=== PATIENT | female | born 1945 | race Caucasian/White ===

== ENCOUNTER 2018-08-29 06:01 | Inpatient (IN) | payer MEDICARE, OTHER, MEDICAID ==
[~2018-08-29 06:01] MED LIST: Acetaminophen 325 MG Tab PO SCH; Lidocaine 1%/Sod Bicarbonate in NS 8.4% 1 ML Syringe IDERM PRN; Pregabalin 25 MG Cap PO SCH; Sodium Chloride 0.9% 10 ML Syringe FLUSH PRN; oxyCODONE ER 10 MG TAB.ER PO SCH
[2018-08-29] MEDS ORDERED: Iodine/Sodium Iodide 2% Tincture 30 ML Bottle ONE (06:21)
[2018-08-29] MEDS ORDERED: Vancomycin 1 GM SDV ONE (06:21)
[2018-08-29] MEDS ORDERED: Bupivacaine 0.25% 30 ML SDV ONE (06:21)
[2018-08-29] MEDS ORDERED: ceFAZolin 1 GM Vial ONE ×3 (06:21→08:06)
[2018-08-29] MEDS: Lactated Ringers 1,000 ML IV SCH ×2 (06:30→10:36)
--- NOTE | 2018-08-29 06:43 | PCM.PREANE ---
Preanesthetic Assessment - Anesthesia/Transfusion/Family Hx Anesthesia History: Prior Anesthesia Without Reaction Family History of Anesthesia Reaction: No Transfusion History: No Prior Transfusion(s) Type of Transfusion Reactions: Reports: Unknown - Review of Systems General: No Symptoms Pulmonary: No Symptoms Cardiovascular: Dyspnea on Exertion Gastrointestinal: Abdominal Pain (laying in supine position) Neurological: Seizure (6 years of age) Other: Reports: Easy Bruising, Diabetes (check at [id number]) - Physical Assessment NPO Status Date: 08/28/18 NPO Status Time: 00:00 Pulse: 57 O2 Sat by Pulse Oximetry: 96 Respiratory Rate: 16 Blood Pressure: 139/54 Temperature: 36.2 C Height: 1.73 m Weight: 119.249 kg ASA Class: 3 Mental Status: Alert & Oriented x3 Dentition: Reports: Dentures (upper) Thyro-Mental Finger Breadths: 2 Mouth Opening Finger Breadths: 2 ROM/Head Extension: Full Lungs: Clear to Auscultation, Normal Respiratory Effort Cardiovascular: Regular Rate, Regular Rhythm - Lab Values: Laboratory Last Values MRSA (PCR) Negative 08/17/18 16:23 - Imaging/EKG Impressions: on chart SB - Allergies Allergies/Adverse Reactions: Allergies Allergy/AdvReac Type Severity Reaction Status Date / Time metformin Allergy Cannot Verified 08/26/18 11:22 Remember - Anesthesia Plan Pre-Op Medication Ordered: Beta Theron Beta [place]: Labetalol Med Last Dose Date: 08/29/18 Med Last Dose Time: 05:30 - Acknowledgements Anesthesia Type Planned: Spinal, Regional Block (femoral block for post-op pain control) Pt an Appropriate Candidate for the Planned Anesthesia: Yes Alternatives and Risks of Anesthesia Discussed w Pt/Guardian: Yes Pt/Guardian Understands and Agrees with Anesthesia Plan: Yes PreAnesthesia Questionnaire HEENT History: Reports: Impaired Vision, Sinusitis, Other (See Below) Other HEENT History: wears glasses, has upper denture Cardiovascular History: Reports: Heart Murmur, High Cholesterol, Hypertension, Other (See Below) Other Cardiovascular History: SVT Respiratory History: Reports: Sleep Apnea Gastrointestinal History: Reports: Hemorrhoids Genitourinary History: Reports: Urinary Incontinence, Other (See Below) Other Genitourinary History: frequency 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: Other (See Below) Other OB/BYN History: breast lump Musculoskeletal History: Reports: Osteoarthritis Neurological History: Reports: Headaches, Chronic Psychiatric History: Reports: None Endocrine/Metabolic History: Reports: Diabetes, Type II, Hypothyroidism, Obesity /BMI 30+ Hematologic History: Reports: None Immunologic History: Reports: None Oncologic (Cancer) History: Reports: None Dermatologic History: Reports: Cellulitis, Other (See Below) Other Dermatologic History: lipoma - Infectious Disease History Infectious Disease History: Reports: Chicken Pox, Measles - Past Surgical History HEENT Surgical History: Reports: Cataract Surgery, Eye Surgery, Tonsillectomy Other HEENT Surgeries/Procedures: Cataract surg. OD Respiratory Surgical History: Reports: None GI Surgical History: Reports: Colonoscopy Female Surgical History: Reports: None Male Surgical History: Reports: None Musculoskeletal Surgical History: Reports: Knee Replacement, Other (See Below) Other Musculoskeletal Surgeries/Procedures:: bulging disc, surgery x 2 for ruptured disc Oncologic Surgical History: Reports: None Dermatological Surgical History: Reports: None - SUBSTANCE USE Smoking Status *Q: Never Smoker Tobacco Use Within Last Twelve Months: No Second Hand Smoke Exposure: No Days Per Week of Alcohol Use: 0 Number of Drinks Per Day: 0 Total Drinks Per Week: 0 Recreational Drug Use History: No - HOME MEDS Home Medications: Home Meds Acetaminophen [Tylenol Arthritis] 1,300 mg PO BID 08/26/18 [History] Ascorbate Calcium [Vitamin C] 1,000 mg PO DAILY 08/26/18 [History] Aspirin [Halfprin] 81 mg PO DAILY 08/26/18 [History] Chlorthalidone 25 mg PO DAILY 08/26/18 [History] Cyanocobalamin (Vitamin B12) [Vitamin B12] 250 mcg PO DAILY 08/26/18 [History] Docusate Sodium [Colace] 300 mg PO DAILY 08/26/18 [History] Fish Oil/DHA/EPA [Fish Oil 1,200 MG] 1,200 mg PO DAILY 08/26/18 [History] Fluticasone Propionate [Flonase] 1 dose NASBOTH DAILY PRN 08/26/18 [History] Furosemide 20 mg PO DAILY 08/26/18 [History] Furosemide 20 mg PO DAILY PRN 08/26/18 [History] Gabapentin [Neurontin] 300 mg PO DAILY 08/26/18 [History] Hydrocortisone [Hydrocortisone 1% Crm] 1 dose TOP BID PRN 08/26/18 [History] Ibuprofen [Advil] 800 mg PO Q6H PRN 08/26/18 [History] Insulin Aspart [NovoLOG] 12 units SQ TID 08/26/18 [History] Insulin Glargine,Hum.Rec.Anlog [Basaglar Kwikpen U-100] 80 units SQ BEDTIME [History] L. Acidophilus/Pectin, [place] [Acidophilus Probiotic] 1 cap PO DAILY 08/26/18 [ History] Labetalol [Normodyne] 100 mg PO BID 08/26/18 [History] Levothyroxine [Synthroid] 100 mcg PO DAILY 08/26/18 [History] Losartan [Cozaar] 50 mg PO DAILY 08/26/18 [History] Multivitamin [Children's Chewable Vitamin] 1 tab PO DAILY 08/26/18 [History] Ozempic 0.5 mg SQ TH 08/26/18 [History] Polyvinyl Alcohol/Povidone/Pf [Refresh Classic Eye Drops] 1 dose EYEBOTH DAILY PRN 08/26/18 [History] Rosuvastatin Calcium 20 mg PO DAILY 08/26/18 [History] Vitamin B Comp W-C/FA/Zinc [Anjali B Strong with C & Zinc Tb] 1 tab PO DAILY 08/26 [History] Vitamin E 400 unit PO DAILY 08/26/18 [History] amLODIPine Besylate [Norvasc] 10 mg PO DAILY 08/26/18 [History] - CURRENT (IN HOUSE) MEDS Current Meds: Current Medications Acetaminophen (Tylenol) 975 mg PO ONETIME NISA Stop: 08/29/18 18:00 Last Admin: 08/29/18 06:28 Dose: 975 mg Lactated Ringer's (Ringers, Lactated) 1,000 mls @ 125 mls/hr IV ASDIRECTED NISA Stop: 08/29/18 23:00 Lidocaine/Sodium Bicarbonate (Buffered Lidocaine 1% In Ns 8.4%) 0.25 ml IDERM ONETIME PRN PRN Reason: Prior to IV Start Stop: 08/29/18 18:00 Oxycodone HCl (Oxycontin) 10 mg PO ONETIME NISA Stop: 08/29/18 18:00 Last Admin: 08/29/18 06:27 Dose: 10 mg Pregabalin (Lyrica) 50 mg PO ONETIME NISA Stop: 08/29/18 18:00 Last Admin: 08/29/18 06:27 Dose: 50 mg Sodium Chloride (Saline Flush) 10 ml FLUSH ASDIRECTED PRN PRN Reason: Keep Vein Open Stop: 08/29/18 18:00 Discontinued Medications Bupivacaine HCl (Marcaine 0.25%) Confirm Administered Dose 30 ml .ROUTE .STK- MED ONE Stop: 08/29/18 06:22 Cefazolin Sodium (Ancef) Confirm Administered Dose 2 gm .ROUTE .STK-MED ONE Stop: 08/29/18 06:22 Iodine (Iodine 2% Mild Tincture) Confirm Administered Dose 30 ml .ROUTE .STK- MED ONE Stop: 08/29/18 06:22 Tranexamic Acid (Cyklokapron) Confirm Administered Dose 1,000 mg .ROUTE .STK- MED ONE Stop: 08/29/18 06:22 Vancomycin HCl (Vancomycin) Confirm Administered Dose 1 gm .ROUTE .STK-MED ONE Stop: 08/29/18 06:22
[2018-08-29] MEDS ORDERED: Propofol 200 MG/20 ML SDV ONE ×2 (06:54→07:40)
[2018-08-29] MEDS ORDERED: fentaNYL 100 MCG/2 ML SDV ONE ×2 (06:54→09:22)
[2018-08-29] MEDS ORDERED: Ropivacaine 0.5% 5 MG/ML 30 ML SDV ONE (07:37)
[2018-08-29] MEDS ORDERED: EPINEPHrine 1 MG/ML SDV ONE (07:37)
[2018-08-29] MEDS ORDERED: Morphine 8 MG, EPINEPHrine 0.3 MG, Cefuroxime 750 MG, Ketorolac 30 MG, Sodium Chloride ... ONE ×5 (08:00)
[2018-08-29] MEDS ORDERED: Lactated Ringers 1,000 ML ONE (08:08)
[2018-08-29] MEDS ORDERED: fentaNYL 250 MCG/5 ML SDV ONE (08:16)
[2018-08-29] MEDS ORDERED: HYDROmorphone 0.5 MG/0.5 ML Syringe ONE ×2 (08:17→08:18)
[2018-08-29] MEDS ORDERED: Ondansetron 4 MG/2 ML SDV ONE (08:20)
[2018-08-29] MEDS ORDERED: Bisacodyl 5 MG Tab PO PRN (08:30)
[2018-08-29] MEDS ORDERED: Naloxone 0.4 MG/ML SDV IVPUSH PRN (08:30)
[2018-08-29] MEDS ORDERED: Sennosides 8.6 MG Tab PO PRN (08:30)
[2018-08-29] MEDS ORDERED: Ondansetron 4 MG/2 ML SDV IVPUSH PRN (08:30)
[2018-08-29] MEDS ORDERED: Lidocaine 1% 2 ML ONE (09:22)
[2018-08-29] MEDS ORDERED: Ketorolac 30 MG/ML SDV IVPUSH ONE (09:56)
[2018-08-29] MEDS ORDERED: HYDROmorphone 0.5 MG/0.5 ML Syringe IVPUSH PRN (10:13)
[2018-08-29] MEDS ORDERED: fentaNYL 100 MCG/2 ML SDV IVPUSH PRN (10:13)
[2018-08-29] MEDS ORDERED: Hydrocortisone 1% Crm 30 GM Tube TOP PRN (10:14)
[2018-08-29] MEDS ORDERED: Furosemide 20 MG Tab PO PRN (10:14)
[2018-08-29] MEDS ORDERED: Carboxymethylcellulose Sodium 1% Ophth Gel 15 ML Bottle EYEBOTH PRN (10:14)
--- NOTE | 2018-08-29 10:15 | PCM.POSTAN ---
POST ANESTHESIA ASSESSMENT - MENTAL STATUS Mental Status: Alert, Oriented - VITAL SIGNS Pulse Rate: 67 SaO2: 91 Resp Rate: 12 Blood Pressure: 182/73 Temperature: 36.9 C - RESPIRATORY Respiratory Status: Respiratory Rate WNL, Airway Patent, O2 Saturation Stable, Supplemental Oxygen - CARDIOVASCULAR CV Status: Pulse Rate WNL, Blood Pressure Stable - GASTROINTESTINAL GI Status: No Symptoms - PAIN Pain Score: 5 - POST OP HYDRATION Hydration Status: Adequate & Stable - OBSERVATIONS Free Text/Narrative:: no anesthesia complications noted
--- NOTE | 2018-08-29 10:18 | PCM.SN ---
- Free Text/Narrative Note: Right selective femoral nerve block at the adductor canal for post-procedure pain control Time Out: 932 Start: 932 End: 954 Chart reviewed. Consent signed. Questions answered. Appropriate monitors applied. Time out performed. Right mid-shaft femur evaluated with ultrasound. Scanning medially femur, I was able to identify the femoral artery in the adductor canal. The saphenous nerve was lateral to the artery. The skin was prepped lateral to the ultrasound probe with chlorahexadine. The 21ga 4 insulated block needle was inserted under direct ultrasound guidance into the adductor canal. 25 mL of 0.5% ropivacaine with 1:200,000 epinephrine was injected cirmcumferentially about the nerve with intermittent negative aspiration every 5mL. Patient tolerated the procedure well. See pictures on progress note and vital signs on nurses notes. Block completed postoperatively. Kevon Krueger CRNA
[2018-08-29] MEDS: Acetaminophen/oxyCODONE 325-5 MG Tab PO PRN ×2 (10:33→20:08)
--- NOTE | 2018-08-29 11:11 | CR ---
Right knee: AP and lateral views of the right knee were obtained. Comparison: No prior right knee exam. Knee prosthesis is seen. Components are aligned. Soft tissue air is noted from the surgical procedure. No fracture or other bony abnormality is appreciated. Impression: 1. Satisfactory appearance of recently placed right knee prosthesis. Diagnostic code #2
[2018-08-29] MEDS ORDERED: Fluticasone Propionate Nasal Spray 16 GM Bottle NASBOTH SCH (11:15)
[2018-08-29] MEDS: Morphine 2 MG/ML Syringe IVPUSH PRN (11:30)
--- NOTE | 2018-08-29 11:58 | PCM.CONS ---
H&P History of Present Illness - General Date of Service: 08/29/18 Admit Problem/Dx: Admission Diagnosis/Problem Admission Diagnosis/Problem Osteoarthritis of knee Source of Information: Patient, Old Records, Provider, RN, RN Notes Reviewed History Limitations: Reports: No Limitations - History of Present Illness Initial Comments - Free Text/Narative: Antonella Geronimo is a 73 yo female patient of Dr. Franklin who is post-operative day 0 of right TKA. Hospital medicine was consulted for post-operative medical care. At this time she is resting comfortably in bed. Pain is controlled. She denies any chest pain, shortness of breath, palpitations, nausea, or vomiting. She carries a history of: Type II DM, HTN, HLD, Palpations, Hypothyroidism, Heart murmur, SVT, Sleep apnea, Urinary incontinence, Osteoarthritis, Chronic headaches. She was never a smoker. She is a full code. Her primary care provider is Dr. Morris. Right Knee Pain Score (Numeric/FACES): 2 - Related Data Allergies/Adverse Reactions: Allergies Allergy/AdvReac Type Severity Reaction Status Date / Time metformin Allergy Cannot Verified 08/26/18 11:22 Remember Home Medications: Home Meds Chlorthalidone 25 mg PO DAILY 08/26/18 [History] Cyanocobalamin (Vitamin B12) [Vitamin B12] 250 mcg PO DAILY 08/26/18 [History] Docusate Sodium [Colace] 300 mg PO DAILY 08/26/18 [History] Fluticasone Propionate [Flonase] 1 dose NASBOTH DAILY PRN 08/26/18 [History] Furosemide 20 mg PO DAILY 08/26/18 [History] Furosemide 20 mg PO DAILY PRN 08/26/18 [History] Gabapentin [Neurontin] 300 mg PO DAILY 08/26/18 [History] Hydrocortisone [Hydrocortisone 1% Crm] 1 dose TOP BID PRN 08/26/18 [History] Insulin Aspart [NovoLOG] 12 units SQ TID 08/26/18 [History] Insulin Glargine,Hum.Rec.Anlog [Basaglar Kwikpen U-100] 80 units SQ BEDTIME [History] L. Acidophilus/Pectin, [place] [Acidophilus Probiotic] 1 cap PO DAILY 08/26/18 [ History] Labetalol [Normodyne] 100 mg PO BID 08/26/18 [History] Levothyroxine [Synthroid] 100 mcg PO DAILY 08/26/18 [History] Losartan [Cozaar] 50 mg PO DAILY 08/26/18 [History] Multivitamin [Children's Chewable Vitamin] 1 tab PO DAILY 08/26/18 [History] Ozempic 0.5 mg SQ TH 08/26/18 [History] Polyvinyl Alcohol/Povidone/Pf [Refresh Classic Eye Drops] 1 dose EYEBOTH DAILY PRN 08/26/18 [History] Rosuvastatin Calcium 20 mg PO DAILY 08/26/18 [History] amLODIPine Besylate [Norvasc] 10 mg PO DAILY 08/26/18 [History] Acetaminophen [Tylenol Arthritis] 1,300 mg PO BID #0 08/29/18 [Rx] Acetaminophen/oxyCODONE [Percocet 325-5 MG] 1 - 2 tab PO Q4H PRN #60 tablet [Rx] Aspirin [Ecotrin] 325 mg PO BID #84 tab.ec 08/29/18 [Rx] Bisacodyl [Dulcolax] 5 mg PO DAILY PRN tablet 08/29/18 [Rx] Sennosides [Senna] 8.6 mg PO BID PRN tablet 08/29/18 [Rx] Past Medical History HEENT History: Reports: Impaired Vision, Sinusitis, Other (See Below) Other HEENT History: wears glasses, has upper denture Cardiovascular History: Reports: Heart Murmur, High Cholesterol, Hypertension, Other (See Below) Other Cardiovascular History: SVT Respiratory History: Reports: Sleep Apnea Gastrointestinal History: Reports: Hemorrhoids Genitourinary History: Reports: Urinary Incontinence, Other (See Below) Other Genitourinary History: frequency 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: Other (See Below) Other OB/BYN History: breast lump Musculoskeletal History: Reports: Osteoarthritis Neurological History: Reports: Headaches, Chronic Psychiatric History: Reports: None Endocrine/Metabolic History: Reports: Diabetes, Type II, Hypothyroidism, Obesity /BMI 30+ Hematologic History: Reports: None Immunologic History: Reports: None Oncologic (Cancer) History: Reports: None Dermatologic History: Reports: Cellulitis, Other (See Below) Other Dermatologic History: lipoma - Infectious Disease History Infectious Disease History: Reports: Chicken Pox, Measles - Past Surgical History HEENT Surgical History: Reports: Cataract Surgery, Eye Surgery, Tonsillectomy Other HEENT Surgeries/Procedures: Cataract surg. OD Cardiovascular Surgical History: Reports: Varicose Respiratory Surgical History: Reports: None GI Surgical History: Reports: Colonoscopy Female Surgical History: Reports: None Musculoskeletal Surgical History: Reports: Knee Replacement, Other (See Below) Other Musculoskeletal Surgeries/Procedures:: bulging disc, surgery x 2 for ruptured disc Oncologic Surgical History: Reports: None Dermatological Surgical History: Reports: None Social & Family History - Family History Family Medical History: Noncontributory - Tobacco Use Smoking Status *Q: Never Smoker Second Hand Smoke Exposure: No - Caffeine Use Caffeine Use: Reports: None - Alcohol Use Days Per Week of Alcohol Use: 0 Number of Drinks Per Day: 0 Total Drinks Per Week: 0 - Recreational Drug Use Recreational Drug Use: No Drug Use in Last 12 Months: No H&P Review of Systems - Review of Systems: Review Of Systems: See Below General: Reports: Decreased Appetite (chronic ). Denies: Fever, Chills, Malaise HEENT: Reports: No Symptoms. Denies: Headaches, Sore Throat Pulmonary: Reports: No Symptoms. Denies: Shortness of Breath, Wheezing, Pleuritic Chest Pain, Cough, Sputum Cardiovascular: Reports: No Symptoms. Denies: Chest Pain, Palpitations, Dyspnea on Exertion Gastrointestinal: Reports: No Symptoms. Denies: Abdominal Pain, Constipation, Diarrhea, Nausea, Vomiting Genitourinary: Reports: No Symptoms. Denies: Pain Musculoskeletal: Reports: Leg Pain Skin: Reports: No Symptoms. Denies: Cyanosis Psychiatric: Reports: No Symptoms. Denies: Confusion Neurological: Reports: No Symptoms Hematologic/Lymphatic: Reports: No Symptoms Immunologic: Reports: No Symptoms Exam - Exam Exam: See Below - Vital Signs Vital Signs: Last Vital Signs Temp 98.4 F 08/29/18 10:45 Pulse 69 08/29/18 10:45 Resp 13 08/29/18 10:45 BP 175/66 H 08/29/18 10:45 Pulse Ox 98 08/29/18 11:47 Weight: 262 lb 14.4 oz - Exam Quality Assessment: Supplemental Oxygen, DVT Prophylaxis General: Alert, Oriented, Cooperative. No: Mild Distress HEENT: Conjunctiva Clear, EACs Clear, EOMI, Hearing Intact, Mucosa Moist & [place] , Nares Patent, Posterior Pharynx Clear, PERRLA Neck: Supple, Trachea Midline Lungs: Clear to Auscultation, Normal Respiratory Effort Cardiovascular: Regular Rate, Regular Rhythm GI/Abdominal Exam: Normal Bowel Sounds, Soft, Non-Tender, No Organomegaly, No Distention (Female) Exam: Deferred Rectal (Female) Exam: Deferred Back Exam: Normal Inspection, Full Range of Motion Extremities: No Pedal Edema, Normal Capillary Refill, Leg Pain, Limited Range of Motion, Other (Bandage in place on right leg. Bandage is dry and intact. Cooling pack in place. ) Peripheral Pulses: 2+: Radial (L), Radial (R), Dorsalis Pedis (L), Dorsalis Pedis (R) Skin: Warm, Dry, Intact Neurological: Cranial Nerves Intact (Grossly ) Neuro Extensive - Mental Status: Alert, Oriented x3, Normal Mood/Affect, Normal Cognition - Patient Data Lab Results Last 24 hrs: Laboratory Results - last 24 hr 08/29/18 08/29/18 Range/Units 06:37 09:32 POC Glucose 135 H 147 H (83-110) mg/dL Consult PN Assessment/Plan POD#: 0 Procedures: Procedures ASSAY OF ALDOSTERONE (10/08/15) ASSAY OF BLOOD/URIC ACID (06/22/17) ASSAY OF DIGOXIN TOTAL (10/27/13) ASSAY OF MAGNESIUM (06/27/18) ASSAY OF METANEPHRINES (10/08/15) ASSAY OF PARATHORMONE (10/04/15) ASSAY OF PROTEIN URINE (06/27/18) ASSAY OF RENIN (10/08/15) ASSAY OF TROPONIN QUANT (08/11/18) ASSAY OF URINE CREATININE (06/27/18) C-REACTIVE PROTEIN (01/30/16) CARDIOVASCULAR STRESS TEST (05/04/17) COMPLETE CBC W/AUTO DIFF WBC (06/27/18) COMPREHEN METABOLIC PANEL (01/06/16) COMPUTER DX MAMMOGRAM ADD-ON (11/02/14) DRAIN/INJ JOINT/BURSA W/O US (04/14/16) GAIT TRAINING THERAPY (02/06/16) GLUCOSE BLOOD TEST (01/06/16) HT MUSCLE IMAGE SPECT MULT (05/04/17) MANUAL THERAPY 1/> REGIONS (05/07/16) MASSAGE THERAPY (03/19/16) MEASURE BLOOD OXYGEN LEVEL (01/06/16) METABOLIC PANEL TOTAL CA (05/04/17) MR-STAPH DNA AMP PROBE (12/25/15) NEUROMUSCULAR REEDUCATION (05/07/16) OT EVALUATION (01/06/16) POLYSOM 6/>YRS CPAP 4/> PARM (08/16/17) PROTEIN E-PHORESIS SERUM (10/04/15) PROTEIN E-PHORESIS/URINE/CSF (10/04/15) PT EVALUATION (05/07/16) RBC SED RATE AUTOMATED (01/30/16) RENAL FUNCTION PANEL (06/27/18) ROUTINE VENIPUNCTURE (06/27/18) SELF CARE MNGMENT TRAINING (01/06/16) THERAPEUTIC ACTIVITIES (01/06/16) THERAPEUTIC EXERCISES (05/07/16) TISSUE EXAM BY PATHOLOGIST (12/11/14) URINALYSIS AUTO W/SCOPE (06/27/18) URINE CULTURE/COLONY COUNT (07/09/15) X-RAY EXAM OF KNEE 1 OR 2 (01/06/16) (1) S/P total knee arthroplasty SNOMED Code(s): 2584206380950, 877418449, 6246054228957 Code(s): Z96.659 - PRESENCE OF UNSPECIFIED ARTIFICIAL KNEE JOINT Priority: High Current Visit: Yes Qualifiers: Laterality: right Qualified Code(s): Z96.651 - Presence of right artificial knee joint (2) Osteoarthritis SNOMED Code(s): 100379462 Code(s): M19.90 - UNSPECIFIED OSTEOARTHRITIS, UNSPECIFIED SITE Priority: High Current Visit: Yes Qualifiers: Osteoarthritis location: knee Osteoarthritis type: primary Laterality: right Qualified Code(s): M17.11 - Unilateral primary osteoarthritis, right knee (3) Diabetes mellitus type 2 in obese SNOMED Code(s): 61937730 Code(s): E11.9 - TYPE 2 DIABETES MELLITUS WITHOUT COMPLICATIONS; E66.9 - OBESITY, UNSPECIFIED Priority: Medium Current Visit: No (4) Hyperlipidemia SNOMED Code(s): 19604215 Code(s): E78.5 - HYPERLIPIDEMIA, UNSPECIFIED Priority: Low Current Visit : No Qualifiers: Hyperlipidemia type: unspecified Qualified Code(s): E78.5 - Hyperlipidemia , unspecified (5) Hypertension SNOMED Code(s): 56957081 Code(s): I10 - ESSENTIAL (PRIMARY) HYPERTENSION Priority: Medium Current Visit: No Qualifiers: Hypertension type: unspecified Qualified Code(s): I10 - Essential (primary ) hypertension (6) Hypothyroidism SNOMED Code(s): 35936084 Code(s): E03.9 - HYPOTHYROIDISM, UNSPECIFIED Priority: Low Current Visit : No Qualifiers: Hypothyroidism type: unspecified Qualified Code(s): E03.9 - Hypothyroidism , unspecified (7) Urinary incontinence SNOMED Code(s): 756663782 Code(s): R32 - UNSPECIFIED URINARY INCONTINENCE Priority: Medium Current Visit: No Qualifiers: Urinary Incontinence type: unspecified incontinence Qualified Code(s): R32 - Unspecified urinary incontinence Problem List Initiated/Reviewed/Updated: Yes Plan: I/P: Acute: S/P right total knee arthroplasty - post-operative day 0 -DVT prophylaxis and pain management per primary care team -PT/OT -IS/RT -Monitor oxygen saturation -Titrate oxygen as needed -Home medications reviewed -Vital signs stable -Monitor labs -Pre-operative Hgb was 13.1 -Pre-operative GFR was 58 -Pre operative A1C was 6.6% Osteoarthritis of right knee -Pain management per primary care team Chronic: Type II DM HTN HLD Palpations Hypothyroidism Heart murmur Hx/o SVT Sleep apnea Urinary incontinence Osteoarthritis Chronic headaches Plan: CM for discharge planning GI prophylaxis Home medications as indicated Other orders as listed above Routine AM labs She is a full code. Her PCP is Dr. Morris Thank you for allowing us to participate in the care of this patient!! Requesting Provider: Dr. Franklin Date Consult Requested: 08/29/18 Reason for Consult: Post-operative medical managment Patient History Reviewed: Yes Admission H&P Reviewed: Yes Time Spent (in minutes): 40
[2018-08-29] MEDS ORDERED: 50% Dextrose in Water 50 ML Syringe IVPUSH PRN (14:12)
[2018-08-29] MEDS ORDERED: Insulin Lispro 100 Units/ML 3 ML Vial SUBCUT SCH (15:00)
[2018-08-29] MEDS: ceFAZolin 1 GM in Premix Bag 1 BAG IV SCH ×2 (16:17→23:20)
[2018-08-29] MEDS: Insulin Lispro 100 Units/ML 3 ML Vial SUBCUT SCH ×2 (16:36→21:15)
[2018-08-29] MEDS: ceFAZolin 2 GM in Premix Bag 1 BAG IV SCH ×2 (17:27→22:43)
[2018-08-29] MEDS: Labetalol 100 MG Tab PO SCH (20:07)
[2018-08-29] MEDS ORDERED: Docusate Sodium 100 MG Cap PO SCH (21:00)
[2018-08-29] MEDS ORDERED: Insulin Glarg,Human.Rec.Analog 100 UNIT/ML ML SUBCUT SCH (21:00)
[2018-08-30] MEDS: Morphine 2 MG/ML Syringe IVPUSH PRN ×2 (00:11→02:16)
[2018-08-30] MEDS: Acetaminophen/oxyCODONE 325-5 MG Tab PO PRN ×6 (00:50→23:39)
[2018-08-30] MEDS: Ketorolac 15 MG/ML SDV IVPUSH PRN ×2 (01:48→08:17)
[2018-08-30] MEDS: ceFAZolin 2 GM in Premix Bag 1 BAG IV SCH (05:59)
[2018-08-30] MEDS: Insulin Lispro 100 Units/ML 3 ML Vial SUBCUT SCH ×4 (06:14→21:40)
--- NOTE | 2018-08-30 06:25 | PCM.CONSN ---
- General Info Date of Service: 08/30/18 Admission Dx/Problem (Free Text): Admission Diagnosis/Problem Admission Diagnosis/Problem Osteoarthritis of knee Subjective Update: In to see Antonella. She reports he pain is controlled currently. She has been working with PT/OT and there are some concerns with her safety at discharge. Her GFR dropped a bit today and creatinine went up so 500mL fluid bolus was given. Otherwise labs and vital signs remain stable. Functional Status: Reports: Pain Controlled, Tolerating Diet, Ambulating, Urinating, Incentive Spirometry. Denies: New Symptoms - Review of Systems General: Reports: No Symptoms. Denies: Fever, Weakness, Fatigue, Malaise, Chills HEENT: Reports: No Symptoms. Denies: Headaches, Sore Throat Pulmonary: Reports: No Symptoms. Denies: Shortness of Breath, Pleuritic Chest Pain, Cough, Sputum, Wheezing Cardiovascular: Reports: No Symptoms. Denies: Chest Pain, Palpitations, Dyspnea on Exertion Gastrointestinal: Reports: No Symptoms. Denies: Abdominal Pain, Constipation, Diarrhea, Nausea, Vomiting Genitourinary: Reports: No Symptoms. Denies: Pain Musculoskeletal: Reports: Leg Pain Skin: Reports: No Symptoms. Denies: Cyanosis Neurological: Reports: No Symptoms. Denies: Confusion Psychiatric: Reports: No Symptoms - Patient Data Vitals - Most Recent: Last Vital Signs Temp 97.9 F 08/30/18 05:06 Pulse 60 08/30/18 05:06 Resp 14 08/30/18 05:06 BP 134/43 L 08/30/18 05:06 Pulse Ox 99 08/30/18 05:06 Weight - Most Recent: 262 lb 14.4 oz I&O - Last 24 Hours: Intake & Output 08/29/18 08/29/18 08/30/18 14:59 22:59 06:59 Intake Total 300 200 Output Total 475 Balance -175 200 Lab Results Last 24 Hours: Laboratory Results - last 24 hr 08/29/18 08/29/18 08/29/18 Range/Units 06:37 09:32 16:28 POC Glucose 135 H 147 H 150 H (83-110) mg/dL 08/29/18 08/30/18 Range/Units 21:13 06:09 POC Glucose 117 H 168 H (83-110) mg/dL Med Orders - Current: Current Medications Amlodipine Besylate (Norvasc) 10 mg PO DAILY [facility] Artificial Tears (Refresh Liquigel 1%) 0 ml EYEBOTH DAILY PRN PRN Reason: Dry Eyes Aspirin (Ecotrin) 325 mg PO BID [facility] Bisacodyl (Dulcolax) 5 mg PO DAILY PRN PRN Reason: Constipation Dextrose/Water (Dextrose 50% In Water) 50 ml IVPUSH ASDIRECTED PRN PRN Reason: Hypoglycemia Docusate Sodium (Colace) 300 mg PO DAILY [facility] Flunisolide (Nasalide Nasal [place]) 0 ml NASBOTH DAILY [facility] Furosemide (Lasix) 20 mg PO DAILY PRN PRN Reason: swelling Furosemide (Lasix) 20 mg PO DAILY [facility] Gabapentin (Neurontin) 300 mg PO DAILY [facility] Hydrocortisone (Hydrocortisone 1% Crm) 0 gm TOP BID PRN PRN Reason: skin complications Cefazolin Sodium/Dextrose 2 gm (/ Premix) 50 mls @ 100 mls/hr IV Q8H [facility] Stop: 08/30/18 07:29 Last Admin: 08/30/18 05:59 Dose: 100 mls/hr Cefazolin Sodium/Dextrose 1 gm (/ Premix) 50 mls @ 66.667 mls/hr IV Q8H [facility] Stop: 08/30/18 07:44 Last Admin: 08/29/18 23:20 Dose: 66.667 mls/hr Insulin Human Lispro (Humalog) 12 unit SUBCUT TID [facility] Insulin Human Lispro (Humalog) 0 unit SUBCUT QIDACANDBED [facility]; Protocol Last Admin: 08/30/18 06:14 Dose: 2 unit Ketorolac Tromethamine (Toradol) 15 mg IVPUSH Q6H PRN PRN Reason: Pain Last Admin: 08/30/18 01:48 Dose: 15 mg Labetalol HCl (Normodyne) 100 mg PO BID [facility] Last Admin: 08/29/18 20:07 Dose: 100 mg Levothyroxine Sodium (Synthroid) 100 mcg PO DAILY [facility] Losartan Potassium (Cozaar) 50 mg PO DAILY [facility] Morphine Sulfate (Morphine) 2 mg IVPUSH Q2H PRN PRN Reason: Breakthrough Pain Last Admin: 08/30/18 02:16 Dose: 2 mg Naloxone HCl (Narcan) 0.1 mg IVPUSH Q5M PRN PRN Reason: Oversedation Ondansetron HCl (Zofran) 4 mg IVPUSH Q6H PRN PRN Reason: Nausea/Vomiting Oxycodone/Acetaminophen (Percocet 325-5 Mg) 1 - 2 tab PO Q4H PRN PRN Reason: Pain Last Admin: 08/30/18 05:02 Dose: 2 tab Chlorthalidone 25 Mg (Patients Own Med) 0 each PO DAILY [facility] Cyanocobalamin ( (Vitamin B12) 250 Mcg) 0 each PO DAILY [facility] Acidophilus Probiotic Patients Own Med 0 each PO DAILY [facility] Children's Chewable Vitamin 1 Tab Patient's Own Med 0 each PO DAILY [facility] Rosuvastatin Calcium (Crestor) 20 mg PO DAILY [facility] Senna (Senna) 8.6 mg PO BID PRN PRN Reason: Constipation Discontinued Medications Acetaminophen (Tylenol) 975 mg PO ONETIME [facility] Stop: 08/29/18 18:00 Last Admin: 08/29/18 06:28 Dose: 975 mg Bupivacaine HCl (Marcaine 0.25%) Confirm Administered Dose 30 ml .ROUTE .STK- MED ONE Stop: 08/29/18 06:22 Last Admin: 08/29/18 08:51 Dose: 30 ml Cefazolin Sodium (Ancef) Confirm Administered Dose 2 gm .ROUTE .STK-MED ONE Stop: 08/29/18 06:22 Last Admin: 08/29/18 08:47 Dose: 2 gm Cefazolin Sodium (Ancef) Confirm Administered Dose 2 gm .ROUTE .STK-MED ONE Stop: 08/29/18 06:55 Cefazolin Sodium (Ancef) Confirm Administered Dose 1 gm .ROUTE .STK-MED ONE Stop: 08/29/18 08:07 Morphine Sulfate 8 mg/Epinephrine HCl 0.3 mg/Cefuroxime Sodium 750 mg/Ketorolac Tromethamine 30 mg/Sodium Chloride 27.9 ml 0 mg .XX ONETIME ONE Stop: 08/29/18 08:01 Last Admin: 08/29/18 08:51 Dose: 788.3 mg Docusate Sodium (Colace) 100 mg PO BID [facility] Epinephrine HCl (Adrenalin) Confirm Administered Dose 1 mg .ROUTE .STK-MED ONE Stop: 08/29/18 07:38 Fentanyl (Sublimaze) Confirm Administered Dose 100 mcg .ROUTE .STK-MED ONE Stop: 08/29/18 06:55 Fentanyl (Sublimaze) Confirm Administered Dose 250 mcg .ROUTE .STK-MED ONE Stop: 08/29/18 08:17 Fentanyl (Sublimaze) Confirm Administered Dose 100 mcg .ROUTE .STK-MED ONE Stop: 08/29/18 09:23 Fentanyl (Sublimaze) 50 mcg IVPUSH Q5M PRN PRN Reason: Pain Stop: 08/29/18 23:00 Last Admin: 08/29/18 10:25 Dose: 50 mcg Fluticasone Propionate (Flonase) 0 gm NASBOTH DAILY [facility] Last Admin: 08/29/18 16:47 Dose: Not Given Hydromorphone HCl (Dilaudid) Confirm Administered Dose 0.5 mg .ROUTE .STK-MED ONE Stop: 08/29/18 08:18 Hydromorphone HCl (Dilaudid) Confirm Administered Dose 0.5 mg .ROUTE .STK-MED ONE Stop: 08/29/18 08:19 Hydromorphone HCl (Dilaudid) 0.5 mg IVPUSH Q10M PRN PRN Reason: Pain (severe 7-10) Stop: 08/29/18 23:00 Last Admin: 08/29/18 10:21 Dose: 0.5 mg Lactated Ringer's (Ringers, Lactated) 1,000 mls @ 125 mls/hr IV ASDIRECTED [facility] Stop: 08/29/18 23:00 Last Admin: 08/29/18 10:36 Dose: 125 mls/hr Lactated Ringer's (Ringers, Lactated) Confirm Administered Dose 1,000 mls @ as directed .ROUTE .STK-MED ONE Stop: 08/29/18 08:09 Lidocaine HCl (Xylocaine-Mpf 1%) Confirm Administered Dose 2 mls @ as directed .ROUTE .STK-MED ONE Stop: 08/29/18 09:23 Iodine (Iodine 2% Mild Tincture) Confirm Administered Dose 30 ml .ROUTE .STK- MED ONE Stop: 08/29/18 06:22 Last Admin: 08/29/18 08:45 Dose: 18 ml Ketorolac Tromethamine (Toradol) 30 mg IVPUSH ONETIME ONE Stop: 08/29/18 09:57 Last Admin: 08/29/18 10:09 Dose: 30 mg Lidocaine/Sodium Bicarbonate (Buffered Lidocaine 1% In Ns 8.4%) 0.25 ml IDERM ONETIME PRN PRN Reason: Prior to IV Start Stop: 08/29/18 18:00 Last Admin: 08/29/18 06:30 Dose: 0.25 ml Ondansetron HCl (Zofran) Confirm Administered Dose 4 mg .ROUTE .STK-MED ONE Stop: 08/29/18 08:21 Oxycodone HCl (Oxycontin) 10 mg PO ONETIME [facility] Stop: 08/29/18 18:00 Last Admin: 08/29/18 06:27 Dose: 10 mg Pregabalin (Lyrica) 50 mg PO ONETIME [facility] Stop: 08/29/18 18:00 Last Admin: 08/29/18 06:27 Dose: 50 mg Propofol (Diprivan 20 Ml) Confirm Administered Dose 200 mg .ROUTE .STK-MED ONE Stop: 08/29/18 06:55 Propofol (Diprivan 20 Ml) Confirm Administered Dose 200 mg .ROUTE .STK-MED ONE Stop: 08/29/18 07:41 Ropivacaine (Naropin 0.5%) Confirm Administered Dose 30 ml .ROUTE .STK-MED ONE Stop: 08/29/18 07:38 Sodium Chloride (Saline Flush) 10 ml FLUSH ASDIRECTED PRN PRN Reason: Keep Vein Open Stop: 08/29/18 18:00 Tranexamic Acid (Cyklokapron) Confirm Administered Dose 1,000 mg .ROUTE .STK- MED ONE Stop: 08/29/18 06:22 Last Admin: 08/29/18 09:00 Dose: 1,000 mg Vancomycin HCl (Vancomycin) Confirm Administered Dose 1 gm .ROUTE .STK-MED ONE Stop: 08/29/18 06:22 Last Admin: 08/29/18 08:54 Dose: 1 gm - Exam Quality Assessment: DVT Prophylaxis General: Alert, Oriented, Cooperative, No Acute Distress HEENT: Pupils Equal, Pupils Reactive, EOMI, Mucous Membr. Moist/[place] Neck: Supple, Trachea Midline, No JVD Lungs: Clear to Auscultation, Normal Respiratory Effort Cardiovascular: Regular Rate, Regular Rhythm GI/Abdominal Exam: Normal Bowel Sounds, Soft, Non-Tender, No Organomegaly, No Distention (Female) Exam: Deferred Back Exam: Normal Inspection, Full Range of Motion Extremities: No Pedal Edema, Normal Capillary Refill, Leg Pain, Limited Range of Motion, Other (Bandage in place on right leg. Cooling pack in place. ) Peripheral Pulses: 2+: Radial (L), Radial (R), Dorsalis Pedis (L), Dorsalis Pedis (R) Skin: Warm, Dry, Intact Wound/Incisions: Dressing Dry and Intact, No Drainage Neurological: No New Focal Deficit Psy/Mental Status: Alert, Normal Affect, Normal Mood Consult PN Assessment/Plan POD#: 1 Procedures: Procedures ASSAY OF ALDOSTERONE (10/08/15) ASSAY OF BLOOD/URIC ACID (06/22/17) ASSAY OF DIGOXIN TOTAL (10/27/13) ASSAY OF MAGNESIUM (06/27/18) ASSAY OF METANEPHRINES (10/08/15) ASSAY OF PARATHORMONE (10/04/15) ASSAY OF PROTEIN URINE (06/27/18) ASSAY OF RENIN (10/08/15) ASSAY OF TROPONIN QUANT (08/11/18) ASSAY OF URINE CREATININE (06/27/18) C-REACTIVE PROTEIN (01/30/16) CARDIOVASCULAR STRESS TEST (05/04/17) COMPLETE CBC W/AUTO DIFF WBC (06/27/18) COMPREHEN METABOLIC PANEL (01/06/16) COMPUTER DX MAMMOGRAM ADD-ON (11/02/14) DRAIN/INJ JOINT/BURSA W/O US (04/14/16) GAIT TRAINING THERAPY (02/06/16) GLUCOSE BLOOD TEST (01/06/16) HT MUSCLE IMAGE SPECT MULT (05/04/17) MANUAL THERAPY 1/> REGIONS (05/07/16) MASSAGE THERAPY (03/19/16) MEASURE BLOOD OXYGEN LEVEL (01/06/16) METABOLIC PANEL TOTAL CA (05/04/17) MR-STAPH DNA AMP PROBE (12/25/15) NEUROMUSCULAR REEDUCATION (05/07/16) OT EVALUATION (01/06/16) POLYSOM 6/>YRS CPAP 4/> PARM (08/16/17) PROTEIN E-PHORESIS SERUM (10/04/15) PROTEIN E-PHORESIS/URINE/CSF (10/04/15) PT EVALUATION (05/07/16) RBC SED RATE AUTOMATED (01/30/16) RENAL FUNCTION PANEL (06/27/18) ROUTINE VENIPUNCTURE (06/27/18) SELF CARE MNGMENT TRAINING (01/06/16) THERAPEUTIC ACTIVITIES (01/06/16) THERAPEUTIC EXERCISES (05/07/16) TISSUE EXAM BY PATHOLOGIST (12/11/14) URINALYSIS AUTO W/SCOPE (06/27/18) URINE CULTURE/COLONY COUNT (07/09/15) X-RAY EXAM OF KNEE 1 OR 2 (01/06/16) (1) S/P total knee arthroplasty SNOMED Code(s): 9361292188249, 655779785, 4175219248000 Code(s): Z96.659 - PRESENCE OF UNSPECIFIED ARTIFICIAL KNEE JOINT Priority: High Current Visit: Yes Qualifiers: Laterality: right Qualified Code(s): Z96.651 - Presence of right artificial knee joint (2) Osteoarthritis SNOMED Code(s): 481494226 Code(s): M19.90 - UNSPECIFIED OSTEOARTHRITIS, UNSPECIFIED SITE Priority: High Current Visit: Yes Qualifiers: Osteoarthritis location: knee Osteoarthritis type: primary Laterality: right Qualified Code(s): M17.11 - Unilateral primary osteoarthritis, right knee (3) Diabetes mellitus type 2 in obese SNOMED Code(s): 36534003 Code(s): E11.9 - TYPE 2 DIABETES MELLITUS WITHOUT COMPLICATIONS; E66.9 - OBESITY, UNSPECIFIED Priority: Medium Current Visit: No (4) Hyperlipidemia SNOMED Code(s): 41367750 Code(s): E78.5 - HYPERLIPIDEMIA, UNSPECIFIED Priority: Low Current Visit : No Qualifiers: Hyperlipidemia type: unspecified Qualified Code(s): E78.5 - Hyperlipidemia , unspecified (5) Hypertension SNOMED Code(s): 24257010 Code(s): I10 - ESSENTIAL (PRIMARY) HYPERTENSION Priority: Medium Current Visit: No Qualifiers: Hypertension type: unspecified Qualified Code(s): I10 - Essential (primary ) hypertension (6) Hypothyroidism SNOMED Code(s): 07148916 Code(s): E03.9 - HYPOTHYROIDISM, UNSPECIFIED Priority: Low Current Visit : No Qualifiers: Hypothyroidism type: unspecified Qualified Code(s): E03.9 - Hypothyroidism , unspecified (7) Urinary incontinence SNOMED Code(s): 348969981 Code(s): R32 - UNSPECIFIED URINARY INCONTINENCE Priority: Medium Current Visit: No Qualifiers: Urinary Incontinence type: unspecified incontinence Qualified Code(s): R32 - Unspecified urinary incontinence Problem List Initiated/Reviewed/Updated: Yes My Orders Last 24 Hours: My Active Orders 08/29/18 14:08 CPAP Noctural Home [RT BiPAP/CPAP] [] ASDIRECTED 08/29/18 14:12 Accu Check [Blood Glucose Check, Bedside] [] QIDACANDBED Dextrose 50% in Water 50 ml IVPUSH ASDIRECTED PRN 08/29/18 17:00 Insulin Lispro [HumaLOG] See Protocol SUBCUT QIDACANDBED Plan: I/P: Acute: S/P right total knee arthroplasty - post-operative day 1 -DVT prophylaxis and pain management per primary care team -PT/OT -IS/RT -Monitor oxygen saturation -Titrate oxygen as needed -Home medications reviewed -Vital signs stable -Monitor labs -Pre-operative Hgb was 13.1; Now 10.8 -Pre-operative GFR was 58; Now 49 -Pre-operative creatinine 0.95; Now 1.1 -Pre operative A1C was 6.6% Osteoarthritis of right knee -Pain management per primary care team Chronic: Type II DM HTN HLD Palpations Hypothyroidism Heart murmur Hx/o SVT Sleep apnea Urinary incontinence Osteoarthritis Chronic headaches Plan: CM for discharge planning GI prophylaxis Home medications as indicated Other orders as listed above Routine AM labs She is a full code. Her PCP is Dr. Morris Thank you for allowing us to participate in the care of this patient!!
[2018-08-30] MEDS: ceFAZolin 1 GM in Premix Bag 1 BAG IV SCH (06:36)
[2018-08-30] MEDS ORDERED: Sodium Chloride 0.9% 500 ML IV ONE (07:40)
--- NOTE | 2018-08-30 07:43 | PCM48HPAN ---
Post Anesthesia Note - EVALUATION WITHIN 48HRS OF ANESTHETIC Vital Signs in Normal Range: Yes Patient Participated in Evaluation: Yes Respiratory Function Stable: Yes Airway Patent: Yes Cardiovascular Function Stable: Yes Hydration Status Stable: Yes Pain Control Satisfactory: Yes Nausea and Vomiting Control Satisfactory: Yes Mental Status Recovered: Yes Pulse Rate: 60 Resp Rate: 14 Temperature: 36.6 C Blood Pressure: 134/43 - COMMENTS/OBSERVATIONS Free Text/Narrative:: no anesthesia complications noted
[2018-08-30] MEDS ORDERED: Sodium Chloride 0.9% 1,000 ML IV SCH (07:45)
[2018-08-30] MEDS ORDERED: Rosuvastatin 10 MG Tab PO SCH (09:00)
[2018-08-30] MEDS ORDERED: CHLORTHALIDONE 25 MG PO SCH (09:00)
[2018-08-30] MEDS ORDERED: Furosemide 20 MG Tab PO SCH (09:00)
[2018-08-30] MEDS: Losartan 25 MG Tab PO SCH (10:40)
[2018-08-30] MEDS: Docusate Sodium 100 MG Cap PO SCH (10:40)
[2018-08-30] MEDS: Aspirin 325 MG Tab.EC PO SCH ×2 (10:42→21:32)
[2018-08-30] MEDS: Gabapentin 300 MG Cap PO SCH (10:42)
[2018-08-30] MEDS: Labetalol 100 MG Tab PO SCH ×2 (10:42→21:33)
[2018-08-30] MEDS: amLODIPine 10 MG Tab PO SCH (10:43)
[2018-08-30] MEDS: ACIDOPHILUS PROBIOTIC PO SCH (10:49)
[2018-08-30] MEDS: [UNRECOGNIZED DRUG - OTHER] PO SCH (10:49)
[2018-08-30] MEDS: Levothyroxine 100 MCG Tab PO SCH (10:50)
[2018-08-30] MEDS: CYANOCOBALAMIN 250 MCG PO SCH (10:56)
[2018-08-30] MEDS ORDERED: Metoprolol Tartrate 5 MG/5 ML SDV IVPUSH PRN (14:10)
[2018-08-30] MEDS ORDERED: hydrALAZINE 20 MG/ML SDV IVPUSH PRN (14:10)
--- NOTE | 2018-08-30 17:45 | PCM.SURGPN ---
- General Info Date of Service: 08/30/18 POD#: 1 Functional Status: Reports: Pain Controlled, Tolerating Diet, Ambulating, Urinating, Incentive Spirometry, Other (Nursing and therapy state the pt requires assistance for safe mobility at this time.) - Patient Data Vitals - Most Recent: Last Vital Signs Temp 99.0 F 08/30/18 15:57 Pulse 89 08/30/18 15:57 Resp 20 08/30/18 15:57 BP 144/52 H 08/30/18 15:57 Pulse Ox 93 L 08/30/18 15:57 Weight - Most Recent: 262 lb 14.4 oz I&O - Last 24 Hours: Intake & Output 08/30/18 08/30/18 08/30/18 06:59 14:59 22:59 Intake Total 1300 200 Balance 1300 200 Lab Results Last 24 Hrs: Laboratory Results - last 24 hr 08/29/18 08/30/18 08/30/18 Range/Units 21:13 06:09 06:27 WBC 9.27 (3.98-10.04) K/mm3 RBC 3.57 L (3.98-5.22) M/mm3 Hgb 10.8 L D (11.2-15.7) gm/L Hct 33.5 L (34.1-44.9) % MCV 93.8 (79.4-94.8) fl MCH 30.3 (25.6-32.2) pg MCHC 32.2 (32.2-35.5) g/dl RDW Std Deviation 45.1 (36.4-46.3) fL Plt Count 195 (182-369) K/mm3 MPV 10.1 (9.4-12.3) fl Sodium (136-145) mEq/L Potassium (3.5-5.1) mEq/L Chloride (98-107) mEq/L Carbon Dioxide (21-32) mEq/L Anion Gap (5-15) BUN (7-18) mg/dL Creatinine (0.55-1.02) mg/dL Est Cr Clr Drug Dosing mL/min Estimated GFR (MDRD) (>60) mL/min BUN/Creatinine Ratio (14-18) Glucose (83-115) mg/dL POC Glucose 117 H 168 H (83-110) mg/dL Calcium (8.5-10.1) mg/dL Total Bilirubin (0.2-1.0) mg/dL AST (15-37) U/L ALT (14-59) U/L Alkaline Phosphatase (46-116) U/L Total Protein (6.4-8.2) g/dl Albumin (3.4-5.0) g/dl Globulin gm/dL Albumin/Globulin Ratio (1-2) 08/30/18 08/30/18 08/30/18 Range/Units 06:27 11:56 17:12 WBC (3.98-10.04) K/mm3 RBC (3.98-5.22) M/mm3 Hgb (11.2-15.7) gm/L Hct (34.1-44.9) % MCV (79.4-94.8) fl MCH (25.6-32.2) pg MCHC (32.2-35.5) g/dl RDW Std Deviation (36.4-46.3) fL Plt Count (182-369) K/mm3 MPV (9.4-12.3) fl Sodium 134 L (136-145) mEq/L Potassium 4.5 (3.5-5.1) mEq/L Chloride 101 (98-107) mEq/L Carbon Dioxide 25 (21-32) mEq/L Anion Gap 12.5 (5-15) BUN 38 H (7-18) mg/dL Creatinine 1.1 H (0.55-1.02) mg/dL Est Cr Clr Drug Dosing 46.63 mL/min Estimated GFR (MDRD) 49 (>60) mL/min BUN/Creatinine Ratio 34.5 H (14-18) Glucose 149 H (83-115) mg/dL POC Glucose 160 H 173 H (83-110) mg/dL Calcium 9.0 (8.5-10.1) mg/dL Total Bilirubin 0.4 (0.2-1.0) mg/dL AST 22 (15-37) U/L ALT 21 (14-59) U/L Alkaline Phosphatase 40 L (46-116) U/L Total Protein 6.3 L (6.4-8.2) g/dl Albumin 3.0 L (3.4-5.0) g/dl Globulin 3.3 gm/dL Albumin/Globulin Ratio 0.9 L (1-2) Med Orders - Current: Current Medications Amlodipine Besylate (Norvasc) 10 mg PO DAILY [facility] Last Admin: 08/30/18 10:43 Dose: 10 mg Artificial Tears (Refresh Liquigel 1%) 0 ml EYEBOTH DAILY PRN PRN Reason: Dry Eyes Aspirin (Ecotrin) 325 mg PO BID [facility] Last Admin: 08/30/18 10:42 Dose: 325 mg Bisacodyl (Dulcolax) 5 mg PO DAILY PRN PRN Reason: Constipation Dextrose/Water (Dextrose 50% In Water) 50 ml IVPUSH ASDIRECTED PRN PRN Reason: Hypoglycemia Docusate Sodium (Colace) 300 mg PO DAILY [facility] Last Admin: 08/30/18 10:40 Dose: 300 mg Flunisolide (Nasalide Nasal [place]) 0 ml NASBOTH DAILY [facility] Last Admin: 08/30/18 10:46 Dose: 1 spray Furosemide (Lasix) 20 mg PO DAILY PRN PRN Reason: swelling Furosemide (Lasix) 20 mg PO DAILY [facility] Gabapentin (Neurontin) 300 mg PO DAILY [facility] Last Admin: 08/30/18 10:42 Dose: 300 mg Hydralazine HCl (Apresoline) 20 mg IVPUSH Q4H PRN PRN Reason: Hypertension Hydrocortisone (Hydrocortisone 1% Crm) 0 gm TOP BID PRN PRN Reason: skin complications Insulin Human Lispro (Humalog) 12 unit SUBCUT TID [facility] Insulin Human Lispro (Humalog) 0 unit SUBCUT QIDACANDBED [facility]; Protocol Last Admin: 08/30/18 12:06 Dose: 2 unit Labetalol HCl (Normodyne) 100 mg PO BID [facility] Last Admin: 08/30/18 10:42 Dose: 100 mg Levothyroxine Sodium (Synthroid) 100 mcg PO DAILY [facility] Last Admin: 08/30/18 10:50 Dose: 100 mcg Losartan Potassium (Cozaar) 50 mg PO DAILY [facility] Last Admin: 08/30/18 10:40 Dose: 50 mg Magnesium Sulfate (Pharmacy To Dose - Magnesium Replacement) 0 dose .XX ASDIRECTED PRN PRN Reason: RX TO WATCH MAG Metoprolol Tartrate (Lopressor) 5 mg IVPUSH Q4H PRN PRN Reason: Tachycardia Morphine Sulfate (Morphine) 2 mg IVPUSH Q2H PRN PRN Reason: Breakthrough Pain Last Admin: 08/30/18 02:16 Dose: 2 mg Naloxone HCl (Narcan) 0.1 mg IVPUSH Q5M PRN PRN Reason: Oversedation Ondansetron HCl (Zofran) 4 mg IVPUSH Q6H PRN PRN Reason: Nausea/Vomiting Oxycodone/Acetaminophen (Percocet 325-5 Mg) 1 - 2 tab PO Q4H PRN PRN Reason: Pain Last Admin: 08/30/18 14:12 Dose: 2 tab Chlorthalidone 25 Mg (Patients Own Med) 0 each PO DAILY [facility] Cyanocobalamin ( (Vitamin B12) 250 Mcg) 0 each PO DAILY [facility] Last Admin: 08/30/18 10:56 Dose: Not Given Acidophilus Probiotic Patients Own Med 0 each PO DAILY [facility] Last Admin: 08/30/18 10:49 Dose: Not Given Children's Chewable Vitamin 1 Tab Patient's Own Med 0 each PO DAILY [facility] Last Admin: 08/30/18 10:49 Dose: Not Given Potassium Chloride (Pharmacy To Dose - Potassium Replacement) 0 dose .XX ASDIRECTED PRN PRN Reason: RX TO WATCH K Rosuvastatin Calcium (Crestor) 20 mg PO DAILY [facility] Senna (Senna) 8.6 mg PO BID PRN PRN Reason: Constipation Discontinued Medications Acetaminophen (Tylenol) 975 mg PO ONETIME [facility] Stop: 08/29/18 18:00 Last Admin: 08/29/18 06:28 Dose: 975 mg Bupivacaine HCl (Marcaine 0.25%) Confirm Administered Dose 30 ml .ROUTE .STK- MED ONE Stop: 08/29/18 06:22 Last Admin: 08/29/18 08:51 Dose: 30 ml Cefazolin Sodium (Ancef) Confirm Administered Dose 2 gm .ROUTE .STK-MED ONE Stop: 08/29/18 06:22 Last Admin: 08/29/18 08:47 Dose: 2 gm Cefazolin Sodium (Ancef) Confirm Administered Dose 2 gm .ROUTE .STK-MED ONE Stop: 08/29/18 06:55 Cefazolin Sodium (Ancef) Confirm Administered Dose 1 gm .ROUTE .STK-MED ONE Stop: 08/29/18 08:07 Morphine Sulfate 8 mg/Epinephrine HCl 0.3 mg/Cefuroxime Sodium 750 mg/Ketorolac Tromethamine 30 mg/Sodium Chloride 27.9 ml 0 mg .XX ONETIME ONE Stop: 08/29/18 08:01 Last Admin: 08/29/18 08:51 Dose: 788.3 mg Docusate Sodium (Colace) 100 mg PO BID [facility] Epinephrine HCl (Adrenalin) Confirm Administered Dose 1 mg .ROUTE .STK-MED ONE Stop: 08/29/18 07:38 Fentanyl (Sublimaze) Confirm Administered Dose 100 mcg .ROUTE .STK-MED ONE Stop: 08/29/18 06:55 Fentanyl (Sublimaze) Confirm Administered Dose 250 mcg .ROUTE .STK-MED ONE Stop: 08/29/18 08:17 Fentanyl (Sublimaze) Confirm Administered Dose 100 mcg .ROUTE .STK-MED ONE Stop: 08/29/18 09:23 Fentanyl (Sublimaze) 50 mcg IVPUSH Q5M PRN PRN Reason: Pain Stop: 08/29/18 23:00 Last Admin: 08/29/18 10:25 Dose: 50 mcg Fluticasone Propionate (Flonase) 0 gm NASBOTH DAILY [facility] Last Admin: 08/29/18 16:47 Dose: Not Given Hydromorphone HCl (Dilaudid) Confirm Administered Dose 0.5 mg .ROUTE .STK-MED ONE Stop: 08/29/18 08:18 Hydromorphone HCl (Dilaudid) Confirm Administered Dose 0.5 mg .ROUTE .STK-MED ONE Stop: 08/29/18 08:19 Hydromorphone HCl (Dilaudid) 0.5 mg IVPUSH Q10M PRN PRN Reason: Pain (severe 7-10) Stop: 08/29/18 23:00 Last Admin: 08/29/18 10:21 Dose: 0.5 mg Lactated Ringer's (Ringers, Lactated) 1,000 mls @ 125 mls/hr IV ASDIRECTED [facility] Stop: 08/29/18 23:00 Last Admin: 08/29/18 10:36 Dose: 125 mls/hr Cefazolin Sodium/Dextrose 2 gm (/ Premix) 50 mls @ 100 mls/hr IV Q8H [facility] Stop: 08/30/18 07:29 Last Admin: 08/30/18 05:59 Dose: 100 mls/hr Lactated Ringer's (Ringers, Lactated) Confirm Administered Dose 1,000 mls @ as directed .ROUTE .STK-MED ONE Stop: 08/29/18 08:09 Lidocaine HCl (Xylocaine-Mpf 1%) Confirm Administered Dose 2 mls @ as directed .ROUTE .STK-MED ONE Stop: 08/29/18 09:23 Cefazolin Sodium/Dextrose 1 gm (/ Premix) 50 mls @ 66.667 mls/hr IV Q8H [facility] Stop: 08/30/18 07:44 Last Admin: 08/30/18 06:36 Dose: 66.667 mls/hr Sodium Chloride (Normal Saline) 500 mls @ 999 mls/hr IV .BOLUS ONE Stop: 08/30/18 08:10 Last Admin: 08/30/18 10:18 Dose: 999 mls/hr Sodium Chloride (Normal Saline) 1,000 mls @ 150 mls/hr IV ASDIRECTED [facility] Iodine (Iodine 2% Mild Tincture) Confirm Administered Dose 30 ml .ROUTE .STK- MED ONE Stop: 08/29/18 06:22 Last Admin: 08/29/18 08:45 Dose: 18 ml Ketorolac Tromethamine (Toradol) 15 mg IVPUSH Q6H PRN PRN Reason: Pain Last Admin: 08/30/18 08:17 Dose: 15 mg Ketorolac Tromethamine (Toradol) 30 mg IVPUSH ONETIME ONE Stop: 08/29/18 09:57 Last Admin: 08/29/18 10:09 Dose: 30 mg Lidocaine/Sodium Bicarbonate (Buffered Lidocaine 1% In Ns 8.4%) 0.25 ml IDERM ONETIME PRN PRN Reason: Prior to IV Start Stop: 08/29/18 18:00 Last Admin: 08/29/18 06:30 Dose: 0.25 ml Ondansetron HCl (Zofran) Confirm Administered Dose 4 mg .ROUTE .STK-MED ONE Stop: 08/29/18 08:21 Oxycodone HCl (Oxycontin) 10 mg PO ONETIME [facility] Stop: 08/29/18 18:00 Last Admin: 08/29/18 06:27 Dose: 10 mg Pregabalin (Lyrica) 50 mg PO ONETIME [facility] Stop: 08/29/18 18:00 Last Admin: 08/29/18 06:27 Dose: 50 mg Propofol (Diprivan 20 Ml) Confirm Administered Dose 200 mg .ROUTE .STK-MED ONE Stop: 08/29/18 06:55 Propofol (Diprivan 20 Ml) Confirm Administered Dose 200 mg .ROUTE .STK-MED ONE Stop: 08/29/18 07:41 Ropivacaine (Naropin 0.5%) Confirm Administered Dose 30 ml .ROUTE .STK-MED ONE Stop: 08/29/18 07:38 Sodium Chloride (Saline Flush) 10 ml FLUSH ASDIRECTED PRN PRN Reason: Keep Vein Open Stop: 08/29/18 18:00 Tranexamic Acid (Cyklokapron) Confirm Administered Dose 1,000 mg .ROUTE .STK- MED ONE Stop: 08/29/18 06:22 Last Admin: 08/29/18 09:00 Dose: 1,000 mg Vancomycin HCl (Vancomycin) Confirm Administered Dose 1 gm .ROUTE .STK-MED ONE Stop: 08/29/18 06:22 Last Admin: 08/29/18 08:54 Dose: 1 gm - Exam Wound/Incisions: Dressing Dry and Intact General: Alert, Cooperative, No Acute Distress Lungs: Normal Respiratory Effort Extremities: Other (NVS intact for BLE. Nori's negative. ) - Problem List Review Problem List Initiated/Reviewed/Updated: Yes - My Orders Last 24 Hours: Active Orders 24 hr Category Date Time Status BASIC METABOLIC PANEL,BMP [CHEM] AM Lab 08/31/18 05:11 Ordered BASIC METABOLIC PANEL,BMP [CHEM] AM Lab 09/01/18 05:11 Ordered BASIC METABOLIC PANEL,BMP [CHEM] AM Lab 09/02/18 05:11 Ordered BASIC METABOLIC PANEL,BMP [CHEM] AM Lab 09/03/18 05:11 Ordered CBC WITH AUTO DIFF [HEME] AM Lab 08/31/18 05:11 Ordered CBC WITH AUTO DIFF [HEME] AM Lab 09/01/18 05:11 Ordered CBC WITH AUTO DIFF [HEME] AM Lab 09/02/18 05:11 Ordered CBC WITH AUTO DIFF [HEME] AM Lab 09/03/18 05:11 Ordered MAGNESIUM [CHEM] AM Lab 08/31/18 05:11 Ordered MAGNESIUM [CHEM] AM Lab 09/01/18 05:11 Ordered MAGNESIUM [CHEM] AM Lab 09/02/18 05:11 Ordered MAGNESIUM [CHEM] AM Lab 09/03/18 05:11 Ordered Aspirin [Ecotrin] Med 08/30/18 09:00 Active 325 mg PO BID Docusate Sodium [Colace] Med 08/30/18 09:00 Active 300 mg PO DAILY Flunisolide [Nasalide Nasal [place]] Med 08/30/18 09:00 Active 0 ml NASBOTH DAILY Furosemide [Lasix] Med 08/30/18 09:00 Hold 20 mg PO DAILY Gabapentin [Neurontin] Med 08/30/18 09:00 Active 300 mg PO DAILY Insulin Lispro [HumaLOG] Med 08/29/18 17:00 Active See Protocol SUBCUT QIDACANDBED Labetalol [Normodyne] Med 08/29/18 21:00 Active 100 mg PO BID Levothyroxine [Synthroid] Med 08/30/18 09:00 Active 100 mcg PO DAILY Losartan [Cozaar] Med 08/30/18 09:00 Active 50 mg PO DAILY Metoprolol Tartrate [Lopressor] Med 08/30/18 14:10 Active 5 mg IVPUSH Q4H PRN Patient's Own Medication [Ptom] Med 08/30/18 09:00 Active 0 each PO DAILY Patient's Own Medication [Ptom] Med 08/30/18 09:00 Active 0 each PO DAILY Patient's Own Medication [Ptom] Med 08/30/18 09:00 Active 0 each PO DAILY Patient's Own Medication [Ptom] Med 08/30/18 09:00 Hold 0 each PO DAILY Pharmacy to Dose - Magnesium R [Pharmacy to Dose - Med 08/30/18 14:15 Active Magnesium Replacement] 0 dose .XX ASDIRECTED PRN Pharmacy to Dose - Potassium R [Pharmacy to Dose - Med 08/30/18 14:15 Active Potassium Replacement] 0 dose .XX ASDIRECTED PRN Rosuvastatin [Crestor] Med 08/30/18 09:00 Hold 20 mg PO DAILY amLODIPine [Norvasc] Med 08/30/18 09:00 Active 10 mg PO DAILY hydrALAZINE [Apresoline] Med 08/30/18 14:10 Active 20 mg IVPUSH Q4H PRN Medication Orders Amlodipine Besylate (Norvasc) 10 mg PO DAILY [facility] Last Admin: 08/30/18 10:43 Dose: 10 mg Artificial Tears (Refresh Liquigel 1%) 0 ml EYEBOTH DAILY PRN PRN Reason: Dry Eyes Aspirin (Ecotrin) 325 mg PO BID [facility] Last Admin: 08/30/18 10:42 Dose: 325 mg Bisacodyl (Dulcolax) 5 mg PO DAILY PRN PRN Reason: Constipation Dextrose/Water (Dextrose 50% In Water) 50 ml IVPUSH ASDIRECTED PRN PRN Reason: Hypoglycemia Docusate Sodium (Colace) 300 mg PO DAILY [facility] Last Admin: 08/30/18 10:40 Dose: 300 mg Flunisolide (Nasalide Nasal [place]) 0 ml NASBOTH DAILY [facility] Last Admin: 08/30/18 10:46 Dose: 1 spray Furosemide (Lasix) 20 mg PO DAILY PRN PRN Reason: swelling Furosemide (Lasix) 20 mg PO DAILY [facility] Gabapentin (Neurontin) 300 mg PO DAILY [facility] Last Admin: 08/30/18 10:42 Dose: 300 mg Hydralazine HCl (Apresoline) 20 mg IVPUSH Q4H PRN PRN Reason: Hypertension Hydrocortisone (Hydrocortisone 1% Crm) 0 gm TOP BID PRN PRN Reason: skin complications Insulin Human Lispro (Humalog) 12 unit SUBCUT TID [facility] Insulin Human Lispro (Humalog) 0 unit SUBCUT QIDACANDBED [facility]; Protocol Last Admin: 08/30/18 12:06 Dose: 2 unit Admin: 08/30/18 06:14 Dose: 2 unit Admin: 08/29/18 21:15 Dose: Admin: 08/29/18 16:36 Dose: 2 unit Labetalol HCl (Normodyne) 100 mg PO BID [facility] Last Admin: 08/30/18 10:42 Dose: 100 mg Admin: 08/29/18 20:07 Dose: 100 mg Levothyroxine Sodium (Synthroid) 100 mcg PO DAILY [facility] Last Admin: 08/30/18 10:50 Dose: 100 mcg Losartan Potassium (Cozaar) 50 mg PO DAILY [facility] Last Admin: 08/30/18 10:40 Dose: 50 mg Magnesium Sulfate (Pharmacy To Dose - Magnesium Replacement) 0 dose .XX ASDIRECTED PRN PRN Reason: RX TO WATCH MAG Metoprolol Tartrate (Lopressor) 5 mg IVPUSH Q4H PRN PRN Reason: Tachycardia Morphine Sulfate (Morphine) 2 mg IVPUSH Q2H PRN PRN Reason: Breakthrough Pain Last Admin: 08/30/18 02:16 Dose: 2 mg Admin: 08/30/18 00:11 Dose: 2 mg Admin: 08/29/18 11:30 Dose: 2 mg Naloxone HCl (Narcan) 0.1 mg IVPUSH Q5M PRN PRN Reason: Oversedation Ondansetron HCl (Zofran) 4 mg IVPUSH Q6H PRN PRN Reason: Nausea/Vomiting Oxycodone/Acetaminophen (Percocet 325-5 Mg) 1 - 2 tab PO Q4H PRN PRN Reason: Pain Last Admin: 08/30/18 14:12 Dose: 2 tab Admin: 08/30/18 10:16 Dose: 2 tab Admin: 08/30/18 05:02 Dose: 2 tab Admin: 08/30/18 00:50 Dose: 1 tab Admin: 08/29/18 20:08 Dose: 1 tab Admin: 08/29/18 10:33 Dose: 1 tab Chlorthalidone 25 Mg (Patients Own Med) 0 each PO DAILY [facility] Cyanocobalamin ( (Vitamin B12) 250 Mcg) 0 each PO DAILY [facility] Last Admin: 08/30/18 10:56 Dose: Acidophilus Probiotic Patients Own Med 0 each PO DAILY [facility] Last Admin: 08/30/18 10:49 Dose: Children's Chewable Vitamin 1 Tab Patient's Own Med 0 each PO DAILY [facility] Last Admin: 08/30/18 10:49 Dose: Potassium Chloride (Pharmacy To Dose - Potassium Replacement) 0 dose .XX ASDIRECTED PRN PRN Reason: RX TO WATCH K Rosuvastatin Calcium (Crestor) 20 mg PO DAILY [facility] Senna (Senna) 8.6 mg PO BID PRN PRN Reason: Constipation - Assessment Assessment (Free Text/Narrative):: POD#1 - right TKA - Plan Plan (Free Text/Narrative):: 1. Hgb 10.8. 2. The pt will remain in Hospital for continued therapy and as pt remains on O2 at this time. 3. Likely discharge to home tomorrow if inpt therapy goals are met. The pt's case was discussed with Dr. Franklin.
[2018-08-31] MEDS: Acetaminophen/oxyCODONE 325-5 MG Tab PO PRN ×3 (06:17→15:16)
--- NOTE | 2018-08-31 07:01 | PCM.CONSN ---
- General Info Date of Service: 08/31/18 Admission Dx/Problem (Free Text): Admission Diagnosis/Problem Admission Diagnosis/Problem Osteoarthritis of knee Subjective Update: In to see Antonella. She is just finishing up with PT. They report she is doing well. They are concerned over her sit to stand but report she has help at home. They are recommending home health PT/OT. Otherwise she is doing well. Functional Status: Reports: Pain Controlled, Tolerating Diet, Ambulating, Urinating, Incentive Spirometry. Denies: New Symptoms - Review of Systems General: Reports: Other (Difficulty with sit to stand but otherwise ambulates well. ). Denies: Fever, Weakness, Fatigue, Malaise, Chills HEENT: Reports: No Symptoms. Denies: Headaches, Sore Throat Pulmonary: Reports: No Symptoms. Denies: Shortness of Breath, Pleuritic Chest Pain, Cough, Sputum Cardiovascular: Reports: No Symptoms. Denies: Chest Pain, Palpitations Gastrointestinal: Reports: No Symptoms. Denies: Abdominal Pain, Constipation, Diarrhea, Nausea, Vomiting Genitourinary: Reports: No Symptoms. Denies: Pain Musculoskeletal: Reports: Leg Pain (improving ) Skin: Reports: No Symptoms. Denies: Cyanosis Neurological: Reports: No Symptoms. Denies: Confusion Psychiatric: Reports: No Symptoms - Patient Data Vitals - Most Recent: Last Vital Signs Temp 99.0 F 08/31/18 03:54 Pulse 94 08/31/18 03:54 Resp 18 08/31/18 03:54 BP 144/58 H 08/31/18 04:27 Pulse Ox 98 08/31/18 03:54 Weight - Most Recent: 270 lb I&O - Last 24 Hours: Intake & Output 08/30/18 08/31/18 08/31/18 22:59 06:59 14:59 Intake Total 380 500 Balance 380 500 Lab Results Last 24 Hours: Laboratory Results - last 24 hr 08/30/18 08/30/18 08/30/18 Range/Units 06:27 11:56 17:12 WBC (3.98-10.04) K/mm3 RBC (3.98-5.22) M/mm3 Hgb (11.2-15.7) gm/L Hct (34.1-44.9) % MCV (79.4-94.8) fl MCH (25.6-32.2) pg MCHC (32.2-35.5) g/dl RDW Std Deviation (36.4-46.3) fL Plt Count (182-369) K/mm3 MPV (9.4-12.3) fl Neut % (Auto) (34.0-71.1) % Lymph % (Auto) (19.3-51.7) % Wolfe % (Auto) (4.7-12.5) % Eos % (Auto) (0.7-5.8) Baso % (Auto) (0.1-1.2) % Neut # (Auto) (1.56-6.13) K/mm3 Lymph # (Auto) (1.18-3.74) K/mm3 Wolfe # (Auto) (0.24-0.36) K/mm3 Eos # (Auto) (0.04-0.36) K/mm3 Baso # (Auto) (0.01-0.08) K/mm3 Sodium 134 L (136-145) mEq/L Potassium 4.5 (3.5-5.1) mEq/L Chloride 101 (98-107) mEq/L Carbon Dioxide 25 (21-32) mEq/L Anion Gap 12.5 (5-15) BUN 38 H (7-18) mg/dL Creatinine 1.1 H (0.55-1.02) mg/dL Est Cr Clr Drug Dosing 46.63 mL/min Estimated GFR (MDRD) 49 (>60) mL/min BUN/Creatinine Ratio 34.5 H (14-18) Glucose 149 H (83-115) mg/dL POC Glucose 160 H 173 H (83-110) mg/dL Calcium 9.0 (8.5-10.1) mg/dL Total Bilirubin 0.4 (0.2-1.0) mg/dL AST 22 (15-37) U/L ALT 21 (14-59) U/L Alkaline Phosphatase 40 L (46-116) U/L Total Protein 6.3 L (6.4-8.2) g/dl Albumin 3.0 L (3.4-5.0) g/dl Globulin 3.3 gm/dL Albumin/Globulin Ratio 0.9 L (1-2) 08/30/18 08/31/18 08/31/18 Range/Units 21:02 05:56 06:16 WBC 10.23 H (3.98-10.04) K/mm3 RBC 3.37 L (3.98-5.22) M/mm3 Hgb 10.3 L (11.2-15.7) gm/L Hct 31.3 L (34.1-44.9) % MCV 92.9 (79.4-94.8) fl MCH 30.6 (25.6-32.2) pg MCHC 32.9 (32.2-35.5) g/dl RDW Std Deviation 45.0 (36.4-46.3) fL Plt Count 180 L (182-369) K/mm3 MPV 10.4 (9.4-12.3) fl Neut % (Auto) 83.5 H (34.0-71.1) % Lymph % (Auto) 7.1 L (19.3-51.7) % Wolfe % (Auto) 6.8 (4.7-12.5) % Eos % (Auto) 1.9 (0.7-5.8) Baso % (Auto) 0.3 (0.1-1.2) % Neut # (Auto) 8.54 H (1.56-6.13) K/mm3 Lymph # (Auto) 0.73 L (1.18-3.74) K/mm3 Wolfe # (Auto) 0.70 H (0.24-0.36) K/mm3 Eos # (Auto) 0.19 (0.04-0.36) K/mm3 Baso # (Auto) 0.03 (0.01-0.08) K/mm3 Sodium (136-145) mEq/L Potassium (3.5-5.1) mEq/L Chloride (98-107) mEq/L Carbon Dioxide (21-32) mEq/L Anion Gap (5-15) BUN (7-18) mg/dL Creatinine (0.55-1.02) mg/dL Est Cr Clr Drug Dosing mL/min Estimated GFR (MDRD) (>60) mL/min BUN/Creatinine Ratio (14-18) Glucose (83-115) mg/dL POC Glucose 154 H 156 H (83-110) mg/dL Calcium (8.5-10.1) mg/dL Total Bilirubin (0.2-1.0) mg/dL AST (15-37) U/L ALT (14-59) U/L Alkaline Phosphatase (46-116) U/L Total Protein (6.4-8.2) g/dl Albumin (3.4-5.0) g/dl Globulin gm/dL Albumin/Globulin Ratio (1-2) Med Orders - Current: Current Medications Amlodipine Besylate (Norvasc) 10 mg PO DAILY [facility] Last Admin: 08/30/18 10:43 Dose: 10 mg Artificial Tears (Refresh Liquigel 1%) 0 ml EYEBOTH DAILY PRN PRN Reason: Dry Eyes Aspirin (Ecotrin) 325 mg PO BID [facility] Last Admin: 08/30/18 21:32 Dose: 325 mg Bisacodyl (Dulcolax) 5 mg PO DAILY PRN PRN Reason: Constipation Dextrose/Water (Dextrose 50% In Water) 50 ml IVPUSH ASDIRECTED PRN PRN Reason: Hypoglycemia Docusate Sodium (Colace) 300 mg PO DAILY [facility] Last Admin: 08/30/18 10:40 Dose: 300 mg Flunisolide (Nasalide Nasal [place]) 0 ml NASBOTH DAILY [facility] Last Admin: 08/30/18 10:46 Dose: 1 spray Furosemide (Lasix) 20 mg PO DAILY PRN PRN Reason: swelling Furosemide (Lasix) 20 mg PO DAILY [facility] Gabapentin (Neurontin) 300 mg PO DAILY [facility] Last Admin: 08/30/18 10:42 Dose: 300 mg Hydralazine HCl (Apresoline) 20 mg IVPUSH Q4H PRN PRN Reason: Hypertension Hydrocortisone (Hydrocortisone 1% Crm) 0 gm TOP BID PRN PRN Reason: skin complications Insulin Human Lispro (Humalog) 12 unit SUBCUT TID [facility] Insulin Human Lispro (Humalog) 0 unit SUBCUT QIDACANDBED [facility]; Protocol Last Admin: 08/30/18 21:40 Dose: 2 unit Labetalol HCl (Normodyne) 100 mg PO BID [facility] Last Admin: 08/30/18 21:33 Dose: 100 mg Levothyroxine Sodium (Synthroid) 100 mcg PO DAILY [facility] Last Admin: 08/30/18 10:50 Dose: 100 mcg Losartan Potassium (Cozaar) 50 mg PO DAILY [facility] Last Admin: 08/30/18 10:40 Dose: 50 mg Magnesium Sulfate (Pharmacy To Dose - Magnesium Replacement) 0 dose .XX ASDIRECTED PRN PRN Reason: RX TO WATCH MAG Metoprolol Tartrate (Lopressor) 5 mg IVPUSH Q4H PRN PRN Reason: Tachycardia Morphine Sulfate (Morphine) 2 mg IVPUSH Q2H PRN PRN Reason: Breakthrough Pain Last Admin: 08/30/18 02:16 Dose: 2 mg Naloxone HCl (Narcan) 0.1 mg IVPUSH Q5M PRN PRN Reason: Oversedation Ondansetron HCl (Zofran) 4 mg IVPUSH Q6H PRN PRN Reason: Nausea/Vomiting Oxycodone/Acetaminophen (Percocet 325-5 Mg) 1 - 2 tab PO Q4H PRN PRN Reason: Pain Last Admin: 08/31/18 06:17 Dose: 2 tab Chlorthalidone 25 Mg (Patients Own Med) 0 each PO DAILY [facility] Cyanocobalamin ( (Vitamin B12) 250 Mcg) 0 each PO DAILY [facility] Last Admin: 08/30/18 10:56 Dose: Not Given Acidophilus Probiotic Patients Own Med 0 each PO DAILY [facility] Last Admin: 08/30/18 10:49 Dose: Not Given Children's Chewable Vitamin 1 Tab Patient's Own Med 0 each PO DAILY [facility] Last Admin: 08/30/18 10:49 Dose: Not Given Potassium Chloride (Pharmacy To Dose - Potassium Replacement) 0 dose .XX ASDIRECTED PRN PRN Reason: RX TO WATCH K Rosuvastatin Calcium (Crestor) 20 mg PO DAILY [facility] Senna (Senna) 8.6 mg PO BID PRN PRN Reason: Constipation Last Admin: 08/30/18 21:33 Dose: 8.6 mg Discontinued Medications Acetaminophen (Tylenol) 975 mg PO ONETIME [facility] Stop: 08/29/18 18:00 Last Admin: 08/29/18 06:28 Dose: 975 mg Bupivacaine HCl (Marcaine 0.25%) Confirm Administered Dose 30 ml .ROUTE .STK- MED ONE Stop: 08/29/18 06:22 Last Admin: 08/29/18 08:51 Dose: 30 ml Cefazolin Sodium (Ancef) Confirm Administered Dose 2 gm .ROUTE .STK-MED ONE Stop: 08/29/18 06:22 Last Admin: 08/29/18 08:47 Dose: 2 gm Cefazolin Sodium (Ancef) Confirm Administered Dose 2 gm .ROUTE .STK-MED ONE Stop: 08/29/18 06:55 Cefazolin Sodium (Ancef) Confirm Administered Dose 1 gm .ROUTE .STK-MED ONE Stop: 08/29/18 08:07 Morphine Sulfate 8 mg/Epinephrine HCl 0.3 mg/Cefuroxime Sodium 750 mg/Ketorolac Tromethamine 30 mg/Sodium Chloride 27.9 ml 0 mg .XX ONETIME ONE Stop: 08/29/18 08:01 Last Admin: 08/29/18 08:51 Dose: 788.3 mg Docusate Sodium (Colace) 100 mg PO BID [facility] Epinephrine HCl (Adrenalin) Confirm Administered Dose 1 mg .ROUTE .STK-MED ONE Stop: 08/29/18 07:38 Fentanyl (Sublimaze) Confirm Administered Dose 100 mcg .ROUTE .STK-MED ONE Stop: 08/29/18 06:55 Fentanyl (Sublimaze) Confirm Administered Dose 250 mcg .ROUTE .STK-MED ONE Stop: 08/29/18 08:17 Fentanyl (Sublimaze) Confirm Administered Dose 100 mcg .ROUTE .STK-MED ONE Stop: 08/29/18 09:23 Fentanyl (Sublimaze) 50 mcg IVPUSH Q5M PRN PRN Reason: Pain Stop: 08/29/18 23:00 Last Admin: 08/29/18 10:25 Dose: 50 mcg Fluticasone Propionate (Flonase) 0 gm NASBOTH DAILY [facility] Last Admin: 08/29/18 16:47 Dose: Not Given Hydromorphone HCl (Dilaudid) Confirm Administered Dose 0.5 mg .ROUTE .STK-MED ONE Stop: 08/29/18 08:18 Hydromorphone HCl (Dilaudid) Confirm Administered Dose 0.5 mg .ROUTE .STK-MED ONE Stop: 08/29/18 08:19 Hydromorphone HCl (Dilaudid) 0.5 mg IVPUSH Q10M PRN PRN Reason: Pain (severe 7-10) Stop: 08/29/18 23:00 Last Admin: 08/29/18 10:21 Dose: 0.5 mg Lactated Ringer's (Ringers, Lactated) 1,000 mls @ 125 mls/hr IV ASDIRECTED [facility] Stop: 08/29/18 23:00 Last Admin: 08/29/18 10:36 Dose: 125 mls/hr Cefazolin Sodium/Dextrose 2 gm (/ Premix) 50 mls @ 100 mls/hr IV Q8H [facility] Stop: 08/30/18 07:29 Last Admin: 08/30/18 05:59 Dose: 100 mls/hr Lactated Ringer's (Ringers, Lactated) Confirm Administered Dose 1,000 mls @ as directed .ROUTE .STK-MED ONE Stop: 08/29/18 08:09 Lidocaine HCl (Xylocaine-Mpf 1%) Confirm Administered Dose 2 mls @ as directed .ROUTE .STK-MED ONE Stop: 08/29/18 09:23 Cefazolin Sodium/Dextrose 1 gm (/ Premix) 50 mls @ 66.667 mls/hr IV Q8H [facility] Stop: 08/30/18 07:44 Last Admin: 08/30/18 06:36 Dose: 66.667 mls/hr Sodium Chloride (Normal Saline) 500 mls @ 999 mls/hr IV .BOLUS ONE Stop: 08/30/18 08:10 Last Admin: 08/30/18 10:18 Dose: 999 mls/hr Sodium Chloride (Normal Saline) 1,000 mls @ 150 mls/hr IV ASDIRECTED [facility] Iodine (Iodine 2% Mild Tincture) Confirm Administered Dose 30 ml .ROUTE .STK- MED ONE Stop: 08/29/18 06:22 Last Admin: 08/29/18 08:45 Dose: 18 ml Ketorolac Tromethamine (Toradol) 15 mg IVPUSH Q6H PRN PRN Reason: Pain Last Admin: 08/30/18 08:17 Dose: 15 mg Ketorolac Tromethamine (Toradol) 30 mg IVPUSH ONETIME ONE Stop: 08/29/18 09:57 Last Admin: 08/29/18 10:09 Dose: 30 mg Lidocaine/Sodium Bicarbonate (Buffered Lidocaine 1% In Ns 8.4%) 0.25 ml IDERM ONETIME PRN PRN Reason: Prior to IV Start Stop: 08/29/18 18:00 Last Admin: 08/29/18 06:30 Dose: 0.25 ml Ondansetron HCl (Zofran) Confirm Administered Dose 4 mg .ROUTE .STK-MED ONE Stop: 08/29/18 08:21 Oxycodone HCl (Oxycontin) 10 mg PO ONETIME [facility] Stop: 08/29/18 18:00 Last Admin: 08/29/18 06:27 Dose: 10 mg Pregabalin (Lyrica) 50 mg PO ONETIME [facility] Stop: 08/29/18 18:00 Last Admin: 08/29/18 06:27 Dose: 50 mg Propofol (Diprivan 20 Ml) Confirm Administered Dose 200 mg .ROUTE .STK-MED ONE Stop: 08/29/18 06:55 Propofol (Diprivan 20 Ml) Confirm Administered Dose 200 mg .ROUTE .STK-MED ONE Stop: 08/29/18 07:41 Ropivacaine (Naropin 0.5%) Confirm Administered Dose 30 ml .ROUTE .STK-MED ONE Stop: 08/29/18 07:38 Sodium Chloride (Saline Flush) 10 ml FLUSH ASDIRECTED PRN PRN Reason: Keep Vein Open Stop: 08/29/18 18:00 Tranexamic Acid (Cyklokapron) Confirm Administered Dose 1,000 mg .ROUTE .STK- MED ONE Stop: 08/29/18 06:22 Last Admin: 08/29/18 09:00 Dose: 1,000 mg Vancomycin HCl (Vancomycin) Confirm Administered Dose 1 gm .ROUTE .STK-MED ONE Stop: 08/29/18 06:22 Last Admin: 08/29/18 08:54 Dose: 1 gm - Exam Quality Assessment: DVT Prophylaxis. No: Supplemental Oxygen General: Alert, Oriented, Cooperative, No Acute Distress HEENT: Pupils Equal, Pupils Reactive, EOMI, Mucous Membr. Moist/[place] Neck: Supple, Trachea Midline Lungs: Clear to Auscultation, Normal Respiratory Effort Cardiovascular: Regular Rate, Regular Rhythm GI/Abdominal Exam: Normal Bowel Sounds, Soft, Non-Tender, No Organomegaly, No Distention (Female) Exam: Deferred Back Exam: Normal Inspection, Full Range of Motion Extremities: No Pedal Edema, Normal Capillary Refill, Leg Pain, Limited Range of Motion, Other (Bandage in place on right leg. Cooling pack in place ) Peripheral Pulses: 3+: Radial (L), Radial (R), Dorsalis Pedis (L), Dorsalis Pedis (R) Skin: Warm, Dry, Intact Wound/Incisions: Dressing Dry and Intact, No Drainage Neurological: No New Focal Deficit Psy/Mental Status: Alert, Normal Affect, Normal Mood Consult PN Assessment/Plan POD#: 2 Procedures: Procedures ASSAY OF ALDOSTERONE (10/08/15) ASSAY OF BLOOD/URIC ACID (06/22/17) ASSAY OF DIGOXIN TOTAL (10/27/13) ASSAY OF MAGNESIUM (06/27/18) ASSAY OF METANEPHRINES (10/08/15) ASSAY OF PARATHORMONE (10/04/15) ASSAY OF PROTEIN URINE (06/27/18) ASSAY OF RENIN (10/08/15) ASSAY OF TROPONIN QUANT (08/11/18) ASSAY OF URINE CREATININE (06/27/18) C-REACTIVE PROTEIN (01/30/16) CARDIOVASCULAR STRESS TEST (05/04/17) COMPLETE CBC W/AUTO DIFF WBC (06/27/18) COMPREHEN METABOLIC PANEL (01/06/16) COMPUTER DX MAMMOGRAM ADD-ON (11/02/14) DRAIN/INJ JOINT/BURSA W/O US (04/14/16) GAIT TRAINING THERAPY (02/06/16) GLUCOSE BLOOD TEST (01/06/16) HT MUSCLE IMAGE SPECT MULT (05/04/17) MANUAL THERAPY 1/> REGIONS (05/07/16) MASSAGE THERAPY (03/19/16) MEASURE BLOOD OXYGEN LEVEL (01/06/16) METABOLIC PANEL TOTAL CA (05/04/17) MR-STAPH DNA AMP PROBE (12/25/15) NEUROMUSCULAR REEDUCATION (05/07/16) OT EVALUATION (01/06/16) POLYSOM 6/>YRS CPAP 4/> PARM (08/16/17) PROTEIN E-PHORESIS SERUM (10/04/15) PROTEIN E-PHORESIS/URINE/CSF (10/04/15) PT EVALUATION (05/07/16) RBC SED RATE AUTOMATED (01/30/16) RENAL FUNCTION PANEL (06/27/18) ROUTINE VENIPUNCTURE (06/27/18) SELF CARE MNGMENT TRAINING (01/06/16) THERAPEUTIC ACTIVITIES (01/06/16) THERAPEUTIC EXERCISES (05/07/16) TISSUE EXAM BY PATHOLOGIST (12/11/14) URINALYSIS AUTO W/SCOPE (06/27/18) URINE CULTURE/COLONY COUNT (07/09/15) X-RAY EXAM OF KNEE 1 OR 2 (01/06/16) (1) S/P total knee arthroplasty SNOMED Code(s): 1132030872377, 347034909, 8262277250853 Code(s): Z96.659 - PRESENCE OF UNSPECIFIED ARTIFICIAL KNEE JOINT Priority: High Current Visit: Yes Qualifiers: Laterality: right Qualified Code(s): Z96.651 - Presence of right artificial knee joint (2) Osteoarthritis SNOMED Code(s): 488544081 Code(s): M19.90 - UNSPECIFIED OSTEOARTHRITIS, UNSPECIFIED SITE Priority: High Current Visit: Yes Qualifiers: Osteoarthritis location: knee Osteoarthritis type: primary Laterality: right Qualified Code(s): M17.11 - Unilateral primary osteoarthritis, right knee (3) Diabetes mellitus type 2 in obese SNOMED Code(s): 65607125 Code(s): E11.9 - TYPE 2 DIABETES MELLITUS WITHOUT COMPLICATIONS; E66.9 - OBESITY, UNSPECIFIED Priority: Medium Current Visit: No (4) Hyperlipidemia SNOMED Code(s): 73110358 Code(s): E78.5 - HYPERLIPIDEMIA, UNSPECIFIED Priority: Low Current Visit : No Qualifiers: Hyperlipidemia type: unspecified Qualified Code(s): E78.5 - Hyperlipidemia , unspecified (5) Hypertension SNOMED Code(s): 50043562 Code(s): I10 - ESSENTIAL (PRIMARY) HYPERTENSION Priority: Medium Current Visit: No Qualifiers: Hypertension type: unspecified Qualified Code(s): I10 - Essential (primary ) hypertension (6) Hypothyroidism SNOMED Code(s): 73848219 Code(s): E03.9 - HYPOTHYROIDISM, UNSPECIFIED Priority: Low Current Visit : No Qualifiers: Hypothyroidism type: unspecified Qualified Code(s): E03.9 - Hypothyroidism , unspecified (7) Urinary incontinence SNOMED Code(s): 567485228 Code(s): R32 - UNSPECIFIED URINARY INCONTINENCE Priority: Medium Current Visit: No Qualifiers: Urinary Incontinence type: unspecified incontinence Qualified Code(s): R32 - Unspecified urinary incontinence (8) Hypomagnesemia SNOMED Code(s): 471434300 Code(s): E83.42 - HYPOMAGNESEMIA Current Visit: Yes (9) Obesity, Class III, BMI 40-49.9 (morbid obesity) SNOMED Code(s): 470167662, 557131454, [id number] Code(s): E66.01 - MORBID (SEVERE) OBESITY DUE TO EXCESS CALORIES Priority: Medium Current Visit: Yes Problem List Initiated/Reviewed/Updated: Yes My Orders Last 24 Hours: My Active Orders 08/30/18 14:10 Metoprolol Tartrate [Lopressor] 5 mg IVPUSH Q4H PRN hydrALAZINE [Apresoline] 20 mg IVPUSH Q4H PRN 08/30/18 14:15 Pharmacy to Dose - Magnesium R [Pharmacy to Dose - Magnesium Replacement] 0 dose .XX ASDIRECTED PRN Pharmacy to Dose - Potassium R [Pharmacy to Dose - Potassium Replacement] 0 dose .XX ASDIRECTED PRN 08/31/18 05:56 BASIC METABOLIC PANEL,BMP [CHEM] AM CBC WITH AUTO DIFF [HEME] AM MAGNESIUM [CHEM] AM 09/01/18 05:11 BASIC METABOLIC PANEL,BMP [CHEM] AM CBC WITH AUTO DIFF [HEME] AM MAGNESIUM [CHEM] AM 09/02/18 05:11 BASIC METABOLIC PANEL,BMP [CHEM] AM CBC WITH AUTO DIFF [HEME] AM MAGNESIUM [CHEM] AM 09/03/18 05:11 BASIC METABOLIC PANEL,BMP [CHEM] AM CBC WITH AUTO DIFF [HEME] AM MAGNESIUM [CHEM] AM Plan: I/P: Acute: S/P right total knee arthroplasty - post-operative day 2 -DVT prophylaxis and pain management per primary care team -PT/OT -IS/RT -Monitor oxygen saturation -Titrate oxygen as needed -Home medications reviewed -Vital signs stable -Monitor labs -Pre-operative Hgb was 13.1; Now 10.8--> 10.3 -Pre-operative GFR was 58; Now 49--> greater than 60 -Pre-operative creatinine 0.95; Now 1.1--> 0.9 -Pre operative A1C was 6.6% Osteoarthritis of right knee -Pain management per primary care team Chronic: Type II DM HTN HLD Palpations Hypothyroidism Heart murmur Hx/o SVT Sleep apnea Urinary incontinence Osteoarthritis Chronic headaches Plan: CM for discharge planning GI prophylaxis Home medications as indicated Other orders as listed above Routine AM labs She is a full code. Her PCP is Dr. Rathgeber From a hospitalist standpoint Antonella is doing well. She has been up ambulating and working with therapies. They are concerned with her sit to stand but otherwise once she is up she does well. Her magnesium was low today and was supplemented. She is off of oxygen and has urinated. Labs and vital signs remain stable. We have continued all of her home medications. She will be cleared for discharge pending primary team and PT/OT agreement. They are reportedly arranging home health for him. Thank you for allowing us to participate in the care of this patient!!
[2018-08-31] MEDS: Insulin Lispro 100 Units/ML 3 ML Vial SUBCUT SCH ×2 (07:52→11:50)
[2018-08-31] MEDS: Losartan 25 MG Tab PO SCH (08:08)
[2018-08-31] MEDS: Docusate Sodium 100 MG Cap PO SCH (08:08)
[2018-08-31] MEDS: Gabapentin 300 MG Cap PO SCH (08:09)
[2018-08-31] MEDS: Labetalol 100 MG Tab PO SCH (08:09)
[2018-08-31] MEDS: amLODIPine 10 MG Tab PO SCH (08:10)
[2018-08-31] MEDS: Aspirin 325 MG Tab.EC PO SCH (08:10)
[2018-08-31] MEDS: [UNRECOGNIZED DRUG - OTHER] PO SCH (08:10)
[2018-08-31] MEDS: ACIDOPHILUS PROBIOTIC PO SCH (08:10)
[2018-08-31] MEDS: CYANOCOBALAMIN 250 MCG PO SCH (08:11)
[2018-08-31] MEDS ORDERED: Saccharomyces Boulardii (Probiotic) 250 MG Cap PO SCH ×2 (09:17→11:30)
[2018-08-31] MEDS ORDERED: Magnesium Sulfate/Water 2 GM in Premix Bag 1 BAG IV ONE (09:30)
--- NOTE | 2018-08-31 09:52 | PCM.SURGPN ---
- General Info Date of Service: 08/31/18 POD#: 2 Functional Status: Reports: Pain Controlled, Tolerating Diet, Ambulating, Urinating, Incentive Spirometry (The pt has been ambulating well. She notes difficulty with sit to stand transitions.) - Patient Data Vitals - Most Recent: Last Vital Signs Temp 99.0 F 08/31/18 03:54 Pulse 88 08/31/18 08:09 Resp 20 08/31/18 08:00 BP 166/58 H 08/31/18 08:10 Pulse Ox 90 L 08/31/18 08:00 Weight - Most Recent: 270 lb I&O - Last 24 Hours: Intake & Output 08/30/18 08/31/18 08/31/18 22:59 06:59 14:59 Intake Total 380 500 Balance 380 500 Lab Results Last 24 Hrs: Laboratory Results - last 24 hr 08/30/18 08/30/18 08/30/18 Range/Units 11:56 17:12 21:02 WBC (3.98-10.04) K/mm3 RBC (3.98-5.22) M/mm3 Hgb (11.2-15.7) gm/L Hct (34.1-44.9) % MCV (79.4-94.8) fl MCH (25.6-32.2) pg MCHC (32.2-35.5) g/dl RDW Std Deviation (36.4-46.3) fL Plt Count (182-369) K/mm3 MPV (9.4-12.3) fl Neut % (Auto) (34.0-71.1) % Lymph % (Auto) (19.3-51.7) % [place] % (Auto) (4.7-12.5) % Eos % (Auto) (0.7-5.8) Baso % (Auto) (0.1-1.2) % Neut # (Auto) (1.56-6.13) K/mm3 Lymph # (Auto) (1.18-3.74) K/mm3 [place] # (Auto) (0.24-0.36) K/mm3 Eos # (Auto) (0.04-0.36) K/mm3 Baso # (Auto) (0.01-0.08) K/mm3 Manual Slide Review Sodium (136-145) mEq/L Potassium (3.5-5.1) mEq/L Chloride (98-107) mEq/L Carbon Dioxide (21-32) mEq/L Anion Gap (5-15) BUN (7-18) mg/dL Creatinine (0.55-1.02) mg/dL Est Cr Clr Drug Dosing mL/min Estimated GFR (MDRD) (>60) mL/min BUN/Creatinine Ratio (14-18) Glucose (83-115) mg/dL POC Glucose 160 H 173 H 154 H (83-110) mg/dL Calcium (8.5-10.1) mg/dL Magnesium (1.8-2.4) mg/dl 08/31/18 08/31/18 08/31/18 Range/Units 05:56 05:56 06:16 WBC 10.23 H (3.98-10.04) K/mm3 RBC 3.37 L (3.98-5.22) M/mm3 Hgb 10.3 L (11.2-15.7) gm/L Hct 31.3 L (34.1-44.9) % MCV 92.9 (79.4-94.8) fl MCH 30.6 (25.6-32.2) pg MCHC 32.9 (32.2-35.5) g/dl RDW Std Deviation 45.0 (36.4-46.3) fL Plt Count 180 L (182-369) K/mm3 MPV 10.4 (9.4-12.3) fl Neut % (Auto) 83.5 H (34.0-71.1) % Lymph % (Auto) 7.1 L (19.3-51.7) % [place] % (Auto) 6.8 (4.7-12.5) % Eos % (Auto) 1.9 (0.7-5.8) Baso % (Auto) 0.3 (0.1-1.2) % Neut # (Auto) 8.54 H (1.56-6.13) K/mm3 Lymph # (Auto) 0.73 L (1.18-3.74) K/mm3 [place] # (Auto) 0.70 H (0.24-0.36) K/mm3 Eos # (Auto) 0.19 (0.04-0.36) K/mm3 Baso # (Auto) 0.03 (0.01-0.08) K/mm3 Manual Slide Review Abnormal smear Sodium 137 (136-145) mEq/L Potassium 4.3 (3.5-5.1) mEq/L Chloride 102 (98-107) mEq/L Carbon Dioxide 25 (21-32) mEq/L Anion Gap 14.3 (5-15) BUN 27 H (7-18) mg/dL Creatinine 0.9 (0.55-1.02) mg/dL Est Cr Clr Drug Dosing 57.00 mL/min Estimated GFR (MDRD) > 60 (>60) mL/min BUN/Creatinine Ratio 30.0 H (14-18) Glucose 159 H (83-115) mg/dL POC Glucose 156 H (83-110) mg/dL Calcium 8.8 (8.5-10.1) mg/dL Magnesium 1.6 L (1.8-2.4) mg/dl Med Orders - Current: Current Medications Amlodipine Besylate (Norvasc) 10 mg PO DAILY [facility] Last Admin: 08/31/18 08:10 Dose: 10 mg Artificial Tears (Refresh Liquigel 1%) 0 ml EYEBOTH DAILY PRN PRN Reason: Dry Eyes Aspirin (Ecotrin) 325 mg PO BID [facility] Last Admin: 08/31/18 08:10 Dose: 325 mg Bisacodyl (Dulcolax) 5 mg PO DAILY PRN PRN Reason: Constipation Dextrose/Water (Dextrose 50% In Water) 50 ml IVPUSH ASDIRECTED PRN PRN Reason: Hypoglycemia Docusate Sodium (Colace) 300 mg PO DAILY [facility] Last Admin: 08/31/18 08:08 Dose: 300 mg Flunisolide (Nasalide Nasal [place]) 0 ml NASBOTH DAILY [facility] Last Admin: 08/31/18 08:18 Dose: Not Given Furosemide (Lasix) 20 mg PO DAILY PRN PRN Reason: swelling Furosemide (Lasix) 20 mg PO DAILY [facility] Gabapentin (Neurontin) 300 mg PO DAILY [facility] Last Admin: 08/31/18 08:09 Dose: 300 mg Hydralazine HCl (Apresoline) 20 mg IVPUSH Q4H PRN PRN Reason: Hypertension Hydrocortisone (Hydrocortisone 1% Crm) 0 gm TOP BID PRN PRN Reason: skin complications Magnesium Sulfate 2 gm/ Premix 50 mls @ 25 mls/hr IV ONETIME ONE Stop: 08/31/18 11:29 Insulin Human Lispro (Humalog) 12 unit SUBCUT TID [facility] Insulin Human Lispro (Humalog) 0 unit SUBCUT QIDACANDBED [facility]; Protocol Last Admin: 08/31/18 07:52 Dose: 2 unit Labetalol HCl (Normodyne) 100 mg PO BID [facility] Last Admin: 08/31/18 08:09 Dose: 100 mg Levothyroxine Sodium (Synthroid) 100 mcg PO DAILY [facility] Last Admin: 08/30/18 10:50 Dose: 100 mcg Losartan Potassium (Cozaar) 50 mg PO DAILY [facility] Last Admin: 08/31/18 08:08 Dose: 50 mg Magnesium Sulfate (Pharmacy To Dose - Magnesium Replacement) 0 dose .XX ASDIRECTED PRN PRN Reason: RX TO WATCH MAG Metoprolol Tartrate (Lopressor) 5 mg IVPUSH Q4H PRN PRN Reason: Tachycardia Morphine Sulfate (Morphine) 2 mg IVPUSH Q2H PRN PRN Reason: Breakthrough Pain Last Admin: 08/30/18 02:16 Dose: 2 mg Naloxone HCl (Narcan) 0.1 mg IVPUSH Q5M PRN PRN Reason: Oversedation Ondansetron HCl (Zofran) 4 mg IVPUSH Q6H PRN PRN Reason: Nausea/Vomiting Oxycodone/Acetaminophen (Percocet 325-5 Mg) 1 - 2 tab PO Q4H PRN PRN Reason: Pain Last Admin: 08/31/18 06:17 Dose: 2 tab Chlorthalidone 25 Mg (Patients Own Med) 0 each PO DAILY [facility] Last Admin: 08/31/18 08:11 Dose: Not Given Cyanocobalamin ( (Vitamin B12) 250 Mcg) 0 each PO DAILY [facility] Last Admin: 08/31/18 08:11 Dose: Not Given Children's Chewable Vitamin 1 Tab Patient's Own Med 0 each PO DAILY [facility] Last Admin: 08/31/18 08:10 Dose: Not Given Potassium Chloride (Pharmacy To Dose - Potassium Replacement) 0 dose .XX ASDIRECTED PRN PRN Reason: RX TO WATCH K Rosuvastatin Calcium (Crestor) 20 mg PO DAILY [facility] Saccharomyces Boulardii (Florastor) 250 mg PO DAILY [facility] Senna (Senna) 8.6 mg PO BID PRN PRN Reason: Constipation Last Admin: 08/30/18 21:33 Dose: 8.6 mg Discontinued Medications Acetaminophen (Tylenol) 975 mg PO ONETIME [facility] Stop: 08/29/18 18:00 Last Admin: 08/29/18 06:28 Dose: 975 mg Bupivacaine HCl (Marcaine 0.25%) Confirm Administered Dose 30 ml .ROUTE .STK- MED ONE Stop: 08/29/18 06:22 Last Admin: 08/29/18 08:51 Dose: 30 ml Cefazolin Sodium (Ancef) Confirm Administered Dose 2 gm .ROUTE .STK-MED ONE Stop: 08/29/18 06:22 Last Admin: 08/29/18 08:47 Dose: 2 gm Cefazolin Sodium (Ancef) Confirm Administered Dose 2 gm .ROUTE .STK-MED ONE Stop: 08/29/18 06:55 Cefazolin Sodium (Ancef) Confirm Administered Dose 1 gm .ROUTE .STK-MED ONE Stop: 08/29/18 08:07 Morphine Sulfate 8 mg/Epinephrine HCl 0.3 mg/Cefuroxime Sodium 750 mg/Ketorolac Tromethamine 30 mg/Sodium Chloride 27.9 ml 0 mg .XX ONETIME ONE Stop: 08/29/18 08:01 Last Admin: 08/29/18 08:51 Dose: 788.3 mg Docusate Sodium (Colace) 100 mg PO BID [facility] Epinephrine HCl (Adrenalin) Confirm Administered Dose 1 mg .ROUTE .STK-MED ONE Stop: 08/29/18 07:38 Fentanyl (Sublimaze) Confirm Administered Dose 100 mcg .ROUTE .STK-MED ONE Stop: 08/29/18 06:55 Fentanyl (Sublimaze) Confirm Administered Dose 250 mcg .ROUTE .STK-MED ONE Stop: 08/29/18 08:17 Fentanyl (Sublimaze) Confirm Administered Dose 100 mcg .ROUTE .STK-MED ONE Stop: 08/29/18 09:23 Fentanyl (Sublimaze) 50 mcg IVPUSH Q5M PRN PRN Reason: Pain Stop: 08/29/18 23:00 Last Admin: 08/29/18 10:25 Dose: 50 mcg Fluticasone Propionate (Flonase) 0 gm NASBOTH DAILY [facility] Last Admin: 08/29/18 16:47 Dose: Not Given Hydromorphone HCl (Dilaudid) Confirm Administered Dose 0.5 mg .ROUTE .STK-MED ONE Stop: 08/29/18 08:18 Hydromorphone HCl (Dilaudid) Confirm Administered Dose 0.5 mg .ROUTE .STK-MED ONE Stop: 08/29/18 08:19 Hydromorphone HCl (Dilaudid) 0.5 mg IVPUSH Q10M PRN PRN Reason: Pain (severe 7-10) Stop: 08/29/18 23:00 Last Admin: 08/29/18 10:21 Dose: 0.5 mg Lactated Ringer's (Ringers, Lactated) 1,000 mls @ 125 mls/hr IV ASDIRECTED [facility] Stop: 08/29/18 23:00 Last Admin: 08/29/18 10:36 Dose: 125 mls/hr Cefazolin Sodium/Dextrose 2 gm (/ Premix) 50 mls @ 100 mls/hr IV Q8H [facility] Stop: 08/30/18 07:29 Last Admin: 08/30/18 05:59 Dose: 100 mls/hr Lactated Ringer's (Ringers, Lactated) Confirm Administered Dose 1,000 mls @ as directed .ROUTE .STK-MED ONE Stop: 08/29/18 08:09 Lidocaine HCl (Xylocaine-Mpf 1%) Confirm Administered Dose 2 mls @ as directed .ROUTE .STK-MED ONE Stop: 08/29/18 09:23 Cefazolin Sodium/Dextrose 1 gm (/ Premix) 50 mls @ 66.667 mls/hr IV Q8H [facility] Stop: 08/30/18 07:44 Last Admin: 08/30/18 06:36 Dose: 66.667 mls/hr Sodium Chloride (Normal Saline) 500 mls @ 999 mls/hr IV .BOLUS ONE Stop: 08/30/18 08:10 Last Admin: 08/30/18 10:18 Dose: 999 mls/hr Sodium Chloride (Normal Saline) 1,000 mls @ 150 mls/hr IV ASDIRECTED [facility] Iodine (Iodine 2% Mild Tincture) Confirm Administered Dose 30 ml .ROUTE .STK- MED ONE Stop: 08/29/18 06:22 Last Admin: 08/29/18 08:45 Dose: 18 ml Ketorolac Tromethamine (Toradol) 15 mg IVPUSH Q6H PRN PRN Reason: Pain Last Admin: 08/30/18 08:17 Dose: 15 mg Ketorolac Tromethamine (Toradol) 30 mg IVPUSH ONETIME ONE Stop: 08/29/18 09:57 Last Admin: 08/29/18 10:09 Dose: 30 mg Lidocaine/Sodium Bicarbonate (Buffered Lidocaine 1% In Ns 8.4%) 0.25 ml IDERM ONETIME PRN PRN Reason: Prior to IV Start Stop: 08/29/18 18:00 Last Admin: 08/29/18 06:30 Dose: 0.25 ml Ondansetron HCl (Zofran) Confirm Administered Dose 4 mg .ROUTE .STK-MED ONE Stop: 08/29/18 08:21 Oxycodone HCl (Oxycontin) 10 mg PO ONETIME [facility] Stop: 08/29/18 18:00 Last Admin: 08/29/18 06:27 Dose: 10 mg Acidophilus Probiotic Patients Own Med 0 each PO DAILY [facility] Last Admin: 08/31/18 08:10 Dose: Not Given Pregabalin (Lyrica) 50 mg PO ONETIME [facility] Stop: 08/29/18 18:00 Last Admin: 08/29/18 06:27 Dose: 50 mg Propofol (Diprivan 20 Ml) Confirm Administered Dose 200 mg .ROUTE .STK-MED ONE Stop: 08/29/18 06:55 Propofol (Diprivan 20 Ml) Confirm Administered Dose 200 mg .ROUTE .STK-MED ONE Stop: 08/29/18 07:41 Ropivacaine (Naropin 0.5%) Confirm Administered Dose 30 ml .ROUTE .STK-MED ONE Stop: 08/29/18 07:38 Sodium Chloride (Saline Flush) 10 ml FLUSH ASDIRECTED PRN PRN Reason: Keep Vein Open Stop: 08/29/18 18:00 Tranexamic Acid (Cyklokapron) Confirm Administered Dose 1,000 mg .ROUTE .STK- MED ONE Stop: 08/29/18 06:22 Last Admin: 08/29/18 09:00 Dose: 1,000 mg Vancomycin HCl (Vancomycin) Confirm Administered Dose 1 gm .ROUTE .STK-MED ONE Stop: 08/29/18 06:22 Last Admin: 08/29/18 08:54 Dose: 1 gm - Exam Wound/Incisions: Dressing Dry and Intact General: Alert, Cooperative, No Acute Distress Lungs: Normal Respiratory Effort Extremities: Other (NVS intact for BLE. Nori's negative.) - Problem List Review Problem List Initiated/Reviewed/Updated: Yes - My Orders Last 24 Hours: Active Orders 24 hr Category Date Time Status BASIC METABOLIC PANEL,BMP [CHEM] AM Lab 09/01/18 05:11 Ordered BASIC METABOLIC PANEL,BMP [CHEM] AM Lab 09/02/18 05:11 Ordered BASIC METABOLIC PANEL,BMP [CHEM] AM Lab 09/03/18 05:11 Ordered CBC WITH AUTO DIFF [HEME] AM Lab 09/01/18 05:11 Ordered CBC WITH AUTO DIFF [HEME] AM Lab 09/02/18 05:11 Ordered CBC WITH AUTO DIFF [HEME] AM Lab 09/03/18 05:11 Ordered MAGNESIUM [CHEM] AM Lab 09/01/18 05:11 Ordered MAGNESIUM [CHEM] AM Lab 09/02/18 05:11 Ordered MAGNESIUM [CHEM] AM Lab 09/03/18 05:11 Ordered Aspirin [Ecotrin] Med 08/30/18 09:00 Active 325 mg PO BID Docusate Sodium [Colace] Med 08/30/18 09:00 Active 300 mg PO DAILY Flunisolide [Nasalide Nasal [place]] Med 08/30/18 09:00 Active 0 ml NASBOTH DAILY Furosemide [Lasix] Med 08/30/18 09:00 Active 20 mg PO DAILY Gabapentin [Neurontin] Med 08/30/18 09:00 Active 300 mg PO DAILY Levothyroxine [Synthroid] Med 08/30/18 09:00 Active 100 mcg PO DAILY Losartan [Cozaar] Med 08/30/18 09:00 Active 50 mg PO DAILY Magnesium Sulfate/Water [Magnesium Sulfate 2 GM in Med 08/31/18 09:30 Active Water 50 ML] 2 gm Premix Bag 1 bag IV ONETIME Metoprolol Tartrate [Lopressor] Med 08/30/18 14:10 Active 5 mg IVPUSH Q4H PRN Patient's Own Medication [Ptom] Med 08/30/18 09:00 Active 0 each PO DAILY Patient's Own Medication [Ptom] Med 08/30/18 09:00 Active 0 each PO DAILY Patient's Own Medication [Ptom] Med 08/30/18 09:00 Active 0 each PO DAILY Pharmacy to Dose - Magnesium R [Pharmacy to Dose - Med 08/30/18 14:15 Active Magnesium Replacement] 0 dose .XX ASDIRECTED PRN Pharmacy to Dose - Potassium R [Pharmacy to Dose - Med 08/30/18 14:15 Active Potassium Replacement] 0 dose .XX ASDIRECTED PRN Rosuvastatin [Crestor] Med 08/30/18 09:00 Active 20 mg PO DAILY Saccharomyces Boulardii [Florastor] Med 08/31/18 09:17 Active 250 mg PO DAILY amLODIPine [Norvasc] Med 08/30/18 09:00 Active 10 mg PO DAILY hydrALAZINE [Apresoline] Med 08/30/18 14:10 Active 20 mg IVPUSH Q4H PRN Medication Orders Amlodipine Besylate (Norvasc) 10 mg PO DAILY [facility] Last Admin: 08/31/18 08:10 Dose: 10 mg Admin: 08/30/18 10:43 Dose: 10 mg Artificial Tears (Refresh Liquigel 1%) 0 ml EYEBOTH DAILY PRN PRN Reason: Dry Eyes Aspirin (Ecotrin) 325 mg PO BID [facility] Last Admin: 08/31/18 08:10 Dose: 325 mg Admin: 08/30/18 21:32 Dose: 325 mg Admin: 08/30/18 10:42 Dose: 325 mg Bisacodyl (Dulcolax) 5 mg PO DAILY PRN PRN Reason: Constipation Dextrose/Water (Dextrose 50% In Water) 50 ml IVPUSH ASDIRECTED PRN PRN Reason: Hypoglycemia Docusate Sodium (Colace) 300 mg PO DAILY [facility] Last Admin: 08/31/18 08:08 Dose: 300 mg Admin: 08/30/18 10:40 Dose: 300 mg Flunisolide (Nasalide Nasal [place]) 0 ml NASBOTH DAILY [facility] Last Admin: 08/31/18 08:18 Dose: Not Given Admin: 08/30/18 10:46 Dose: 1 spray Furosemide (Lasix) 20 mg PO DAILY PRN PRN Reason: swelling Furosemide (Lasix) 20 mg PO DAILY [facility] Gabapentin (Neurontin) 300 mg PO DAILY [facility] Last Admin: 08/31/18 08:09 Dose: 300 mg Admin: 08/30/18 10:42 Dose: 300 mg Hydralazine HCl (Apresoline) 20 mg IVPUSH Q4H PRN PRN Reason: Hypertension Hydrocortisone (Hydrocortisone 1% Crm) 0 gm TOP BID PRN PRN Reason: skin complications Magnesium Sulfate 2 gm/ Premix 50 mls @ 25 mls/hr IV ONETIME ONE Stop: 08/31/18 11:29 Insulin Human Lispro (Humalog) 12 unit SUBCUT TID [facility] Insulin Human Lispro (Humalog) 0 unit SUBCUT QIDACANDBED [facility]; Protocol Last Admin: 08/31/18 07:52 Dose: 2 unit Admin: 08/30/18 21:40 Dose: 2 unit Admin: 08/30/18 17:37 Dose: 2 unit Admin: 08/30/18 12:06 Dose: 2 unit Admin: 08/30/18 06:14 Dose: 2 unit Admin: 08/29/18 21:15 Dose: Admin: 08/29/18 16:36 Dose: 2 unit Labetalol HCl (Normodyne) 100 mg PO BID [facility] Last Admin: 08/31/18 08:09 Dose: 100 mg Admin: 08/30/18 21:33 Dose: 100 mg Admin: 08/30/18 10:42 Dose: 100 mg Admin: 08/29/18 20:07 Dose: 100 mg Levothyroxine Sodium (Synthroid) 100 mcg PO DAILY [facility] Last Admin: 08/30/18 10:50 Dose: 100 mcg Losartan Potassium (Cozaar) 50 mg PO DAILY [facility] Last Admin: 08/31/18 08:08 Dose: 50 mg Admin: 08/30/18 10:40 Dose: 50 mg Magnesium Sulfate (Pharmacy To Dose - Magnesium Replacement) 0 dose .XX ASDIRECTED PRN PRN Reason: RX TO WATCH MAG Metoprolol Tartrate (Lopressor) 5 mg IVPUSH Q4H PRN PRN Reason: Tachycardia Morphine Sulfate (Morphine) 2 mg IVPUSH Q2H PRN PRN Reason: Breakthrough Pain Last Admin: 08/30/18 02:16 Dose: 2 mg Admin: 08/30/18 00:11 Dose: 2 mg Admin: 08/29/18 11:30 Dose: 2 mg Naloxone HCl (Narcan) 0.1 mg IVPUSH Q5M PRN PRN Reason: Oversedation Ondansetron HCl (Zofran) 4 mg IVPUSH Q6H PRN PRN Reason: Nausea/Vomiting Oxycodone/Acetaminophen (Percocet 325-5 Mg) 1 - 2 tab PO Q4H PRN PRN Reason: Pain Last Admin: 08/31/18 06:17 Dose: 2 tab Admin: 08/30/18 23:39 Dose: 2 tab Admin: 08/30/18 17:58 Dose: 2 tab Admin: 08/30/18 14:12 Dose: 2 tab Admin: 08/30/18 10:16 Dose: 2 tab Admin: 08/30/18 05:02 Dose: 2 tab Admin: 08/30/18 00:50 Dose: 1 tab Admin: 08/29/18 20:08 Dose: 1 tab Admin: 08/29/18 10:33 Dose: 1 tab Chlorthalidone 25 Mg (Patients Own Med) 0 each PO DAILY [facility] Last Admin: 08/31/18 08:11 Dose: Cyanocobalamin ( (Vitamin B12) 250 Mcg) 0 each PO DAILY [facility] Last Admin: 08/31/18 08:11 Dose: Admin: 08/30/18 10:56 Dose: Children's Chewable Vitamin 1 Tab Patient's Own Med 0 each PO DAILY [facility] Last Admin: 08/31/18 08:10 Dose: Admin: 08/30/18 10:49 Dose: Potassium Chloride (Pharmacy To Dose - Potassium Replacement) 0 dose .XX ASDIRECTED PRN PRN Reason: RX TO WATCH K Rosuvastatin Calcium (Crestor) 20 mg PO DAILY [facility] Saccharomyces Boulardii (Florastor) 250 mg PO DAILY [facility] Senna (Senna) 8.6 mg PO BID PRN PRN Reason: Constipation Last Admin: 08/30/18 21:33 Dose: 8.6 mg - Assessment Assessment (Free Text/Narrative):: POD#2 - right TKA - Plan Plan (Free Text/Narrative):: 1. Discharge to home today with home health. Pt will have a friend stay with her. 2. Further orders per Hospitalist service. 3. 325mg ASA PO BID, frequent mobility, TEDs. Today's evaluation with serve as the [id number] evaluation regarding Home Health services. The pt would benefit from Home Health nursing, PT and OT services, as well as the services of a STOCK CRANE OPERATOR. The pt is status post knee replacement and nursing will provide medication management, monitoring of surgical wound, monitoring of blood pressures as the pt has hx of HTN, and monitoring of blood sugars as the pt has hx of diabetes. Nursing will assist with pain management and monitoring for signs or symptoms of post-operative complication, such as infection or VTE. The pt will benefit from PT and OT services to increase safety with gait training and mobility. The pt is currently using a FWW. A home safety evaluation can be completed by occupational therapy. OT can assess ADL and IADL completion. The STOCK CRANE OPERATOR will assist with bathing and dressing. The pt is currently homebound. The pt will be monitored by her primary care provider, Dr. Morris, also. The pt's case was discussed with Dr. Franklin today.
--- NOTE | 2018-08-31 09:58 | PCM.DCSUM1 ---
Discharge Summary - Hospital Course Brief History: Antonella is a 73 yo female who underwent right TKA with Dr. Franklin on 08-29-2018. The procedure was completed under general anesthesia. A post-op adductor block was completed. The pt tolerated the procedures well and was admitted to the [facility] under Medical-Surgical status. Medical management was provided by the Hospitalist service. The pt's Hospital course was remarkable for slow progress with therapies and for use of O2 to POD#2. The pt' s Hgb on POD#1 was 10.8. On POD#1, 325mg ASA BID was initiated for VTE prophylaxis. SCDs and TEDs were also ordered. A Mepilex dressing was placed at the incision site at the time of surgery and remained clean and dry. The pt participated in P.T. and O.T. The pt was allowed to WBAT. On POD#2, the pt was deemed appropriate to discharge to home with home health nursing and with the assistance of a friend. - Discharge Data Discharge Date: 08/31/18 Discharge Disposition: Home, Self-Care 01 Condition: Good - Patient Summary/Data Consults: Consultations 08/29/18 06:44 OT Evaluation and Treatment [CONS] Routine PT Evaluation and Treatment [CONS] Routine 08/29/18 06:46 Consult to Physician [CONS] Routine - Patient Instructions Diet: Usual Diet as Tolerated, Diabetic Diet Activity: Apply Ice, As Tolerated, Elevate Extremity, Full Weight Bearing Driving: Do Not Drive Showering/Bathing: May Shower Wound/Incision Care: Keep Operative Site/Wound Site Clean and Dry, Do NOT Change Dressing Notify Provider of: Fever, Increased Pain, Swelling and Redness, Drainage, Nausea and/or Vomiting Other/Special Instructions: Please get up and moving around EVERY HOUR while awake. This helps to prevent blood clots. Please use your walker and have help with mobility as needed. Take a short walk in your home every hour while awake. Please take 325mg Aspirin TWICE daily. The aspirin is being used for blood clot prevention and not for pain management so please do not miss a dose of the medication. You do not need to take the 81mg Aspirin while using the 325mg Aspirin twice daily. Then the 325mg Aspirin twice daily course is complete, you will return to use of 81mg Aspirin daily. You could use a medication like Zantac or Pepcid and a medication like Prilosec or Nexium to protect your stomach while you are using the aspirin. At home, please complete the exercises that you learned during the Hospital stay. Schedule for physical therapy. Use the pain medication as needed. The medication may cause drowsiness and constipation. Contact your primary care provider for instructions if you are constipated. You may use a stool softener like docusate sodium or Colace 100mg twice daily and/or a laxative like Miralax daily for constipation. Increase your water and fiber intake while you are using the pain medication. Discontinue use of the pain medication as soon as able. Please do not use other medications that may cause drowsiness (other pain medications, anxiety pills, cold medications, sleeping pills, etc) while using the prescription pain medication. Do not use alcohol while using the pain medication. You may use acetaminophen or Tylenol for pain management, however, please ensure you are not using over 4000 mg or 4 grams of acetaminophen per day from all sources. Your pain medication has 325mg of acetaminophen per tablet. At this time, please do not use ibuprofen (Motrin, Advil) or naproxen (Aleve) for pain management as you are using the aspirin. When the aspirin course is completed in 4 to 6 weeks, you could use ibuprofen or naproxen for pain management (if this is allowed by your primary care provider). Wear the JACQUIE hose during the day and you may remove these at night. Elevate the limb to decrease swelling. Place ice to the area often. Place a towel between your skin and the blue pad. Use the incentive spirometer often. Take deep breaths throughout the day. Please keep the dressing in place until follow-up. Notify the Clinic if the dressing becomes saturated. Increase your protein intake while you are healing. Please closely monitor your blood sugars and notify your primary care provider with abnormal values. Elevated blood sugars increases the risk of infection. Call the Clinic with questions or concerns - [phone]. - Discharge Plan *PRESCRIPTION DRUG MONITORING PROGRAM REVIEWED*: No *COPY OF PRESCRIPTION DRUG MONITORING REPORT IN PATIENT ELVIN: No Prescriptions/Med Rec: Acetaminophen/oxyCODONE [Percocet 325-5 MG] 1 - 2 tab PO Q4H PRN #60 tablet PRN Reason: Pain Aspirin [Ecotrin] 325 mg PO BID #84 tab.ec Home Medications: Home Meds Chlorthalidone 25 mg PO DAILY 08/26/18 [History] Cyanocobalamin (Vitamin B12) [Vitamin B12] 250 mcg PO DAILY 08/26/18 [History] Docusate Sodium [Colace] 300 mg PO DAILY 08/26/18 [History] Fluticasone Propionate [Flonase] 1 dose NASBOTH DAILY PRN 08/26/18 [History] Furosemide 20 mg PO DAILY 08/26/18 [History] Furosemide 20 mg PO DAILY PRN 08/26/18 [History] Gabapentin [Neurontin] 300 mg PO DAILY 08/26/18 [History] Hydrocortisone [Hydrocortisone 1% Crm] 1 dose TOP BID PRN 08/26/18 [History] Insulin Aspart [NovoLOG] 12 units SQ TID 08/26/18 [History] Insulin Glargine,Hum.Rec.Anlog [Basaglar Kwikpen U-100] 80 units SQ BEDTIME [History] L. Acidophilus/Pectin, [place] [Acidophilus Probiotic] 1 cap PO DAILY 08/26/18 [ History] Labetalol [Normodyne] 100 mg PO BID 08/26/18 [History] Levothyroxine [Synthroid] 100 mcg PO DAILY 08/26/18 [History] Losartan [Cozaar] 50 mg PO DAILY 08/26/18 [History] Multivitamin [Children's Chewable Vitamin] 1 tab PO DAILY 08/26/18 [History] Ozempic 0.5 mg SQ TH 08/26/18 [History] Polyvinyl Alcohol/Povidone/Pf [Refresh Classic Eye Drops] 1 dose EYEBOTH DAILY PRN 08/26/18 [History] Rosuvastatin Calcium 20 mg PO DAILY 08/26/18 [History] amLODIPine Besylate [Norvasc] 10 mg PO DAILY 08/26/18 [History] Acetaminophen [Tylenol Arthritis] 1,300 mg PO BID #0 08/29/18 [Rx] Acetaminophen/oxyCODONE [Percocet 325-5 MG] 1 - 2 tab PO Q4H PRN #60 tablet [Rx] Aspirin [Ecotrin] 325 mg PO BID #84 tab.ec 08/29/18 [Rx] Bisacodyl [Dulcolax] 5 mg PO DAILY PRN tablet 08/29/18 [Rx] Sennosides [Senna] 8.6 mg PO BID PRN tablet 08/29/18 [Rx] Referrals: Karla Ramirez PA-C [Physician Corporate Logistics Manager] - 09/06/18 11:30 am (Please keep follow up appointments with Karla on September 06 at 11:30AM at the [facility] [place]. Your next appointment is September 13 at 11:30AM at the [facility] [place]. ) - Discharge Summary/Plan Comment DC Time >30 min.: No - Patient Data Vitals - Most Recent: Last Vital Signs Temp 99.0 F 08/31/18 03:54 Pulse 88 08/31/18 08:09 Resp 20 08/31/18 08:00 BP 166/58 H 08/31/18 08:10 Pulse Ox 90 L 08/31/18 08:00 Weight - Most Recent: 270 lb I&O - Last 24 hours: Intake & Output 08/30/18 08/31/18 08/31/18 22:59 06:59 14:59 Intake Total 380 500 Balance 380 500 Lab Results - Last 24 hrs: Laboratory Results - last 24 hr 08/30/18 08/30/18 08/30/18 Range/Units 11:56 17:12 21:02 WBC (3.98-10.04) K/mm3 RBC (3.98-5.22) M/mm3 Hgb (11.2-15.7) gm/L Hct (34.1-44.9) % MCV (79.4-94.8) fl MCH (25.6-32.2) pg MCHC (32.2-35.5) g/dl RDW Std Deviation (36.4-46.3) fL Plt Count (182-369) K/mm3 MPV (9.4-12.3) fl Neut % (Auto) (34.0-71.1) % Lymph % (Auto) (19.3-51.7) % [place] % (Auto) (4.7-12.5) % Eos % (Auto) (0.7-5.8) Baso % (Auto) (0.1-1.2) % Neut # (Auto) (1.56-6.13) K/mm3 Lymph # (Auto) (1.18-3.74) K/mm3 [place] # (Auto) (0.24-0.36) K/mm3 Eos # (Auto) (0.04-0.36) K/mm3 Baso # (Auto) (0.01-0.08) K/mm3 Manual Slide Review Sodium (136-145) mEq/L Potassium (3.5-5.1) mEq/L Chloride (98-107) mEq/L Carbon Dioxide (21-32) mEq/L Anion Gap (5-15) BUN (7-18) mg/dL Creatinine (0.55-1.02) mg/dL Est Cr Clr Drug Dosing mL/min Estimated GFR (MDRD) (>60) mL/min BUN/Creatinine Ratio (14-18) Glucose (83-115) mg/dL POC Glucose 160 H 173 H 154 H (83-110) mg/dL Calcium (8.5-10.1) mg/dL Magnesium (1.8-2.4) mg/dl 08/31/18 08/31/18 08/31/18 Range/Units 05:56 05:56 06:16 WBC 10.23 H (3.98-10.04) K/mm3 RBC 3.37 L (3.98-5.22) M/mm3 Hgb 10.3 L (11.2-15.7) gm/L Hct 31.3 L (34.1-44.9) % MCV 92.9 (79.4-94.8) fl MCH 30.6 (25.6-32.2) pg MCHC 32.9 (32.2-35.5) g/dl RDW Std Deviation 45.0 (36.4-46.3) fL Plt Count 180 L (182-369) K/mm3 MPV 10.4 (9.4-12.3) fl Neut % (Auto) 83.5 H (34.0-71.1) % Lymph % (Auto) 7.1 L (19.3-51.7) % [place] % (Auto) 6.8 (4.7-12.5) % Eos % (Auto) 1.9 (0.7-5.8) Baso % (Auto) 0.3 (0.1-1.2) % Neut # (Auto) 8.54 H (1.56-6.13) K/mm3 Lymph # (Auto) 0.73 L (1.18-3.74) K/mm3 [place] # (Auto) 0.70 H (0.24-0.36) K/mm3 Eos # (Auto) 0.19 (0.04-0.36) K/mm3 Baso # (Auto) 0.03 (0.01-0.08) K/mm3 Manual Slide Review Abnormal smear Sodium 137 (136-145) mEq/L Potassium 4.3 (3.5-5.1) mEq/L Chloride 102 (98-107) mEq/L Carbon Dioxide 25 (21-32) mEq/L Anion Gap 14.3 (5-15) BUN 27 H (7-18) mg/dL Creatinine 0.9 (0.55-1.02) mg/dL Est Cr Clr Drug Dosing 57.00 mL/min Estimated GFR (MDRD) > 60 (>60) mL/min BUN/Creatinine Ratio 30.0 H (14-18) Glucose 159 H (83-115) mg/dL POC Glucose 156 H (83-110) mg/dL Calcium 8.8 (8.5-10.1) mg/dL Magnesium 1.6 L (1.8-2.4) mg/dl Med Orders - Current: Current Medications Amlodipine Besylate (Norvasc) 10 mg PO DAILY [facility] Last Admin: 08/31/18 08:10 Dose: 10 mg Artificial Tears (Refresh Liquigel 1%) 0 ml EYEBOTH DAILY PRN PRN Reason: Dry Eyes Aspirin (Ecotrin) 325 mg PO BID [facility] Last Admin: 08/31/18 08:10 Dose: 325 mg Bisacodyl (Dulcolax) 5 mg PO DAILY PRN PRN Reason: Constipation Dextrose/Water (Dextrose 50% In Water) 50 ml IVPUSH ASDIRECTED PRN PRN Reason: Hypoglycemia Docusate Sodium (Colace) 300 mg PO DAILY [facility] Last Admin: 08/31/18 08:08 Dose: 300 mg Flunisolide (Nasalide Nasal [place]) 0 ml NASBOTH DAILY [facility] Last Admin: 08/31/18 08:18 Dose: Not Given Furosemide (Lasix) 20 mg PO DAILY PRN PRN Reason: swelling Furosemide (Lasix) 20 mg PO DAILY [facility] Gabapentin (Neurontin) 300 mg PO DAILY [facility] Last Admin: 08/31/18 08:09 Dose: 300 mg Hydralazine HCl (Apresoline) 20 mg IVPUSH Q4H PRN PRN Reason: Hypertension Hydrocortisone (Hydrocortisone 1% Crm) 0 gm TOP BID PRN PRN Reason: skin complications Magnesium Sulfate 2 gm/ Premix 50 mls @ 25 mls/hr IV ONETIME ONE Stop: 08/31/18 11:29 Insulin Human Lispro (Humalog) 12 unit SUBCUT TID [facility] Insulin Human Lispro (Humalog) 0 unit SUBCUT QIDACANDBED [facility]; Protocol Last Admin: 08/31/18 07:52 Dose: 2 unit Labetalol HCl (Normodyne) 100 mg PO BID [facility] Last Admin: 08/31/18 08:09 Dose: 100 mg Levothyroxine Sodium (Synthroid) 100 mcg PO DAILY [facility] Last Admin: 08/30/18 10:50 Dose: 100 mcg Losartan Potassium (Cozaar) 50 mg PO DAILY [facility] Last Admin: 08/31/18 08:08 Dose: 50 mg Magnesium Sulfate (Pharmacy To Dose - Magnesium Replacement) 0 dose .XX ASDIRECTED PRN PRN Reason: RX TO WATCH MAG Metoprolol Tartrate (Lopressor) 5 mg IVPUSH Q4H PRN PRN Reason: Tachycardia Morphine Sulfate (Morphine) 2 mg IVPUSH Q2H PRN PRN Reason: Breakthrough Pain Last Admin: 08/30/18 02:16 Dose: 2 mg Naloxone HCl (Narcan) 0.1 mg IVPUSH Q5M PRN PRN Reason: Oversedation Ondansetron HCl (Zofran) 4 mg IVPUSH Q6H PRN PRN Reason: Nausea/Vomiting Oxycodone/Acetaminophen (Percocet 325-5 Mg) 1 - 2 tab PO Q4H PRN PRN Reason: Pain Last Admin: 08/31/18 06:17 Dose: 2 tab Chlorthalidone 25 Mg (Patients Own Med) 0 each PO DAILY [facility] Last Admin: 08/31/18 08:11 Dose: Not Given Cyanocobalamin ( (Vitamin B12) 250 Mcg) 0 each PO DAILY [facility] Last Admin: 08/31/18 08:11 Dose: Not Given Children's Chewable Vitamin 1 Tab Patient's Own Med 0 each PO DAILY [facility] Last Admin: 08/31/18 08:10 Dose: Not Given Potassium Chloride (Pharmacy To Dose - Potassium Replacement) 0 dose .XX ASDIRECTED PRN PRN Reason: RX TO WATCH K Rosuvastatin Calcium (Crestor) 20 mg PO DAILY [facility] Saccharomyces Boulardii (Florastor) 250 mg PO DAILY [facility] Senna (Senna) 8.6 mg PO BID PRN PRN Reason: Constipation Last Admin: 08/30/18 21:33 Dose: 8.6 mg Discontinued Medications Acetaminophen (Tylenol) 975 mg PO ONETIME NISA Stop: 08/29/18 18:00 Last Admin: 08/29/18 06:28 Dose: 975 mg Bupivacaine HCl (Marcaine 0.25%) Confirm Administered Dose 30 ml .ROUTE .STK- MED ONE Stop: 08/29/18 06:22 Last Admin: 08/29/18 08:51 Dose: 30 ml Cefazolin Sodium (Ancef) Confirm Administered Dose 2 gm .ROUTE .STK-MED ONE Stop: 08/29/18 06:22 Last Admin: 08/29/18 08:47 Dose: 2 gm Cefazolin Sodium (Ancef) Confirm Administered Dose 2 gm .ROUTE .STK-MED ONE Stop: 08/29/18 06:55 Cefazolin Sodium (Ancef) Confirm Administered Dose 1 gm .ROUTE .STK-MED ONE Stop: 08/29/18 08:07 Morphine Sulfate 8 mg/Epinephrine HCl 0.3 mg/Cefuroxime Sodium 750 mg/Ketorolac Tromethamine 30 mg/Sodium Chloride 27.9 ml 0 mg .XX ONETIME ONE Stop: 08/29/18 08:01 Last Admin: 08/29/18 08:51 Dose: 788.3 mg Docusate Sodium (Colace) 100 mg PO BID [facility] Epinephrine HCl (Adrenalin) Confirm Administered Dose 1 mg .ROUTE .STK-MED ONE Stop: 08/29/18 07:38 Fentanyl (Sublimaze) Confirm Administered Dose 100 mcg .ROUTE .STK-MED ONE Stop: 08/29/18 06:55 Fentanyl (Sublimaze) Confirm Administered Dose 250 mcg .ROUTE .STK-MED ONE Stop: 08/29/18 08:17 Fentanyl (Sublimaze) Confirm Administered Dose 100 mcg .ROUTE .STK-MED ONE Stop: 08/29/18 09:23 Fentanyl (Sublimaze) 50 mcg IVPUSH Q5M PRN PRN Reason: Pain Stop: 08/29/18 23:00 Last Admin: 08/29/18 10:25 Dose: 50 mcg Fluticasone Propionate (Flonase) 0 gm NASBOTH DAILY [facility] Last Admin: 08/29/18 16:47 Dose: Not Given Hydromorphone HCl (Dilaudid) Confirm Administered Dose 0.5 mg .ROUTE .STK-MED ONE Stop: 08/29/18 08:18 Hydromorphone HCl (Dilaudid) Confirm Administered Dose 0.5 mg .ROUTE .STK-MED ONE Stop: 08/29/18 08:19 Hydromorphone HCl (Dilaudid) 0.5 mg IVPUSH Q10M PRN PRN Reason: Pain (severe 7-10) Stop: 08/29/18 23:00 Last Admin: 08/29/18 10:21 Dose: 0.5 mg Lactated Ringer's (Ringers, Lactated) 1,000 mls @ 125 mls/hr IV ASDIRECTED [facility] Stop: 08/29/18 23:00 Last Admin: 08/29/18 10:36 Dose: 125 mls/hr Cefazolin Sodium/Dextrose 2 gm (/ Premix) 50 mls @ 100 mls/hr IV Q8H [facility] Stop: 08/30/18 07:29 Last Admin: 08/30/18 05:59 Dose: 100 mls/hr Lactated Ringer's (Ringers, Lactated) Confirm Administered Dose 1,000 mls @ as directed .ROUTE .STK-MED ONE Stop: 08/29/18 08:09 Lidocaine HCl (Xylocaine-Mpf 1%) Confirm Administered Dose 2 mls @ as directed .ROUTE .STK-MED ONE Stop: 08/29/18 09:23 Cefazolin Sodium/Dextrose 1 gm (/ Premix) 50 mls @ 66.667 mls/hr IV Q8H [facility] Stop: 08/30/18 07:44 Last Admin: 08/30/18 06:36 Dose: 66.667 mls/hr Sodium Chloride (Normal Saline) 500 mls @ 999 mls/hr IV .BOLUS ONE Stop: 08/30/18 08:10 Last Admin: 08/30/18 10:18 Dose: 999 mls/hr Sodium Chloride (Normal Saline) 1,000 mls @ 150 mls/hr IV ASDIRECTED NISA Iodine (Iodine 2% Mild Tincture) Confirm Administered Dose 30 ml .ROUTE .STK- MED ONE Stop: 08/29/18 06:22 Last Admin: 08/29/18 08:45 Dose: 18 ml Ketorolac Tromethamine (Toradol) 15 mg IVPUSH Q6H PRN PRN Reason: Pain Last Admin: 08/30/18 08:17 Dose: 15 mg Ketorolac Tromethamine (Toradol) 30 mg IVPUSH ONETIME ONE Stop: 08/29/18 09:57 Last Admin: 08/29/18 10:09 Dose: 30 mg Lidocaine/Sodium Bicarbonate (Buffered Lidocaine 1% In Ns 8.4%) 0.25 ml IDERM ONETIME PRN PRN Reason: Prior to IV Start Stop: 08/29/18 18:00 Last Admin: 08/29/18 06:30 Dose: 0.25 ml Ondansetron HCl (Zofran) Confirm Administered Dose 4 mg .ROUTE .STK-MED ONE Stop: 08/29/18 08:21 Oxycodone HCl (Oxycontin) 10 mg PO ONETIME NISA Stop: 08/29/18 18:00 Last Admin: 08/29/18 06:27 Dose: 10 mg Acidophilus Probiotic Patients Own Med 0 each PO DAILY [facility] Last Admin: 08/31/18 08:10 Dose: Not Given Pregabalin (Lyrica) 50 mg PO ONETIME NISA Stop: 08/29/18 18:00 Last Admin: 08/29/18 06:27 Dose: 50 mg Propofol (Diprivan 20 Ml) Confirm Administered Dose 200 mg .ROUTE .STK-MED ONE Stop: 08/29/18 06:55 Propofol (Diprivan 20 Ml) Confirm Administered Dose 200 mg .ROUTE .STK-MED ONE Stop: 08/29/18 07:41 Ropivacaine (Naropin 0.5%) Confirm Administered Dose 30 ml .ROUTE .STK-MED ONE Stop: 08/29/18 07:38 Sodium Chloride (Saline Flush) 10 ml FLUSH ASDIRECTED PRN PRN Reason: Keep Vein Open Stop: 08/29/18 18:00 Tranexamic Acid (Cyklokapron) Confirm Administered Dose 1,000 mg .ROUTE .STK- MED ONE Stop: 08/29/18 06:22 Last Admin: 08/29/18 09:00 Dose: 1,000 mg Vancomycin HCl (Vancomycin) Confirm Administered Dose 1 gm .ROUTE .STK-MED ONE Stop: 08/29/18 06:22 Last Admin: 08/29/18 08:54 Dose: 1 gm
[2018-08-31] MEDS: Levothyroxine 100 MCG Tab PO SCH (11:33)
[2018-08-31 14:19] VITALS: BP 137/58
--- NOTE | 2018-09-02 10:35 | PCM.OPNOTE ---
- General Post-Op/Procedure Note Date of Surgery/Procedure: 08/29/18 Operative Procedure(s): right total knee arthroplasty Pre Op Diagnosis: right knee osteoarthrosis Post-Op Diagnosis: Same Anesthesia Technique: General LMA, Local Primary Surgeon: Anand Franklin Anesthesia Provider: Kevon Krueger Buttonholer: Karla Ramirez Buttonholer: Olga Umanzor in mLs: 5 Complications: None Condition: Good Free Text/Narrative:: size 5 femur size 4 tibia 9mm 35x10
--- NOTE | 2018-09-02 10:56 | OR ---
DATE OF OPERATION: 08/29/2018 SURGEON: Anand Franklin MD OPERATION PERFORMED: Right total knee arthroplasty. PREOPERATIVE DIAGNOSIS: Right knee osteoarthrosis. POSTOPERATIVE DIAGNOSIS: Right knee osteoarthrosis. ANESTHESIA: General LMA with local. ANESTHESIA PROVIDER: Damon Merchant. INSURANCE ACTUARY: Karla Ramirez PA-C, and Olga Umanzor LPN. ESTIMATED BLOOD LOSS: 5 mL. COMPLICATIONS: None. CONDITION: Stable. IMPLANTS: 1. Lucille size 5 cemented PS femur. 2. [place] size 4 cemented [place]is tibial base plate. 3. [place] size 4 9 mm PS X3 polyethylene insert. 4. [place] size 35 x 10 mm cemented patella. DESCRIPTION OF PROCEDURE: The patient was identified in the preop holding area. Proper site was marked and identified by the surgeon. The patient was taken back to the operating theater. After adequate anesthesia, the patient's right lower extremity had a nonsterile tourniquet applied and it was sterilely prepped and draped in the usual sterile fashion. OR time-out was performed. The patient received 2 g IV Ancef. At this time, the right lower extremity was exsanguinated. Tourniquet was insufflated to 300 mmHg. Standard medial parapatellar incision was made. Medial parapatellar arthrotomy was created. Deep fibers of the MCL were raised and anterior fat pad was resected. At this time, attention was turned to the patella. Patella measured a 24, it was resected to a 14 for a 35 x 10 mm patella. Drill holes were then drilled and found to be in adequate position. The drill was then drilled in the distal femur and the intramedullary distal femoral cutting guide was then placed. 8 mm was resected off the distal femur and was found to be an adequate resection. Sizing guide was placed. It was found to be a size 5 cemented PS femur that was shown on the implant record at the beginning of this dictation. The drill holes were drilled for the epicondylar axis using Whitesides line and epicondyles as reference. At this time, the 4-in-1 cutting block was placed. An anterior posterior and anterior and posterior chamfer cuts were then completed. Box cut was the completed. Attention was turned to the tibia. The posterior medial lateral retractors were placed. The extramedullary tibial guide was placed. It was placed in the old footprint of the ACL. It was aligned with the center of the ankle and 0 degrees of slope, 9 mm was then resected off the unaffected side. There was found to be an acceptable reduction. At this time, posterior osteophytes were removed along with medial and lateral meniscus. A trial implant was placed with a correct sized tibia that was mentioned at the beginning of the dictation. A Lucille size 4 9 mm PS X3 polyethylene insert was then placed. The patient's knee was brought through range of motion. The patella was tracking centrally and was stable to varus and valgus stress. Alignment was found to be roughly at 0 degrees. The tibia was stamped and drilled in proper rotation. Cement was mixed on the back table. The universal tibial base plate was cemented in place. Next, the Lucille size 5 cemented PS femur impacted into place and the [place] size 4 9 mm PS X3 polyethylene insert was placed. The patient's knee was brought into full extension. Excess cement was removed. The patella was then cemented in place at this time. One liter dilute Betadine solution was irrigated through the knee along with 3 L of pulse lavage irrigation with Ancef. Periarticular injection was then completed. The patient's knee was brought through a range of motion. Once the cement had time to set up and it was found to be stable to varus valgus stress, the patella was tracking centrally with full range of motion. At this time, a #2 barbed suture was used for closure of the medial parapatellar arthrotomy. Topical tranexamic acid was placed. 2-0 Vicryl was used subcutaneously, Prineo was used for the skin. The patient tolerated the procedure well and was sent to the PACU in stable condition. CHARLENE /[id number] TAQUERIA
== END 2018-08-31 15:45 | disposition home or self-care (01) | DRG 470 ==
LOC: JD.SDS 06:01 → JD.OB 11:16 → JD.MS 08-30 13:48
PROVIDERS: ADMIT Orthopaedic Surgery; ATTEND Orthopaedic Surgery
PROC: 0SRC0J9 Replacement of Right Knee Joint with Synthetic Substitute, Cemented, Open Approach (ICD-10-PCS; principal; 2018-08-29)
PROC: 3E0T3BZ Introduction of Anesthetic Agent into Peripheral Nerves and Plexi, Percutaneous Approach (ICD-10-PCS; 2018-08-29)
DX: M17.11 Unilateral primary osteoarthritis, right knee (principal); Z68.41 Body mass index [BMI] 40.0-44.9, adult; I10 Essential (primary) hypertension; M25.761 Osteophyte, right knee; E11.41 Type 2 diabetes mellitus with diabetic mononeuropathy; E78.1 Pure hyperglyceridemia; E78.2 Mixed hyperlipidemia; M51.36 Other intervertebral disc degeneration, lumbar region; G89.18 Other acute postprocedural pain; R51 Headache; R01.1 Cardiac murmur, unspecified; E66.9 Obesity, unspecified; E83.42 Hypomagnesemia; E66.01 Morbid (severe) obesity due to excess calories; H54.7 Unspecified visual loss; E78.00 Pure hypercholesterolemia, unspecified; G47.30 Sleep apnea, unspecified; R32 Unspecified urinary incontinence; E03.9 Hypothyroidism, unspecified; Z79.82 Long term (current) use of aspirin; Z79.899 Other long term (current) drug therapy; Z79.4 Long term (current) use of insulin; Z88.8 Allergy status to other drugs, medicaments and biological substances; Z79.890 Hormone replacement therapy
CPT/HCPCS: 27447; 73560; 82962 ×2; 87641; A9270 ×5; C1713; C1776 ×4; J0171 ×2; J0690 ×3; J0697; J1170 ×3; J1885 ×2; J2001; J2270; J2405; J2704 ×2; J2795; J3010 ×4; J3370; J3490; J7120 ×3; 01402; 36415; 64450; 80048; 80053; 83735; 85025; 85027; 94760; 97110-GP; 97116-GP; 97161-GP; 97165-GO; 97530-GP; 97535-GO; J1815-GY; J3475; J7040

== ENCOUNTER 2018-09-04 03:47 | Inpatient (IN) | payer MEDICARE, OTHER, MEDICAID ==
[2018-09-04] MEDS ORDERED: Ondansetron 4 MG/2 ML SDV IVPUSH ONE (06:16)
[2018-09-04] MEDS ORDERED: HYDROmorphone 1 MG/ML Syringe IVPUSH STA (06:16)
--- NOTE | 2018-09-04 06:17 | EDM.PDOC ---
ED HPI GENERAL MEDICAL PROBLEM - General Chief Complaint: Abdominal Pain Stated Complaint: CONSTIPATION Time Seen by Provider: 09/04/18 04:00 Source of Information: Reports: Patient, RN Notes Reviewed History Limitations: Reports: No Limitations - History of Present Illness INITIAL COMMENTS - FREE TEXT/NARRATIVE: The patient states that she underwent a right total knee arthroplasty on Wednesday , 08/29/2018. She reports that she has not had a bowel movement since Wednesday, , the day before her surgery. Medical records indicate that she was discharged home on 08/31/2018. She has been taking [place] for pain relief, every 4 hours. The patient developed generalized sharp, crampy abdominal pain felt across her entire abdomen, on 09/02/2018. The pain is constant, and she has not identified any modifiers. She started drinking Metamucil, MiraLAX, and prune juice yesterday, with no subsequent bowel movement or recent improvement of her abdominal pain. She denies having a recent fever, nausea, or vomiting. The patient reports that she does not suffer from chronic constipation, but that she has had constipation associated with opioid pain relievers in the past. The patient was initially seen by Dr. Mckeon, who ordered abdominal XRays and , subsequently, enemas. The patient's PCP is Dr. Rocky Morris. Her Orthopedic Surgeon is Dr. Anand Franklin. Her Lead Mason Tender is Dr. Jesus Gonsales. Abdomen Pain Score (Numeric/FACES): 8 - Related Data Allergies Allergy/AdvReac Type Severity Reaction Status Date / Time metformin Allergy Cannot Verified 09/04/18 04:23 Remember Home Meds: Home Meds Chlorthalidone 25 mg PO DAILY 08/26/18 [History] Cyanocobalamin (Vitamin B12) [Vitamin B12] 250 mcg PO DAILY 08/26/18 [History] Fluticasone Propionate [Flonase] 1 dose NASBOTH DAILY PRN 08/26/18 [History] Furosemide 20 mg PO DAILY 08/26/18 [History] Gabapentin [Neurontin] 300 mg PO BEDTIME 08/26/18 [History] Hydrocortisone [Hydrocortisone 1% Crm] 1 dose TOP BID PRN 08/26/18 [History] Insulin Aspart [NovoLOG] 12 units SQ TID 08/26/18 [History] Insulin Glargine,Hum.Rec.Anlog [Basaglar Kwikpen U-100] 80 units SQ BEDTIME [History] L. Acidophilus/Pectin, Swisher [Acidophilus Probiotic] 1 cap PO DAILY 08/26/18 [ History] Labetalol [Normodyne] 100 mcg PO BID 08/26/18 [History] Levothyroxine [Synthroid] 100 mcg PO DAILY 08/26/18 [History] Losartan [Cozaar] 50 mg PO DAILY 08/26/18 [History] Multivitamin [Children's Chewable Vitamin] 1 tab PO DAILY 08/26/18 [History] Ozempic 0.5 mg SQ TH 08/26/18 [History] Polyvinyl Alcohol/Povidone/Pf [Refresh Classic Eye Drops] 1 dose EYEBOTH DAILY PRN 08/26/18 [History] Rosuvastatin Calcium 20 mg PO DAILY 08/26/18 [History] amLODIPine Besylate [Norvasc] 10 mg PO DAILY 08/26/18 [History] Acetaminophen/oxyCODONE [Percocet 325-5 MG] 1 - 2 tab PO Q4H PRN #60 tablet [Rx] Aspirin [Ecotrin] 325 mg PO BID #84 tab.ec 08/29/18 [Rx] Bisacodyl [Dulcolax] 5 mg PO DAILY PRN tablet 08/29/18 [Rx] Ascorbic Acid [Vitamin C] 1,000 mg PO DAILY 09/04/18 [History] Benazepril [Lotensin] 40 mg PO DAILY 09/04/18 [History] [place]-3/DHA/Epa/Fish Oil [Fish Oil 1,000 mg Softgel] 1,200 mg PO DAILY 09/04/18 [History] Sennosides [Senna] 8.6 mg PO TID 09/04/18 [History] Vitamin E 400 intnl unit PO DAILY 09/04/18 [History] Past Medical History HEENT History: Reports: Impaired Vision, Other (See Below) Other HEENT History: wears glasses, has upper denture Cardiovascular History: Reports: Arrhythmia (SVT), High Cholesterol, Hypertension Respiratory History: Reports: Sleep Apnea (nightly CPAP 8) Gastrointestinal History: Reports: Hemorrhoids Genitourinary History: Reports: Chronic Renal Insuffiency, Urinary Incontinence Musculoskeletal History: Reports: Osteoarthritis Neurological History: Reports: Headaches, Chronic Endocrine/Metabolic History: Reports: Diabetes, Type II, Hypothyroidism, Obesity /BMI 30+ - Infectious Disease History Infectious Disease History: Reports: Chicken Pox, Measles - Past Surgical History HEENT Surgical History: Reports: Cataract Surgery (right only), Oral Surgery ( wisdom teeth extraction), Tonsillectomy GI Surgical History: Reports: Colonoscopy Neurological Surgical History: Reports: Lumbar Spine (x 2) Musculoskeletal Surgical History: Reports: Knee Replacement (Left Dec 2015. Right 08/29/2018) Social & Family History - Family History Family Medical History: Noncontributory - Tobacco Use Smoking Status *Q: Never Smoker Second Hand Smoke Exposure: No - Caffeine Use Caffeine Use: Reports: None - Alcohol Use Alcohol Use History: No - Recreational Drug Use Recreational Drug Use: No - Living Situation & Occupation Living situation: Reports: , Alone Occupation: Retired ED ROS GENERAL - Review of Systems Review Of Systems: ROS reveals no pertinent complaints other than HPI. ED EXAM, GI/ABD - Physical Exam Exam: See Below Exam Limited By: No Limitations General Appearance: Alert, WD/WN, Mild Distress (appears uncomfortable) Eyes: Bilateral: Normal Appearance, EOMI Ears: Normal External Exam, Hearing Grossly Normal Nose: Normal Inspection Throat/Mouth: Normal Inspection, Normal Lips, Normal Voice, No Airway Compromise Head: Atraumatic, Normocephalic Neck: Normal Inspection, Full Range of Motion Respiratory/Chest: No Respiratory Distress, Lungs Clear, Normal Breath Sounds, No Accessory Muscle Use Cardiovascular: Normal Peripheral Pulses, Regular Rate, Rhythm, No Gallop, No JVD, No Murmur, No Rub GI/Abdominal Exam: Soft, No Organomegaly, No Distention, No Abnormal Bruit, No Mass, Tender (Generalized, non-focal.), Abnormal Bowel Sounds (Rushes), Other ( Obese) (Female) Exam: Deferred Rectal (Female) Exam: Deferred Extremities: Normal Range of Motion, Normal Capillary Refill, Other (Right knee with ecchymosis and an anterior dressing. There is edema to the right leg. Well- healed anterior left knee scar.) Neurological: Alert, Oriented, Normal Cognition, No Motor/Sensory Deficits Psychiatric: Normal Affect Skin Exam: Warm, Dry, Intact, Normal Color, No Rash Course - Vital Signs Last Recorded V/S: Last Vital Signs Temp 36.2 C 09/04/18 04:40 Pulse 66 09/04/18 04:40 Resp 20 09/04/18 04:40 BP 90/57 L 09/04/18 04:40 Pulse Ox 91 L 09/04/18 04:40 - Orders/Labs/Meds Orders: Active Orders 24 hr Category Date Time Status Admission Status [Patient Status] [ADT] Routine ADT 09/04/18 12:20 Ordered Enema [RC] ASDIRECTED Care 09/04/18 05:44 Active Abdomen 2V AP Flat Upright [CR] Stat Exams 09/04/18 04:47 Taken Sodium Chloride 0.9% [Normal Saline] 1,000 ml Med 09/04/18 06:30 Active IV ASDIRECTED Sodium Chloride 0.9% [Saline Flush] Med 09/04/18 08:08 Active 10 ml FLUSH ONETIME PRN Medication Orders Sodium Chloride (Normal Saline) 1,000 mls @ 150 mls/hr IV ASDIRECTED NISA Last Admin: 09/04/18 06:37 Dose: 150 mls/hr Sodium Chloride (Saline Flush) 10 ml FLUSH ONETIME PRN PRN Reason: IV FLUSH Last Admin: 09/04/18 08:42 Dose: 10 ml Labs: Laboratory Tests 09/04/18 09/04/18 09/04/18 Range/Units 06:26 06:26 09:07 WBC 13.42 H (3.98-10.04) K/mm3 RBC 4.19 (3.98-5.22) M/mm3 Hgb 12.6 D (11.2-15.7) gm/L Hct 38.7 (34.1-44.9) % MCV 92.4 (79.4-94.8) fl MCH 30.1 (25.6-32.2) pg MCHC 32.6 (32.2-35.5) g/dl RDW Std Deviation 46.1 (36.4-46.3) fL Plt Count 301 (182-369) K/mm3 MPV 10.4 (9.4-12.3) fl Neutrophils % (Manual) 91 H (40-60) % Band Neutrophils % 1 (0-10) % Lymphocytes % (Manual) 3 L (20-40) % Atypical Lymphs % 0 % Monocytes % (Manual) 4 (2-10) % Eosinophils % (Manual) 1 (0.7-5.8) % Basophils % (Manual) 0 L (0.1-1.2) Platelet Estimate Adequate Polychromasia 1+ slight Anisocytosis 1+ slight RBC Morph Comment Abnormal Sodium 127 L (136-145) mEq/L Potassium 4.7 (3.5-5.1) mEq/L Chloride 91 L (98-107) mEq/L Carbon Dioxide 24 (21-32) mEq/L Anion Gap 16.7 H (5-15) BUN 57 H D (7-18) mg/dL Creatinine 1.7 H (0.55-1.02) mg/dL Est Cr Clr Drug Dosing 30.18 mL/min Estimated GFR (MDRD) 30 (>60) mL/min BUN/Creatinine Ratio 33.5 H (14-18) Glucose 215 H (83-115) mg/dL Calcium 9.7 (8.5-10.1) mg/dL Total Bilirubin 1.0 (0.2-1.0) mg/dL AST 32 (15-37) U/L ALT 30 (14-59) U/L Alkaline Phosphatase 80 (46-116) U/L Total Protein 7.1 (6.4-8.2) g/dl Albumin 2.9 L (3.4-5.0) g/dl Globulin 4.2 gm/dL Albumin/Globulin Ratio 0.7 L (1-2) Lipase 166 (73-393) U/L Urine Color Yellow (Yellow) Urine Appearance Clear (Clear) Urine pH 5.0 (5.0-8.0) Ur Specific [place] 1.015 (1.005-1.030) Urine Protein Trace H (Negative) Urine Glucose (UA) Negative (Negative) Urine Ketones Negative (Negative) Urine Occult Blood Negative (Negative) Urine Nitrite Negative (Negative) Urine Bilirubin 1+ H (Negative) Urine Urobilinogen 2.0 H (0.2-1.0) Ur Leukocyte Esterase Negative (Negative) Urine RBC Not seen (0-5) /hpf Urine WBC 0-5 (0-5) /hpf Ur Epithelial Cells 0-5 (0-5) /hpf Urine Bacteria Few H (FEW) /hpf Urine Mucus Few (FEW) /hpf Meds: Medications Generic Name Dose Route Start Last Admin Trade Name Freq PRN Reason Stop Dose Admin Sodium Chloride 1,000 mls @ 150 mls/hr 09/04/18 06:30 09/04/18 06:37 Normal Saline IV 150 mls/hr ASDIRECTED NISA Administration Sodium Chloride 10 ml 09/04/18 08:08 09/04/18 08:42 Saline Flush FLUSH 10 ml ONETIME PRN Administration IV FLUSH Discontinued Medications Generic Name Dose Route Start Last Admin Trade Name Veronika PRN Reason Stop Dose Admin Diatrizoate Meglum/Diatrizoate Sod 120 ml 09/04/18 08:08 09/04/18 08:41 Gastrografin 37% PO 09/04/18 08:09 90 ml ONETIME ONE Administration Hydromorphone HCl 0.5 mg 09/04/18 06:16 09/04/18 06:38 Dilaudid IVPUSH 09/04/18 06:17 0.5 mg ONETIME STA Administration Levofloxacin/Dextrose 750 mg/ 150 mls @ 100 mls/hr 09/04/18 08:56 09/04/18 09 :15 Premix IV 09/04/18 10:25 100 mls/hr ONETIME ONE Administration Metronidazole 500 mg/ Premix 100 mls @ 100 mls/hr 09/04/18 08:57 09/04/18 09: 16 IV 09/04/18 09:56 100 mls/hr ONETIME ONE Administration Iopamidol 200 ml 09/04/18 08:08 09/04/18 08:44 Isovue-370 (76%) IV 09/04/18 08:09 70 ml ONETIME ONE Administration Ondansetron HCl 4 mg 09/04/18 06:16 09/04/18 06:37 Zofran IVPUSH 09/04/18 06:17 4 mg ONETIME ONE Administration - Re-Assessments/Exams Free Text/Narrative Re-Assessment/Exam: 09/04/18 06:[address] Mckeon, for change of shift. Triage note read. The patient received one mineral oil and one soap suds enema per Anitha STYLES, with only a very small stool output. Upright and supine abdominal x-rays appear to demonstrate a modest amount of stool in the left colon, with no significant stool seen elsewhere. There are a few air-fluid levels on the upright images, suggestive of ileus. No free air. Formal read per the Radiologist pending. The patient reports no improvement in her generalized abdominal pain, and she is tender all over the abdomen with some rushes on auscultation. I'm concerned about not just an ileus, but a possible bowel obstruction, therefore I will order a CT scan of the abdomen and pelvis with oral and IV contrast. I am aware that the patient has chronic renal insufficiency, but it is important to rule out an intra-abdominal emergency, therefore we will need to proceed with IV contrast. 09/04/18 08:52 CT of the abdomen and pelvis with oral and IV contrast is read by Dr. Beckett as: 1. Increased stool throughout the colon. 2. Slight inflammatory change around a diverticuli within the sigmoid colon which may represent mild diverticulitis. 3. Moderate amount of free fluid within the pelvis most likely reactive. 4. Patchy areas of increased density within the left lung base most likely due to atelectasis patient has no symptoms of pneumonia. 5. Other incidental findings as noted above. The patient's CBC is remarkable for a WBC count of 13.42, but with only 1% bandemia. The remainder of the CBC is normal. The patient's sodium has returned low at 127. She is already receiving IV fluid. The patient's BUN/Cr is 57/1.7. The patient's creatinine clearance is estimated at 30.18. The patient's blood glucose is elevated at 215. Because she will be NPO for an undetermined period of time, I am not going to treat this with insulin. The patient's urinalysis has not yet returned. Based on the above findings, I will treat the patient for diverticulitis with levofloxacin and metronidazole. Because of her renal insufficiency, she should receive 750 mg every 48 hours, instead of every 24 hours. The metronidazole dose does not need to be adjusted. 09/04/18 09:59 The patient's urinalysis is unremarkable. The patient has modest chronic renal insufficiency, however, with the IV contrast that was given for her CT scan, we would expect her creatinine to rise for about a week before he returns to baseline. It will not likely rise to a critical level, or cause significant hyperkalemia, however, it should be monitored. In addition, the patient has hyponatremia that should be corrected, and her blood glucoses should be monitored. Given the patient's comorbid conditions and recent surgery, I believe the patient would be better served in the hospital, therefore I am recommending admission. 09/04/18 10:02 The above was discussed with the patient. She is amenable to being admitted. 09/04/18 10:[address] Dyson at 10:35. He agreed to admit the patient. Departure - Departure Time of Disposition: 10:37 Disposition: Admitted As Inpatient 67 Condition: Good, Fair Clinical Impression: Sigmoid diverticulitis, Hyponatremia, Chronic renal insufficiency, Hyperglycemia due to type 2 diabetes mellitus - Discharge Information *PRESCRIPTION DRUG MONITORING PROGRAM REVIEWED*: Not Applicable *COPY OF PRESCRIPTION DRUG MONITORING REPORT IN PATIENT ELVIN: Not Applicable Referrals: Anand Franklin MD [Primary Care Provider] - Rocky Morris MD [Physician] - Jesus Gonsales MD [Ordering Only Provider] - - My Orders Last 24 Hours: My Active Orders 09/04/18 06:30 Sodium Chloride 0.9% [Normal Saline] 1,000 ml IV ASDIRECTED 09/04/18 08:08 Sodium Chloride 0.9% [Saline Flush] 10 ml FLUSH ONETIME PRN 09/04/18 12:20 Admission Status [Patient Status] [ADT] Routine - Assessment/Plan Last 24 Hours: My Active Orders 09/04/18 06:30 Sodium Chloride 0.9% [Normal Saline] 1,000 ml IV ASDIRECTED 09/04/18 08:08 Sodium Chloride 0.9% [Saline Flush] 10 ml FLUSH ONETIME PRN 09/04/18 12:20 Admission Status [Patient Status] [ADT] Routine
[2018-09-04] MEDS: Sodium Chloride 0.9% 1,000 ML IV SCH ×3 (06:37→23:00)
[2018-09-04] MEDS ORDERED: Sodium Chloride 0.9% 10 ML Syringe FLUSH PRN (08:08)
[2018-09-04] MEDS ORDERED: Iopamidol 755 Mg/ML 200 ML Bottle IV ONE (08:08)
[2018-09-04] MEDS ORDERED: Diatrizoate Meglumine/Diatrizoate Sodium 37% 120 ML Bottle PO ONE (08:08)
--- NOTE | 2018-09-04 08:44 | CT ---
Addendum: Voice recognition error identified within the technique section of the report with the last sentence stating and spot small bowel. This sentence should read as follows: Oral contrast was given but remains within stomach and proximal small bowel Other portions of the dictation remain the same. --- Addendum1 above dictated on [09/06/2018 15:05] by [Kim Beckett, Jefferson Harper] --- --- Addendum1 above signed on [09/06/2018 15:07] by [Kim Beckett, Jefferson Harper] --- --- Original report below dictated on [09/04/2018 08:39] by [Kim Beckett Hilton J.] --- --- Original report below signed on [09/04/2018 08:42] by [Kim Beckett, Jefferson Harper] --- CT abdomen and pelvis Technique: Multiple axial sections were obtained from above the dome of the diaphragm inferiorly through the pubic symphysis. Intravenous contrast was utilized. Oral contrast was given but remains within stomach and spot small bowel. Comparison: No prior CT imaging, previous abdominal x-ray performed earlier on the same day (4:47 AM) Findings: Small portion of the visualized lung bases shows patchy areas of increased density within the left base. These may represent areas of atelectasis but please exclude infectious symptoms of pneumonia. Liver shows no discrete abnormality. Several calcified gallstones are seen within the gallbladder. Adrenal glands are unremarkable. Kidneys show symmetric contrast enhancement without hydronephrosis or mass. Small nonobstructing stone noted within the lower left kidney. Small hiatal hernia is noted. Pancreas is within normal limits. Aorta shows no aneurysm. No retroperitoneal adenopathy or mesenteric abnormalities are seen. No pelvic mass or adenopathy is seen. Moderate amount of free fluid is seen within the pelvis. Slight inflammatory change noted around a portion of the sigmoid colon possibly due to mild diverticulitis. Numerous diverticuli are seen within the descending and sigmoid colons. Increased stool noted throughout the colon slight gas within nondilated small bowel is seen which is incidental. Appendix is seen and felt to be within normal limits. Impression: 1. Increased stool throughout the colon. 2. Slight inflammatory change around a diverticuli within the sigmoid colon which may represent mild diverticulitis. 3. Moderate amount of free fluid within the pelvis most likely reactive. 4. Patchy areas of increased density within left lung base most likely due to atelectasis patient has no symptoms of pneumonia. 5. Other incidental findings as noted above. Diagnostic code #3 --- Addendum1 signed ---
[2018-09-04] MEDS ORDERED: Levofloxacin/Dextrose 5%-Water 750 MG in Premix Bag 1 BAG IV ONE (08:56)
[2018-09-04] MEDS ORDERED: metroNIDAZOLE/Normal Saline 500 MG in Premix Bag 1 BAG IV ONE (08:57)
[2018-09-04] MEDS ORDERED: Carboxymethylcellulose Sodium 1% Ophth Gel 15 ML Bottle EYEBOTH PRN (12:33)
[2018-09-04] MEDS ORDERED: Hydrocortisone 1% Crm 30 GM Tube TOP PRN (12:33)
[2018-09-04] MEDS ORDERED: Bisacodyl 5 MG Tab PO PRN (12:33)
[2018-09-04] MEDS ORDERED: LORazepam 2 MG/ML SDV IV PRN (12:45)
[2018-09-04] MEDS ORDERED: Temazepam 7.5 MG Cap PO PRN (12:45)
[2018-09-04] MEDS ORDERED: Albuterol/Ipratropium 3.0-0.5 MG/3 ML Neb Soln NEB PRN (12:45)
[2018-09-04] MEDS ORDERED: Polyethylene Glycol 3350 Powder 17 GM Packet PO PRN (12:45)
[2018-09-04] MEDS ORDERED: Ondansetron 4 MG/2 ML SDV IV PRN (12:45)
--- NOTE | 2018-09-04 13:11 | PCM.HP ---
H&P History of Present Illness - General Date of Service: 09/04/18 Admit Problem/Dx: Admission Diagnosis/Problem Admission Diagnosis/Problem Acute diverticulitis of intestine Source of Information: Patient, Family, Old Records, RN, RN Notes Reviewed History Limitations: Reports: No Limitations, Physical Impairment - History of Present Illness Initial Comments - Free Text/Narative: This is a 73 yo elderly white female with past medical hx/o Impaired Vision, Hx/ o SVT, HTN, HLD, CKD stage 2-3, Urinary Incontinence, OA/DJD, FREDERICK, DM2, Hypothyroidism, NORBERTO on CPAP and Obesity with BMI of 42 who comes in with complaints of generalized abdominal pain associated with reduced appetite that started this past Wednesday. She tried OTC Metamucil, Miralax and Prune Juice but w /o much improvement. She carries no hx/o chronic constipation but report hx/o opioid induced constipation in the past. Patient recently discharged on 08/31/2018 after undergoing Right TKA here in the hospital. She did however was sent home with narcotic for pain control. CT scan report reads increased stool throughout the colon. Slight inflammatory change around a diverticuli within the sigmoid colon which may represent mild diverticulitis. Moderate amount of free fluid within the pelvis most likely reactive and diverticulitis. Her initial work up shows a CBC remarkable for WBC of 13.42, Neutrophils of 91% , and Lymphocytes of 3%. Her Chemistry is significant for Na of 127, Cl of 91, AG of 16.7, BUN of 57, Cr of 1.7, BS of 215 and Albumin of 2.9. Her UA is negative for UTI. Patient is being admitted for Sepsis 2/2 Acute Diverticulitis. She is full code. Abdomen Pain Score (Numeric/FACES): 8 - Related Data Allergies/Adverse Reactions: Allergies Allergy/AdvReac Type Severity Reaction Status Date / Time metformin Allergy Cannot Verified 09/04/18 04:23 Remember Home Medications: Home Meds Chlorthalidone 25 mg PO DAILY 08/26/18 [History] Cyanocobalamin (Vitamin B12) [Vitamin B12] 250 mcg PO DAILY 08/26/18 [History] Fluticasone Propionate [Flonase] 1 dose NASBOTH DAILY PRN 08/26/18 [History] Furosemide 20 mg PO DAILY 08/26/18 [History] Gabapentin [Neurontin] 300 mg PO BEDTIME 08/26/18 [History] Hydrocortisone [Hydrocortisone 1% Crm] 1 dose TOP BID PRN 08/26/18 [History] Insulin Aspart [NovoLOG] 12 units SQ TID 08/26/18 [History] Insulin Glargine,Hum.Rec.Anlog [Basaglar Kwikpen U-100] 80 units SQ BEDTIME [History] L. Acidophilus/Pectin, [place] [Acidophilus Probiotic] 1 cap PO DAILY 08/26/18 [ History] Labetalol [Normodyne] 100 mg PO BID 08/26/18 [History] Levothyroxine [Synthroid] 100 mcg PO DAILY 08/26/18 [History] Losartan [Cozaar] 50 mg PO DAILY 08/26/18 [History] Multivitamin [Children's Chewable Vitamin] 1 tab PO DAILY 08/26/18 [History] Ozempic 0.5 mg SQ TH 08/26/18 [History] Polyvinyl Alcohol/Povidone/Pf [Refresh Classic Eye Drops] 1 dose EYEBOTH DAILY PRN 08/26/18 [History] Rosuvastatin Calcium 20 mg PO DAILY 08/26/18 [History] amLODIPine Besylate [Norvasc] 10 mg PO DAILY 08/26/18 [History] Acetaminophen/oxyCODONE [Percocet 325-5 MG] 1 - 2 tab PO Q4H PRN #60 tablet [Rx] Aspirin [Ecotrin] 325 mg PO BID #84 tab.ec 08/29/18 [Rx] Bisacodyl [Dulcolax] 5 mg PO DAILY PRN tablet 08/29/18 [Rx] Acetaminophen [Tylenol Arthritis] 1,300 mg PO BID 09/04/18 [History] Ascorbic Acid [Vitamin C] 1,000 mg PO DAILY 09/04/18 [History] Benazepril [Lotensin] 40 mg PO DAILY 09/04/18 [History] Docusate Sodium [Colace] 100 mg PO BID 09/04/18 [History] Furosemide 20 mg PO DAILY PRN 09/04/18 [History] [place]-3/DHA/Epa/Fish Oil [Fish Oil 1,000 mg Softgel] 1,200 mg PO DAILY 09/04/18 [History] Vitamin E 400 intnl unit PO DAILY 09/04/18 [History] Past Medical History HEENT History: Reports: Impaired Vision, Other (See Below) Other HEENT History: wears glasses, has upper denture Cardiovascular History: Reports: Arrhythmia (SVT), High Cholesterol, Hypertension Other Cardiovascular History: SVT Respiratory History: Reports: Sleep Apnea (nightly CPAP 8) Gastrointestinal History: Reports: Hemorrhoids Genitourinary History: Reports: Chronic Renal Insuffiency, Urinary Incontinence Other Genitourinary History: frequency [employer] History: Reports: Other (See Below) Other OB/BYN History: breast lump Musculoskeletal History: Reports: Osteoarthritis Neurological History: Reports: Headaches, Chronic Psychiatric History: Reports: None Endocrine/Metabolic History: Reports: Diabetes, Type II, Hypothyroidism, Obesity /BMI 30+ Hematologic History: Reports: None Immunologic History: Reports: None Oncologic (Cancer) History: Reports: None Dermatologic History: Reports: Cellulitis, Other (See Below) Other Dermatologic History: lipoma - Infectious Disease History Infectious Disease History: Reports: Chicken Pox, Measles - Past Surgical History HEENT Surgical History: Reports: Cataract Surgery (right only), Oral Surgery ( wisdom teeth extraction), Tonsillectomy GI Surgical History: Reports: Colonoscopy Neurological Surgical History: Reports: Lumbar Spine (x 2) Musculoskeletal Surgical History: Reports: Knee Replacement (Left Dec 2015. Right 08/29/2018) Social & Family History - Family History Family Medical History: Noncontributory - Tobacco Use Smoking Status *Q: Never Smoker Second Hand Smoke Exposure: No - Caffeine Use Caffeine Use: Reports: None - Recreational Drug Use Recreational Drug Use: No - Living Situation & Occupation Living situation: Reports: , Alone Occupation: Retired H&P Review of Systems - Review of Systems: Review Of Systems: See Below General: Denies: Fever, Fatigue HEENT: Reports: No Symptoms Pulmonary: Denies: Shortness of Breath Cardiovascular: Denies: Dyspnea on Exertion, Edema, Lightheadedness Gastrointestinal: Reports: Abdominal Pain, Decreased Appetite, Flatus, Nausea. Denies: Vomiting Genitourinary: Reports: No Symptoms Musculoskeletal: Reports: No Symptoms Skin: Denies: Cyanosis, Diaphoresis, Bruising Neurological: Reports: Gait Disturbance. Denies: Confusion, Dizziness, Weakness Hematologic/Lymphatic: Reports: No Symptoms Immunologic: Reports: No Symptoms Exam - Exam Exam: See Below - Vital Signs Vital Signs: Last Vital Signs Temp 36.2 C 09/04/18 04:40 Pulse 66 09/04/18 04:40 Resp 20 09/04/18 04:40 BP 90/57 L 09/04/18 04:40 Pulse Ox 91 L 09/04/18 04:40 Weight: 122.47 kg - Exam General: Alert, Oriented, Cooperative, Mild Distress, Other (Morbidly Obese) HEENT: Conjunctiva Clear, EACs Clear, EOMI, Hearing Intact, Mucosa Moist & Noel , Nares Patent, Normal Nasal Septum, Posterior Pharynx Clear, Pupils Equal, Pupils Reactive Neck: Other (short and thick) Lungs: Normal Respiratory Effort, Decreased Breath Sounds Cardiovascular: Regular Rate, Regular Rhythm GI/Abdominal Exam: Normal Bowel Sounds, Soft, No Organomegaly, No Distention, No Abnormal Bruit, No Mass, Tender (lower abdomen). No: Guarding, Rigid, Rebound (Female) Exam: Deferred Rectal (Female) Exam: Deferred Back Exam: Normal Inspection, Decreased Range of Motion Extremities: Normal Range of Motion, Non-Tender, No Pedal Edema, Normal Capillary Refill, Limited Range of Motion (right lower exremity), Increased Warmth (right knee) Peripheral Pulses: 2+: Dorsalis Pedis (L), Dorsalis Pedis (R) Skin: Warm, Dry, Intact, Ecchymosis (knee and surrounding surgical site) Neuro Extensive - Mental Status: Oriented x3, Normal Cognition, Memory Intact Neuro Extensive - Motor, Sensory, Reflexes: CN II-XII Intact, Abnormal Gait Psychiatric: Alert, Normal Affect, Normal Mood - Patient Data Lab Results Last 24 hrs: Laboratory Results - last 24 hr 09/04/18 09/04/18 09/04/18 Range/Units 06:26 06:26 09:07 WBC 13.42 H (3.98-10.04) K/mm3 RBC 4.19 (3.98-5.22) M/mm3 Hgb 12.6 D (11.2-15.7) gm/L Hct 38.7 (34.1-44.9) % MCV 92.4 (79.4-94.8) fl MCH 30.1 (25.6-32.2) pg MCHC 32.6 (32.2-35.5) g/dl RDW Std Deviation 46.1 (36.4-46.3) fL Plt Count 301 (182-369) K/mm3 MPV 10.4 (9.4-12.3) fl Neutrophils % (Manual) 91 H (40-60) % Band Neutrophils % 1 (0-10) % Lymphocytes % (Manual) 3 L (20-40) % Atypical Lymphs % 0 % Monocytes % (Manual) 4 (2-10) % Eosinophils % (Manual) 1 (0.7-5.8) % Basophils % (Manual) 0 L (0.1-1.2) Platelet Estimate Adequate Polychromasia 1+ slight Anisocytosis 1+ slight RBC Morph Comment Abnormal Sodium 127 L (136-145) mEq/L Potassium 4.7 (3.5-5.1) mEq/L Chloride 91 L (98-107) mEq/L Carbon Dioxide 24 (21-32) mEq/L Anion Gap 16.7 H (5-15) BUN 57 H D (7-18) mg/dL Creatinine 1.7 H (0.55-1.02) mg/dL Est Cr Clr Drug Dosing 30.18 mL/min Estimated GFR (MDRD) 30 (>60) mL/min BUN/Creatinine Ratio 33.5 H (14-18) Glucose 215 H (83-115) mg/dL Calcium 9.7 (8.5-10.1) mg/dL Total Bilirubin 1.0 (0.2-1.0) mg/dL AST 32 (15-37) U/L ALT 30 (14-59) U/L Alkaline Phosphatase 80 (46-116) U/L Total Protein 7.1 (6.4-8.2) g/dl Albumin 2.9 L (3.4-5.0) g/dl Globulin 4.2 gm/dL Albumin/Globulin Ratio 0.7 L (1-2) Lipase 166 (73-393) U/L Urine Color Yellow (Yellow) Urine Appearance Clear (Clear) Urine pH 5.0 (5.0-8.0) Ur Specific [place] 1.015 (1.005-1.030) Urine Protein Trace H (Negative) Urine Glucose (UA) Negative (Negative) Urine Ketones Negative (Negative) Urine Occult Blood Negative (Negative) Urine Nitrite Negative (Negative) Urine Bilirubin 1+ H (Negative) Urine Urobilinogen 2.0 H (0.2-1.0) Ur Leukocyte Esterase Negative (Negative) Urine RBC Not seen (0-5) /hpf Urine WBC 0-5 (0-5) /hpf Ur Epithelial Cells 0-5 (0-5) /hpf Urine Bacteria Few H (FEW) /hpf Urine Mucus Few (FEW) /hpf Result Diagrams: 09/05/18 06:00 09/05/18 11:53 Problem List Initiated/Reviewed/Updated: Yes Orders Last 24hrs: Active Orders 24 hr Category Date Time Status Admission Status [Patient Status] [ADT] Routine ADT 09/04/18 12:20 Active Enema [RC] ASDIRECTED Care 09/04/18 05:44 Active Height and Weight [RC] DAILY Care 09/04/18 12:45 Ordered Insert Urinary Catheter [OM.PC] Q24H Care 09/04/18 09:00 Ordered Intake and Output [RC] QSHIFT Care 09/04/18 12:46 Ordered Oxygen Therapy [RC] PRN Care 09/04/18 12:45 Ordered RT Aerosol Therapy [RC] ASDIRECTED Care 09/04/18 12:47 Ordered Up With Assistance [RC] ASDIRECTED Care 09/04/18 12:45 Ordered Up ad [place] [RC] ASDIRECTED Care 09/04/18 12:45 Ordered Urinary Catheter Assessment [RC] ASDIRECTED Care 09/04/18 13:00 Active VTE/DVT Education [RC] PER UNIT ROUTINE Care 09/04/18 12:45 Ordered Vital Signs [RC] Q4H Care 09/04/18 12:45 Ordered Consult to Case Management/Channel Rougher [CONS] Cons 09/04/18 12:45 Ordered Routine Consult to Medical Esthetician [CONS] Routine Cons 09/04/18 12:45 Ordered Consult to Spiritual Care [CONS] Routine Cons 09/04/18 12:45 Ordered OT Evaluation and Treatment [CONS] Routine Cons 09/04/18 12:45 Ordered PT Evaluation and Treatment [CONS] Routine Cons 09/04/18 12:45 Ordered 2 Gram Sodium Diet [DIET] Diet 09/04/18 Lunch Ordered Consistent Carbohydrate Diet [DIET] Diet 09/04/18 Lunch Ordered Heart Healthy Diet [DIET] Diet 09/04/18 Lunch Ordered Abdomen 2V AP Flat Upright [CR] Stat Exams 09/04/18 04:47 Taken BASIC METABOLIC PANEL,BMP [CHEM] AM Lab 09/05/18 05:11 Ordered BASIC METABOLIC PANEL,BMP [CHEM] AM Lab 09/06/18 05:11 Ordered BASIC METABOLIC PANEL,BMP [CHEM] AM Lab 09/07/18 05:11 Ordered BASIC METABOLIC PANEL,BMP [CHEM] AM Lab 09/08/18 05:11 Ordered BASIC METABOLIC PANEL,BMP [CHEM] AM Lab 09/09/18 05:11 Ordered C-REACTIVE PROTEIN [CHEM] AM Lab 09/05/18 05:11 Ordered C-REACTIVE PROTEIN [CHEM] AM Lab 09/06/18 05:11 Ordered C-REACTIVE PROTEIN [CHEM] AM Lab 09/07/18 05:11 Ordered C-REACTIVE PROTEIN [CHEM] AM Lab 09/08/18 05:11 Ordered C-REACTIVE PROTEIN [CHEM] AM Lab 09/09/18 05:11 Ordered CBC W/O DIFF,HEMOGRAM [HEME] AM Lab 09/05/18 05:11 Ordered CBC W/O DIFF,HEMOGRAM [HEME] AM Lab 09/06/18 05:11 Ordered CBC W/O DIFF,HEMOGRAM [HEME] AM Lab 09/07/18 05:11 Ordered CBC W/O DIFF,HEMOGRAM [HEME] AM Lab 09/08/18 05:11 Ordered CBC W/O DIFF,HEMOGRAM [HEME] AM Lab 09/09/18 05:11 Ordered MAGNESIUM [CHEM] AM Lab 09/05/18 05:11 Ordered MAGNESIUM [CHEM] AM Lab 09/06/18 05:11 Ordered MAGNESIUM [CHEM] AM Lab 09/07/18 05:11 Ordered MAGNESIUM [CHEM] AM Lab 09/08/18 05:11 Ordered MAGNESIUM [CHEM] AM Lab 09/09/18 05:11 Ordered Albuterol/Ipratropium [DuoNeb 3.0-0.5 MG/3 ML] Med 09/04/18 12:45 Ordered 3 ml NEB Q4H PRN Ascorbic Acid [Vitamin C] Med 09/05/18 09:00 Ordered 1,000 mg PO DAILY Aspirin [Ecotrin] Med 09/04/18 21:00 Ordered 325 mg PO BID Benazepril [Lotensin] Med 09/05/18 09:00 Ordered 40 mg PO DAILY Bisacodyl [Dulcolax] Med 09/04/18 12:33 Ordered 5 mg PO DAILY PRN Chlorthalidone Med 09/05/18 09:00 Ordered 25 mg PO DAILY Cyanocobalamin (Vitamin B12) Med 09/05/18 09:00 Ordered 250 mcg PO DAILY Enoxaparin [Lovenox] Med 09/05/18 09:00 Ordered 40 mg SUBCUT DAILY Fluticasone Propionate [Flonase] Med 09/04/18 12:33 Ordered DOSE gm NASBOTH DAILY PRN Furosemide [Lasix] Med 09/05/18 09:00 Ordered 20 mg PO DAILY Gabapentin [Neurontin] Med 09/04/18 21:00 Ordered 300 mg PO BEDTIME HYDROmorphone [Dilaudid] Med 09/04/18 12:45 Ordered 0.5 mg IVPUSH Q2H PRN Hydrocortisone [Hydrocortisone 1% Crm] Med 09/04/18 12:33 Ordered DOSE gm TOP BID PRN Insulin Glarg,Human.Rec.Analog Med 09/04/18 21:00 Ordered 80 units SQ BEDTIME LORazepam [Ativan] Med 09/04/18 12:45 Ordered 0.5 mg IV Q6H PRN Labetalol [Normodyne] Med 09/04/18 21:00 Ordered 0.1 mg PO BID Levofloxacin/Dextrose 5%-Water [Levaquin in D5W 500 MG/ Med 09/05/18 09:00 Pending 100 ML] 500 mg Premix Bag 1 bag IV Q24H Levothyroxine [Synthroid] Med 09/05/18 09:00 Ordered 100 mcg PO DAILY Losartan Med 09/05/18 09:00 Ordered 50 mg PO DAILY Metoprolol Tartrate [Lopressor] Med 09/04/18 12:44 Ordered 5 mg IVPUSH Q4H PRN Multivitamin [Children's Chewable Vitamin] Med 09/05/18 09:00 Ordered 1 tab PO DAILY Ondansetron [Zofran] Med 09/04/18 12:45 Ordered 4 mg IV Q6H PRN Ozempic Med 09/08/18 12:33 Ordered 0.5 mg SQ TH Pharmacy to Dose - Magnesium R [Pharmacy to Dose - Med 09/04/18 12:45 Ordered Magnesium Replacement] 1 dose .XX ASDIRECTED Pharmacy to Dose - Potassium R [Pharmacy to Dose - Med 09/04/18 12:45 Ordered Potassium Replacement] 1 dose .XX ASDIRECTED Polyethylene Glycol 3350 [MiraLAX] Med 09/04/18 12:45 Ordered 17 gm PO DAILY PRN Polyvinyl Alcohol/Povidone/Pf [Refresh Classic Eye Med 09/04/18 12:33 Ordered Drops] 1 dose EYEBOTH DAILY PRN Rosuvastatin Calcium [Rosuvastatin Calcium] Med 09/05/18 09:00 Ordered 20 mg PO DAILY Saccharomyces Boulardii [Florastor] Med 09/04/18 21:00 Active 250 mg PO BID Sodium Chloride 0.9% [Normal Saline] 1,000 ml Med 09/04/18 06:30 Active IV ASDIRECTED Sodium Chloride 0.9% [Saline Flush] Med 09/04/18 08:08 Active 10 ml FLUSH ONETIME PRN Temazepam [Restoril] Med 09/04/18 12:45 Ordered 7.5 mg PO BEDTIME PRN amLODIPine [Norvasc] Med 09/05/18 09:00 Ordered 10 mg PO DAILY hydrALAZINE [Apresoline] Med 09/04/18 12:44 Ordered 20 mg IVPUSH Q4H PRN metroNIDAZOLE/Normal Saline [Flagyl 500 MG in NS 100 ML Med 09/04/18 16:00 Active ] 500 mg Premix Bag 1 bag IV Q8H Resuscitation Status Routine Resus Stat 09/04/18 12:45 Ordered Medication Orders Albuterol/Ipratropium (Duoneb 3.0-0.5 Mg/3 Ml) 3 ml NEB Q4H PRN PRN Reason: Shortness Of Breath/wheezing Amlodipine Besylate (Norvasc) 10 mg PO DAILY NISA Aspirin (Ecotrin) 325 mg PO BID NISA Benazepril HCl (Lotensin) 40 mg PO DAILY NISA Bisacodyl (Dulcolax) 5 mg PO DAILY PRN PRN Reason: Constipation Enoxaparin Sodium (Lovenox) 40 mg SUBCUT DAILY NISA Flunisolide (Nasalide Nasal [place]) 0 ml NASBOTH BID PRN PRN Reason: Allergies Furosemide (Lasix) 20 mg PO DAILY NISA Gabapentin (Neurontin) 300 mg PO BEDTIME NISA Hydralazine HCl (Apresoline) 20 mg IVPUSH Q4H PRN PRN Reason: Hypertension Hydrocortisone (Hydrocortisone 1% Crm) 0 gm TOP BID PRN PRN Reason: skin complications Hydromorphone HCl (Dilaudid) 0.5 mg IVPUSH Q2H PRN PRN Reason: Pain (severe 7-10) Sodium Chloride (Normal Saline) 1,000 mls @ 150 mls/hr IV ASDIRECTED NISA Last Admin: 09/04/18 06:37 Dose: 150 mls/hr Levofloxacin/Dextrose 500 mg/ (Premix) 100 mls @ 100 mls/hr IV Q24H NISA Metronidazole 500 mg/ Premix 100 mls @ 100 mls/hr IV Q8H NISA Labetalol HCl (Normodyne) 0.1 mg PO BID NISA Levothyroxine Sodium (Synthroid) 100 mcg PO DAILY NISA Lorazepam (Ativan) 0.5 mg IV Q6H PRN PRN Reason: Anxiety Magnesium Sulfate (Pharmacy To Dose - Magnesium Replacement) 1 dose .XX ASDIRECTED [facility] Metoprolol Tartrate (Lopressor) 5 mg IVPUSH Q4H PRN PRN Reason: Tachycardia Non-Formulary Medication (Ascorbic Acid [Vitamin C]) 1,000 mg PO DAILY [facility] Non-Formulary Medication (Chlorthalidone) 25 mg PO DAILY [facility] Non-Formulary Medication (Cyanocobalamin (Vitamin B12)) 250 mcg PO DAILY [facility] Non-Formulary Medication (Insulin Glarg,Human.Rec.Analog) 80 units SQ BEDTIME [facility] Non-Formulary Medication (Losartan) 50 mg PO DAILY [facility] Non-Formulary Medication (Multivitamin [Children's Chewable Vitamin]) 1 tab PO DAILY [facility] Non-Formulary Medication (Ozempic) 0.5 mg SQ TH [facility] Non-Formulary Medication (Polyvinyl Alcohol/Povidone/Pf [Refresh Classic Eye Drops]) 1 dose EYEBOTH DAILY PRN PRN Reason: Dry Eyes Non-Formulary Medication (Rosuvastatin Calcium [Rosuvastatin Calcium]) 20 mg PO DAILY [facility] Ondansetron HCl (Zofran) 4 mg IV Q6H PRN PRN Reason: Nausea/Vomiting Polyethylene Glycol (Miralax) 17 gm PO DAILY PRN PRN Reason: Constipation Potassium Chloride (Pharmacy To Dose - Potassium Replacement) 1 dose .XX ASDIRECTED [facility] Saccharomyces Boulardii (Florastor) 250 mg PO BID [facility] Sodium Chloride (Saline Flush) 10 ml FLUSH ONETIME PRN PRN Reason: IV FLUSH Last Admin: 09/04/18 08:42 Dose: 10 ml Temazepam (Restoril) 7.5 mg PO BEDTIME PRN PRN Reason: Sleep Assessment/Plan Comment:: Assessment/Plan: Acute: Sepsis - 2/2 Colonic Diverticulitis - Documented BP or 90/57 and 98/56 mmHg and RR 21-23 - Blood Culture x2 and IV Hydration - Afebrile with mild leukocytosis (WC 13.42) - CRP and LA are pending - Monitor urine output Diverticulitis - Risk factors: Constipation and Narcotic Use - CT scan report reads CT scan report reads increased stool throughout the colon. Slight inflammatory change around a diverticuli within the sigmoid colon which may represent mild diverticulitis. Moderate amount of free fluid within the pelvis most likely reactive and diverticulitis. - IV Flagyl and Levaquin for pharmacy to dose - Oral Probiotic BID - Clear liquid diet for now Hyponatremia - Na 127 - 2/2 diuretic use - Replete and monitor Atelectasis - Patient is post surgical and with abdominal; she is likely breathing shallow - CT scan report reads patchy areas of increased density withn the left lung base most likely due to atelectasis - IS as directed DM2 with Hyperglycemia - BS in the 200s - A1C level in AM - LA insulin and ISS - Accu-check QID Chronic: Impaired Vision Hx/o SVT HTN HLD CKD stage 2-3 Urinary Incontinence OA/DJD FREDERICK NORBERTO on CPAP Hypothyroidism Obesity with BMI of 42 Plan: Admit to [facility] Routine AM Labs Sepsis Protocol Routine AM Labs PT/OT consult DVT/GI PPx Dietary consult for weight management SW/CM for d/c planning Code status: 1
[2018-09-04] MEDS: Lactulose Soln 10 GM/15 ML 30 ML UD Cup PO SCH ×2 (14:16→19:01)
[2018-09-04] MEDS: Metoclopramide 10 MG/2 ML SDV IVPUSH SCH ×2 (14:17→19:01)
[2018-09-04] MEDS: Bisacodyl 10 MG Supp RECTAL SCH (14:17)
--- NOTE | 2018-09-04 14:25 | CR ---
Abdomen: Supine and upright views of the abdomen were obtained. Comparison: No prior abdominal x-ray. Gas noted within colon with air-fluid levels being seen within the colon. No free air is seen. Slight degenerative change noted within the spine. Large calcification within left pelvis is seen most likely due to large phlebolith. Impression: 1. Air-fluid levels with slightly prominent gas within colon most likely representing gastroenteritis. 2. Other incidental findings. Diagnostic code #3
[2018-09-04] MEDS: metroNIDAZOLE/Normal Saline 500 MG in Premix Bag 1 BAG IV SCH (17:01)
[2018-09-04] MEDS: Saccharomyces Boulardii (Probiotic) 250 MG Cap PO SCH (20:15)
[2018-09-04] MEDS: Labetalol 100 MG Tab PO SCH (20:15)
[2018-09-04] MEDS: Aspirin 325 MG Tab.EC PO SCH (20:15)
[2018-09-04] MEDS ORDERED: Insulin Glarg,Human.Rec.Analog 100 UNIT/ML ML SUBCUT SCH (21:00)
[2018-09-04] MEDS ORDERED: Gabapentin 300 MG Cap PO SCH (21:00)
[2018-09-04] MEDS ORDERED: 50% Dextrose in Water 50 ML Syringe IVPUSH PRN (22:00)
[2018-09-05] MEDS ORDERED: Insulin Glarg,Human.Rec.Analog 100 UNIT/ML ML SUBCUT ONE
[2018-09-05] MEDS: Metoclopramide 10 MG/2 ML SDV IVPUSH SCH (00:01)
[2018-09-05] MEDS ORDERED: Acetaminophen 325 MG Tab PO ONE (00:05)
[2018-09-05] MEDS: metroNIDAZOLE/Normal Saline 500 MG in Premix Bag 1 BAG IV SCH ×3 (00:09→17:55)
[2018-09-05] MEDS: Insulin Lispro 100 Units/ML 3 ML Vial SUBCUT SCH ×4 (00:31→18:07)
[2018-09-05] MEDS: HYDROmorphone 0.5 MG/0.5 ML Syringe IVPUSH PRN ×2 (01:19→03:49)
--- NOTE | 2018-09-05 01:56 | PCM.PN ---
- General Info Date of Service: 09/05/18 Admission Dx/Problem (Free Text): Admission Diagnosis/Problem Admission Diagnosis/Problem Acute diverticulitis of intestine Subjective Update: Follow Up Functional Status: Reports: Urinating, New Symptoms. Denies: Pain Controlled - Review of Systems General: Denies: Fever, Chills HEENT: Denies: Contact Lenses Pulmonary: Reports: Shortness of Breath Cardiovascular: Reports: Dyspnea on Exertion. Denies: Chest Pain Gastrointestinal: Reports: Abdominal Pain, Decreased Appetite. Denies: Nausea, Vomiting Genitourinary: Reports: No Symptoms Musculoskeletal: Reports: No Symptoms Skin: Denies: Cyanosis, Mottled, Pallor, Diaphoresis, Bruising Neurological: Reports: Weakness, Gait Disturbance. Denies: Confusion Psychiatric: Denies: Depression, Anxiety, Agitation, Hallucinations Systems Review Comment:: Patient did not look very good at bedside during morning rounds. Her initial ABG was acidotic with pCO2 of 52.4. She states, "I can't breathe". So we proceeded to tend to her until she got intubation. She is now on mechanical ventilator. - Patient Data Vitals - Most Recent: Last Vital Signs Temp 36.9 C 09/04/18 23:56 Pulse 87 09/04/18 23:56 Resp 24 H 09/04/18 23:56 BP 105/80 09/04/18 23:56 Pulse Ox 90 L 09/04/18 23:56 Weight - Most Recent: 122.47 kg I&O - Last 24 Hours: Intake & Output 09/04/18 09/04/18 09/05/18 14:59 22:59 06:59 Intake Total 1089 615 Balance 1089 615 Lab Results Last 24 Hours: Laboratory Results - last 24 hr 09/04/18 09/04/18 09/04/18 Range/Units 06:26 06:26 09:07 WBC 13.42 H (3.98-10.04) K/mm3 RBC 4.19 (3.98-5.22) M/mm3 Hgb 12.6 D (11.2-15.7) gm/L Hct 38.7 (34.1-44.9) % MCV 92.4 (79.4-94.8) fl MCH 30.1 (25.6-32.2) pg MCHC 32.6 (32.2-35.5) g/dl RDW Std Deviation 46.1 (36.4-46.3) fL Plt Count 301 (182-369) K/mm3 MPV 10.4 (9.4-12.3) fl Neutrophils % (Manual) 91 H (40-60) % Band Neutrophils % 1 (0-10) % Lymphocytes % (Manual) 3 L (20-40) % Atypical Lymphs % 0 % Monocytes % (Manual) 4 (2-10) % Eosinophils % (Manual) 1 (0.7-5.8) % Basophils % (Manual) 0 L (0.1-1.2) Platelet Estimate Adequate Polychromasia 1+ slight Anisocytosis 1+ slight RBC Morph Comment Abnormal Sodium 127 L (136-145) mEq/L Potassium 4.7 (3.5-5.1) mEq/L Chloride 91 L (98-107) mEq/L Carbon Dioxide 24 (21-32) mEq/L Anion Gap 16.7 H (5-15) BUN 57 H D (7-18) mg/dL Creatinine 1.7 H (0.55-1.02) mg/dL Est Cr Clr Drug Dosing 30.18 mL/min Estimated GFR (MDRD) 30 (>60) mL/min BUN/Creatinine Ratio 33.5 H (14-18) Glucose 215 H (83-115) mg/dL POC Glucose (83-110) mg/dL Calcium 9.7 (8.5-10.1) mg/dL Total Bilirubin 1.0 (0.2-1.0) mg/dL AST 32 (15-37) U/L ALT 30 (14-59) U/L Alkaline Phosphatase 80 (46-116) U/L Total Protein 7.1 (6.4-8.2) g/dl Albumin 2.9 L (3.4-5.0) g/dl Globulin 4.2 gm/dL Albumin/Globulin Ratio 0.7 L (1-2) Lipase 166 (73-393) U/L Urine Color Yellow (Yellow) Urine Appearance Clear (Clear) Urine pH 5.0 (5.0-8.0) Ur Specific Lyle 1.015 (1.005-1.030) Urine Protein Trace H (Negative) Urine Glucose (UA) Negative (Negative) Urine Ketones Negative (Negative) Urine Occult Blood Negative (Negative) Urine Nitrite Negative (Negative) Urine Bilirubin 1+ H (Negative) Urine Urobilinogen 2.0 H (0.2-1.0) Ur Leukocyte Esterase Negative (Negative) Urine RBC Not seen (0-5) /hpf Urine WBC 0-5 (0-5) /hpf Ur Epithelial Cells 0-5 (0-5) /hpf Urine Bacteria Few H (FEW) /hpf Urine Mucus Few (FEW) /hpf 09/04/18 09/05/18 Range/Units 21:27 00:00 WBC (3.98-10.04) K/mm3 RBC (3.98-5.22) M/mm3 Hgb (11.2-15.7) gm/L Hct (34.1-44.9) % MCV (79.4-94.8) fl MCH (25.6-32.2) pg MCHC (32.2-35.5) g/dl RDW Std Deviation (36.4-46.3) fL Plt Count (182-369) K/mm3 MPV (9.4-12.3) fl Neutrophils % (Manual) (40-60) % Band Neutrophils % (0-10) % Lymphocytes % (Manual) (20-40) % Atypical Lymphs % % Monocytes % (Manual) (2-10) % Eosinophils % (Manual) (0.7-5.8) % Basophils % (Manual) (0.1-1.2) Platelet Estimate Polychromasia Anisocytosis RBC Morph Comment Sodium (136-145) mEq/L Potassium (3.5-5.1) mEq/L Chloride (98-107) mEq/L Carbon Dioxide (21-32) mEq/L Anion Gap (5-15) BUN (7-18) mg/dL Creatinine (0.55-1.02) mg/dL Est Cr Clr Drug Dosing mL/min Estimated GFR (MDRD) (>60) mL/min BUN/Creatinine Ratio (14-18) Glucose (83-115) mg/dL POC Glucose 217 H 222 H (83-110) mg/dL Calcium (8.5-10.1) mg/dL Total Bilirubin (0.2-1.0) mg/dL AST (15-37) U/L ALT (14-59) U/L Alkaline Phosphatase (46-116) U/L Total Protein (6.4-8.2) g/dl Albumin (3.4-5.0) g/dl Globulin gm/dL Albumin/Globulin Ratio (1-2) Lipase (73-393) U/L Urine Color (Yellow) Urine Appearance (Clear) Urine pH (5.0-8.0) Ur Specific Lyle (1.005-1.030) Urine Protein (Negative) Urine Glucose (UA) (Negative) Urine Ketones (Negative) Urine Occult Blood (Negative) Urine Nitrite (Negative) Urine Bilirubin (Negative) Urine Urobilinogen (0.2-1.0) Ur Leukocyte Esterase (Negative) Urine RBC (0-5) /hpf Urine WBC (0-5) /hpf Ur Epithelial Cells (0-5) /hpf Urine Bacteria (FEW) /hpf Urine Mucus (FEW) /hpf Med Orders - Current: Current Medications Albuterol/Ipratropium (Duoneb 3.0-0.5 Mg/3 Ml) 3 ml NEB Q4H PRN PRN Reason: Shortness Of Breath/wheezing Amlodipine Besylate (Norvasc) 10 mg PO DAILY [facility] Artificial Tears (Refresh Liquigel 1%) 0 ml EYEBOTH DAILY PRN PRN Reason: Dry Eyes Ascorbic Acid (Vitamin C) 1,000 mg PO DAILY [facility] Aspirin (Ecotrin) 325 mg PO BID [facility] Last Admin: 09/04/18 20:15 Dose: 325 mg Benazepril HCl (Lotensin) 40 mg PO DAILY [facility] Bisacodyl (Dulcolax) 5 mg PO DAILY PRN PRN Reason: Constipation Bisacodyl (Dulcolax) 10 mg RECTAL DAILY [facility] Last Admin: 09/04/18 14:17 Dose: 10 mg Cyanocobalamin (Vitamin B12) 250 mcg PO DAILY [facility] Dextrose/Water (Dextrose 50% In Water) 50 ml IVPUSH ASDIRECTED PRN PRN Reason: Hypoglycemia Flunisolide (Nasalide Nasal [place]) 0 ml NASBOTH BID PRN PRN Reason: Allergies Furosemide (Lasix) 20 mg PO DAILY [facility] Gabapentin (Neurontin) 300 mg PO BEDTIME [facility] Last Admin: 09/04/18 20:16 Dose: 300 mg Heparin Sodium (Porcine) (Heparin Sodium) 5,000 units SUBCUT Q8H [facility] Hydralazine HCl (Apresoline) 20 mg IVPUSH Q4H PRN PRN Reason: Hypertension Hydrocortisone (Hydrocortisone 1% Crm) 0 gm TOP BID PRN PRN Reason: skin complications Hydromorphone HCl (Dilaudid) 0.5 mg IVPUSH Q2H PRN PRN Reason: Pain (severe 7-10) Last Admin: 09/05/18 01:19 Dose: 0.5 mg Sodium Chloride (Normal Saline) 1,000 mls @ 150 mls/hr IV ASDIRECTED [facility] Last Admin: 09/04/18 23:00 Dose: 150 mls/hr Levofloxacin/Dextrose 500 mg/ (Premix) 100 mls @ 100 mls/hr IV Q24H [facility] Metronidazole 500 mg/ Premix 100 mls @ 100 mls/hr IV Q8H [facility] Last Admin: 09/05/18 00:09 Dose: 100 mls/hr Insulin Glargine (Lantus) 80 unit SUBCUT BEDTIME [facility] Last Admin: 09/04/18 22:43 Dose: Not Given Insulin Human Lispro (Humalog) 0 unit SUBCUT QIDACANDBED [facility]; Protocol Last Admin: 09/05/18 00:31 Dose: 4 units Labetalol HCl (Normodyne) 100 mg PO BID [facility] Last Admin: 09/04/18 20:15 Dose: 100 mg Lactulose (Cephulac) 20 gm PO Q6H [facility] Stop: 09/05/18 07:01 Last Admin: 09/05/18 00:00 Dose: 20 gm Levothyroxine Sodium (Synthroid) 100 mcg PO DAILY [facility] Lorazepam (Ativan) 0.5 mg IV Q6H PRN PRN Reason: Anxiety Magnesium Sulfate (Pharmacy To Dose - Magnesium Replacement) 1 dose .XX ASDIRECTED [facility] Metoprolol Tartrate (Lopressor) 5 mg IVPUSH Q4H PRN PRN Reason: Tachycardia Multivitamins (Thera) 1 each PO DAILY [facility] Non-Formulary Medication (Chlorthalidone) 25 mg PO DAILY [facility] Non-Formulary Medication (Losartan) 50 mg PO DAILY [facility] Non-Formulary Medication (Ozempic) 0.5 mg SQ TH [facility] Non-Formulary Medication (Acetaminophen) 1,300 mg PO BID [facility] Ondansetron HCl (Zofran) 4 mg IV Q6H PRN PRN Reason: Nausea/Vomiting Polyethylene Glycol (Miralax) 17 gm PO DAILY PRN PRN Reason: Constipation Potassium Chloride (Pharmacy To Dose - Potassium Replacement) 1 dose .XX ASDIRECTED [facility] Rosuvastatin Calcium (Crestor) 20 mg PO DAILY [facility] Saccharomyces Boulardii (Florastor) 250 mg PO BID [facility] Last Admin: 09/04/18 20:15 Dose: 250 mg Sodium Chloride (Saline Flush) 10 ml FLUSH ONETIME PRN PRN Reason: IV FLUSH Last Admin: 09/04/18 08:42 Dose: 10 ml Temazepam (Restoril) 7.5 mg PO BEDTIME PRN PRN Reason: Sleep Discontinued Medications Acetaminophen (Tylenol) 975 mg PO ONETIME ONE Stop: 09/05/18 00:06 Last Admin: 09/05/18 00:12 Dose: 975 mg Diatrizoate Meglum/Diatrizoate Sod (Gastrografin 37%) 120 ml PO ONETIME ONE Stop: 09/04/18 08:09 Last Admin: 09/04/18 08:41 Dose: 90 ml Enoxaparin Sodium (Lovenox) 40 mg SUBCUT DAILY [facility] Hydromorphone HCl (Dilaudid) 0.5 mg IVPUSH ONETIME STA Stop: 09/04/18 06:17 Last Admin: 09/04/18 06:38 Dose: 0.5 mg Levofloxacin/Dextrose 750 mg/ (Premix) 150 mls @ 100 mls/hr IV ONETIME ONE Stop: 09/04/18 10:25 Last Admin: 09/04/18 09:15 Dose: 100 mls/hr Metronidazole 500 mg/ Premix 100 mls @ 100 mls/hr IV ONETIME ONE Stop: 09/04/18 09:56 Last Admin: 09/04/18 09:16 Dose: 100 mls/hr Insulin Glargine (Lantus) 80 unit SUBCUT ONETIME ONE Stop: 09/05/18 00:01 Last Admin: 09/04/18 23:51 Dose: Not Given Iopamidol (Isovue-370 (76%)) 200 ml IV ONETIME ONE Stop: 09/04/18 08:09 Last Admin: 09/04/18 08:44 Dose: 70 ml Metoclopramide HCl (Reglan) 5 mg IVPUSH Q6H [facility] Stop: 09/05/18 01:01 Last Admin: 09/05/18 00:01 Dose: 5 mg Ondansetron HCl (Zofran) 4 mg IVPUSH ONETIME ONE Stop: 09/04/18 06:17 Last Admin: 09/04/18 06:37 Dose: 4 mg - Exam General: Sedated HEENT: Pupils Equal, Pupils Reactive Lungs: Other (mechanical breath sounds) GI/Abdominal Exam: Soft, Non-Tender, No Organomegaly, No Abnormal Bruit, Distended (Female) Exam: Other (indwelling centeno catheter) Back Exam: Other (deferred) Extremities: Non-Tender, No Pedal Edema, Normal Capillary Refill Peripheral Pulses: 2+: Dorsalis Pedis (L), Dorsalis Pedis (R) Skin: Warm, Dry, Intact, Ecchymosis (right knee) Wound/Incisions: Healing Well, Dressing Dry and Intact, No Drainage, Erythema Improving Neurological: Other (not appropriate ) Psy/Mental Status: Other (sedated/intubated on mechanical ventilator) - Problem List Review Problem List Initiated/Reviewed/Updated: Yes - My Orders Last 24 Hours: My Active Orders 09/04/18 12:33 Bisacodyl [Dulcolax] 5 mg PO DAILY PRN Carboxymethylcellulose Sodium [Refresh Liquigel 1%] 0 ml EYEBOTH DAILY PRN Flunisolide [Nasalide Nasal [place]] 0 ml NASBOTH BID PRN Hydrocortisone [Hydrocortisone 1% Crm] 0 gm TOP BID PRN 09/04/18 12:44 Metoprolol Tartrate [Lopressor] 5 mg IVPUSH Q4H PRN hydrALAZINE [Apresoline] 20 mg IVPUSH Q4H PRN 09/04/18 12:45 Height and Weight [RC] 04 Oxygen Therapy [RC] PRN Up With Assistance [RC] ASDIRECTED Up ad Anahi [RC] ASDIRECTED VTE/DVT Education [RC] 10,22 Vital Signs [RC] Q4HR Consult to Case Management/Textile Machine Mechanic [CONS] Routine Consult to Sponsorship Manager [CONS] Routine Consult to Spiritual Care [CONS] Routine OT Evaluation and Treatment [CONS] Routine PT Evaluation and Treatment [CONS] Routine Albuterol/Ipratropium [DuoNeb 3.0-0.5 MG/3 ML] 3 ml NEB Q4H PRN HYDROmorphone [Dilaudid] 0.5 mg IVPUSH Q2H PRN LORazepam [Ativan] 0.5 mg IV Q6H PRN Ondansetron [Zofran] 4 mg IV Q6H PRN Pharmacy to Dose - Magnesium R [Pharmacy to Dose - Magnesium Replacement] 1 dose .XX ASDIRECTED Pharmacy to Dose - Potassium R [Pharmacy to Dose - Potassium Replacement] 1 dose .XX ASDIRECTED Polyethylene Glycol 3350 [MiraLAX] 17 gm PO DAILY PRN Temazepam [Restoril] 7.5 mg PO BEDTIME PRN Resuscitation Status Routine 09/04/18 12:46 Intake and Output [RC] 09/04/18 12:47 RT Aerosol Therapy [RC] ASDIRECTED 09/04/18 13:00 Lactulose [Cephulac] 20 gm PO Q6H 09/04/18 13:30 Bisacodyl [Dulcolax] 10 mg RECTAL DAILY 09/04/18 16:00 metroNIDAZOLE/Normal Saline [Flagyl 500 MG in NS 100 ML] 500 mg Premix Bag 1 bag IV Q8H 09/04/18 21:00 Aspirin [Ecotrin] 325 mg PO BID Gabapentin [Neurontin] 300 mg PO BEDTIME Insulin Glarg,Human.Rec.Analog [LantUS] 80 unit SUBCUT BEDTIME Labetalol [Normodyne] 100 mg PO BID Saccharomyces Boulardii [Florastor] 250 mg PO BID 09/04/18 22:00 Blood Glucose Check, Bedside [RC] QIDACANDBED Dextrose 50% in Water 50 ml IVPUSH ASDIRECTED PRN Insulin Lispro [HumaLOG] See Protocol SUBCUT QIDACANDBED 09/04/18 Lunch 2 Gram Sodium Diet [DIET] Consistent Carbohydrate Diet [DIET] Heart Healthy Diet [DIET] 09/05/18 01:50 LACTATE SEPSIS W/ REFLEX [CHEM] Routine 09/05/18 02:00 Heparin Sodium 5,000 units SUBCUT Q8H 09/05/18 05:11 A1C [GLYCOSYLATED HEMOGLOBIN,HGBA1C] [CHEM] AM BASIC METABOLIC PANEL,BMP [CHEM] AM C-REACTIVE PROTEIN [CHEM] AM CBC W/O DIFF,HEMOGRAM [HEME] AM MAGNESIUM [CHEM] AM VITAMIN D,25-HYDROXY [CHEM] AM 09/05/18 09:00 Acetaminophen 1,300 mg PO BID Ascorbic Acid [Vitamin C] 1,000 mg PO DAILY Benazepril [Lotensin] 40 mg PO DAILY Chlorthalidone 25 mg PO DAILY Cyanocobalamin (Vitamin B12) [Vitamin B12] 250 mcg PO DAILY Furosemide [Lasix] 20 mg PO DAILY Levofloxacin/Dextrose 5%-Water [Levaquin in D5W 500 MG/100 ML] 500 mg Premix Bag 1 bag IV Q24H Levothyroxine [Synthroid] 100 mcg PO DAILY Losartan 50 mg PO DAILY Multivitamins,Therapeutic [Thera] 1 each PO DAILY Rosuvastatin [Crestor] 20 mg PO DAILY amLODIPine [Norvasc] 10 mg PO DAILY 09/06/18 05:11 BASIC METABOLIC PANEL,BMP [CHEM] AM C-REACTIVE PROTEIN [CHEM] AM CBC W/O DIFF,HEMOGRAM [HEME] AM MAGNESIUM [CHEM] AM 09/06/18 07:00 Incentive Spirometry [RT Incentive Spirometry] [RC] ASDIRECTED 09/07/18 05:11 BASIC METABOLIC PANEL,BMP [CHEM] AM C-REACTIVE PROTEIN [CHEM] AM CBC W/O DIFF,HEMOGRAM [HEME] AM MAGNESIUM [CHEM] AM 09/08/18 05:11 BASIC METABOLIC PANEL,BMP [CHEM] AM C-REACTIVE PROTEIN [CHEM] AM CBC W/O DIFF,HEMOGRAM [HEME] AM MAGNESIUM [CHEM] AM 09/08/18 07:00 CBC W/O DIFF,HEMOGRAM [HEME] MOTH@0709/08/18 12:33 Ozempic 0.5 mg SQ TH 09/09/18 05:11 BASIC METABOLIC PANEL,BMP [CHEM] AM C-REACTIVE PROTEIN [CHEM] AM CBC W/O DIFF,HEMOGRAM [HEME] AM MAGNESIUM [CHEM] AM 09/12/18 07:00 CBC W/O DIFF,HEMOGRAM [HEME] MOTH@69909/15/18 07:00 CBC W/O DIFF,HEMOGRAM [HEME] MOTH@69909/19/18 07:00 CBC W/O DIFF,HEMOGRAM [HEME] MOTH@69909/22/18 07:00 CBC W/O DIFF,HEMOGRAM [HEME] MOTH@69909/26/18 07:00 CBC W/O DIFF,HEMOGRAM [HEME] MOTH@07 - Plan Plan:: Assessment/Plan: Acute: Combined Respiratory Failure - 2/2 Combined hypercapneic and hypoxic - ABG shows severe acidosis with likely metabolic component (CO2 not quite high) - CXR shows bibasilar atelectasis - Failed NIPVV - Vent Setting: AC 500/14/5/100% - Serial ABG and CXR - DDx: PE unfortunately we would not be able to perform CTA due to significantly reduced renal function. V/Q scan is almost always useless. She however covered with Heparin 5000 units SubQ TID for DVT prophylaxis - If we order D-dimer; it'll be markedly elevated since she is post surgical Sepsis - 2/2 Colonic Diverticulitis - Documented BP or 90/57 and 98/56 mmHg and RR 21-23 - Blood Culture x2 and IV Hydration - Afebrile with mild leukocytosis (WC 13.42) - CRP 39.6 and LA 1.4 - Monitor urine output Diverticulitis with Ileus - Risk factors: Constipation and Narcotic Use - CT scan report reads CT scan report reads increased stool throughout the colon. Slight inflammatory change around a diverticuli within the sigmoid colon which may represent mild diverticulitis. Moderate amount of free fluid within the pelvis most likely reactive and diverticulitis. - Continue IV Flagyl and Levaquin for pharmacy to dose - Oral Probiotic BID - NPO now - Consult Dr. 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 He initially wants her out her to [place] but after talking to him and went over with him her clinical and possible etiologies of her respiratory failure, he decided to hold off transfer but may consider in AM.
[2018-09-05] MEDS: Heparin Sodium 5,000 Units/ML Vial SUBCUT SCH ×3 (02:43→17:55)
[2018-09-05 06:39] LABS: HEMOGLOBIN A1C 6.3 % (4.50-6.20)
[2018-09-05] MEDS: Lactulose Soln 10 GM/15 ML 30 ML UD Cup PO SCH ×2 (06:51)
[2018-09-05] MEDS: Sodium Chloride 0.9% 1,000 ML IV SCH ×6 (06:57→20:04)
[2018-09-05 06:58] LABS: VITAMIN D,25-HYDROXY 39.1 ng/ml (30.0-100.0)
--- NOTE | 2018-09-05 08:39 | CR ---
Abdomen: Supine and upright views of the abdomen were obtained. Comparison: Prior CT abdomen and pelvis exam of 09/04/18 and abdominal x-ray also performed on 09/04/18. Gas dilated colon is seen as well as several mildly dilated small bowel loops. Multiple air-fluid levels are seen within the bowel. Contrast is noted within bladder from recent CT study. Large calcification within the left pelvis is noted compatible with phlebolith. Slight atelectasis is seen within the left base. No free air is seen. Degenerative change is scattered within the spine. Impression: 1. Continuing gas dilated colon as well as several loops of small bowel showing air fluid levels. Findings presumably due to ileus. 2. Other incidental findings. Diagnostic code #3
[2018-09-05] MEDS: Acetaminophen 325 MG Tab PO SCH ×2 (08:49→23:07)
[2018-09-05] MEDS: Multivitamins,Therapeutic Tab PO SCH (08:49)
[2018-09-05] MEDS: Levothyroxine 100 MCG Tab PO SCH (08:52)
[2018-09-05] MEDS: Cyanocobalamin (Vitamin B12) 1,000 MCG Tab PO SCH (08:52)
[2018-09-05] MEDS: Saccharomyces Boulardii (Probiotic) 250 MG Cap PO SCH ×2 (08:53→23:08)
[2018-09-05] MEDS: Rosuvastatin 10 MG Tab PO SCH (08:53)
[2018-09-05] MEDS: Ascorbic Acid 500 MG Tab PO SCH (08:53)
[2018-09-05] MEDS: Aspirin 325 MG Tab.EC PO SCH ×2 (08:53→23:08)
[2018-09-05] MEDS ORDERED: Enoxaparin 40 MG/0.4 ML Syringe SUBCUT SCH (09:00)
[2018-09-05] MEDS ORDERED: Furosemide 20 MG Tab PO SCH (09:00)
[2018-09-05] MEDS ORDERED: Losartan 25 MG Tab PO SCH (09:00)
[2018-09-05] MEDS ORDERED: 50% Dextrose in Water 50 ML SDV IV PRN (09:15)
[2018-09-05] MEDS ORDERED: Morphine 2 MG/ML Syringe IVPUSH STA (09:54)
[2018-09-05] MEDS ORDERED: Morphine 2 MG/ML Syringe ONE (09:56)
[2018-09-05] MEDS ORDERED: Albuterol 0.083% 2.5 MG/3 ML Neb Soln ONE (09:57)
[2018-09-05] MEDS ORDERED: methylPREDNISolone Sodium Succinate 40 MG/1 ML SDV IVPUSH STA (09:57)
[2018-09-05] MEDS ORDERED: Albuterol/Ipratropium 3.0-0.5 MG/3 ML Neb Soln NEB ONE (09:57)
[2018-09-05] MEDS: amLODIPine 10 MG Tab PO SCH (10:54)
[2018-09-05] MEDS: Labetalol 100 MG Tab PO SCH ×2 (10:55→22:55)
[2018-09-05] MEDS: CHLORTHALIDONE 25 MG PO SCH (10:55)
--- NOTE | 2018-09-05 11:03 | CR ---
Chest: Frontal view of the chest is obtained. Comparison: No prior chest x-ray is available. Heart size is slightly enlarged. Atelectasis or possibly small area of pneumonia is seen within the left base. Minimal atelectasis within the right base is seen. Lungs otherwise are clear. Bony structures are grossly intact. Impression: 1. Slight atelectasis or possibly small area of pneumonia within the left base. Mild atelectasis within the right base. 2. Heart size is slightly enlarged. Diagnostic code #3
[2018-09-05] MEDS: Bisacodyl 10 MG Supp RECTAL SCH (11:08)
[2018-09-05] MEDS ORDERED: Midazolam 1 MG/ML 5 ML SDV IVPUSH ONE (13:33)
[2018-09-05] MEDS ORDERED: Rocuronium 50 MG/5 ML Vial IVPUSH ONE (13:34)
--- NOTE | 2018-09-05 13:53 | PCM.SN ---
- Free Text/Narrative Note: Patient briefly seen and examined at bedside. She did not look well and she states "I can't breathe". Immediately, we tended to and never left her until we provided some relief to her dyspnea. She was given low dose IV Morphine, Dounebs , Terbutaline, IV Solumedrol and immediately put her on BIPAP with an initial setting of 10/5. Thereafter she was moved to the unit for further management. In the unit, she remained on BIPAP but there was not much improvement on her repeat ABG. She was persistently acidotic. At that time, she was still alert, awake and we went over with her code status and the next step to improve her oxygenation. I offered intubation and having to temporary put her on a ventilator until her breathing get better; she agreed to it. After her consent, I called David (Next of Kin) to inform him about Antonella's decision and David wants her ship to [place] right away after the procedure. I replied back to him and said we'll do.
--- NOTE | 2018-09-05 13:57 | PCM.PRNOTE ---
- Free Text/Narrative Note: DATE OF PROCEDURE: 09/05/18 PREPROCEDURAL DIAGNOSIS: Acute respiratory failure PROCEDURE PERFORMED: Esophageal intubation Provider: Sawyer Gunn PA-C PLANNING SPECIALIST: Jared Dyson DO DESCRIPTION OF PROCEDURE: After informed consent was obtained patient was placed in the supine position. Patient is a full code and did have impending respiratory arrest. Upper denture was removed. 10 mg of Versed and 100 mg rocuronium were given to the patient by nursing. Patient was preoxygenated by respiratory therapy achieving a pre-procedural oxygen saturation of 97% with bag valve mask. Videoendoscope was then placed in the patient's oropharynx with excellent visualization of the vocal cords. 7.5 mm tube was passed easily through the vocal cords with continued excellent visualization. Colormetric CO2 detector was placed on the end of the tube while the patient was ventilated. This showed rapid uniform yellow color. Breath sounds were then auscultated bilaterally with good equal rise and fall noted over the chest and good breath sounds. Breath sounds were noted to be absent over the epigastrium. Oxygen saturations postprocedural did immediately climb to 95%. Tube was secured at 21 cm at the lips. The patient tolerated the procedure well w/o any complications. Post procedure chest x-ray is pending.
[2018-09-05] MEDS ORDERED: Midazolam 1 MG/ML 5 ML SDV ONE (14:00)
[2018-09-05] MEDS ORDERED: Rocuronium 50 MG/5 ML Vial ONE (14:00)
[2018-09-05] MEDS ORDERED: Sodium Chloride 0.9% 1,000 ML ONE (14:11)
--- NOTE | 2018-09-05 14:36 | CR ---
Chest: Portable view of the chest was obtained. Comparison: Prior chest x-ray performed earlier on the same day (10:01 AM) Heart is enlarged. Mild areas of atelectasis are seen within both lungs. Poor inspiratory study is noted. Endotracheal tube is noted. Tip is difficult to see but is felt to lie at the level of the clavicles above the agnes. Bony structures are grossly intact. Impression: 1. Tip of endotracheal tube difficult to see but felt to lie at the level of the clavicles above the agnes. 2. Areas of atelectasis within both lungs with stable cardiomegaly. Diagnostic code #3
--- NOTE | 2018-09-05 20:06 | CR ---
Chest: Portable view of the chest was obtained. Comparison: Previous chest x-ray performed earlier on same date (1:53 PM). Endotracheal tube lies at the upper level of the clavicles in satisfactory position. Nasogastric tube is poorly seen. Recommend abdominal x-ray to further evaluate. Other portions of the chest are unchanged. Impression: 1. Nasogastric tube remains poorly seen and difficult to confirm position. Abdominal x-ray is recommended to further evaluate. 2. Satisfactory position of endotracheal tube. 3. Other portions of the chest are unchanged. Diagnostic code #3
--- NOTE | 2018-09-05 21:24 | CR ---
Abdomen: Supine view of the abdomen was obtained centered to the stomach. No nasogastric tube is seen within the stomach or within the distal esophagus. Increased gas is noted within the colon which is seen on prior abdominal x-ray performed earlier on the same day. Impression: 1. No nasogastric tube is seen within the distal esophagus or within the stomach. Diagnostic code #3
[2018-09-05] MEDS ORDERED: Sodium Chloride 0.9% 1,000 ML IV ONE (22:30)
[2018-09-05] MEDS: methylPREDNISolone Sodium Succinate 40 MG/1 ML SDV IVPUSH SCH (23:03)
[2018-09-06] MEDS: Norepinephrine 4 MG in Dextrose 5% in Water 246 ML IV SCH ×8 (00:06→14:02)
[2018-09-06] MEDS: metroNIDAZOLE/Normal Saline 500 MG in Premix Bag 1 BAG IV SCH ×4 (00:15→23:19)
[2018-09-06] MEDS: Insulin Lispro 100 Units/ML 3 ML Vial SUBCUT SCH ×6 (00:35→23:13)
[2018-09-06] MEDS ORDERED: Sodium Bicarbonate 8.4% 50 MEQ/50 ML Syringe IVPUSH ONE ×2 (01:04→01:29)
[2018-09-06] MEDS ORDERED: diazePAM 5 MG/ML-2ml Syringe IV PRN (01:11)
[2018-09-06] MEDS ORDERED: Sodium Chloride 0.9% 250 ML ONE (01:26)
[2018-09-06] MEDS ORDERED: Sodium Bicarbonate 8.4% 50 MEQ/50 ML SDV ONE ×3 (01:26→01:37)
[2018-09-06] MEDS ORDERED: Midodrine 5 MG Tab PO ONE (01:30)
[2018-09-06] MEDS ORDERED: SODIUM BICARBONATE IV ONE (01:30)
[2018-09-06] MEDS ORDERED: SODIUM CHLORIDE 0.9% IV ONE (01:30)
[2018-09-06] MEDS: Heparin Sodium 5,000 Units/ML Vial SUBCUT SCH ×3 (01:56→17:04)
[2018-09-06] MEDS: fentaNYL 2,500 MCG in Sodium Chloride 0.9% 200 ML IV SCH ×4 (02:25→19:46)
[2018-09-06] MEDS: Sodium Chloride 0.9% 1,000 ML IV SCH ×4 (03:04→23:18)
[2018-09-06] MEDS: Albuterol/Ipratropium 3.0-0.5 MG/3 ML Neb Soln NEB SCH ×2 (05:15→20:13)
[2018-09-06] MEDS: methylPREDNISolone Sodium Succinate 40 MG/1 ML SDV IVPUSH SCH ×3 (06:12→23:09)
[2018-09-06] MEDS: Midodrine 5 MG Tab PO SCH ×2 (06:19→11:16)
--- NOTE | 2018-09-06 06:58 | CR ---
Abdomen: Supine view of the abdomen was obtained. Comparison: Previous abdominal x-ray performed earlier on same day (9:08 PM) Nasogastric tube is now noted. Tip lies within the body of the stomach. Dilated gas-filled colon again seen compatible with diffuse ileus. Degenerative change is noted within the spine. Impression: 1. Nasogastric tube now seen with tip lying within the stomach. 2. Continued ileus. Other incidental findings. Diagnostic code #3 I agree with preliminary report from [facility], finalized on 09/05/18, 11:49 PM Central Time
[2018-09-06] MEDS: Labetalol 100 MG Tab PO SCH (08:10)
[2018-09-06] MEDS: amLODIPine 10 MG Tab PO SCH (08:10)
[2018-09-06] MEDS: CHLORTHALIDONE 25 MG PO SCH (08:11)
[2018-09-06] MEDS: Saccharomyces Boulardii (Probiotic) 250 MG Cap PO SCH ×2 (08:15→21:37)
[2018-09-06] MEDS: Levothyroxine 100 MCG Tab PO SCH (08:16)
[2018-09-06] MEDS: Acetaminophen 325 MG Tab PO SCH (08:16)
[2018-09-06] MEDS: Ascorbic Acid 500 MG Tab PO SCH (08:17)
[2018-09-06] MEDS: Multivitamins,Therapeutic Tab PO SCH (08:17)
[2018-09-06] MEDS: Cyanocobalamin (Vitamin B12) 1,000 MCG Tab PO SCH (08:24)
[2018-09-06] MEDS: Rosuvastatin 10 MG Tab PO SCH (08:25)
--- NOTE | 2018-09-06 08:31 | CR ---
Chest: Frontal view of the chest is obtained utilizing portable technique. Comparison: Prior chest x-ray performed on 09/05/18. Endotracheal tube is seen. Tip lies at the upper level of the clavicles. Nasogastric tube is seen coursing off the inferior edge of the film into the stomach. Slight atelectasis is noted within both lung bases. Lungs otherwise are clear. Heart is mildly enlarged. Impression: 1. Tip of endotracheal tube at the upper level of the clavicles. Nasogastric tube courses off the inferior edge of the film into the stomach. 2. Mild bibasilar atelectasis. 3. Mild cardiomegaly which is stable. Diagnostic code #3
[2018-09-06] MEDS: Bisacodyl 10 MG Supp RECTAL SCH (08:32)
[2018-09-06] MEDS: Aspirin 325 MG Tab.EC PO SCH (08:33)
[2018-09-06] MEDS: Levofloxacin/Dextrose 5%-Water 750 MG in Premix Bag 1 BAG IV SCH (09:01)
--- NOTE | 2018-09-06 09:08 | PCM.PN ---
- General Info Date of Service: 09/06/18 Admission Dx/Problem (Free Text): Admission Diagnosis/Problem Admission Diagnosis/Problem Acute diverticulitis of intestine Subjective Update: Follow Up Functional Status: Reports: Pain Controlled, Urinating. Denies: New Symptoms - Review of Systems General: Denies: Fever, Chills HEENT: Reports: No Symptoms Cardiovascular: Denies: Chest Pain Gastrointestinal: Reports: Abdominal Pain. Denies: Nausea, Vomiting Genitourinary: Reports: No Symptoms Musculoskeletal: Reports: No Symptoms. Denies: Joint Swelling Skin: Denies: Cyanosis, Mottled, Pallor, Bruising Systems Review Comment:: Patient was alert, awake and able to follow simple commands. Her ABG is much better this AM. Her Hgb is now 8.7 but no report of rectal bleed. Her Abdominal x-ray report reads gas filled bowel appears improved from prior exam. Her abdominal still distended and hypoactive but had a few bowel movements. She is afebrile with increased WBC level of 26.37. Her urine output had picked up since last night. Her blood pressures have improved. - Patient Data Vitals - Most Recent: Last Vital Signs Temp 36.3 C 09/06/18 04:00 Pulse 88 09/06/18 07:57 Resp 18 09/06/18 07:41 BP 113/41 L 09/06/18 07:41 Pulse Ox 97 09/06/18 07:57 Weight - Most Recent: 131.678 kg I&O - Last 24 Hours: Intake & Output 09/05/18 09/06/18 09/06/18 22:59 06:59 14:59 Intake Total 1306 3544 Output Total 155 140 Balance 1151 3404 Lab Results Last 24 Hours: Laboratory Results - last 24 hr 09/05/18 09/05/18 09/05/18 Range/Units 10:00 11:30 11:53 WBC (3.98-10.04) K/mm3 RBC (3.98-5.22) M/mm3 Hgb (11.2-15.7) gm/L Hct (34.1-44.9) % MCV (79.4-94.8) fl MCH (25.6-32.2) pg MCHC (32.2-35.5) g/dl RDW Std Deviation (36.4-46.3) fL Plt Count (182-369) K/mm3 MPV (9.4-12.3) fl Puncture Site Lt radial ABG pH 7.17 L* (7.35-7.45) ABG pCO2 52.4 H (35.0-45.0) mmHg ABG pO2 66.0 L (80.0-100.0) mmHg ABG HCO3 18.2 L (22.0-26.0) meq/L ABG O2 Saturation 87.4 L (96.0-97.0) % ABG Base Excess -9.8 L (-2-2.0) William Test Positive A-a Gradient 125 mmHg O2 Delivery Device Nasal cannula Oxygen Flow Rate 6.0 FiO2 (21.00-100.00) % Tidal Volume cc PEEP cmH20 Blood Gas Comments Pp Sodium 133 L (136-145) mEq/L Potassium 4.9 (3.5-5.1) mEq/L Chloride 101 (98-107) mEq/L Carbon Dioxide 18 L (21-32) mEq/L Anion Gap 18.9 H (5-15) BUN 77 H (7-18) mg/dL Creatinine 2.5 H (0.55-1.02) mg/dL Est Cr Clr Drug Dosing 20.52 mL/min Estimated GFR (MDRD) 19 (>60) mL/min BUN/Creatinine Ratio 30.8 H (14-18) Glucose 203 H (83-115) mg/dL POC Glucose 197 H (83-110) mg/dL Lactic Acid (0.4-2.0) mmol/L Calcium 8.3 L (8.5-10.1) mg/dL Magnesium (1.8-2.4) mg/dl C-Reactive Protein (<1.0) mg/dL 09/05/18 09/05/18 09/05/18 Range/Units 12:58 15:53 18:05 WBC (3.98-10.04) K/mm3 RBC (3.98-5.22) M/mm3 Hgb (11.2-15.7) gm/L Hct (34.1-44.9) % MCV (79.4-94.8) fl MCH (25.6-32.2) pg MCHC (32.2-35.5) g/dl RDW Std Deviation (36.4-46.3) fL Plt Count (182-369) K/mm3 MPV (9.4-12.3) fl Puncture Site Lt radial Rt radial ABG pH 7.15 L* 7.19 L* (7.35-7.45) ABG pCO2 54.3 H 50.2 H (35.0-45.0) mmHg ABG pO2 76.0 L 72.0 L (80.0-100.0) mmHg ABG HCO3 18.1 L 18.2 L (22.0-26.0) meq/L ABG O2 Saturation 92.5 L 93.4 L (96.0-97.0) % ABG Base Excess -10.2 L -9.3 L (-2-2.0) William Test Positive Positive A-a Gradient 291 505 mmHg O2 Delivery Device Bipap Ac Oxygen Flow Rate 12.0 FiO2 100.00 (21.00-100.00) % Tidal Volume 500.0 cc PEEP 5.0 cmH20 Blood Gas Comments Sodium (136-145) mEq/L Potassium (3.5-5.1) mEq/L Chloride (98-107) mEq/L Carbon Dioxide (21-32) mEq/L Anion Gap (5-15) BUN (7-18) mg/dL Creatinine (0.55-1.02) mg/dL Est Cr Clr Drug Dosing mL/min Estimated GFR (MDRD) (>60) mL/min BUN/Creatinine Ratio (14-18) Glucose (83-115) mg/dL POC Glucose 182 H (83-110) mg/dL Lactic Acid (0.4-2.0) mmol/L Calcium (8.5-10.1) mg/dL Magnesium (1.8-2.4) mg/dl C-Reactive Protein (<1.0) mg/dL 09/05/18 09/05/18 09/05/18 Range/Units 21:39 22:30 23:00 WBC (3.98-10.04) K/mm3 RBC (3.98-5.22) M/mm3 Hgb (11.2-15.7) gm/L Hct (34.1-44.9) % MCV (79.4-94.8) fl MCH (25.6-32.2) pg MCHC (32.2-35.5) g/dl RDW Std Deviation (36.4-46.3) fL Plt Count (182-369) K/mm3 MPV (9.4-12.3) fl Puncture Site Lt radial ABG pH 7.16 L* (7.35-7.45) ABG pCO2 52.6 H (35.0-45.0) mmHg ABG pO2 81.0 (80.0-100.0) mmHg ABG HCO3 17.9 L (22.0-26.0) meq/L ABG O2 Saturation 94.7 L (96.0-97.0) % ABG Base Excess -9.9 L (-2-2.0) William Test A-a Gradient 494 mmHg O2 Delivery Device Ventilator Oxygen Flow Rate FiO2 100.00 (21.00-100.00) % Tidal Volume 550.0 cc PEEP 5.0 cmH20 Blood Gas Comments Sodium 133 L (136-145) mEq/L Potassium 4.8 (3.5-5.1) mEq/L Chloride 100 (98-107) mEq/L Carbon Dioxide 19 L (21-32) mEq/L Anion Gap 18.8 H (5-15) BUN 84 H (7-18) mg/dL Creatinine 2.6 H (0.55-1.02) mg/dL Est Cr Clr Drug Dosing 19.73 mL/min Estimated GFR (MDRD) 18 (>60) mL/min BUN/Creatinine Ratio 32.3 H (14-18) Glucose 187 H (83-115) mg/dL POC Glucose (83-110) mg/dL Lactic Acid 0.7 (0.4-2.0) mmol/L Calcium 7.8 L (8.5-10.1) mg/dL Magnesium (1.8-2.4) mg/dl C-Reactive Protein (<1.0) mg/dL 09/06/18 09/06/18 09/06/18 Range/Units 00:32 05:48 05:50 WBC 26.37 H (3.98-10.04) K/mm3 RBC 2.93 L (3.98-5.22) M/mm3 Hgb 8.7 L (11.2-15.7) gm/L Hct 28.0 L (34.1-44.9) % MCV 95.6 H (79.4-94.8) fl MCH 29.7 (25.6-32.2) pg MCHC 31.1 L (32.2-35.5) g/dl RDW Std Deviation 49.2 H (36.4-46.3) fL Plt Count 336 (182-369) K/mm3 MPV 10.2 (9.4-12.3) fl Puncture Site ABG pH (7.35-7.45) ABG pCO2 (35.0-45.0) mmHg ABG pO2 (80.0-100.0) mmHg ABG HCO3 (22.0-26.0) meq/L ABG O2 Saturation (96.0-97.0) % ABG Base Excess (-2-2.0) William Test A-a Gradient mmHg O2 Delivery Device Oxygen Flow Rate FiO2 (21.00-100.00) % Tidal Volume cc PEEP cmH20 Blood Gas Comments Sodium (136-145) mEq/L Potassium (3.5-5.1) mEq/L Chloride (98-107) mEq/L Carbon Dioxide (21-32) mEq/L Anion Gap (5-15) BUN (7-18) mg/dL Creatinine (0.55-1.02) mg/dL Est Cr Clr Drug Dosing mL/min Estimated GFR (MDRD) (>60) mL/min BUN/Creatinine Ratio (14-18) Glucose (83-115) mg/dL POC Glucose 171 H 170 H (83-110) mg/dL Lactic Acid (0.4-2.0) mmol/L Calcium (8.5-10.1) mg/dL Magnesium (1.8-2.4) mg/dl C-Reactive Protein (<1.0) mg/dL 09/06/18 09/06/18 Range/Units 05:50 06:20 WBC (3.98-10.04) K/mm3 RBC (3.98-5.22) M/mm3 Hgb (11.2-15.7) gm/L Hct (34.1-44.9) % MCV (79.4-94.8) fl MCH (25.6-32.2) pg MCHC (32.2-35.5) g/dl RDW Std Deviation (36.4-46.3) fL Plt Count (182-369) K/mm3 MPV (9.4-12.3) fl Puncture Site Lt radial ABG pH 7.24 L (7.35-7.45) ABG pCO2 43.7 (35.0-45.0) mmHg ABG pO2 107.0 H (80.0-100.0) mmHg ABG HCO3 17.9 L (22.0-26.0) meq/L ABG O2 Saturation 98.5 H (96.0-97.0) % ABG Base Excess -8.6 L (-2-2.0) William Test A-a Gradient 479 mmHg O2 Delivery Device Ventilator Oxygen Flow Rate FiO2 100.00 (21.00-100.00) % Tidal Volume 550.0 cc PEEP 5.0 cmH20 Blood Gas Comments Sodium 134 L (136-145) mEq/L Potassium 4.9 (3.5-5.1) mEq/L Chloride 100 (98-107) mEq/L Carbon Dioxide 18 L (21-32) mEq/L Anion Gap 20.9 H (5-15) BUN 84 H (7-18) mg/dL Creatinine 2.7 H (0.55-1.02) mg/dL Est Cr Clr Drug Dosing 19.00 mL/min Estimated GFR (MDRD) 17 (>60) mL/min BUN/Creatinine Ratio 31.1 H (14-18) Glucose 199 H (83-115) mg/dL POC Glucose (83-110) mg/dL Lactic Acid (0.4-2.0) mmol/L Calcium 7.5 L (8.5-10.1) mg/dL Magnesium 2.5 H (1.8-2.4) mg/dl C-Reactive Protein 40.7 H* (<1.0) mg/dL Med Orders - Current: Current Medications Acetaminophen (Tylenol) 1,300 mg PO BID [facility] Last Admin: 09/06/18 08:16 Dose: 1,300 mg Albuterol/Ipratropium (Duoneb 3.0-0.5 Mg/3 Ml) 3 ml NEB Q4H PRN PRN Reason: Shortness Of Breath/wheezing Albuterol/Ipratropium (Duoneb 3.0-0.5 Mg/3 Ml) 3 ml NEB BIDRT [facility] Last Admin: 09/06/18 05:15 Dose: 3 ml Amlodipine Besylate (Norvasc) 10 mg PO DAILY [facility] Last Admin: 09/06/18 08:10 Dose: Not Given Artificial Tears (Refresh Liquigel 1%) 0 ml EYEBOTH DAILY PRN PRN Reason: Dry Eyes Ascorbic Acid (Vitamin C) 1,000 mg PO DAILY [facility] Last Admin: 09/06/18 08:17 Dose: 1,000 mg Aspirin (Ecotrin) 325 mg PO BID [facility] Last Admin: 09/06/18 08:33 Dose: Not Given Bisacodyl (Dulcolax) 5 mg PO DAILY PRN PRN Reason: Constipation Bisacodyl (Dulcolax) 10 mg RECTAL DAILY [facility] Last Admin: 09/06/18 08:32 Dose: 10 mg Cyanocobalamin (Vitamin B12) 250 mcg PO DAILY [facility] Last Admin: 09/06/18 08:24 Dose: 250 mcg Dextrose/Water (Dextrose 50% In Water) 50 ml IV ASDIRECTED PRN PRN Reason: Hypoglycemia Diazepam (Valium) 5 mg IV Q6H PRN PRN Reason: Sedation Flunisolide (Nasalide Nasal [place]) 0 ml NASBOTH BID PRN PRN Reason: Allergies Heparin Sodium (Porcine) (Heparin Sodium) 5,000 units SUBCUT Q8H [facility] Last Admin: 09/06/18 01:56 Dose: 5,000 units Hydralazine HCl (Apresoline) 20 mg IVPUSH Q4H PRN PRN Reason: Hypertension Hydrocortisone (Hydrocortisone 1% Crm) 0 gm TOP BID PRN PRN Reason: skin complications Hydromorphone HCl (Dilaudid) 0.5 mg IVPUSH Q2H PRN PRN Reason: Pain (severe 7-10) Last Admin: 09/05/18 03:49 Dose: 0.5 mg Levofloxacin/Dextrose 750 mg/ (Premix) 150 mls @ 100 mls/hr IV Q48H [facility] Last Admin: 09/06/18 09:01 Dose: 100 mls/hr Metronidazole 500 mg/ Premix 100 mls @ 100 mls/hr IV Q8H [facility] Last Admin: 09/06/18 08:25 Dose: 100 mls/hr Fentanyl 2,500 mcg/ Sodium (Chloride) 250 mls @ 25.57 mls/hr IV TITRATE [facility]; Protocol Stop: 09/06/18 14:01 Last Admin: 09/06/18 07:25 Dose: 2 mcg/kg/hr, 25.57 mls/hr Propofol (Diprivan 100 Ml) 100 mls @ 3.836 mls/hr IV TITRATE NISA; Protocol Last Admin: 09/06/18 05:44 Dose: 10 mcg/kg/min, 7.672 mls/hr Sodium Chloride (Normal Saline) 1,000 mls @ 125 mls/hr IV ASDIRECTED NISA Last Admin: 09/06/18 03:04 Dose: 125 mls/hr Norepinephrine Bitartrate 4 mg (/ Dextrose/Water) 250 mls @ 7.5 mls/hr IV TITRATE NISA; Protocol Last Admin: 09/06/18 06:30 Dose: 14 mcg/min, 52.5 mls/hr Sodium Bicarbonate 150 meq/ (Sodium Chloride) 400 mls @ 50 mls/hr IV ONETIME ONE Stop: 09/06/18 09:29 Last Admin: 09/06/18 01:51 Dose: 50 mls/hr Insulin Human Lispro (Humalog) 0 unit SUBCUT Q6H [facility]; Protocol Last Admin: 09/06/18 05:50 Dose: 2 unit Labetalol HCl (Normodyne) 100 mg PO BID [facility] Last Admin: 09/06/18 08:10 Dose: Not Given Levothyroxine Sodium (Synthroid) 100 mcg PO DAILY [facility] Last Admin: 09/06/18 08:16 Dose: 100 mcg Lorazepam (Ativan) 2 mg IV Q4H PRN PRN Reason: Anxiety Magnesium Sulfate (Pharmacy To Dose - Magnesium Replacement) 0 dose .XX ASDIRECTED PRN PRN Reason: RX TO WATCH MAG Methylprednisolone Sodium Succinate (Solu-Medrol) 60 mg IVPUSH Q8H [facility] Last Admin: 09/06/18 06:12 Dose: 60 mg Metoprolol Tartrate (Lopressor) 5 mg IVPUSH Q4H PRN PRN Reason: Tachycardia Midodrine (Midodrine) 5 mg PO TIDAC [facility] Last Admin: 09/06/18 06:19 Dose: 5 mg Multivitamins (Thera) 1 each PO DAILY [facility] Last Admin: 09/06/18 08:17 Dose: 1 each Ondansetron HCl (Zofran) 4 mg IV Q6H PRN PRN Reason: Nausea/Vomiting Chlorthalidone 25 Mg (Ptom) 0 each PO DAILY [facility] Last Admin: 09/06/18 08:11 Dose: Not Given Ozempic 0.5 Mg (Ptom) 0.5 each SUBCUT TH [facility] Polyethylene Glycol (Miralax) 17 gm PO DAILY PRN PRN Reason: Constipation Potassium Chloride (Pharmacy To Dose - Potassium Replacement) 0 dose .XX ASDIRECTED PRN PRN Reason: RX TO WATCH K Rosuvastatin Calcium (Crestor) 20 mg PO DAILY [facility] Last Admin: 09/06/18 08:25 Dose: 20 mg Saccharomyces Boulardii (Florastor) 250 mg PO BID [facility] Last Admin: 09/06/18 08:15 Dose: 250 mg Sodium Chloride (Saline Flush) 10 ml FLUSH ONETIME PRN PRN Reason: IV FLUSH Last Admin: 09/04/18 08:42 Dose: 10 ml Temazepam (Restoril) 7.5 mg PO BEDTIME PRN PRN Reason: Sleep Discontinued Medications Acetaminophen (Tylenol) 975 mg PO ONETIME ONE Stop: 09/05/18 00:06 Last Admin: 09/05/18 00:12 Dose: 975 mg Albuterol (Proventil Neb Soln) Confirm Administered Dose 2.5 mg .ROUTE .STK-MED ONE Stop: 09/05/18 09:58 Last Admin: 09/05/18 10:00 Dose: 2.5 mg Albuterol/Ipratropium (Duoneb 3.0-0.5 Mg/3 Ml) 3 ml NEB ONETIME ONE Stop: 09/05/18 09:58 Last Admin: 09/05/18 15:06 Dose: Not Given Benazepril HCl (Lotensin) 40 mg PO DAILY [facility] Last Admin: 09/05/18 10:54 Dose: Not Given Dextrose/Water (Dextrose 50% In Water) 50 ml IVPUSH ASDIRECTED PRN PRN Reason: Hypoglycemia Diatrizoate Meglum/Diatrizoate Sod (Gastrografin 37%) 120 ml PO ONETIME ONE Stop: 09/04/18 08:09 Last Admin: 09/04/18 08:41 Dose: 90 ml Enoxaparin Sodium (Lovenox) 40 mg SUBCUT DAILY NISA Furosemide (Lasix) 20 mg PO DAILY NISA Last Admin: 09/05/18 08:54 Dose: 20 mg Gabapentin (Neurontin) 300 mg PO BEDTIME NISA Last Admin: 09/04/18 20:16 Dose: 300 mg Hydromorphone HCl (Dilaudid) 0.5 mg IVPUSH ONETIME STA Stop: 09/04/18 06:17 Last Admin: 09/04/18 06:38 Dose: 0.5 mg Sodium Chloride (Normal Saline) 1,000 mls @ 150 mls/hr IV ASDIRECTED NISA Last Infusion: 09/05/18 18:41 Dose: Infused Levofloxacin/Dextrose 750 mg/ (Premix) 150 mls @ 100 mls/hr IV ONETIME ONE Stop: 09/04/18 10:25 Last Admin: 09/04/18 09:15 Dose: 100 mls/hr Metronidazole 500 mg/ Premix 100 mls @ 100 mls/hr IV ONETIME ONE Stop: 09/04/18 09:56 Last Admin: 09/04/18 09:16 Dose: 100 mls/hr Sodium Chloride (Normal Saline) 1,000 mls @ 999 mls/hr IV ASDIRECTED NISA Last Admin: 09/05/18 13:45 Dose: 999 mls/hr Sodium Chloride (Normal Saline) Confirm Administered Dose 1,000 mls @ as directed .ROUTE .STK-MED ONE Stop: 09/05/18 14:12 Last Admin: 09/05/18 15:24 Dose: Not Given Sodium Chloride (Normal Saline) 1,000 mls @ 250 mls/hr IV ASDIRECTED NISA Last Infusion: 09/05/18 22:30 Dose: 999 mls/hr Sodium Chloride (Normal Saline) 1,000 mls @ 999 mls/hr IV ONETIME ONE Stop: 09/05/18 23:30 Last Admin: 09/05/18 22:53 Dose: 999 mls/hr Sodium Chloride (Normal Saline) Confirm Administered Dose 250 mls @ as directed .ROUTE .STK-MED ONE Stop: 09/06/18 01:27 Last Admin: 09/06/18 01:52 Dose: Not Given Insulin Glargine (Lantus) 80 unit SUBCUT BEDTIME NISA Last Admin: 09/04/18 22:43 Dose: Not Given Insulin Glargine (Lantus) 80 unit SUBCUT ONETIME ONE Stop: 09/05/18 00:01 Last Admin: 09/04/18 23:51 Dose: Not Given Insulin Glargine (Lantus) 80 unit SUBCUT BEDTIME [facility] Insulin Human Lispro (Humalog) 0 unit SUBCUT QIDACANDBED [facility]; Protocol Last Admin: 09/05/18 11:37 Dose: 2 units Iopamidol (Isovue-370 (76%)) 200 ml IV ONETIME ONE Stop: 09/04/18 08:09 Last Admin: 09/04/18 08:44 Dose: 70 ml Lactulose (Cephulac) 20 gm PO Q6H NISA Stop: 09/05/18 07:01 Last Admin: 09/05/18 06:51 Dose: 20 gm Lorazepam (Ativan) 0.5 mg IV Q6H PRN PRN Reason: Anxiety Last Admin: 09/05/18 09:04 Dose: 0.5 mg Losartan Potassium (Cozaar) 50 mg PO DAILY [facility] Last Admin: 09/05/18 10:53 Dose: Not Given Losartan Potassium (Cozaar) 50 mg PO DAILY [facility] Methylprednisolone Sodium Succinate (Solu-Medrol) 60 mg IVPUSH ONETIME STA Stop: 09/05/18 09:58 Last Admin: 09/05/18 11:06 Dose: 60 mg Metoclopramide HCl (Reglan) 5 mg IVPUSH Q6H NISA Stop: 09/05/18 01:01 Last Admin: 09/05/18 00:01 Dose: 5 mg Midazolam HCl (Versed 1 Mg/Ml) 10 mg .ROUTE .STK-MED ONE Stop: 09/05/18 14:01 Midodrine (Midodrine) 5 mg PO ONETIME ONE Stop: 09/06/18 01:31 Last Admin: 09/06/18 01:45 Dose: 5 mg Morphine Sulfate (Morphine) 1 mg IVPUSH ONETIME STA Stop: 09/05/18 09:55 Last Admin: 09/05/18 11:07 Dose: 1 mg Morphine Sulfate (Morphine) Confirm Administered Dose 2 mg .ROUTE .STK-MED ONE Stop: 09/05/18 09:57 Last Admin: 09/05/18 11:07 Dose: 1 mg Ondansetron HCl (Zofran) 4 mg IVPUSH ONETIME ONE Stop: 09/04/18 06:17 Last Admin: 09/04/18 06:37 Dose: 4 mg Rocuronium Brandt (Zemuron) 100 mg .ROUTE .STK-MED ONE Stop: 09/05/18 14:01 Sodium Bicarbonate (Sodium Bicarbonate 8.4%) 150 meq IVPUSH ONETIME ONE Stop: 09/06/18 01:05 Sodium Bicarbonate (Sodium Bicarbonate 8.4%) Confirm Administered Dose 50 meq .ROUTE .STK-MED ONE Stop: 09/06/18 01:27 Last Admin: 09/06/18 01:50 Dose: 50 meq Sodium Bicarbonate (Sodium Bicarbonate 8.4%) Confirm Administered Dose 100 meq .ROUTE .STK-MED ONE Stop: 09/06/18 01:29 Last Admin: 09/06/18 01:52 Dose: Not Given Sodium Bicarbonate (Sodium Bicarbonate 8.4%) 50 meq IVPUSH ONETIME ONE Stop: 09/06/18 01:30 Last Admin: 09/06/18 01:51 Dose: 50 meq Sodium Bicarbonate (Sodium Bicarbonate 8.4%) Confirm Administered Dose 50 meq .ROUTE .STK-MED ONE Stop: 09/06/18 01:38 Last Admin: 09/06/18 01:52 Dose: Not Given Terbutaline Sulfate (Brethine) 2.5 mg PO BID NISA Stop: 09/06/18 21:01 Last Admin: 09/05/18 11:06 Dose: 2.5 mg - Exam General: Alert, Cooperative, No Acute Distress HEENT: Pupils Equal, Pupils Reactive Neck: Supple Lungs: Normal Respiratory Effort, Other (mechanical breath sounds) GI/Abdominal Exam: Soft, No Mass, Distended, Tender (mild tenderness). No: No Abnormal Bruit, Guarding, Rigid, Rebound (Female) Exam: Other (indwelling centeno catheter) Extremities: Normal Inspection, Normal Range of Motion, Non-Tender, No Pedal Edema, Normal Capillary Refill Skin: Warm, Dry, Intact Neurological: Other (not appropraite at this time) Psy/Mental Status: Alert, Normal Affect, Normal Mood - Problem List Review Problem List Initiated/Reviewed/Updated: Yes - My Orders Last 24 Hours: My Active Orders 09/05/18 09:00 Acetaminophen [Tylenol] 1,300 mg PO BID Ascorbic Acid [Vitamin C] 1,000 mg PO DAILY Cyanocobalamin (Vitamin B12) [Vitamin B12] 250 mcg PO DAILY Levothyroxine [Synthroid] 100 mcg PO DAILY Multivitamins,Therapeutic [Thera] 1 each PO DAILY Patient's Own Medication [Ptom] 0 each PO DAILY Rosuvastatin [Crestor] 20 mg PO DAILY amLODIPine [Norvasc] 10 mg PO DAILY 09/05/18 09:15 Dextrose 50% in Water 50 ml IV ASDIRECTED PRN 09/05/18 13:51 RASS Sedation Scale [RC] ASDIRECTED Desired Level of Sedation (RASS) [AST] Click To Edit 09/05/18 14:00 Propofol [Diprivan 100 ML] 100 ml IV TITRATE fentaNYL [Sublimaze] 2,500 mcg Sodium Chloride 0.9% [Normal Saline] 200 ml IV TITRATE 09/05/18 15:07 Urinary Catheter Assessment [RC] Q4HR Ventilator Assessment [RT Ventilator, Adult] [RC] ASDIRECTED 09/05/18 15:15 Centeno Catheter Insertion [Insert Urinary Catheter] [OM.PC] Q24H 09/05/18 17:28 Notify Provider Consults [RC] ASDIRECTED Consult to Physician [CONS] Routine 09/05/18 18:00 Insulin Lispro [HumaLOG] See Protocol SUBCUT Q6H 09/05/18 22:27 Blood Culture x2 Reflex Set [OM.PC] Stat 09/05/18 22:32 Rectal Tube Insertion [OM.PC] Routine 09/05/18 22:40 CULTURE BLOOD [BC] Stat CULTURE BLOOD [BC] Stat 09/05/18 23:00 methylPREDNISolone Sod Succ [Solu-MEDROL] 60 mg IVPUSH Q8H 09/05/18 23:30 Sodium Chloride 0.9% [Normal Saline] 1,000 ml IV ASDIRECTED 09/05/18 23:45 Norepinephrine [Levophed] 4 mg Dextrose 5% in Water 246 ml IV TITRATE 09/06/18 01:10 LORazepam [Ativan] 2 mg IV Q4H PRN 09/06/18 01:11 diazePAM [Valium] 5 mg IV Q6H PRN 09/06/18 01:30 Sodium Bicarbonate [Sodium Bicarbonate 8.4%] 150 meq Sodium Chloride 0.9% [ Normal Saline] 250 ml IV ONETIME 09/06/18 06:00 Albuterol/Ipratropium [DuoNeb 3.0-0.5 MG/3 ML] 3 ml NEB BIDRT 09/06/18 07:00 Incentive Spirometry [RT Incentive Spirometry] [RC] ASDIRECTED Midodrine 5 mg PO TIDAC 09/06/18 09:00 Retroperitoneal Comp [US] Routine Levofloxacin/Dextrose 5%-Water [Levaquin in D5W 750 MG/150 ML] 750 mg Premix Bag 1 bag IV Q48H 09/06/18 Breakfast NPO Now [Nothing per Oral Now Diet] [DIET] 09/07/18 05:11 BASIC METABOLIC PANEL,BMP [CHEM] AM C-REACTIVE PROTEIN [CHEM] AM CBC W/O DIFF,HEMOGRAM [HEME] AM MAGNESIUM [CHEM] AM 09/08/18 05:11 BASIC METABOLIC PANEL,BMP [CHEM] AM C-REACTIVE PROTEIN [CHEM] AM CBC W/O DIFF,HEMOGRAM [HEME] AM MAGNESIUM [CHEM] AM 09/08/18 07:00 CBC W/O DIFF,HEMOGRAM [HEME] MOTH@0700 09/08/18 12:33 Patient's Own Medication [Ptom] 0.5 each SUBCUT TH 09/09/18 05:11 BASIC METABOLIC PANEL,BMP [CHEM] AM C-REACTIVE PROTEIN [CHEM] AM CBC W/O DIFF,HEMOGRAM [HEME] AM MAGNESIUM [CHEM] AM 09/12/18 07:00 CBC W/O DIFF,HEMOGRAM [HEME] MOTH@0700 09/15/18 07:00 CBC W/O DIFF,HEMOGRAM [HEME] MOTH@0700 09/19/18 07:00 CBC W/O DIFF,HEMOGRAM [HEME] MOTH@0700 09/22/18 07:00 CBC W/O DIFF,HEMOGRAM [HEME] MOTH@0700 09/26/18 07:00 CBC W/O DIFF,HEMOGRAM [HEME] MOTH@0700 - Plan Plan:: Assessment/Plan: Acute: Combined Respiratory Failure - 2/2 Combined hypercapneic and hypoxic - ABG shows severe acidosis - CXR shows bibasilar atelectasis - Failed NIPVV - Vent Setting: AC 500/14/5/100%; VT is now back to 500 ml, RR 18 and FiO2 cut down to 80% - Serial ABG and CXR - She received bicarb infusion last night - DDx: PE unfortunately we would not be able to perform CTA due to significantly reduced renal function. V/Q scan is almost always useless. She however covered with Heparin 5000 units SubQ TID for DVT prophylaxis - If we order D-dimer; it'll be markedly elevated since she is post surgical Sepsis - 2/2 Colonic Diverticulitis - Documented BP or 90/57 and 98/56 mmHg and RR 21-23, Improved blood pressures - Blood Culture x2 and IV Hydration - Afebrile with mild leukocytosis (WC 13.42) - CRP 39.6-->40.7 and LA 1.4 - Monitor urine output Diverticulitis with Ileus - Risk factors: Constipation and Narcotic Use - CT scan report reads CT scan report reads increased stool throughout the colon. Slight inflammatory change around a diverticuli within the sigmoid colon which may represent mild diverticulitis. Moderate amount of free fluid within the pelvis most likely reactive and diverticulitis. - Continue IV Flagyl and Levaquin for pharmacy to dose - Oral Probiotic BID - NPO now - Dr. 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 - IVF at 250 cc/hr with centeno catheter for Is/Os - Renal U/S to r/o obstructive uropathy: elevated resistivity indices within both kidney compatible with nonspecific medical renal disease - Hold diuretics and BP meds - Monitor urine output Chronic: Impaired Vision Hx/o SVT HTN HLD Urinary Incontinence OA/DJD FREDERICK NORBERTO on CPAP Hypothyroidism Obesity with BMI of 42 Plan: She alert/awake on mechanical ventilation RASS -3; adjust vent setting Routine AM Labs Sepsis Protocol PT/OT consult when appropriate DVT/GI PPx Dietary consult for weight management SW/CM for d/c planning Code status: 1 Updated brother, about her morning labs, clinical progress, imaging test results and treatment plan. Offered lateral transfer to [place] as initially planned but he decided to keep her. We will continue to monitor her respiratory and renal function.
--- NOTE | 2018-09-06 11:19 | CR ---
Abdomen: Supine view of the abdomen was obtained. Nasogastric tube is seen with tip lying within the stomach. Slightly prominent gas within the transverse colon is seen as well as several air-filled loops of small bowel. Gas filled bowel appears improved from previous exam. Phlebolith is noted within the left pelvis. Scattered degenerative changes noted within the spine. Impression: 1. Slightly prominent gas within transverse colon and within several small bowel loops. Gas filled bowel appears improved from prior exam. 2. Nasogastric tube with tip lying within the stomach. 3. Other incidental findings. Diagnostic code #3
--- NOTE | 2018-09-06 13:44 | US ---
Renal ultrasound: Multiple real-time images of the kidneys were obtained. Comparison: No prior renal imaging. Prior CT abdomen and pelvis exam of 09/04/18. Technologist's note: Limited exam, patient on ventilator and not mobile Kidneys show no discrete hydronephrosis or mass. Cortical thickness is preserved. Resistivity indices are slightly increased. Findings worse within the left kidney. Urinary catheter is present. Measurements: Right kidney: Length 13.3 cm, left kidney length: 12.0 cm Impression: 1. Elevated resistivity indices within both kidneys, worse on the left side compatible with nonspecific medical renal disease. 2. Catheter noted within the bladder. 3. No additional abnormality is seen on renal ultrasound exam. Small nonobstructing calculus noted on CT exam is not appreciated on the ultrasound most likely technical. Diagnostic code #3
[2018-09-06] MEDS ORDERED: Norepinephrine 16 MG in Dextrose 5% in Water 234 ML IV SCH ×2 (14:30)
--- NOTE | 2018-09-06 15:39 | PCM.CONSN ---
- General Info Date of Service: 09/06/18 - Patient Data Vitals - Most Recent: Last Vital Signs Temp 98.4 F 09/06/18 12:00 Pulse 92 09/06/18 15:00 Resp 18 09/06/18 15:00 BP 134/38 L 09/06/18 15:00 Pulse Ox 91 L 09/06/18 15:00 Weight - Most Recent: 131.678 kg I&O - Last 24 Hours: Intake & Output 09/05/18 09/06/18 09/06/18 23:59 07:59 15:59 Intake Total 1306 3544 Output Total 155 140 800 Balance 1151 3404 -800 Lab Results Last 24 Hours: Laboratory Results - last 24 hr 09/05/18 09/05/18 09/05/18 Range/Units 15:53 18:05 21:39 WBC (3.98-10.04) K/mm3 RBC (3.98-5.22) M/mm3 Hgb (11.2-15.7) gm/L Hct (34.1-44.9) % MCV (79.4-94.8) fl MCH (25.6-32.2) pg MCHC (32.2-35.5) g/dl RDW Std Deviation (36.4-46.3) fL Plt Count (182-369) K/mm3 MPV (9.4-12.3) fl Puncture Site Rt radial ABG pH 7.19 L* (7.35-7.45) ABG pCO2 50.2 H (35.0-45.0) mmHg ABG pO2 72.0 L (80.0-100.0) mmHg ABG HCO3 18.2 L (22.0-26.0) meq/L ABG O2 Saturation 93.4 L (96.0-97.0) % ABG Base Excess -9.3 L (-2-2.0) William Test Positive A-a Gradient 505 mmHg O2 Delivery Device Ac FiO2 100.00 (21.00-100.00) % Tidal Volume 500.0 cc PEEP 5.0 cmH20 Sodium 133 L (136-145) mEq/L Potassium 4.8 (3.5-5.1) mEq/L Chloride 100 (98-107) mEq/L Carbon Dioxide 19 L (21-32) mEq/L Anion Gap 18.8 H (5-15) BUN 84 H (7-18) mg/dL Creatinine 2.6 H (0.55-1.02) mg/dL Est Cr Clr Drug Dosing 19.73 mL/min Estimated GFR (MDRD) 18 (>60) mL/min BUN/Creatinine Ratio 32.3 H (14-18) Glucose 187 H (83-115) mg/dL POC Glucose 182 H (83-110) mg/dL Lactic Acid (0.4-2.0) mmol/L Calcium 7.8 L (8.5-10.1) mg/dL Magnesium (1.8-2.4) mg/dl C-Reactive Protein (<1.0) mg/dL 09/05/18 09/05/18 09/06/18 Range/Units 22:30 23:00 00:32 WBC (3.98-10.04) K/mm3 RBC (3.98-5.22) M/mm3 Hgb (11.2-15.7) gm/L Hct (34.1-44.9) % MCV (79.4-94.8) fl MCH (25.6-32.2) pg MCHC (32.2-35.5) g/dl RDW Std Deviation (36.4-46.3) fL Plt Count (182-369) K/mm3 MPV (9.4-12.3) fl Puncture Site Lt radial ABG pH 7.16 L* (7.35-7.45) ABG pCO2 52.6 H (35.0-45.0) mmHg ABG pO2 81.0 (80.0-100.0) mmHg ABG HCO3 17.9 L (22.0-26.0) meq/L ABG O2 Saturation 94.7 L (96.0-97.0) % ABG Base Excess -9.9 L (-2-2.0) William Test A-a Gradient 494 mmHg O2 Delivery Device Ventilator FiO2 100.00 (21.00-100.00) % Tidal Volume 550.0 cc PEEP 5.0 cmH20 Sodium (136-145) mEq/L Potassium (3.5-5.1) mEq/L Chloride (98-107) mEq/L Carbon Dioxide (21-32) mEq/L Anion Gap (5-15) BUN (7-18) mg/dL Creatinine (0.55-1.02) mg/dL Est Cr Clr Drug Dosing mL/min Estimated GFR (MDRD) (>60) mL/min BUN/Creatinine Ratio (14-18) Glucose (83-115) mg/dL POC Glucose 171 H (83-110) mg/dL Lactic Acid 0.7 (0.4-2.0) mmol/L Calcium (8.5-10.1) mg/dL Magnesium (1.8-2.4) mg/dl C-Reactive Protein (<1.0) mg/dL 09/06/18 09/06/18 09/06/18 Range/Units 05:48 05:50 05:50 WBC 26.37 H (3.98-10.04) K/mm3 RBC 2.93 L (3.98-5.22) M/mm3 Hgb 8.7 L (11.2-15.7) gm/L Hct 28.0 L (34.1-44.9) % MCV 95.6 H (79.4-94.8) fl MCH 29.7 (25.6-32.2) pg MCHC 31.1 L (32.2-35.5) g/dl RDW Std Deviation 49.2 H (36.4-46.3) fL Plt Count 336 (182-369) K/mm3 MPV 10.2 (9.4-12.3) fl Puncture Site ABG pH (7.35-7.45) ABG pCO2 (35.0-45.0) mmHg ABG pO2 (80.0-100.0) mmHg ABG HCO3 (22.0-26.0) meq/L ABG O2 Saturation (96.0-97.0) % ABG Base Excess (-2-2.0) William Test A-a Gradient mmHg O2 Delivery Device FiO2 (21.00-100.00) % Tidal Volume cc PEEP cmH20 Sodium 134 L (136-145) mEq/L Potassium 4.9 (3.5-5.1) mEq/L Chloride 100 (98-107) mEq/L Carbon Dioxide 18 L (21-32) mEq/L Anion Gap 20.9 H (5-15) BUN 84 H (7-18) mg/dL Creatinine 2.7 H (0.55-1.02) mg/dL Est Cr Clr Drug Dosing 19.00 mL/min Estimated GFR (MDRD) 17 (>60) mL/min BUN/Creatinine Ratio 31.1 H (14-18) Glucose 199 H (83-115) mg/dL POC Glucose 170 H (83-110) mg/dL Lactic Acid (0.4-2.0) mmol/L Calcium 7.5 L (8.5-10.1) mg/dL Magnesium 2.5 H (1.8-2.4) mg/dl C-Reactive Protein 40.7 H* (<1.0) mg/dL 09/06/18 09/06/18 09/06/18 Range/Units 06:20 11:08 12:39 WBC (3.98-10.04) K/mm3 RBC (3.98-5.22) M/mm3 Hgb (11.2-15.7) gm/L Hct (34.1-44.9) % MCV (79.4-94.8) fl MCH (25.6-32.2) pg MCHC (32.2-35.5) g/dl RDW Std Deviation (36.4-46.3) fL Plt Count (182-369) K/mm3 MPV (9.4-12.3) fl Puncture Site Lt radial Lt radial ABG pH 7.24 L 7.26 L (7.35-7.45) ABG pCO2 43.7 42.6 (35.0-45.0) mmHg ABG pO2 107.0 H 69.0 L (80.0-100.0) mmHg ABG HCO3 17.9 L 18.6 L (22.0-26.0) meq/L ABG O2 Saturation 98.5 H 93.9 L (96.0-97.0) % ABG Base Excess -8.6 L -7.5 L (-2-2.0) William Test A-a Gradient 479 390 mmHg O2 Delivery Device Ventilator Ventilator FiO2 100.00 80.00 (21.00-100.00) % Tidal Volume 550.0 500.0 cc PEEP 5.0 5.0 cmH20 Sodium (136-145) mEq/L Potassium (3.5-5.1) mEq/L Chloride (98-107) mEq/L Carbon Dioxide (21-32) mEq/L Anion Gap (5-15) BUN (7-18) mg/dL Creatinine (0.55-1.02) mg/dL Est Cr Clr Drug Dosing mL/min Estimated GFR (MDRD) (>60) mL/min BUN/Creatinine Ratio (14-18) Glucose (83-115) mg/dL POC Glucose 230 H (83-110) mg/dL Lactic Acid (0.4-2.0) mmol/L Calcium (8.5-10.1) mg/dL Magnesium (1.8-2.4) mg/dl C-Reactive Protein (<1.0) mg/dL Med Orders - Current: Current Medications Acetaminophen (Tylenol) 1,300 mg PO BID [facility], [facility]1983 Albuterol/Ipratropium (Duoneb 3.0-0.5 Mg/3 Ml) 3 ml NEB Q4H PRN PRN Reason: Shortness Of Breath/wheezing Albuterol/Ipratropium (Duoneb 3.0-0.5 Mg/3 Ml) 3 ml NEB BIDRT [facility], [facility]1983 Last Admin: 09/06/18 05:15 Dose: 3 ml Amlodipine Besylate (Norvasc) 10 mg PO DAILY [facility], [facility] Artificial Tears (Refresh Liquigel 1%) 0 ml EYEBOTH DAILY PRN PRN Reason: Dry Eyes Ascorbic Acid (Vitamin C) 1,000 mg PO DAILY [facility], [facility] Aspirin (Ecotrin) 325 mg PO BID [facility], [facility]1983 Bisacodyl (Dulcolax) 5 mg PO DAILY PRN PRN Reason: Constipation Bisacodyl (Dulcolax) 10 mg RECTAL DAILY [facility], [facility] Last Admin: 09/06/18 08:32 Dose: 10 mg Cyanocobalamin (Vitamin B12) 250 mcg PO DAILY [facility], [facility] Dextrose/Water (Dextrose 50% In Water) 50 ml IV ASDIRECTED PRN PRN Reason: Hypoglycemia Diazepam (Valium) 5 mg IV Q6H PRN PRN Reason: Sedation Flunisolide (Nasalide Nasal [place]) 0 ml NASBOTH BID PRN PRN Reason: Allergies Heparin Sodium (Porcine) (Heparin Sodium) 5,000 units SUBCUT Q8H [facility] Last Admin: 09/06/18 11:11 Dose: 5,000 units Hydralazine HCl (Apresoline) 20 mg IVPUSH Q4H PRN PRN Reason: Hypertension Hydrocortisone (Hydrocortisone 1% Crm) 0 gm TOP BID PRN PRN Reason: skin complications Hydromorphone HCl (Dilaudid) 0.5 mg IVPUSH Q2H PRN PRN Reason: Pain (severe 7-10) Last Admin: 09/05/18 03:49 Dose: 0.5 mg Levofloxacin/Dextrose 750 mg/ (Premix) 150 mls @ 100 mls/hr IV Q48H NISA Last Admin: 09/06/18 09:01 Dose: 100 mls/hr Metronidazole 500 mg/ Premix 100 mls @ 100 mls/hr IV Q8H NISA Last Admin: 09/06/18 15:30 Dose: 100 mls/hr Propofol (Diprivan 100 Ml) 100 mls @ 3.836 mls/hr IV TITRATE NISA; Protocol Last Titration: 09/06/18 11:14 Dose: 30 mcg/kg/min, 23.016 mls/hr Sodium Chloride (Normal Saline) 1,000 mls @ 125 mls/hr IV ASDIRECTED NISA Last Admin: 09/06/18 11:21 Dose: 125 mls/hr Norepinephrine Bitartrate 4 mg (/ Dextrose/Water) 250 mls @ 7.5 mls/hr IV TITRATE NISA; Protocol Stop: 09/06/18 23:59 Last Admin: 09/06/18 14:02 Dose: 25 mcg/min, 93.75 mls/hr Norepinephrine Bitartrate 16 (mg/ Dextrose/Water) 250 mls @ 1.87 mls/hr IV TITRATE NISA; Protocol Fentanyl 2,500 mcg/ Sodium (Chloride) 250 mls @ 26.33 mls/hr IV TITRATE NISA; Protocol Last Admin: 09/06/18 15:37 Dose: 4 mcg/kg/hr, 52.67 mls/hr Insulin Human Lispro (Humalog) 0 unit SUBCUT Q6H NISA; Protocol Last Admin: 09/06/18 11:15 Dose: 4 unit Labetalol HCl (Normodyne) 100 mg PO BID NISA Levothyroxine Sodium (Synthroid) 100 mcg PO DAILY NISA Last Admin: 09/06/18 08:16 Dose: 100 mcg Lorazepam (Ativan) 2 mg IV Q4H PRN PRN Reason: Anxiety Magnesium Sulfate (Pharmacy To Dose - Magnesium Replacement) 0 dose .XX ASDIRECTED PRN PRN Reason: RX TO WATCH MAG Methylprednisolone Sodium Succinate (Solu-Medrol) 60 mg IVPUSH Q8H [facility] Last Admin: 09/06/18 15:30 Dose: 60 mg Metoprolol Tartrate (Lopressor) 5 mg IVPUSH Q4H PRN PRN Reason: Tachycardia Midodrine (Midodrine) 5 mg PO TIDAC [facility] Last Admin: 09/06/18 11:16 Dose: 5 mg Multivitamins (Thera) 1 each PO DAILY [facility]1983 Ondansetron HCl (Zofran) 4 mg IV Q6H PRN PRN Reason: Nausea/Vomiting Ozempic 0.5 Mg (Ptom) 0.5 each SUBCUT TH [facility], [facility]1983 Chlorthalidone 25 Mg (Ptom) 0 each PO DAILY [facility]1983 Polyethylene Glycol (Miralax) 17 gm PO DAILY PRN PRN Reason: Constipation Potassium Chloride (Pharmacy To Dose - Potassium Replacement) 0 dose .XX ASDIRECTED PRN PRN Reason: RX TO WATCH K Rosuvastatin Calcium (Crestor) 20 mg PO DAILY [facility] Last Admin: 09/06/18 08:25 Dose: 20 mg Saccharomyces Boulardii (Florastor) 250 mg PO BID [facility] Last Admin: 09/06/18 08:15 Dose: 250 mg Sodium Chloride (Saline Flush) 10 ml FLUSH ONETIME PRN PRN Reason: IV FLUSH Last Admin: 09/04/18 08:42 Dose: 10 ml Temazepam (Restoril) 7.5 mg PO BEDTIME PRN PRN Reason: Sleep Discontinued Medications Acetaminophen (Tylenol) 1,300 mg PO BID [facility] Last Admin: 09/06/18 08:16 Dose: 1,300 mg Acetaminophen (Tylenol) 975 mg PO ONETIME ONE Stop: 09/05/18 00:06 Last Admin: 09/05/18 00:12 Dose: 975 mg Albuterol (Proventil Neb Soln) Confirm Administered Dose 2.5 mg .ROUTE .STK-MED ONE Stop: 09/05/18 09:58 Last Admin: 09/05/18 10:00 Dose: 2.5 mg Albuterol/Ipratropium (Duoneb 3.0-0.5 Mg/3 Ml) 3 ml NEB ONETIME ONE Stop: 09/05/18 09:58 Last Admin: 09/05/18 15:06 Dose: Not Given Amlodipine Besylate (Norvasc) 10 mg PO DAILY [facility] Last Admin: 09/06/18 08:10 Dose: Not Given Ascorbic Acid (Vitamin C) 1,000 mg PO DAILY [facility] Last Admin: 09/06/18 08:17 Dose: 1,000 mg Aspirin (Ecotrin) 325 mg PO BID [facility]1983 Last Admin: 09/06/18 08:33 Dose: Not Given Benazepril HCl (Lotensin) 40 mg PO DAILY [facility] Last Admin: 09/05/18 10:54 Dose: Not Given Cyanocobalamin (Vitamin B12) 250 mcg PO DAILY [facility]1983 Last Admin: 09/06/18 08:24 Dose: 250 mcg Dextrose/Water (Dextrose 50% In Water) 50 ml IVPUSH ASDIRECTED PRN PRN Reason: Hypoglycemia Diatrizoate Meglum/Diatrizoate Sod (Gastrografin 37%) 120 ml PO ONETIME ONE Stop: 09/04/18 08:09 Last Admin: 09/04/18 08:41 Dose: 90 ml Enoxaparin Sodium (Lovenox) 40 mg SUBCUT DAILY [facility]1983 Furosemide (Lasix) 20 mg PO DAILY [facility]1983 Last Admin: 09/05/18 08:54 Dose: 20 mg Gabapentin (Neurontin) 300 mg PO BEDTIME [facility] Last Admin: 09/04/18 20:16 Dose: 300 mg Hydromorphone HCl (Dilaudid) 0.5 mg IVPUSH ONETIME STA Stop: 09/04/18 06:17 Last Admin: 09/04/18 06:38 Dose: 0.5 mg Sodium Chloride (Normal Saline) 1,000 mls @ 150 mls/hr IV ASDIRECTED [facility] Last Infusion: 09/05/18 18:41 Dose: Infused Levofloxacin/Dextrose 750 mg/ (Premix) 150 mls @ 100 mls/hr IV ONETIME ONE Stop: 09/04/18 10:25 Last Admin: 09/04/18 09:15 Dose: 100 mls/hr Metronidazole 500 mg/ Premix 100 mls @ 100 mls/hr IV ONETIME ONE Stop: 09/04/18 09:56 Last Admin: 09/04/18 09:16 Dose: 100 mls/hr Sodium Chloride (Normal Saline) 1,000 mls @ 999 mls/hr IV ASDIRECTED NISA Last Admin: 09/05/18 13:45 Dose: 999 mls/hr Fentanyl 2,500 mcg/ Sodium (Chloride) 250 mls @ 25.57 mls/hr IV TITRATE NISA; Protocol Stop: 09/06/18 14:01 Last Titration: 09/06/18 11:13 Dose: 4 mcg/kg/hr, 51.14 mls/hr Sodium Chloride (Normal Saline) Confirm Administered Dose 1,000 mls @ as directed .ROUTE .STK-MED ONE Stop: 09/05/18 14:12 Last Admin: 09/05/18 15:24 Dose: Not Given Sodium Chloride (Normal Saline) 1,000 mls @ 250 mls/hr IV ASDIRECTED NISA Last Infusion: 09/05/18 22:30 Dose: 999 mls/hr Sodium Chloride (Normal Saline) 1,000 mls @ 999 mls/hr IV ONETIME ONE Stop: 09/05/18 23:30 Last Admin: 09/05/18 22:53 Dose: 999 mls/hr Sodium Bicarbonate 150 meq/ (Sodium Chloride) 400 mls @ 50 mls/hr IV ONETIME ONE Stop: 09/06/18 09:29 Last Admin: 09/06/18 01:51 Dose: 50 mls/hr Sodium Chloride (Normal Saline) Confirm Administered Dose 250 mls @ as directed .ROUTE .STK-MED ONE Stop: 09/06/18 01:27 Last Admin: 09/06/18 01:52 Dose: Not Given Insulin Glargine (Lantus) 80 unit SUBCUT BEDTIME NISA Last Admin: 09/04/18 22:43 Dose: Not Given Insulin Glargine (Lantus) 80 unit SUBCUT ONETIME ONE Stop: 09/05/18 00:01 Last Admin: 09/04/18 23:51 Dose: Not Given Insulin Glargine (Lantus) 80 unit SUBCUT BEDTIME NISA Insulin Human Lispro (Humalog) 0 unit SUBCUT QIDACANDBED NISA; Protocol Last Admin: 09/06/18 09:41 Dose: Not Given Iopamidol (Isovue-370 (76%)) 200 ml IV ONETIME ONE Stop: 09/04/18 08:09 Last Admin: 09/04/18 08:44 Dose: 70 ml Labetalol HCl (Normodyne) 100 mg PO BID [facility] Last Admin: 09/06/18 08:10 Dose: Not Given Lactulose (Cephulac) 20 gm PO Q6H [facility]1983 Stop: 09/05/18 07:01 Last Admin: 09/05/18 06:51 Dose: 20 gm Lorazepam (Ativan) 0.5 mg IV Q6H PRN PRN Reason: Anxiety Last Admin: 09/05/18 09:04 Dose: 0.5 mg Losartan Potassium (Cozaar) 50 mg PO DAILY [facility] Last Admin: 09/05/18 10:53 Dose: Not Given Losartan Potassium (Cozaar) 50 mg PO DAILY [facility]1983 Methylprednisolone Sodium Succinate (Solu-Medrol) 60 mg IVPUSH ONETIME STA Stop: 09/05/18 09:58 Last Admin: 09/05/18 11:06 Dose: 60 mg Metoclopramide HCl (Reglan) 5 mg IVPUSH Q6H NISA Stop: 09/05/18 01:01 Last Admin: 09/05/18 00:01 Dose: 5 mg Midazolam HCl (Versed 1 Mg/Ml) 10 mg .ROUTE .STK-MED ONE Stop: 09/05/18 14:01 Midodrine (Midodrine) 5 mg PO ONETIME ONE Stop: 09/06/18 01:31 Last Admin: 09/06/18 01:45 Dose: 5 mg Morphine Sulfate (Morphine) 1 mg IVPUSH ONETIME STA Stop: 09/05/18 09:55 Last Admin: 09/05/18 11:07 Dose: 1 mg Morphine Sulfate (Morphine) Confirm Administered Dose 2 mg .ROUTE .STK-MED ONE Stop: 09/05/18 09:57 Last Admin: 09/05/18 11:07 Dose: 1 mg Multivitamins (Thera) 1 each PO DAILY [facility] Last Admin: 09/06/18 08:17 Dose: 1 each Ondansetron HCl (Zofran) 4 mg IVPUSH ONETIME ONE Stop: 09/04/18 06:17 Last Admin: 09/04/18 06:37 Dose: 4 mg Chlorthalidone 25 Mg (Ptom) 0 each PO DAILY [facility]1983 Last Admin: 09/06/18 08:11 Dose: Not Given Rocuronium [place] (Zemuron) 100 mg .ROUTE .STK-MED ONE Stop: 09/05/18 14:01 Sodium Bicarbonate (Sodium Bicarbonate 8.4%) 150 meq IVPUSH ONETIME ONE Stop: 09/06/18 01:05 Last Admin: 09/06/18 09:40 Dose: Not Given Sodium Bicarbonate (Sodium Bicarbonate 8.4%) Confirm Administered Dose 50 meq .ROUTE .STK-MED ONE Stop: 09/06/18 01:27 Last Admin: 09/06/18 01:50 Dose: 50 meq Sodium Bicarbonate (Sodium Bicarbonate 8.4%) Confirm Administered Dose 100 meq .ROUTE .STK-MED ONE Stop: 09/06/18 01:29 Last Admin: 09/06/18 01:52 Dose: Not Given Sodium Bicarbonate (Sodium Bicarbonate 8.4%) 50 meq IVPUSH ONETIME ONE Stop: 09/06/18 01:30 Last Admin: 09/06/18 01:51 Dose: 50 meq Sodium Bicarbonate (Sodium Bicarbonate 8.4%) Confirm Administered Dose 50 meq .ROUTE .STK-MED ONE Stop: 09/06/18 01:38 Last Admin: 09/06/18 01:52 Dose: Not Given Terbutaline Sulfate (Brethine) 2.5 mg PO BID NISA Stop: 09/06/18 21:01 Last Admin: 09/05/18 11:06 Dose: 2.5 mg Consult PN Assessment/Plan Procedures: Procedures ASSAY OF ALDOSTERONE (10/08/15) ASSAY OF BLOOD/URIC ACID (06/22/17) ASSAY OF DIGOXIN TOTAL (10/27/13) ASSAY OF MAGNESIUM (08/29/18) ASSAY OF METANEPHRINES (10/08/15) ASSAY OF PARATHORMONE (10/04/15) ASSAY OF PROTEIN URINE (06/27/18) ASSAY OF RENIN (10/08/15) ASSAY OF TROPONIN QUANT (08/11/18) ASSAY OF URINE CREATININE (06/27/18) C-REACTIVE PROTEIN (01/30/16) CARDIOVASCULAR STRESS TEST (05/04/17) COMPLETE CBC AUTOMATED (08/29/18) COMPLETE CBC W/AUTO DIFF WBC (08/29/18) COMPREHEN METABOLIC PANEL (08/29/18) COMPUTER DX MAMMOGRAM ADD-ON (11/02/14) DRAIN/INJ JOINT/BURSA W/O US (04/14/16) GAIT TRAINING THERAPY (08/29/18) GLUCOSE BLOOD TEST (08/29/18) HT MUSCLE IMAGE SPECT MULT (05/04/17) MANUAL THERAPY 1/> REGIONS (05/07/16) MASSAGE THERAPY (03/19/16) MEASURE BLOOD OXYGEN LEVEL (08/29/18) MEASURE BLOOD OXYGEN LEVEL (01/06/16) METABOLIC PANEL TOTAL CA (08/29/18) MR-STAPH DNA AMP PROBE (08/29/18) NEUROMUSCULAR REEDUCATION (05/07/16) OT EVAL LOW COMPLEX 30 MIN (08/29/18) OT EVALUATION (01/06/16) POLYSOM 6/>YRS CPAP 4/> PARM (08/16/17) PROTEIN E-PHORESIS SERUM (10/04/15) PROTEIN E-PHORESIS/URINE/CSF (10/04/15) PT EVAL LOW COMPLEX 20 MIN (08/29/18) PT EVALUATION (05/07/16) RBC SED RATE AUTOMATED (01/30/16) RENAL FUNCTION PANEL (06/27/18) ROUTINE VENIPUNCTURE (08/29/18) SELF CARE MNGMENT TRAINING (08/29/18) THERAPEUTIC ACTIVITIES (08/29/18) THERAPEUTIC EXERCISES (08/29/18) TISSUE EXAM BY PATHOLOGIST (12/11/14) TOTAL KNEE ARTHROPLASTY (08/29/18) URINALYSIS AUTO W/SCOPE (06/27/18) URINE CULTURE/COLONY COUNT (07/09/15) X-RAY EXAM OF KNEE 1 OR 2 (08/29/18) Problem List Initiated/Reviewed/Updated: Yes My Orders Last 24 Hours: consultation dictated LUIS DANIEL
[2018-09-06] MEDS: Metoclopramide 10 MG/2 ML SDV IVPUSH SCH ×2 (17:55→23:10)
[2018-09-06] MEDS ORDERED: Sodium Chloride 0.9% 500 ML IV ONE (19:49)
[2018-09-06] MEDS ORDERED: Bumetanide 1 MG/4 ML MDV IVPUSH ONE (21:38)
[2018-09-07] MEDS: fentaNYL 2,500 MCG in Sodium Chloride 0.9% 200 ML IV SCH ×4 (00:42→13:48)
[2018-09-07] MEDS: Heparin Sodium 5,000 Units/ML Vial SUBCUT SCH ×3 (02:05→17:47)
[2018-09-07] MEDS: Albuterol/Ipratropium 3.0-0.5 MG/3 ML Neb Soln NEB SCH ×2 (05:26→20:48)
[2018-09-07] MEDS: Metoprolol Tartrate 5 MG/5 ML SDV IVPUSH PRN ×2 (05:46→09:43)
[2018-09-07] MEDS: Sodium Chloride 0.9% 1,000 ML IV SCH ×3 (06:05→21:29)
[2018-09-07] MEDS: Insulin Lispro 100 Units/ML 3 ML Vial SUBCUT SCH ×4 (06:08→23:46)
[2018-09-07] MEDS: methylPREDNISolone Sodium Succinate 40 MG/1 ML SDV IVPUSH SCH ×3 (06:10→23:45)
[2018-09-07] MEDS: Metoclopramide 10 MG/2 ML SDV IVPUSH SCH ×4 (06:10→23:45)
[2018-09-07] MEDS ORDERED: Diltiazem 50 MG/10 ML SDV IVPUSH STA (06:33)
--- NOTE | 2018-09-07 07:57 | PCM.PN ---
- General Info Date of Service: 09/07/18 Admission Dx/Problem (Free Text): Admission Diagnosis/Problem Admission Diagnosis/Problem Acute diverticulitis of intestine Subjective Update: Follow Up Functional Status: Reports: Pain Controlled, Urinating, Other (Alert and awake) . Denies: New Symptoms - Review of Systems General: Denies: Fever, Chills HEENT: Reports: No Symptoms Gastrointestinal: Reports: Diarrhea. Denies: Abdominal Pain, Nausea, Vomiting Skin: Denies: Cyanosis Systems Review Comment:: No overnight or acute issues. She is alert and somewhat awake while intubated on mechanical ventilator. Her ABG this AM shows a much improved pO2. Her renal function is about the same as last evening. She is able to respond by nodding or shaking her head. Her urine output is great. - Patient Data Vitals - Most Recent: Last Vital Signs Temp 36.3 C 09/07/18 04:00 Pulse 108 H 09/07/18 07:00 Resp 14 09/07/18 06:00 BP 97/55 L 09/07/18 07:00 Pulse Ox 93 L 09/07/18 05:24 Weight - Most Recent: 133.356 kg I&O - Last 24 Hours: Intake & Output 09/06/18 09/07/18 09/07/18 22:59 06:59 14:59 Intake Total 3835 2921 Output Total 975 1225 30 Balance 2860 1696 -30 Lab Results Last 24 Hours: Laboratory Results - last 24 hr 09/06/18 09/06/18 09/06/18 Range/Units 05:50 11:08 12:39 WBC (3.98-10.04) K/mm3 RBC (3.98-5.22) M/mm3 Hgb (11.2-15.7) gm/L Hct (34.1-44.9) % MCV (79.4-94.8) fl MCH (25.6-32.2) pg MCHC (32.2-35.5) g/dl RDW Std Deviation (36.4-46.3) fL Plt Count (182-369) K/mm3 MPV (9.4-12.3) fl Puncture Site Lt radial ABG pH 7.26 L (7.35-7.45) ABG pCO2 42.6 (35.0-45.0) mmHg ABG pO2 69.0 L (80.0-100.0) mmHg ABG HCO3 18.6 L (22.0-26.0) meq/L ABG O2 Saturation 93.9 L (96.0-97.0) % ABG Base Excess -7.5 L (-2-2.0) William Test A-a Gradient 390 mmHg O2 Delivery Device Ventilator FiO2 80.00 (21.00-100.00) % Tidal Volume 500.0 cc PEEP 5.0 cmH20 Pressure Support cmH2O Sodium (136-145) mEq/L Potassium (3.5-5.1) mEq/L Chloride (98-107) mEq/L Carbon Dioxide (21-32) mEq/L Anion Gap (5-15) BUN (7-18) mg/dL Creatinine (0.55-1.02) mg/dL Est Cr Clr Drug Dosing mL/min Estimated GFR (MDRD) (>60) mL/min BUN/Creatinine Ratio (14-18) Glucose (83-115) mg/dL POC Glucose 230 H (83-110) mg/dL Calcium (8.5-10.1) mg/dL Magnesium (1.8-2.4) mg/dl Total Bilirubin (0.2-1.0) mg/dL AST (15-37) U/L ALT (14-59) U/L Alkaline Phosphatase (46-116) U/L C-Reactive Protein 40.7 H* (<1.0) mg/dL Total Protein (6.4-8.2) g/dl Albumin (3.4-5.0) g/dl Globulin gm/dL Albumin/Globulin Ratio (1-2) 09/06/18 09/06/18 09/06/18 Range/Units 16:15 17:04 21:20 WBC (3.98-10.04) K/mm3 RBC (3.98-5.22) M/mm3 Hgb (11.2-15.7) gm/L Hct (34.1-44.9) % MCV (79.4-94.8) fl MCH (25.6-32.2) pg MCHC (32.2-35.5) g/dl RDW Std Deviation (36.4-46.3) fL Plt Count (182-369) K/mm3 MPV (9.4-12.3) fl Puncture Site Rt brachial ABG pH 7.25 L (7.35-7.45) ABG pCO2 47.2 H (35.0-45.0) mmHg ABG pO2 68.0 L (80.0-100.0) mmHg ABG HCO3 19.9 L (22.0-26.0) meq/L ABG O2 Saturation 93.1 L (96.0-97.0) % ABG Base Excess -6.6 L (-2-2.0) William Test A-a Gradient 385 mmHg O2 Delivery Device Ventilator FiO2 80.00 (21.00-100.00) % Tidal Volume 500.0 cc PEEP 5.0 cmH20 Pressure Support cmH2O Sodium 134 L (136-145) mEq/L Potassium 4.8 (3.5-5.1) mEq/L Chloride 101 (98-107) mEq/L Carbon Dioxide 21 (21-32) mEq/L Anion Gap 16.8 H (5-15) BUN 82 H (7-18) mg/dL Creatinine 2.0 H (0.55-1.02) mg/dL Est Cr Clr Drug Dosing 25.65 mL/min Estimated GFR (MDRD) 24 (>60) mL/min BUN/Creatinine Ratio 41.0 H (14-18) Glucose 295 H (83-115) mg/dL POC Glucose 295 H (83-110) mg/dL Calcium 7.4 L (8.5-10.1) mg/dL Magnesium (1.8-2.4) mg/dl Total Bilirubin 0.5 (0.2-1.0) mg/dL AST 64 H (15-37) U/L ALT 43 (14-59) U/L Alkaline Phosphatase 94 (46-116) U/L C-Reactive Protein (<1.0) mg/dL Total Protein 6.0 L (6.4-8.2) g/dl Albumin 1.9 L (3.4-5.0) g/dl Globulin 4.1 gm/dL Albumin/Globulin Ratio 0.5 L (1-2) 09/06/18 09/07/18 09/07/18 Range/Units 23:12 05:15 05:15 WBC 21.64 H (3.98-10.04) K/mm3 RBC 2.71 L (3.98-5.22) M/mm3 Hgb 8.1 L (11.2-15.7) gm/L Hct 25.6 L (34.1-44.9) % MCV 94.5 (79.4-94.8) fl MCH 29.9 (25.6-32.2) pg MCHC 31.6 L (32.2-35.5) g/dl RDW Std Deviation 48.0 H (36.4-46.3) fL Plt Count 336 (182-369) K/mm3 MPV 10.1 (9.4-12.3) fl Puncture Site ABG pH (7.35-7.45) ABG pCO2 (35.0-45.0) mmHg ABG pO2 (80.0-100.0) mmHg ABG HCO3 (22.0-26.0) meq/L ABG O2 Saturation (96.0-97.0) % ABG Base Excess (-2-2.0) William Test A-a Gradient mmHg O2 Delivery Device FiO2 (21.00-100.00) % Tidal Volume cc PEEP cmH20 Pressure Support cmH2O Sodium 136 (136-145) mEq/L Potassium 4.8 (3.5-5.1) mEq/L Chloride 104 (98-107) mEq/L Carbon Dioxide 20 L (21-32) mEq/L Anion Gap 16.8 H (5-15) BUN 87 H (7-18) mg/dL Creatinine 2.0 H (0.55-1.02) mg/dL Est Cr Clr Drug Dosing 25.65 mL/min Estimated GFR (MDRD) 24 (>60) mL/min BUN/Creatinine Ratio 43.5 H (14-18) Glucose 260 H (83-115) mg/dL POC Glucose 286 H (83-110) mg/dL Calcium 7.2 L (8.5-10.1) mg/dL Magnesium 2.5 H (1.8-2.4) mg/dl Total Bilirubin (0.2-1.0) mg/dL AST (15-37) U/L ALT (14-59) U/L Alkaline Phosphatase (46-116) U/L C-Reactive Protein 26.4 H* (<1.0) mg/dL Total Protein (6.4-8.2) g/dl Albumin (3.4-5.0) g/dl Globulin gm/dL Albumin/Globulin Ratio (1-2) 09/07/18 09/07/18 Range/Units 06:07 07:08 WBC (3.98-10.04) K/mm3 RBC (3.98-5.22) M/mm3 Hgb (11.2-15.7) gm/L Hct (34.1-44.9) % MCV (79.4-94.8) fl MCH (25.6-32.2) pg MCHC (32.2-35.5) g/dl RDW Std Deviation (36.4-46.3) fL Plt Count (182-369) K/mm3 MPV (9.4-12.3) fl Puncture Site Lt radial ABG pH 7.20 L (7.35-7.45) ABG pCO2 53.5 H (35.0-45.0) mmHg ABG pO2 84.0 (80.0-100.0) mmHg ABG HCO3 20.2 L (22.0-26.0) meq/L ABG O2 Saturation 94.8 L (96.0-97.0) % ABG Base Excess -7.2 L (-2-2.0) William Test Positive A-a Gradient 361 mmHg O2 Delivery Device Ventilator FiO2 0.00 L (21.00-100.00) % Tidal Volume 550.0 cc PEEP 5.0 cmH20 Pressure Support 10.0 cmH2O Sodium (136-145) mEq/L Potassium (3.5-5.1) mEq/L Chloride (98-107) mEq/L Carbon Dioxide (21-32) mEq/L Anion Gap (5-15) BUN (7-18) mg/dL Creatinine (0.55-1.02) mg/dL Est Cr Clr Drug Dosing mL/min Estimated GFR (MDRD) (>60) mL/min BUN/Creatinine Ratio (14-18) Glucose (83-115) mg/dL POC Glucose 230 H (83-110) mg/dL Calcium (8.5-10.1) mg/dL Magnesium (1.8-2.4) mg/dl Total Bilirubin (0.2-1.0) mg/dL AST (15-37) U/L ALT (14-59) U/L Alkaline Phosphatase (46-116) U/L C-Reactive Protein (<1.0) mg/dL Total Protein (6.4-8.2) g/dl Albumin (3.4-5.0) g/dl Globulin gm/dL Albumin/Globulin Ratio (1-2) Bertram Results Last 24 Hours: Microbiology 09/05/18 22:40 Aerobic Blood Culture - Preliminary Blood - Venous - Lab Draw NO GROWTH AFTER 1 DAY Anaerobic Blood Culture - Preliminary NO GROWTH AFTER 1 DAY 09/05/18 22:40 Aerobic Blood Culture - Preliminary Blood - Venous NO GROWTH AFTER 1 DAY Anaerobic Blood Culture - Preliminary NO GROWTH AFTER 1 DAY Med Orders - Current: Current Medications Acetaminophen (Tylenol) 1,300 mg PO BID [facility] Albuterol/Ipratropium (Duoneb 3.0-0.5 Mg/3 Ml) 3 ml NEB Q4H PRN PRN Reason: Shortness Of Breath/wheezing Albuterol/Ipratropium (Duoneb 3.0-0.5 Mg/3 Ml) 3 ml NEB BIDRT [facility] Last Admin: 09/07/18 05:26 Dose: 3 ml Amlodipine Besylate (Norvasc) 10 mg PO DAILY [facility] Artificial Tears (Refresh Liquigel 1%) 0 ml EYEBOTH DAILY PRN PRN Reason: Dry Eyes Ascorbic Acid (Vitamin C) 1,000 mg PO DAILY [facility] Aspirin (Ecotrin) 325 mg PO BID [facility] Bisacodyl (Dulcolax) 5 mg PO DAILY PRN PRN Reason: Constipation Bisacodyl (Dulcolax) 10 mg RECTAL DAILY [facility] Last Admin: 09/06/18 08:32 Dose: 10 mg Bumetanide (Bumex) 0.5 mg IVPUSH BID [facility] Cyanocobalamin (Vitamin B12) 250 mcg PO DAILY [facility] Dextrose/Water (Dextrose 50% In Water) 50 ml IV ASDIRECTED PRN PRN Reason: Hypoglycemia Diazepam (Valium) 5 mg IV Q6H PRN PRN Reason: Sedation Flunisolide (Nasalide Nasal [place]) 0 ml NASBOTH BID PRN PRN Reason: Allergies Heparin Sodium (Porcine) (Heparin Sodium) 5,000 units SUBCUT Q8H [facility] Last Admin: 09/07/18 02:05 Dose: 5,000 units Hydralazine HCl (Apresoline) 20 mg IVPUSH Q4H PRN PRN Reason: Hypertension Hydrocortisone (Hydrocortisone 1% Crm) 0 gm TOP BID PRN PRN Reason: skin complications Hydromorphone HCl (Dilaudid) 0.5 mg IVPUSH Q2H PRN PRN Reason: Pain (severe 7-10) Last Admin: 09/05/18 03:49 Dose: 0.5 mg Levofloxacin/Dextrose 750 mg/ (Premix) 150 mls @ 100 mls/hr IV Q48H [facility] Last Admin: 09/06/18 09:01 Dose: 100 mls/hr Metronidazole 500 mg/ Premix 100 mls @ 100 mls/hr IV Q8H [facility] Last Admin: 09/06/18 23:19 Dose: 100 mls/hr Propofol (Diprivan 100 Ml) 100 mls @ 3.836 mls/hr IV TITRATE NISA; Protocol Last Admin: 09/07/18 07:17 Dose: 15 mcg/kg/min, 11.508 mls/hr Sodium Chloride (Normal Saline) 1,000 mls @ 125 mls/hr IV ASDIRECTED N[facility] Last Admin: 09/07/18 06:05 Dose: 125 mls/hr Norepinephrine Bitartrate 16 (mg/ Dextrose/Water) 250 mls @ 1.87 mls/hr IV TITRATE NISA; Protocol Last Titration: 09/07/18 07:53 Dose: 1 mcg/min, 0.93 mls/hr Fentanyl 2,500 mcg/ Sodium (Chloride) 250 mls @ 26.33 mls/hr IV TITRATE NISA; Protocol Last Titration: 09/07/18 07:54 Dose: 8 mcg/kg/hr, 105.34 mls/hr Insulin Human Lispro (Humalog) 0 unit SUBCUT Q6H NISA; Protocol Last Admin: 09/07/18 06:08 Dose: 9 unit Labetalol HCl (Normodyne) 100 mg PO BID [facility] Levothyroxine Sodium (Synthroid) 100 mcg PO DAILY [facility] Last Admin: 09/06/18 08:16 Dose: 100 mcg Lorazepam (Ativan) 2 mg IV Q4H PRN PRN Reason: Anxiety Magnesium Sulfate (Pharmacy To Dose - Magnesium Replacement) 0 dose .XX ASDIRECTED PRN PRN Reason: RX TO WATCH MAG Methylprednisolone Sodium Succinate (Solu-Medrol) 60 mg IVPUSH Q8H [facility] Last Admin: 09/07/18 06:10 Dose: 60 mg Metoclopramide HCl (Reglan) 10 mg IVPUSH Q6H [facility] Last Admin: 09/07/18 06:10 Dose: 10 mg Metoprolol Tartrate (Lopressor) 5 mg IVPUSH Q4H PRN PRN Reason: Tachycardia Last Admin: 09/07/18 05:46 Dose: 5 mg Midodrine (Midodrine) 5 mg PO TIDAC [facility] Multivitamins (Thera) 1 each PO DAILY [facility] Ondansetron HCl (Zofran) 4 mg IV Q6H PRN PRN Reason: Nausea/Vomiting Ozempic 0.5 Mg (Ptom) 0.5 each SUBCUT TH [facility] Chlorthalidone 25 Mg (Ptom) 0 each PO DAILY [facility] Polyethylene Glycol (Miralax) 17 gm PO DAILY PRN PRN Reason: Constipation Potassium Chloride (Pharmacy To Dose - Potassium Replacement) 0 dose .XX ASDIRECTED PRN PRN Reason: RX TO WATCH K Rosuvastatin Calcium (Crestor) 20 mg PO DAILY [facility] Last Admin: 09/06/18 08:25 Dose: 20 mg Saccharomyces Boulardii (Florastor) 250 mg PO BID [facility] Last Admin: 09/06/18 21:37 Dose: 250 mg Sodium Chloride (Saline Flush) 10 ml FLUSH ONETIME PRN PRN Reason: IV FLUSH Last Admin: 09/04/18 08:42 Dose: 10 ml Temazepam (Restoril) 7.5 mg PO BEDTIME PRN PRN Reason: Sleep Discontinued Medications Acetaminophen (Tylenol) 1,300 mg PO BID [facility] Last Admin: 09/06/18 08:16 Dose: 1,300 mg Acetaminophen (Tylenol) 975 mg PO ONETIME ONE Stop: 09/05/18 00:06 Last Admin: 09/05/18 00:12 Dose: 975 mg Albuterol (Proventil Neb Soln) Confirm Administered Dose 2.5 mg .ROUTE .STK-MED ONE Stop: 09/05/18 09:58 Last Admin: 09/05/18 10:00 Dose: 2.5 mg Albuterol/Ipratropium (Duoneb 3.0-0.5 Mg/3 Ml) 3 ml NEB ONETIME ONE Stop: 09/05/18 09:58 Last Admin: 09/05/18 15:06 Dose: Not Given Amlodipine Besylate (Norvasc) 10 mg PO DAILY [facility] Last Admin: 09/06/18 08:10 Dose: Not Given Ascorbic Acid (Vitamin C) 1,000 mg PO DAILY [facility] Last Admin: 09/06/18 08:17 Dose: 1,000 mg Aspirin (Ecotrin) 325 mg PO BID [facility] Last Admin: 09/06/18 08:33 Dose: Not Given Benazepril HCl (Lotensin) 40 mg PO DAILY [facility] Last Admin: 09/05/18 10:54 Dose: Not Given Bumetanide (Bumex) 0.5 mg IVPUSH ONETIME ONE Stop: 09/06/18 21:39 Last Admin: 09/06/18 22:36 Dose: 0.5 mg Cyanocobalamin (Vitamin B12) 250 mcg PO DAILY [facility] Last Admin: 09/06/18 08:24 Dose: 250 mcg Dextrose/Water (Dextrose 50% In Water) 50 ml IVPUSH ASDIRECTED PRN PRN Reason: Hypoglycemia Diatrizoate Meglum/Diatrizoate Sod (Gastrografin 37%) 120 ml PO ONETIME ONE Stop: 09/04/18 08:09 Last Admin: 09/04/18 08:41 Dose: 90 ml Diltiazem HCl (Cardizem) 10 mg IVPUSH ONETIME STA Stop: 09/07/18 06:34 Last Admin: 09/07/18 06:45 Dose: 10 mg Enoxaparin Sodium (Lovenox) 40 mg SUBCUT DAILY [facility] Furosemide (Lasix) 20 mg PO DAILY [facility] Last Admin: 09/05/18 08:54 Dose: 20 mg Gabapentin (Neurontin) 300 mg PO BEDTIME [facility] Last Admin: 09/04/18 20:16 Dose: 300 mg Hydromorphone HCl (Dilaudid) 0.5 mg IVPUSH ONETIME STA Stop: 09/04/18 06:17 Last Admin: 09/04/18 06:38 Dose: 0.5 mg Sodium Chloride (Normal Saline) 1,000 mls @ 150 mls/hr IV ASDIRECTED [facility] Last Infusion: 09/05/18 18:41 Dose: Infused Levofloxacin/Dextrose 750 mg/ (Premix) 150 mls @ 100 mls/hr IV ONETIME ONE Stop: 09/04/18 10:25 Last Admin: 09/04/18 09:15 Dose: 100 mls/hr Metronidazole 500 mg/ Premix 100 mls @ 100 mls/hr IV ONETIME ONE Stop: 09/04/18 09:56 Last Admin: 09/04/18 09:16 Dose: 100 mls/hr Sodium Chloride (Normal Saline) 1,000 mls @ 999 mls/hr IV ASDIRECTED [facility] Last Admin: 09/05/18 13:45 Dose: 999 mls/hr Fentanyl 2,500 mcg/ Sodium (Chloride) 250 mls @ 25.57 mls/hr IV TITRATE NISA; Protocol Stop: 09/06/18 14:01 Last Titration: 09/06/18 11:13 Dose: 4 mcg/kg/hr, 51.14 mls/hr Sodium Chloride (Normal Saline) Confirm Administered Dose 1,000 mls @ as directed .ROUTE .STK-MED ONE Stop: 09/05/18 14:12 Last Admin: 09/05/18 15:24 Dose: Not Given Sodium Chloride (Normal Saline) 1,000 mls @ 250 mls/hr IV ASDIRECTED NISA Last Infusion: 09/05/18 22:30 Dose: 999 mls/hr Sodium Chloride (Normal Saline) 1,000 mls @ 999 mls/hr IV ONETIME ONE Stop: 09/05/18 23:30 Last Admin: 09/05/18 22:53 Dose: 999 mls/hr Norepinephrine Bitartrate 4 mg (/ Dextrose/Water) 250 mls @ 7.5 mls/hr IV TITRATE NISA; Protocol Stop: 09/06/18 23:59 Last Titration: 09/06/18 16:24 Dose: 22 mcg/min, 82.5 mls/hr Sodium Bicarbonate 150 meq/ (Sodium Chloride) 400 mls @ 50 mls/hr IV ONETIME ONE Stop: 09/06/18 09:29 Last Admin: 09/06/18 01:51 Dose: 50 mls/hr Sodium Chloride (Normal Saline) Confirm Administered Dose 250 mls @ as directed .ROUTE .STK-MED ONE Stop: 09/06/18 01:27 Last Admin: 09/06/18 01:52 Dose: Not Given Sodium Chloride (Normal Saline) 500 mls @ 999 mls/hr IV .BOLUS ONE Stop: 09/06/18 20:19 Last Admin: 09/06/18 19:53 Dose: 999 mls/hr Insulin Glargine (Lantus) 80 unit SUBCUT BEDTIME [facility] Last Admin: 09/04/18 22:43 Dose: Not Given Insulin Glargine (Lantus) 80 unit SUBCUT ONETIME ONE Stop: 09/05/18 00:01 Last Admin: 09/04/18 23:51 Dose: Not Given Insulin Glargine (Lantus) 80 unit SUBCUT BEDTIME [facility] Insulin Human Lispro (Humalog) 0 unit SUBCUT QIDACANDBED [facility]; Protocol Last Admin: 09/06/18 09:41 Dose: Not Given Iopamidol (Isovue-370 (76%)) 200 ml IV ONETIME ONE Stop: 09/04/18 08:09 Last Admin: 09/04/18 08:44 Dose: 70 ml Labetalol HCl (Normodyne) 100 mg PO BID [facility] Last Admin: 09/06/18 08:10 Dose: Not Given Lactulose (Cephulac) 20 gm PO Q6H [facility] Stop: 09/05/18 07:01 Last Admin: 09/05/18 06:51 Dose: 20 gm Lorazepam (Ativan) 0.5 mg IV Q6H PRN PRN Reason: Anxiety Last Admin: 09/05/18 09:04 Dose: 0.5 mg Losartan Potassium (Cozaar) 50 mg PO DAILY [facility] Last Admin: 09/05/18 10:53 Dose: Not Given Losartan Potassium (Cozaar) 50 mg PO DAILY [facility] Methylprednisolone Sodium Succinate (Solu-Medrol) 60 mg IVPUSH ONETIME STA Stop: 09/05/18 09:58 Last Admin: 09/05/18 11:06 Dose: 60 mg Metoclopramide HCl (Reglan) 5 mg IVPUSH Q6H [facility] Stop: 09/05/18 01:01 Last Admin: 09/05/18 00:01 Dose: 5 mg Midazolam HCl (Versed 1 Mg/Ml) 10 mg .ROUTE .STK-MED ONE Stop: 09/05/18 14:01 Midazolam HCl (Versed 1 Mg/Ml) 10 mg IVPUSH ONETIME ONE Stop: 09/05/18 13:34 Last Admin: 09/05/18 13:33 Dose: 10 mg Midodrine (Midodrine) 5 mg PO TIDAC [facility] Last Admin: 09/06/18 11:16 Dose: 5 mg Midodrine (Midodrine) 5 mg PO ONETIME ONE Stop: 09/06/18 01:31 Last Admin: 09/06/18 01:45 Dose: 5 mg Morphine Sulfate (Morphine) 1 mg IVPUSH ONETIME STA Stop: 09/05/18 09:55 Last Admin: 09/05/18 11:07 Dose: 1 mg Morphine Sulfate (Morphine) Confirm Administered Dose 2 mg .ROUTE .STK-MED ONE Stop: 09/05/18 09:57 Last Admin: 09/05/18 11:07 Dose: 1 mg Multivitamins (Thera) 1 each PO DAILY [facility] Last Admin: 09/06/18 08:17 Dose: 1 each Ondansetron HCl (Zofran) 4 mg IVPUSH ONETIME ONE Stop: 09/04/18 06:17 Last Admin: 09/04/18 06:37 Dose: 4 mg Chlorthalidone 25 Mg (Ptom) 0 each PO DAILY [facility] Last Admin: 09/06/18 08:11 Dose: Not Given Rocuronium [place] (Zemuron) 100 mg .ROUTE .STK-MED ONE Stop: 09/05/18 14:01 Rocuronium [place] (Zemuron) 100 mg IVPUSH ONETIME ONE Stop: 09/05/18 13:35 Last Admin: 09/05/18 13:34 Dose: 100 mg Sodium Bicarbonate (Sodium Bicarbonate 8.4%) 150 meq IVPUSH ONETIME ONE Stop: 09/06/18 01:05 Last Admin: 09/06/18 09:40 Dose: Not Given Sodium Bicarbonate (Sodium Bicarbonate 8.4%) Confirm Administered Dose 50 meq .ROUTE .STK-MED ONE Stop: 09/06/18 01:27 Last Admin: 09/06/18 01:50 Dose: 50 meq Sodium Bicarbonate (Sodium Bicarbonate 8.4%) Confirm Administered Dose 100 meq .ROUTE .STK-MED ONE Stop: 09/06/18 01:29 Last Admin: 09/06/18 01:52 Dose: Not Given Sodium Bicarbonate (Sodium Bicarbonate 8.4%) 50 meq IVPUSH ONETIME ONE Stop: 09/06/18 01:30 Last Admin: 09/06/18 01:51 Dose: 50 meq Sodium Bicarbonate (Sodium Bicarbonate 8.4%) Confirm Administered Dose 50 meq .ROUTE .STK-MED ONE Stop: 09/06/18 01:38 Last Admin: 09/06/18 01:52 Dose: Not Given Terbutaline Sulfate (Brethine) 2.5 mg PO BID [facility] Stop: 09/06/18 21:01 Last Admin: 09/05/18 11:06 Dose: 2.5 mg - Exam Quality Assessment: Supplemental Oxygen General: Alert, Cooperative HEENT: Pupils Equal, Pupils Reactive Neck: Supple Lungs: Normal Respiratory Effort, Decreased Breath Sounds, Other (mechanical breath sounds) Cardiovascular: Tachycardia GI/Abdominal Exam: Normal Bowel Sounds, Soft, Non-Tender, No Organomegaly, No Distention, No Abnormal Bruit, Other (Obese) (Female) Exam: Other (indwelling centeno catheter) Back Exam: Normal Inspection, Decreased Range of Motion Extremities: Normal Inspection, Normal Range of Motion, Non-Tender, Normal Capillary Refill, Pedal Edema (right lower extremity) Peripheral Pulses: 1+: Posterior Tibial (R), Dorsalis Pedis (R), 2+: Posterior Tibial (L), Dorsalis Pedis (L) Skin: Warm, Dry, Intact, Ecchymosis (right knee and surrounding area) Neurological: Other (deferred) Psy/Mental Status: Alert, Other (and awake) - Problem List Review Problem List Initiated/Reviewed/Updated: Yes - My Orders Last 24 Hours: My Active Orders 09/06/18 07:00 Incentive Spirometry [RT Incentive Spirometry] [RC] ASDIRECTED 09/06/18 09:00 Levofloxacin/Dextrose 5%-Water [Levaquin in D5W 750 MG/150 ML] 750 mg Premix Bag 1 bag IV Q48H 09/06/18 14:30 Norepinephrine [Levophed] 16 mg Dextrose 5% in Water 234 ml IV TITRATE 09/06/18 14:45 fentaNYL [Sublimaze] 2,500 mcg Sodium Chloride 0.9% [Normal Saline] 200 ml IV TITRATE 09/06/18 17:30 Metoclopramide [Reglan] 10 mg IVPUSH Q6H 09/06/18 20:30 Communication Order [RC] ASDIRECTED 09/06/18 Breakfast NPO Now [Nothing per Oral Now Diet] [DIET] 09/07/18 06:34 Chest 1V Frontal [CR] Routine 09/07/18 07:42 Abdomen 1V Flat [CR] Routine 09/07/18 09:00 Bumetanide [Bumex] 0.5 mg IVPUSH BID 09/08/18 05:11 BASIC METABOLIC PANEL,BMP [CHEM] AM C-REACTIVE PROTEIN [CHEM] AM CBC W/O DIFF,HEMOGRAM [HEME] AM MAGNESIUM [CHEM] AM 09/08/18 07:00 CBC W/O DIFF,HEMOGRAM [HEME] MOTH@0700 09/08/18 12:33 Patient's Own Medication [Ptom] 0.5 each SUBCUT TH 09/09/18 05:11 BASIC METABOLIC PANEL,BMP [CHEM] AM C-REACTIVE PROTEIN [CHEM] AM CBC W/O DIFF,HEMOGRAM [HEME] AM MAGNESIUM [CHEM] AM 09/09/18 07:00 Midodrine 5 mg PO TIDAC 09/09/18 09:00 Acetaminophen [Tylenol] 1,300 mg PO BID Ascorbic Acid [Vitamin C] 1,000 mg PO DAILY Aspirin [Ecotrin] 325 mg PO BID Cyanocobalamin (Vitamin B12) [Vitamin B12] 250 mcg PO DAILY Labetalol [Normodyne] 100 mg PO BID Multivitamins,Therapeutic [Thera] 1 each PO DAILY Patient's Own Medication [Ptom] 0 each PO DAILY amLODIPine [Norvasc] 10 mg PO DAILY 09/12/18 07:00 CBC W/O DIFF,HEMOGRAM [HEME] MOTH@0709/15/18 07:00 CBC W/O DIFF,HEMOGRAM [HEME] MOTH@69909/19/18 07:00 CBC W/O DIFF,HEMOGRAM [HEME] MOTH@0700 09/22/18 07:00 CBC W/O DIFF,HEMOGRAM [HEME] MOTH@00 09/26/18 07:00 CBC W/O DIFF,HEMOGRAM [HEME] MOTH@07 - Plan Plan:: Assessment/Plan: Acute: 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 V/Q scan is almost always useless. She however covered with Heparin 5000 units SubQ TID for DVT prophylaxis - If we order D-dimer; it'll be markedly elevated since she is post surgical - Plan for extubation; she has no underlying lung disease except for NORBERTO/OHS Sepsis - 2/2 Colonic Diverticulitis - Documented BP or 90/57 and 98/56 mmHg and RR 21-23, Improved blood pressures - Blood Culture x2 and IV Hydration - Afebrile with elevated leukocytosis (WC 21.64 likely 2/2 steroid use) - CRP 39.6-->40.7-->26.4 and LA 1.4 - Monitor urine output Diverticulitis with Ileus - Risk factors: Constipation and Narcotic Use - CT scan report reads CT scan report reads increased stool throughout the colon. Slight inflammatory change around a diverticuli within the sigmoid colon which may represent mild diverticulitis. Moderate amount of free fluid within the pelvis most likely reactive and diverticulitis. - Continue IV Flagyl and Levaquin for pharmacy to dose - Oral Probiotic BID - Continue NPO - Dr. 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 - IVF at 250 cc/hr with centeno catheter for Is/Os - Renal U/S to r/o obstructive uropathy: elevated resistivity indices within both kidney compatible with nonspecific medical renal disease - Hold diuretics and BP meds - Good urine output New Onset Atrial Fibrillation - Likely 2/2 Sepsis - HR ins the 130-140s - Likely 2/2 Sepsis - Cardizem drip; titrate to keep HR at or < 100 Resolved: S/p Hyponatremia, Continues Improve - Na 127--> 133--> 134--> 136 - 2/2 diuretic use - Replete and monitor Chronic: Impaired Vision Hx/o SVT HTN HLD Urinary Incontinence OA/DJD FREDERICK NORBERTO on CPAP Hypothyroidism Obesity with BMI of 42 Plan: She is alert/awake on mechanical ventilation RASS -3; adjust vent setting Routine AM Labs Sepsis Protocol PT/OT consult when appropriate DVT/GI PPx SW/CM for d/c planning Code status: 1 Possible extubation today LOS > 96hrs due to slow response to treatment Updated brother, about her morning labs, clinical progress, imaging test results and treatment plan.
--- NOTE | 2018-09-07 08:27 | CONS ---
CONSULTING PHYSICIAN: Mta Baer MD DATE OF CONSULTATION: 09/06/2018 HISTORY OF PRESENT ILLNESS: This is a 73-year-old female who came into the hospital on 09/04 with abdominal pain. The patient's problem began about 2 days before that on Wednesday when she complained of crampy abdominal pain felt across the entire abdomen. The pain was constant and not identified with any modifiers according to the admission notes. No fever, chills, nausea, or vomiting. She had recently been discharged from the hospital on 08/31 for total knee and has been taking [place] every 4 hours. She has noticed constipation. The pain was described as generalized by the admitting physician with reduced appetite. An exam by the admission physician showed no guarding, tenderness, rigidity, rebound. CT scan was performed showing increased stool throughout the colon, which was consistent with her opioid use and slight inflammatory changes around the diverticulum within the sigmoid colon representing diverticulitis. No abscesses were noted. Moderate amount of free fluid within the pelvis, most reactive to the diverticulitis. Some atelectasis in the base of the lungs but no pneumonia. The patient later the next day was having trouble with breathing in the low sats and was intubated and is now on the ventilator. Obtaining history from the patient is difficult and unable to respond to questions. MEDICATIONS: Per medication reconciliation form consist of Norvasc, eye drops, Cozaar, losartan, labetalol, insulin for diabetes, Lasix. Her medical problems consist of hypertension, some chronic renal insufficiency, some SVT, diabetes type 2 and right total knee as stated. She has some sleep apnea in addition to this. She has chronic headaches and is obese with a weight of 122 kg. Morbid obesity. SOCIAL HISTORY: Negative smoking history and no use of recreational drugs. FAMILY HISTORY: Not helpful. PHYSICAL EXAMINATION: GENERAL: Reveals patient on a ventilator. VITAL SIGNS: Heart rate regular in the 80s, blood pressure 135/36, respirations 18, and temperature recorded is 98.4 on admission. ABDOMEN: Tender on palpation, but seems to be diffuse and nondescript. HEART: Tones, regular rate. LUNGS: Breath sounds present. SKIN: Warm and dry. The patient responds to pain, but cannot respond beyond that. NEUROLOGIC: No sensorineural deficits. PSYCHIATRIC: Impossible to determine. She is morbidly obese. LABORATORY DATA: When she came in her white count was 13,000, on it went up to 20,000. The C-reactive protein 39 and BUN gone up to 78 with a creatinine of 2.4 from 1.7. Urinalysis is negative. ASSESSMENT: Morbid obesity with acute renal failure and pulmonary failure, possible intraabdominal process. Blood cultures pending. Possible acute abdomen, would recommend that this patient be transferred to a higher level of care. MMODAL /[id number]
--- NOTE | 2018-09-07 09:21 | CR ---
Chest: Portable view of the chest was obtained. Comparison: Prior chest x-ray of 09/06/18. Nasogastric tube is partially seen. Endotracheal tube is poorly identified due to technique. Slight atelectasis is seen within both lung bases. Heart is mildly enlarged. Impression: 1. Findings as noted above. Diagnostic code #3
--- NOTE | 2018-09-07 09:21 | CR ---
Abdomen: Portable supine view of the abdomen was obtained. Comparison: Prior abdominal x-ray of 09/06/18. Continuing gas dilated transverse colon is seen. Other gas has diminished from prior exam. Stable calcification within the left pelvis compatible with large phlebolith. Nasogastric tube is noted within the stomach which appears stable. Scattered degenerative change is stable within the spine. Impression: 1. Slightly gas-filled transverse colon. Other bowel gas is improved from previous exam. 2. Stable nasogastric tube. Other incidental findings. Diagnostic code #3
[2018-09-07] MEDS: Bisacodyl 10 MG Supp RECTAL SCH (09:49)
[2018-09-07] MEDS: Bumetanide 1 MG/4 ML MDV IVPUSH SCH ×2 (10:03→20:17)
[2018-09-07] MEDS: metroNIDAZOLE/Normal Saline 500 MG in Premix Bag 1 BAG IV SCH ×3 (10:03→23:46)
[2018-09-07] MEDS: Saccharomyces Boulardii (Probiotic) 250 MG Cap PO SCH ×2 (10:05→20:18)
[2018-09-07] MEDS ORDERED: Diltiazem 125 MG in Sodium Chloride 0.9% 100 ML IV SCH (11:30)
[2018-09-07] MEDS ORDERED: Midazolam 50 MG in Sodium Chloride 0.9% 40 ML IV SCH (13:15)
--- NOTE | 2018-09-07 15:35 | PCM.CONSN ---
- General Info Date of Service: 09/07/18 - Patient Data Vitals - Most Recent: Last Vital Signs Temp 97.6 F 09/07/18 15:00 Pulse 77 09/07/18 15:00 Resp 16 09/07/18 15:00 BP 115/57 L 09/07/18 15:00 Pulse Ox 94 L 09/07/18 15:00 Weight - Most Recent: 133.356 kg I&O - Last 24 Hours: Intake & Output 09/06/18 09/07/18 09/07/18 23:59 07:59 15:59 Intake Total 3835 2921 Output Total 575 1285 160 Balance 3260 1636 -160 Lab Results Last 24 Hours: Laboratory Results - last 24 hr 09/06/18 09/06/18 09/06/18 Range/Units 16:15 17:04 21:20 WBC (3.98-10.04) K/mm3 RBC (3.98-5.22) M/mm3 Hgb (11.2-15.7) gm/L Hct (34.1-44.9) % MCV (79.4-94.8) fl MCH (25.6-32.2) pg MCHC (32.2-35.5) g/dl RDW Std Deviation (36.4-46.3) fL Plt Count (182-369) K/mm3 MPV (9.4-12.3) fl Puncture Site Rt brachial ABG pH 7.25 L (7.35-7.45) ABG pCO2 47.2 H (35.0-45.0) mmHg ABG pO2 68.0 L (80.0-100.0) mmHg ABG HCO3 19.9 L (22.0-26.0) meq/L ABG O2 Saturation 93.1 L (96.0-97.0) % ABG Base Excess -6.6 L (-2-2.0) William Test A-a Gradient 385 mmHg O2 Delivery Device Ventilator FiO2 80.00 (21.00-100.00) % Tidal Volume 500.0 cc PEEP 5.0 cmH20 Pressure Support cmH2O Sodium 134 L (136-145) mEq/L Potassium 4.8 (3.5-5.1) mEq/L Chloride 101 (98-107) mEq/L Carbon Dioxide 21 (21-32) mEq/L Anion Gap 16.8 H (5-15) BUN 82 H (7-18) mg/dL Creatinine 2.0 H (0.55-1.02) mg/dL Est Cr Clr Drug Dosing 25.65 mL/min Estimated GFR (MDRD) 24 (>60) mL/min BUN/Creatinine Ratio 41.0 H (14-18) Glucose 295 H (83-115) mg/dL POC Glucose 295 H (83-110) mg/dL Calcium 7.4 L (8.5-10.1) mg/dL Magnesium (1.8-2.4) mg/dl Total Bilirubin 0.5 (0.2-1.0) mg/dL AST 64 H (15-37) U/L ALT 43 (14-59) U/L Alkaline Phosphatase 94 (46-116) U/L C-Reactive Protein (<1.0) mg/dL Total Protein 6.0 L (6.4-8.2) g/dl Albumin 1.9 L (3.4-5.0) g/dl Globulin 4.1 gm/dL Albumin/Globulin Ratio 0.5 L (1-2) 09/06/18 09/07/18 09/07/18 Range/Units 23:12 05:15 05:15 WBC 21.64 H (3.98-10.04) K/mm3 RBC 2.71 L (3.98-5.22) M/mm3 Hgb 8.1 L (11.2-15.7) gm/L Hct 25.6 L (34.1-44.9) % MCV 94.5 (79.4-94.8) fl MCH 29.9 (25.6-32.2) pg MCHC 31.6 L (32.2-35.5) g/dl RDW Std Deviation 48.0 H (36.4-46.3) fL Plt Count 336 (182-369) K/mm3 MPV 10.1 (9.4-12.3) fl Puncture Site ABG pH (7.35-7.45) ABG pCO2 (35.0-45.0) mmHg ABG pO2 (80.0-100.0) mmHg ABG HCO3 (22.0-26.0) meq/L ABG O2 Saturation (96.0-97.0) % ABG Base Excess (-2-2.0) William Test A-a Gradient mmHg O2 Delivery Device FiO2 (21.00-100.00) % Tidal Volume cc PEEP cmH20 Pressure Support cmH2O Sodium 136 (136-145) mEq/L Potassium 4.8 (3.5-5.1) mEq/L Chloride 104 (98-107) mEq/L Carbon Dioxide 20 L (21-32) mEq/L Anion Gap 16.8 H (5-15) BUN 87 H (7-18) mg/dL Creatinine 2.0 H (0.55-1.02) mg/dL Est Cr Clr Drug Dosing 25.65 mL/min Estimated GFR (MDRD) 24 (>60) mL/min BUN/Creatinine Ratio 43.5 H (14-18) Glucose 260 H (83-115) mg/dL POC Glucose 286 H (83-110) mg/dL Calcium 7.2 L (8.5-10.1) mg/dL Magnesium 2.5 H (1.8-2.4) mg/dl Total Bilirubin (0.2-1.0) mg/dL AST (15-37) U/L ALT (14-59) U/L Alkaline Phosphatase (46-116) U/L C-Reactive Protein 26.4 H* (<1.0) mg/dL Total Protein (6.4-8.2) g/dl Albumin (3.4-5.0) g/dl Globulin gm/dL Albumin/Globulin Ratio (1-2) 09/07/18 09/07/18 09/07/18 Range/Units 06:07 07:08 11:42 WBC (3.98-10.04) K/mm3 RBC (3.98-5.22) M/mm3 Hgb (11.2-15.7) gm/L Hct (34.1-44.9) % MCV (79.4-94.8) fl MCH (25.6-32.2) pg MCHC (32.2-35.5) g/dl RDW Std Deviation (36.4-46.3) fL Plt Count (182-369) K/mm3 MPV (9.4-12.3) fl Puncture Site Lt radial Rt radial ABG pH 7.20 L 7.22 L (7.35-7.45) ABG pCO2 53.5 H 49.8 H (35.0-45.0) mmHg ABG pO2 84.0 69.0 L (80.0-100.0) mmHg ABG HCO3 20.2 L 19.8 L (22.0-26.0) meq/L ABG O2 Saturation 94.8 L 93.5 L (96.0-97.0) % ABG Base Excess -7.2 L -7.1 L (-2-2.0) William Test Positive A-a Gradient 361 285 mmHg O2 Delivery Device Ventilator Ventilator FiO2 0.00 L 65.00 (21.00-100.00) % Tidal Volume 550.0 550.0 cc PEEP 5.0 5.0 cmH20 Pressure Support 10.0 10.0 cmH2O Sodium (136-145) mEq/L Potassium (3.5-5.1) mEq/L Chloride (98-107) mEq/L Carbon Dioxide (21-32) mEq/L Anion Gap (5-15) BUN (7-18) mg/dL Creatinine (0.55-1.02) mg/dL Est Cr Clr Drug Dosing mL/min Estimated GFR (MDRD) (>60) mL/min BUN/Creatinine Ratio (14-18) Glucose (83-115) mg/dL POC Glucose 230 H (83-110) mg/dL Calcium (8.5-10.1) mg/dL Magnesium (1.8-2.4) mg/dl Total Bilirubin (0.2-1.0) mg/dL AST (15-37) U/L ALT (14-59) U/L Alkaline Phosphatase (46-116) U/L C-Reactive Protein (<1.0) mg/dL Total Protein (6.4-8.2) g/dl Albumin (3.4-5.0) g/dl Globulin gm/dL Albumin/Globulin Ratio (1-2) 09/07/18 Range/Units 11:47 WBC (3.98-10.04) K/mm3 RBC (3.98-5.22) M/mm3 Hgb (11.2-15.7) gm/L Hct (34.1-44.9) % MCV (79.4-94.8) fl MCH (25.6-32.2) pg MCHC (32.2-35.5) g/dl RDW Std Deviation (36.4-46.3) fL Plt Count (182-369) K/mm3 MPV (9.4-12.3) fl Puncture Site ABG pH (7.35-7.45) ABG pCO2 (35.0-45.0) mmHg ABG pO2 (80.0-100.0) mmHg ABG HCO3 (22.0-26.0) meq/L ABG O2 Saturation (96.0-97.0) % ABG Base Excess (-2-2.0) William Test A-a Gradient mmHg O2 Delivery Device FiO2 (21.00-100.00) % Tidal Volume cc PEEP cmH20 Pressure Support cmH2O Sodium (136-145) mEq/L Potassium (3.5-5.1) mEq/L Chloride (98-107) mEq/L Carbon Dioxide (21-32) mEq/L Anion Gap (5-15) BUN (7-18) mg/dL Creatinine (0.55-1.02) mg/dL Est Cr Clr Drug Dosing mL/min Estimated GFR (MDRD) (>60) mL/min BUN/Creatinine Ratio (14-18) Glucose (83-115) mg/dL POC Glucose 214 H (83-110) mg/dL Calcium (8.5-10.1) mg/dL Magnesium (1.8-2.4) mg/dl Total Bilirubin (0.2-1.0) mg/dL AST (15-37) U/L ALT (14-59) U/L Alkaline Phosphatase (46-116) U/L C-Reactive Protein (<1.0) mg/dL Total Protein (6.4-8.2) g/dl Albumin (3.4-5.0) g/dl Globulin gm/dL Albumin/Globulin Ratio (1-2) Bertram Results Last 24 Hours: Microbiology 09/05/18 22:40 Aerobic Blood Culture - Preliminary Blood - Venous - Lab Draw NO GROWTH AFTER 1 DAY Anaerobic Blood Culture - Preliminary NO GROWTH AFTER 1 DAY 09/05/18 22:40 Aerobic Blood Culture - Preliminary Blood - Venous NO GROWTH AFTER 1 DAY Anaerobic Blood Culture - Preliminary NO GROWTH AFTER 1 DAY Med Orders - Current: Current Medications Acetaminophen (Tylenol) 1,300 mg PO BID NISA Albuterol/Ipratropium (Duoneb 3.0-0.5 Mg/3 Ml) 3 ml NEB Q4H PRN PRN Reason: Shortness Of Breath/wheezing Albuterol/Ipratropium (Duoneb 3.0-0.5 Mg/3 Ml) 3 ml NEB BIDRT [facility] Last Admin: 09/07/18 05:26 Dose: 3 ml Amlodipine Besylate (Norvasc) 10 mg PO DAILY [facility] Artificial Tears (Refresh Liquigel 1%) 0 ml EYEBOTH DAILY PRN PRN Reason: Dry Eyes Ascorbic Acid (Vitamin C) 1,000 mg PO DAILY [facility] Aspirin (Ecotrin) 325 mg PO BID [facility] Bisacodyl (Dulcolax) 5 mg PO DAILY PRN PRN Reason: Constipation Bisacodyl (Dulcolax) 10 mg RECTAL DAILY [facility] Last Admin: 09/07/18 09:49 Dose: 10 mg Bumetanide (Bumex) 0.5 mg IVPUSH BID [facility] Last Admin: 09/07/18 10:03 Dose: 0.5 mg Cyanocobalamin (Vitamin B12) 250 mcg PO DAILY [facility] Dextrose/Water (Dextrose 50% In Water) 50 ml IV ASDIRECTED PRN PRN Reason: Hypoglycemia Diazepam (Valium) 5 mg IV Q6H PRN PRN Reason: Sedation Flunisolide (Nasalide Nasal [place]) 0 ml NASBOTH BID PRN PRN Reason: Allergies Heparin Sodium (Porcine) (Heparin Sodium) 5,000 units SUBCUT Q8H [facility] Last Admin: 09/07/18 10:04 Dose: 5,000 units Hydralazine HCl (Apresoline) 20 mg IVPUSH Q4H PRN PRN Reason: Hypertension Hydrocortisone (Hydrocortisone 1% Crm) 0 gm TOP BID PRN PRN Reason: skin complications Hydromorphone HCl (Dilaudid) 0.5 mg IVPUSH Q2H PRN PRN Reason: Pain (severe 7-10) Last Admin: 09/05/18 03:49 Dose: 0.5 mg Levofloxacin/Dextrose 750 mg/ (Premix) 150 mls @ 100 mls/hr IV Q48H [facility] Last Admin: 09/06/18 09:01 Dose: 100 mls/hr Metronidazole 500 mg/ Premix 100 mls @ 100 mls/hr IV Q8H [facility] Last Admin: 09/07/18 10:03 Dose: 100 mls/hr Propofol (Diprivan 100 Ml) 100 mls @ 3.836 mls/hr IV TITRATE NISA; Protocol Last Titration: 09/07/18 09:15 Dose: 0 mcg/kg/min, 0 mls/hr Sodium Chloride (Normal Saline) 1,000 mls @ 125 mls/hr IV ASDIRECTED NISA Last Admin: 09/07/18 13:52 Dose: 125 mls/hr Norepinephrine Bitartrate 16 (mg/ Dextrose/Water) 250 mls @ 1.87 mls/hr IV TITRATE NISA; Protocol Last Titration: 09/07/18 12:55 Dose: 0 mcg/min, 0 mls/hr Fentanyl 2,500 mcg/ Sodium (Chloride) 250 mls @ 26.33 mls/hr IV TITRATE NIAS; Protocol Stop: 09/07/18 22:00 Last Titration: 09/07/18 14:40 Dose: 2 mcg/kg/hr, 26.33 mls/hr Diltiazem HCl 125 mg/ Sodium (Chloride) 125 mls @ 2.5 mls/hr IV TITRATE NISA; Protocol Last Titration: 09/07/18 14:42 Dose: 0 mg/hr, 0 mls/hr Midazolam HCl 50 mg/ Sodium (Chloride) 50 mls @ 0.5 mls/hr IV TITRATE NISA; Protocol Insulin Human Lispro (Humalog) 0 unit SUBCUT Q6H NISA; Protocol Last Admin: 09/07/18 11:51 Dose: 6 unit Labetalol HCl (Normodyne) 100 mg PO BID [facility] Levothyroxine Sodium (Synthroid) 100 mcg PO DAILY [facility] Last Admin: 09/06/18 08:16 Dose: 100 mcg Lorazepam (Ativan) 2 mg IV Q4H PRN PRN Reason: Anxiety Magnesium Sulfate (Pharmacy To Dose - Magnesium Replacement) 0 dose .XX ASDIRECTED PRN PRN Reason: RX TO WATCH MAG Methylprednisolone Sodium Succinate (Solu-Medrol) 60 mg IVPUSH Q8H [facility] Last Admin: 09/07/18 14:57 Dose: 60 mg Metoclopramide HCl (Reglan) 10 mg IVPUSH Q6H [facility] Last Admin: 09/07/18 13:53 Dose: 10 mg Metoprolol Tartrate (Lopressor) 5 mg IVPUSH Q4H PRN PRN Reason: Tachycardia Last Admin: 09/07/18 09:43 Dose: 5 mg Midodrine (Midodrine) 5 mg PO TIDAC [facility] Multivitamins (Thera) 1 each PO DAILY [facility] Ondansetron HCl (Zofran) 4 mg IV Q6H PRN PRN Reason: Nausea/Vomiting Ozempic 0.5 Mg (Ptom) 0.5 each SUBCUT TH [facility] Chlorthalidone 25 Mg (Ptom) 0 each PO DAILY [facility] Polyethylene Glycol (Miralax) 17 gm PO DAILY PRN PRN Reason: Constipation Potassium Chloride (Pharmacy To Dose - Potassium Replacement) 0 dose .XX ASDIRECTED PRN PRN Reason: RX TO WATCH K Rosuvastatin Calcium (Crestor) 20 mg PO DAILY [facility] Last Admin: 09/06/18 08:25 Dose: 20 mg Saccharomyces Boulardii (Florastor) 250 mg PO BID [facility] Last Admin: 09/07/18 10:05 Dose: 250 mg Sodium Chloride (Saline Flush) 10 ml FLUSH ONETIME PRN PRN Reason: IV FLUSH Last Admin: 09/04/18 08:42 Dose: 10 ml Temazepam (Restoril) 7.5 mg PO BEDTIME PRN PRN Reason: Sleep Discontinued Medications Acetaminophen (Tylenol) 1,300 mg PO BID [facility] Last Admin: 09/06/18 08:16 Dose: 1,300 mg Acetaminophen (Tylenol) 975 mg PO ONETIME ONE Stop: 09/05/18 00:06 Last Admin: 09/05/18 00:12 Dose: 975 mg Albuterol (Proventil Neb Soln) Confirm Administered Dose 2.5 mg .ROUTE .STK-MED ONE Stop: 09/05/18 09:58 Last Admin: 09/05/18 10:00 Dose: 2.5 mg Albuterol/Ipratropium (Duoneb 3.0-0.5 Mg/3 Ml) 3 ml NEB ONETIME ONE Stop: 09/05/18 09:58 Last Admin: 09/05/18 15:06 Dose: Not Given Amlodipine Besylate (Norvasc) 10 mg PO DAILY [facility] Last Admin: 09/06/18 08:10 Dose: Not Given Ascorbic Acid (Vitamin C) 1,000 mg PO DAILY [facility] Last Admin: 09/06/18 08:17 Dose: 1,000 mg Aspirin (Ecotrin) 325 mg PO BID [facility] Last Admin: 09/06/18 08:33 Dose: Not Given Benazepril HCl (Lotensin) 40 mg PO DAILY [facility] Last Admin: 09/05/18 10:54 Dose: Not Given Bumetanide (Bumex) 0.5 mg IVPUSH ONETIME ONE Stop: 09/06/18 21:39 Last Admin: 09/06/18 22:36 Dose: 0.5 mg Cyanocobalamin (Vitamin B12) 250 mcg PO DAILY [facility] Last Admin: 09/06/18 08:24 Dose: 250 mcg Dextrose/Water (Dextrose 50% In Water) 50 ml IVPUSH ASDIRECTED PRN PRN Reason: Hypoglycemia Diatrizoate Meglum/Diatrizoate Sod (Gastrografin 37%) 120 ml PO ONETIME ONE Stop: 09/04/18 08:09 Last Admin: 09/04/18 08:41 Dose: 90 ml Diltiazem HCl (Cardizem) 10 mg IVPUSH ONETIME STA Stop: 09/07/18 06:34 Last Admin: 09/07/18 06:45 Dose: 10 mg Enoxaparin Sodium (Lovenox) 40 mg SUBCUT DAILY [facility] Furosemide (Lasix) 20 mg PO DAILY [facility] Last Admin: 09/05/18 08:54 Dose: 20 mg Gabapentin (Neurontin) 300 mg PO BEDTIME [facility] Last Admin: 09/04/18 20:16 Dose: 300 mg Hydromorphone HCl (Dilaudid) 0.5 mg IVPUSH ONETIME STA Stop: 09/04/18 06:17 Last Admin: 09/04/18 06:38 Dose: 0.5 mg Sodium Chloride (Normal Saline) 1,000 mls @ 150 mls/hr IV ASDIRECTED [facility] Last Infusion: 09/05/18 18:41 Dose: Infused Levofloxacin/Dextrose 750 mg/ (Premix) 150 mls @ 100 mls/hr IV ONETIME ONE Stop: 09/04/18 10:25 Last Admin: 09/04/18 09:15 Dose: 100 mls/hr Metronidazole 500 mg/ Premix 100 mls @ 100 mls/hr IV ONETIME ONE Stop: 09/04/18 09:56 Last Admin: 09/04/18 09:16 Dose: 100 mls/hr Sodium Chloride (Normal Saline) 1,000 mls @ 999 mls/hr IV ASDIRECTED NISA Last Admin: 09/05/18 13:45 Dose: 999 mls/hr Fentanyl 2,500 mcg/ Sodium (Chloride) 250 mls @ 25.57 mls/hr IV TITRATE NISA; Protocol Stop: 09/06/18 14:01 Last Titration: 09/06/18 11:13 Dose: 4 mcg/kg/hr, 51.14 mls/hr Sodium Chloride (Normal Saline) Confirm Administered Dose 1,000 mls @ as directed .ROUTE .STK-MED ONE Stop: 09/05/18 14:12 Last Admin: 09/05/18 15:24 Dose: Not Given Sodium Chloride (Normal Saline) 1,000 mls @ 250 mls/hr IV ASDIRECTED NISA Last Infusion: 09/05/18 22:30 Dose: 999 mls/hr Sodium Chloride (Normal Saline) 1,000 mls @ 999 mls/hr IV ONETIME ONE Stop: 09/05/18 23:30 Last Admin: 09/05/18 22:53 Dose: 999 mls/hr Norepinephrine Bitartrate 4 mg (/ Dextrose/Water) 250 mls @ 7.5 mls/hr IV TITRATE NISA; Protocol Stop: 09/06/18 23:59 Last Titration: 09/06/18 16:24 Dose: 22 mcg/min, 82.5 mls/hr Sodium Bicarbonate 150 meq/ (Sodium Chloride) 400 mls @ 50 mls/hr IV ONETIME ONE Stop: 09/06/18 09:29 Last Admin: 09/06/18 01:51 Dose: 50 mls/hr Sodium Chloride (Normal Saline) Confirm Administered Dose 250 mls @ as directed .ROUTE .STK-MED ONE Stop: 09/06/18 01:27 Last Admin: 09/06/18 01:52 Dose: Not Given Sodium Chloride (Normal Saline) 500 mls @ 999 mls/hr IV .BOLUS ONE Stop: 09/06/18 20:19 Last Admin: 09/06/18 19:53 Dose: 999 mls/hr Insulin Glargine (Lantus) 80 unit SUBCUT BEDTIME NISA Last Admin: 09/04/18 22:43 Dose: Not Given Insulin Glargine (Lantus) 80 unit SUBCUT ONETIME ONE Stop: 09/05/18 00:01 Last Admin: 09/04/18 23:51 Dose: Not Given Insulin Glargine (Lantus) 80 unit SUBCUT BEDTIME [facility] Insulin Human Lispro (Humalog) 0 unit SUBCUT QIDACANDBED [facility]; Protocol Last Admin: 09/06/18 09:41 Dose: Not Given Iopamidol (Isovue-370 (76%)) 200 ml IV ONETIME ONE Stop: 09/04/18 08:09 Last Admin: 09/04/18 08:44 Dose: 70 ml Labetalol HCl (Normodyne) 100 mg PO BID [facility] Last Admin: 09/06/18 08:10 Dose: Not Given Lactulose (Cephulac) 20 gm PO Q6H [facility] Stop: 09/05/18 07:01 Last Admin: 09/05/18 06:51 Dose: 20 gm Lorazepam (Ativan) 0.5 mg IV Q6H PRN PRN Reason: Anxiety Last Admin: 09/05/18 09:04 Dose: 0.5 mg Losartan Potassium (Cozaar) 50 mg PO DAILY [facility] Last Admin: 09/05/18 10:53 Dose: Not Given Losartan Potassium (Cozaar) 50 mg PO DAILY [facility] Methylprednisolone Sodium Succinate (Solu-Medrol) 60 mg IVPUSH ONETIME STA Stop: 09/05/18 09:58 Last Admin: 09/05/18 11:06 Dose: 60 mg Metoclopramide HCl (Reglan) 5 mg IVPUSH Q6H [facility] Stop: 09/05/18 01:01 Last Admin: 09/05/18 00:01 Dose: 5 mg Midazolam HCl (Versed 1 Mg/Ml) 10 mg .ROUTE .STK-MED ONE Stop: 09/05/18 14:01 Midazolam HCl (Versed 1 Mg/Ml) 10 mg IVPUSH ONETIME ONE Stop: 09/05/18 13:34 Last Admin: 09/05/18 13:33 Dose: 10 mg Midodrine (Midodrine) 5 mg PO TIDAC [facility] Last Admin: 09/06/18 11:16 Dose: 5 mg Midodrine (Midodrine) 5 mg PO ONETIME ONE Stop: 09/06/18 01:31 Last Admin: 09/06/18 01:45 Dose: 5 mg Morphine Sulfate (Morphine) 1 mg IVPUSH ONETIME STA Stop: 09/05/18 09:55 Last Admin: 09/05/18 11:07 Dose: 1 mg Morphine Sulfate (Morphine) Confirm Administered Dose 2 mg .ROUTE .STK-MED ONE Stop: 09/05/18 09:57 Last Admin: 09/05/18 11:07 Dose: 1 mg Multivitamins (Thera) 1 each PO DAILY [facility] Last Admin: 09/06/18 08:17 Dose: 1 each Ondansetron HCl (Zofran) 4 mg IVPUSH ONETIME ONE Stop: 09/04/18 06:17 Last Admin: 09/04/18 06:37 Dose: 4 mg Chlorthalidone 25 Mg (Ptom) 0 each PO DAILY [facility] Last Admin: 09/06/18 08:11 Dose: Not Given Rocuronium [place] (Zemuron) 100 mg .ROUTE .STK-MED ONE Stop: 09/05/18 14:01 Rocuronium [place] (Zemuron) 100 mg IVPUSH ONETIME ONE Stop: 09/05/18 13:35 Last Admin: 09/05/18 13:34 Dose: 100 mg Sodium Bicarbonate (Sodium Bicarbonate 8.4%) 150 meq IVPUSH ONETIME ONE Stop: 09/06/18 01:05 Last Admin: 09/06/18 09:40 Dose: Not Given Sodium Bicarbonate (Sodium Bicarbonate 8.4%) Confirm Administered Dose 50 meq .ROUTE .STK-MED ONE Stop: 09/06/18 01:27 Last Admin: 09/06/18 01:50 Dose: 50 meq Sodium Bicarbonate (Sodium Bicarbonate 8.4%) Confirm Administered Dose 100 meq .ROUTE .STK-MED ONE Stop: 09/06/18 01:29 Last Admin: 09/06/18 01:52 Dose: Not Given Sodium Bicarbonate (Sodium Bicarbonate 8.4%) 50 meq IVPUSH ONETIME ONE Stop: 09/06/18 01:30 Last Admin: 09/06/18 01:51 Dose: 50 meq Sodium Bicarbonate (Sodium Bicarbonate 8.4%) Confirm Administered Dose 50 meq .ROUTE .STK-MED ONE Stop: 09/06/18 01:38 Last Admin: 09/06/18 01:52 Dose: Not Given Terbutaline Sulfate (Brethine) 2.5 mg PO BID NISA Stop: 09/06/18 21:01 Last Admin: 09/05/18 11:06 Dose: 2.5 mg Consult PN Assessment/Plan Procedures: Procedures ASSAY OF ALDOSTERONE (10/08/15) ASSAY OF BLOOD/URIC ACID (06/22/17) ASSAY OF DIGOXIN TOTAL (10/27/13) ASSAY OF MAGNESIUM (08/29/18) ASSAY OF METANEPHRINES (10/08/15) ASSAY OF PARATHORMONE (10/04/15) ASSAY OF PROTEIN URINE (06/27/18) ASSAY OF RENIN (10/08/15) ASSAY OF TROPONIN QUANT (08/11/18) ASSAY OF URINE CREATININE (06/27/18) C-REACTIVE PROTEIN (01/30/16) CARDIOVASCULAR STRESS TEST (05/04/17) COMPLETE CBC AUTOMATED (08/29/18) COMPLETE CBC W/AUTO DIFF WBC (08/29/18) COMPREHEN METABOLIC PANEL (08/29/18) COMPUTER DX MAMMOGRAM ADD-ON (11/02/14) DRAIN/INJ JOINT/BURSA W/O US (04/14/16) GAIT TRAINING THERAPY (08/29/18) GLUCOSE BLOOD TEST (08/29/18) HT MUSCLE IMAGE SPECT MULT (05/04/17) MANUAL THERAPY 1/> REGIONS (05/07/16) MASSAGE THERAPY (03/19/16) MEASURE BLOOD OXYGEN LEVEL (08/29/18) MEASURE BLOOD OXYGEN LEVEL (01/06/16) METABOLIC PANEL TOTAL CA (08/29/18) MR-STAPH DNA AMP PROBE (08/29/18) NEUROMUSCULAR REEDUCATION (05/07/16) OT EVAL LOW COMPLEX 30 MIN (08/29/18) OT EVALUATION (01/06/16) POLYSOM 6/>YRS CPAP 4/> PARM (08/16/17) PROTEIN E-PHORESIS SERUM (10/04/15) PROTEIN E-PHORESIS/URINE/CSF (10/04/15) PT EVAL LOW COMPLEX 20 MIN (08/29/18) PT EVALUATION (05/07/16) RBC SED RATE AUTOMATED (01/30/16) RENAL FUNCTION PANEL (06/27/18) ROUTINE VENIPUNCTURE (08/29/18) SELF CARE MNGMENT TRAINING (08/29/18) THERAPEUTIC ACTIVITIES (08/29/18) THERAPEUTIC EXERCISES (08/29/18) TISSUE EXAM BY PATHOLOGIST (12/11/14) TOTAL KNEE ARTHROPLASTY (08/29/18) URINALYSIS AUTO W/SCOPE (06/27/18) URINE CULTURE/COLONY COUNT (07/09/15) X-RAY EXAM OF KNEE 1 OR 2 (08/29/18) Problem List Initiated/Reviewed/Updated: Yes My Orders Last 24 Hours: VS stable but able to respond denies abdominal pain abdomen soft no distension and no tenderness BUN about 80 stable wbc high KUB improved gas patter ass diverticulitis stable continue present treatment LUIS DANIEL
[2018-09-07] MEDS: LORazepam 2 MG/ML SDV IV PRN (21:20)
[2018-09-08] MEDS: Heparin Sodium 5,000 Units/ML Vial SUBCUT SCH ×3 (01:25→17:04)
[2018-09-08] MEDS: Sodium Chloride 0.9% 1,000 ML IV SCH (05:34)
[2018-09-08] MEDS: Metoclopramide 10 MG/2 ML SDV IVPUSH SCH ×4 (05:38→23:09)
[2018-09-08] MEDS: Insulin Lispro 100 Units/ML 3 ML Vial SUBCUT SCH ×4 (05:43→23:23)
[2018-09-08] MEDS: methylPREDNISolone Sodium Succinate 40 MG/1 ML SDV IVPUSH SCH ×2 (06:01→20:41)
[2018-09-08] MEDS: Albuterol/Ipratropium 3.0-0.5 MG/3 ML Neb Soln NEB SCH ×3 (06:12→20:09)
--- NOTE | 2018-09-08 07:54 | PCM.PN ---
- General Info Date of Service: 09/08/18 Admission Dx/Problem (Free Text): Admission Diagnosis/Problem Admission Diagnosis/Problem Acute diverticulitis of intestine Subjective Update: Follow Up Functional Status: Reports: Pain Controlled, Urinating. Denies: New Symptoms - Review of Systems General: Denies: Fever, Chills HEENT: Reports: No Symptoms Gastrointestinal: Denies: Abdominal Pain, Nausea, Vomiting Skin: Denies: Cyanosis Psychiatric: Denies: Confusion Systems Review Comment:: No overnight or acute issues. Her ABG is much better this morning. Will cut down further her FiO2 along with PEEP and plan for extubation later. Her renal CR function has further improved to 1.9. - Patient Data Vitals - Most Recent: Last Vital Signs Temp 36.1 C 09/08/18 04:00 Pulse 72 09/08/18 07:00 Resp 17 09/08/18 04:00 BP 137/63 09/08/18 07:00 Pulse Ox 93 L 09/08/18 07:45 Weight - Most Recent: 135.171 kg I&O - Last 24 Hours: Intake & Output 09/07/18 09/08/18 09/08/18 22:59 06:59 14:59 Intake Total 2720 1658 Output Total 1145 1425 Balance 1575 233 Lab Results Last 24 Hours: Laboratory Results - last 24 hr 09/07/18 09/07/18 09/07/18 Range/Units 11:42 11:47 18:07 WBC (3.98-10.04) K/mm3 RBC (3.98-5.22) M/mm3 Hgb (11.2-15.7) gm/L Hct (34.1-44.9) % MCV (79.4-94.8) fl MCH (25.6-32.2) pg MCHC (32.2-35.5) g/dl RDW Std Deviation (36.4-46.3) fL Plt Count (182-369) K/mm3 MPV (9.4-12.3) fl Puncture Site Rt radial ABG pH 7.22 L (7.35-7.45) ABG pCO2 49.8 H (35.0-45.0) mmHg ABG pO2 69.0 L (80.0-100.0) mmHg ABG HCO3 19.8 L (22.0-26.0) meq/L ABG O2 Saturation 93.5 L (96.0-97.0) % ABG Base Excess -7.1 L (-2-2.0) William Test A-a Gradient 285 mmHg O2 Delivery Device Ventilator FiO2 65.00 (21.00-100.00) % Tidal Volume 550.0 cc PEEP 5.0 cmH20 Pressure Support 10.0 cmH2O Sodium (136-145) mEq/L Potassium (3.5-5.1) mEq/L Chloride (98-107) mEq/L Carbon Dioxide (21-32) mEq/L Anion Gap (5-15) BUN (7-18) mg/dL Creatinine (0.55-1.02) mg/dL Est Cr Clr Drug Dosing mL/min Estimated GFR (MDRD) (>60) mL/min BUN/Creatinine Ratio (14-18) Glucose (83-115) mg/dL POC Glucose 214 H 179 H (83-110) mg/dL Calcium (8.5-10.1) mg/dL Magnesium (1.8-2.4) mg/dl C-Reactive Protein (<1.0) mg/dL 09/07/18 09/08/18 09/08/18 Range/Units 22:25 05:38 05:38 WBC 22.00 H (3.98-10.04) K/mm3 RBC 2.91 L (3.98-5.22) M/mm3 Hgb 8.6 L (11.2-15.7) gm/L Hct 27.3 L (34.1-44.9) % MCV 93.8 (79.4-94.8) fl MCH 29.6 (25.6-32.2) pg MCHC 31.5 L (32.2-35.5) g/dl RDW Std Deviation 48.2 H (36.4-46.3) fL Plt Count 334 (182-369) K/mm3 MPV 10.0 (9.4-12.3) fl Puncture Site Lt radial ABG pH 7.30 L (7.35-7.45) ABG pCO2 40.3 (35.0-45.0) mmHg ABG pO2 69.0 L (80.0-100.0) mmHg ABG HCO3 19.3 L (22.0-26.0) meq/L ABG O2 Saturation 94.5 L (96.0-97.0) % ABG Base Excess -6.0 L (-2-2.0) William Test Positive A-a Gradient 168 mmHg O2 Delivery Device Ventilator FiO2 45.00 (21.00-100.00) % Tidal Volume 550.0 cc PEEP 8.0 cmH20 Pressure Support 10.0 cmH2O Sodium 140 (136-145) mEq/L Potassium 4.8 (3.5-5.1) mEq/L Chloride 109 H (98-107) mEq/L Carbon Dioxide 21 (21-32) mEq/L Anion Gap 14.8 (5-15) BUN 95 H (7-18) mg/dL Creatinine 1.9 H (0.55-1.02) mg/dL Est Cr Clr Drug Dosing 27.00 mL/min Estimated GFR (MDRD) 26 (>60) mL/min BUN/Creatinine Ratio 50.0 H (14-18) Glucose 224 H (83-115) mg/dL POC Glucose (83-110) mg/dL Calcium 7.4 L (8.5-10.1) mg/dL Magnesium 2.6 H (1.8-2.4) mg/dl C-Reactive Protein 17.4 H* (<1.0) mg/dL Bertram Results Last 24 Hours: Microbiology 09/05/18 22:40 Aerobic Blood Culture - Preliminary Blood - Venous - Lab Draw NO GROWTH AFTER 2 DAYS Anaerobic Blood Culture - Preliminary NO GROWTH AFTER 2 DAYS 09/05/18 22:40 Aerobic Blood Culture - Preliminary Blood - Venous NO GROWTH AFTER 2 DAYS Anaerobic Blood Culture - Preliminary NO GROWTH AFTER 2 DAYS Med Orders - Current: Current Medications Acetaminophen (Tylenol) 1,300 mg PO BID [facility] Albuterol/Ipratropium (Duoneb 3.0-0.5 Mg/3 Ml) 3 ml NEB Q4H PRN PRN Reason: Shortness Of Breath/wheezing Albuterol/Ipratropium (Duoneb 3.0-0.5 Mg/3 Ml) 3 ml NEB BIDRT NISA Last Admin: 09/08/18 06:12 Dose: 3 ml Amlodipine Besylate (Norvasc) 10 mg PO DAILY [facility] Artificial Tears (Refresh Liquigel 1%) 0 ml EYEBOTH DAILY PRN PRN Reason: Dry Eyes Ascorbic Acid (Vitamin C) 1,000 mg PO DAILY [facility] Aspirin (Ecotrin) 325 mg PO BID [facility] Bisacodyl (Dulcolax) 5 mg PO DAILY PRN PRN Reason: Constipation Bisacodyl (Dulcolax) 10 mg RECTAL DAILY [facility] Last Admin: 09/07/18 09:49 Dose: 10 mg Bumetanide (Bumex) 0.5 mg IVPUSH BID [facility] Last Admin: 09/07/18 20:17 Dose: 0.5 mg Cyanocobalamin (Vitamin B12) 250 mcg PO DAILY [facility] Dextrose/Water (Dextrose 50% In Water) 50 ml IV ASDIRECTED PRN PRN Reason: Hypoglycemia Diazepam (Valium) 5 mg IV Q6H PRN PRN Reason: Sedation Flunisolide (Nasalide Nasal Fackler) 0 ml NASBOTH BID PRN PRN Reason: Allergies Heparin Sodium (Porcine) (Heparin Sodium) 5,000 units SUBCUT Q8H [facility] Last Admin: 09/08/18 01:25 Dose: 5,000 units Hydralazine HCl (Apresoline) 20 mg IVPUSH Q4H PRN PRN Reason: Hypertension Hydrocortisone (Hydrocortisone 1% Crm) 0 gm TOP BID PRN PRN Reason: skin complications Hydromorphone HCl (Dilaudid) 0.5 mg IVPUSH Q2H PRN PRN Reason: Pain (severe 7-10) Last Admin: 09/05/18 03:49 Dose: 0.5 mg Levofloxacin/Dextrose 750 mg/ (Premix) 150 mls @ 100 mls/hr IV Q48H [facility] Last Admin: 09/06/18 09:01 Dose: 100 mls/hr Metronidazole 500 mg/ Premix 100 mls @ 100 mls/hr IV Q8H [facility] Last Admin: 09/07/18 23:46 Dose: 100 mls/hr Sodium Chloride (Normal Saline) 1,000 mls @ 125 mls/hr IV ASDIRECTED [facility] Last Admin: 09/08/18 05:34 Dose: 125 mls/hr Midazolam HCl 50 mg/ Sodium (Chloride) 50 mls @ 0.5 mls/hr IV TITRATE [facility]; Protocol Last Titration: 09/07/18 21:17 Dose: 1 mg/hr, 1 mls/hr Insulin Human Lispro (Humalog) 0 unit SUBCUT Q6H [facility]; Protocol Last Admin: 09/08/18 05:43 Dose: 6 unit Labetalol HCl (Normodyne) 100 mg PO BID [facility] Levothyroxine Sodium (Synthroid) 100 mcg PO DAILY [facility] Last Admin: 09/06/18 08:16 Dose: 100 mcg Lorazepam (Ativan) 2 mg IV Q4H PRN PRN Reason: Anxiety Last Admin: 09/07/18 21:20 Dose: 2 mg Magnesium Sulfate (Pharmacy To Dose - Magnesium Replacement) 0 dose .XX ASDIRECTED PRN PRN Reason: RX TO WATCH MAG Methylprednisolone Sodium Succinate (Solu-Medrol) 60 mg IVPUSH Q8H [facility] Last Admin: 09/08/18 06:01 Dose: 60 mg Metoclopramide HCl (Reglan) 10 mg IVPUSH Q6H [facility] Last Admin: 09/08/18 05:38 Dose: 10 mg Metoprolol Tartrate (Lopressor) 5 mg IVPUSH Q4H PRN PRN Reason: Tachycardia Last Admin: 09/07/18 09:43 Dose: 5 mg Midodrine (Midodrine) 5 mg PO TIDAC [facility] Multivitamins (Thera) 1 each PO DAILY [facility] Ondansetron HCl (Zofran) 4 mg IV Q6H PRN PRN Reason: Nausea/Vomiting Ozempic 0.5 Mg (Ptom) 0.5 each SUBCUT TH [facility] Chlorthalidone 25 Mg (Ptom) 0 each PO DAILY [facility] Polyethylene Glycol (Miralax) 17 gm PO DAILY PRN PRN Reason: Constipation Potassium Chloride (Pharmacy To Dose - Potassium Replacement) 0 dose .XX ASDIRECTED PRN PRN Reason: RX TO WATCH K Rosuvastatin Calcium (Crestor) 20 mg PO DAILY [facility] Last Admin: 09/06/18 08:25 Dose: 20 mg Saccharomyces Boulardii (Florastor) 250 mg PO BID [facility] Last Admin: 09/07/18 20:18 Dose: 250 mg Sodium Chloride (Saline Flush) 10 ml FLUSH ONETIME PRN PRN Reason: IV FLUSH Last Admin: 09/04/18 08:42 Dose: 10 ml Temazepam (Restoril) 7.5 mg PO BEDTIME PRN PRN Reason: Sleep Discontinued Medications Acetaminophen (Tylenol) 1,300 mg PO BID [facility] Last Admin: 09/06/18 08:16 Dose: 1,300 mg Acetaminophen (Tylenol) 975 mg PO ONETIME ONE Stop: 09/05/18 00:06 Last Admin: 09/05/18 00:12 Dose: 975 mg Albuterol (Proventil Neb Soln) Confirm Administered Dose 2.5 mg .ROUTE .STK-MED ONE Stop: 09/05/18 09:58 Last Admin: 09/05/18 10:00 Dose: 2.5 mg Albuterol/Ipratropium (Duoneb 3.0-0.5 Mg/3 Ml) 3 ml NEB ONETIME ONE Stop: 09/05/18 09:58 Last Admin: 09/05/18 15:06 Dose: Not Given Amlodipine Besylate (Norvasc) 10 mg PO DAILY [facility] Last Admin: 09/06/18 08:10 Dose: Not Given Ascorbic Acid (Vitamin C) 1,000 mg PO DAILY [facility] Last Admin: 09/06/18 08:17 Dose: 1,000 mg Aspirin (Ecotrin) 325 mg PO BID [facility] Last Admin: 09/06/18 08:33 Dose: Not Given Benazepril HCl (Lotensin) 40 mg PO DAILY [facility] Last Admin: 09/05/18 10:54 Dose: Not Given Bumetanide (Bumex) 0.5 mg IVPUSH ONETIME ONE Stop: 09/06/18 21:39 Last Admin: 09/06/18 22:36 Dose: 0.5 mg Cyanocobalamin (Vitamin B12) 250 mcg PO DAILY [facility] Last Admin: 09/06/18 08:24 Dose: 250 mcg Dextrose/Water (Dextrose 50% In Water) 50 ml IVPUSH ASDIRECTED PRN PRN Reason: Hypoglycemia Diatrizoate Meglum/Diatrizoate Sod (Gastrografin 37%) 120 ml PO ONETIME ONE Stop: 09/04/18 08:09 Last Admin: 09/04/18 08:41 Dose: 90 ml Diltiazem HCl (Cardizem) 10 mg IVPUSH ONETIME STA Stop: 09/07/18 06:34 Last Admin: 09/07/18 06:45 Dose: 10 mg Enoxaparin Sodium (Lovenox) 40 mg SUBCUT DAILY [facility] Furosemide (Lasix) 20 mg PO DAILY [facility] Last Admin: 09/05/18 08:54 Dose: 20 mg Gabapentin (Neurontin) 300 mg PO BEDTIME NISA Last Admin: 09/04/18 20:16 Dose: 300 mg Hydromorphone HCl (Dilaudid) 0.5 mg IVPUSH ONETIME STA Stop: 09/04/18 06:17 Last Admin: 09/04/18 06:38 Dose: 0.5 mg Sodium Chloride (Normal Saline) 1,000 mls @ 150 mls/hr IV ASDIRECTED NISA Last Infusion: 09/05/18 18:41 Dose: Infused Levofloxacin/Dextrose 750 mg/ (Premix) 150 mls @ 100 mls/hr IV ONETIME ONE Stop: 09/04/18 10:25 Last Admin: 09/04/18 09:15 Dose: 100 mls/hr Metronidazole 500 mg/ Premix 100 mls @ 100 mls/hr IV ONETIME ONE Stop: 09/04/18 09:56 Last Admin: 09/04/18 09:16 Dose: 100 mls/hr Sodium Chloride (Normal Saline) 1,000 mls @ 999 mls/hr IV ASDIRECTED NISA Last Admin: 09/05/18 13:45 Dose: 999 mls/hr Fentanyl 2,500 mcg/ Sodium (Chloride) 250 mls @ 25.57 mls/hr IV TITRATE NISA; Protocol Stop: 09/06/18 14:01 Last Titration: 09/06/18 11:13 Dose: 4 mcg/kg/hr, 51.14 mls/hr Propofol (Diprivan 100 Ml) 100 mls @ 3.836 mls/hr IV TITRATE NISA; Protocol Last Titration: 09/07/18 09:15 Dose: 0 mcg/kg/min, 0 mls/hr Sodium Chloride (Normal Saline) Confirm Administered Dose 1,000 mls @ as directed .ROUTE .STK-MED ONE Stop: 09/05/18 14:12 Last Admin: 09/05/18 15:24 Dose: Not Given Sodium Chloride (Normal Saline) 1,000 mls @ 250 mls/hr IV ASDIRECTED NISA Last Infusion: 09/05/18 22:30 Dose: 999 mls/hr Sodium Chloride (Normal Saline) 1,000 mls @ 999 mls/hr IV ONETIME ONE Stop: 09/05/18 23:30 Last Admin: 04/29/19 22:53 Dose: 999 mls/hr Norepinephrine Bitartrate 4 mg (/ Dextrose/Water) 250 mls @ 7.5 mls/hr IV TITRATE NISA; Protocol Stop: 09/06/18 23:59 Last Titration: 09/06/18 16:24 Dose: 22 mcg/min, 82.5 mls/hr Sodium Bicarbonate 150 meq/ (Sodium Chloride) 400 mls @ 50 mls/hr IV ONETIME ONE Stop: 09/06/18 09:29 Last Admin: 09/06/18 01:51 Dose: 50 mls/hr Sodium Chloride (Normal Saline) Confirm Administered Dose 250 mls @ as directed .ROUTE .STK-MED ONE Stop: 09/06/18 01:27 Last Admin: 09/06/18 01:52 Dose: Not Given Norepinephrine Bitartrate 16 (mg/ Dextrose/Water) 250 mls @ 1.87 mls/hr IV TITRATE NISA; Protocol Last Titration: 09/07/18 12:55 Dose: 0 mcg/min, 0 mls/hr Fentanyl 2,500 mcg/ Sodium (Chloride) 250 mls @ 26.33 mls/hr IV TITRATE NISA; Protocol Stop: 09/07/18 22:00 Last Titration: 09/07/18 20:16 Dose: 2 mcg/kg/hr, 26.33 mls/hr Sodium Chloride (Normal Saline) 500 mls @ 999 mls/hr IV .BOLUS ONE Stop: 09/06/18 20:19 Last Admin: 09/06/18 19:53 Dose: 999 mls/hr Diltiazem HCl 125 mg/ Sodium (Chloride) 125 mls @ 2.5 mls/hr IV TITRATE NISA; Protocol Last Titration: 09/07/18 14:42 Dose: 0 mg/hr, 0 mls/hr Insulin Glargine (Lantus) 80 unit SUBCUT BEDTIME NISA Last Admin: 09/04/18 22:43 Dose: Not Given Insulin Glargine (Lantus) 80 unit SUBCUT ONETIME ONE Stop: 09/05/18 00:01 Last Admin: 09/04/18 23:51 Dose: Not Given Insulin Glargine (Lantus) 80 unit SUBCUT BEDTIME NISA Insulin Human Lispro (Humalog) 0 unit SUBCUT QIDACANDBED NISA; Protocol Last Admin: 09/06/18 09:41 Dose: Not Given Iopamidol (Isovue-370 (76%)) 200 ml IV ONETIME ONE Stop: 09/04/18 08:09 Last Admin: 09/04/18 08:44 Dose: 70 ml Labetalol HCl (Normodyne) 100 mg PO BID [facility] Last Admin: 09/06/18 08:10 Dose: Not Given Lactulose (Cephulac) 20 gm PO Q6H NISA Stop: 09/05/18 07:01 Last Admin: 09/05/18 06:51 Dose: 20 gm Lorazepam (Ativan) 0.5 mg IV Q6H PRN PRN Reason: Anxiety Last Admin: 09/05/18 09:04 Dose: 0.5 mg Losartan Potassium (Cozaar) 50 mg PO DAILY [facility] Last Admin: 09/05/18 10:53 Dose: Not Given Losartan Potassium (Cozaar) 50 mg PO DAILY [facility] Methylprednisolone Sodium Succinate (Solu-Medrol) 60 mg IVPUSH ONETIME STA Stop: 09/05/18 09:58 Last Admin: 09/05/18 11:06 Dose: 60 mg Metoclopramide HCl (Reglan) 5 mg IVPUSH Q6H NISA Stop: 09/05/18 01:01 Last Admin: 09/05/18 00:01 Dose: 5 mg Midazolam HCl (Versed 1 Mg/Ml) 10 mg .ROUTE .STK-MED ONE Stop: 09/05/18 14:01 Midazolam HCl (Versed 1 Mg/Ml) 10 mg IVPUSH ONETIME ONE Stop: 09/05/18 13:34 Last Admin: 09/05/18 13:33 Dose: 10 mg Midodrine (Midodrine) 5 mg PO TIDAC [facility] Last Admin: 09/06/18 11:16 Dose: 5 mg Midodrine (Midodrine) 5 mg PO ONETIME ONE Stop: 09/06/18 01:31 Last Admin: 09/06/18 01:45 Dose: 5 mg Morphine Sulfate (Morphine) 1 mg IVPUSH ONETIME STA Stop: 09/05/18 09:55 Last Admin: 09/05/18 11:07 Dose: 1 mg Morphine Sulfate (Morphine) Confirm Administered Dose 2 mg .ROUTE .STK-MED ONE Stop: 09/05/18 09:57 Last Admin: 09/05/18 11:07 Dose: 1 mg Multivitamins (Thera) 1 each PO DAILY [facility] Last Admin: 09/06/18 08:17 Dose: 1 each Ondansetron HCl (Zofran) 4 mg IVPUSH ONETIME ONE Stop: 09/04/18 06:17 Last Admin: 09/04/18 06:37 Dose: 4 mg Chlorthalidone 25 Mg (Ptom) 0 each PO DAILY [facility] Last Admin: 09/06/18 08:11 Dose: Not Given Rocuronium [place] (Zemuron) 100 mg .ROUTE .STK-MED ONE Stop: 09/05/18 14:01 Rocuronium [place] (Zemuron) 100 mg IVPUSH ONETIME ONE Stop: 09/05/18 13:35 Last Admin: 09/05/18 13:34 Dose: 100 mg Sodium Bicarbonate (Sodium Bicarbonate 8.4%) 150 meq IVPUSH ONETIME ONE Stop: 09/06/18 01:05 Last Admin: 09/06/18 09:40 Dose: Not Given Sodium Bicarbonate (Sodium Bicarbonate 8.4%) Confirm Administered Dose 50 meq .ROUTE .STK-MED ONE Stop: 09/06/18 01:27 Last Admin: 09/06/18 01:50 Dose: 50 meq Sodium Bicarbonate (Sodium Bicarbonate 8.4%) Confirm Administered Dose 100 meq .ROUTE .STK-MED ONE Stop: 09/06/18 01:29 Last Admin: 09/06/18 01:52 Dose: Not Given Sodium Bicarbonate (Sodium Bicarbonate 8.4%) 50 meq IVPUSH ONETIME ONE Stop: 09/06/18 01:30 Last Admin: 09/06/18 01:51 Dose: 50 meq Sodium Bicarbonate (Sodium Bicarbonate 8.4%) Confirm Administered Dose 50 meq .ROUTE .STK-MED ONE Stop: 09/06/18 01:38 Last Admin: 09/06/18 01:52 Dose: Not Given Terbutaline Sulfate (Brethine) 2.5 mg PO BID [facility] Stop: 09/06/18 21:01 Last Admin: 09/05/18 11:06 Dose: 2.5 mg - Exam Quality Assessment: Supplemental Oxygen General: Alert, Cooperative, No Acute Distress, Other (Morbidly Obese) HEENT: Pupils Equal, Pupils Reactive Neck: Supple Lungs: Normal Respiratory Effort, Other (mechanical breath sound) Cardiovascular: Regular Rate, Regular Rhythm GI/Abdominal Exam: Normal Bowel Sounds, Soft, Non-Tender, No Organomegaly, No Distention, No Abnormal Bruit (Female) Exam: Deferred Back Exam: Normal Inspection, Decreased Range of Motion Extremities: Normal Inspection (left lower extremity), Normal Range of Motion ( left lower extremity), Non-Tender, Normal Capillary Refill, Pedal Edema (right lower extremity), Limited Range of Motion (right lower extremity) Peripheral Pulses: 2+: Dorsalis Pedis (L), Dorsalis Pedis (R) Skin: Warm, Dry, Intact, Ecchymosis (right knee) Wound/Incisions: Dressing Dry and Intact Neurological: Other (deferred: not appropriate; she is intubated on mechanical ventilator) Psy/Mental Status: Alert, Normal Affect, Normal Mood - Problem List Review Problem List Initiated/Reviewed/Updated: Yes - My Orders Last 24 Hours: My Active Orders 09/07/18 09:00 Bumetanide [Bumex] 0.5 mg IVPUSH BID 09/07/18 13:15 Midazolam [Versed 5 MG/ML] 50 mg Sodium Chloride 0.9% [Normal Saline] 40 ml IV TITRATE 09/08/18 07:00 Chest 1V Frontal [CR] Routine ABG [BLOOD GAS ARTERIAL] [BG] Routine 09/08/18 12:33 Patient's Own Medication [Ptom] 0.5 each SUBCUT TH 09/09/18 05:11 BASIC METABOLIC PANEL,BMP [CHEM] AM C-REACTIVE PROTEIN [CHEM] AM CBC W/O DIFF,HEMOGRAM [HEME] AM MAGNESIUM [CHEM] AM 09/09/18 07:00 Midodrine 5 mg PO TIDAC 09/09/18 09:00 Acetaminophen [Tylenol] 1,300 mg PO BID Ascorbic Acid [Vitamin C] 1,000 mg PO DAILY Aspirin [Ecotrin] 325 mg PO BID Cyanocobalamin (Vitamin B12) [Vitamin B12] 250 mcg PO DAILY Labetalol [Normodyne] 100 mg PO BID Multivitamins,Therapeutic [Thera] 1 each PO DAILY Patient's Own Medication [Ptom] 0 each PO DAILY amLODIPine [Norvasc] 10 mg PO DAILY 09/12/18 07:00 CBC W/O DIFF,HEMOGRAM [HEME] MOTH@0700 09/15/18 07:00 CBC W/O DIFF,HEMOGRAM [HEME] MOTH@69909/19/18 07:00 CBC W/O DIFF,HEMOGRAM [HEME] MOTH@69909/22/18 07:00 CBC W/O DIFF,HEMOGRAM [HEME] MOTH@69909/26/18 07:00 CBC W/O DIFF,HEMOGRAM [HEME] MOTH@07 - Plan Plan:: Assessment/Plan: Acute: Combined Respiratory Failure - 2/2 Combined hypercapneic and hypoxic - ABG shows severe acidosis - CXR shows bibasilar atelectasis - Failed NIPVV - Vent Setting: AC 500/14/5/100%; VT went up to 5500 ml, RR 18 and FiO2 80%; cut down FiO2 55-65% and consider increasing PEEP to 8 - Serial ABG and CXR; ABG is much improved this AM - Currently on propofol and fentanyl drip; we may run out of fentanyl drip so we may switch to versed drip per pharmacy's recommendations - DDx: PE unfortunately we would not be able to perform CTA due to significantly reduced renal function. V/Q scan is almost always useless. She however covered with Heparin 5000 units SubQ TID for DVT prophylaxis - If we order D-dimer; it'll be markedly elevated since she is post surgical - Plan for extubation later today; she has no underlying lung disease except for NORBERTO/OHS Diverticulitis with Ileus, Improving - Risk factors: Constipation and Narcotic Use - CT scan report reads CT scan report reads increased stool throughout the colon. Slight inflammatory change around a diverticuli within the sigmoid colon which may represent mild diverticulitis. Moderate amount of free fluid within the pelvis most likely reactive and diverticulitis. - Continue IV Flagyl and Levaquin for pharmacy to dose - Oral Probiotic BID - Continue NPO - Dr. 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7-->26.4-->17.4 and LA 1.4 - Monitor urine output S/p New Onset Atrial Fibrillation - Likely 2/2 Sepsis - HR ins the 130-140s - Likely 2/2 Sepsis - Heparin 5000 SubQ TID for DVT/Stroke prophylaxis - Cardizem drip; titrate to keep HR at or < 100 Chronic: Impaired Vision Hx/o SVT HTN HLD Urinary Incontinence OA/DJD FREDERICK NORBERTO on CPAP Hypothyroidism Obesity with BMI of 42 Plan: She is alert/awake on mechanical ventilation Routine AM Labs PT/OT consult when appropriate DVT/GI PPx [employer] PADS for post-extubation SW/CM for d/c planning Code status: 1 Extubation today LOS > 96hrs due to slow response to treatment Updated brother, about her morning labs and clinical progress. Goal is extubation today.
[2018-09-08] MEDS: Saccharomyces Boulardii (Probiotic) 250 MG Cap PO SCH ×2 (08:24→20:41)
[2018-09-08] MEDS: metroNIDAZOLE/Normal Saline 500 MG in Premix Bag 1 BAG IV SCH ×3 (08:24→23:11)
[2018-09-08] MEDS: Bumetanide 1 MG/4 ML MDV IVPUSH SCH ×2 (08:24→20:36)
[2018-09-08] MEDS: Bisacodyl 10 MG Supp RECTAL SCH (08:29)
--- NOTE | 2018-09-08 08:39 | CR ---
Chest: Portable view of the chest was obtained. Comparison: Previous chest x-ray of 09/07/18. Endotracheal tube is seen with tip lying at the lower level of the clavicles. Nasogastric tube courses through the mediastinum into the stomach. Slight atelectasis is seen with the left mid and lower lung. Lungs otherwise are clear. Heart size slightly generous but within normal limits for portable technique. Bony structures are grossly intact. Impression: 1. Satisfactory position of endotracheal tube and nasogastric tube. 2. Mild left-sided atelectasis is noted. 3. Other incidental findings. Diagnostic code #3
[2018-09-08] MEDS ORDERED: Modafinil 200 MG Tab PO STA (09:02)
[2018-09-08] MEDS: Levofloxacin/Dextrose 5%-Water 750 MG in Premix Bag 1 BAG IV SCH (09:26)
--- NOTE | 2018-09-08 11:50 | CR ---
Chest: Portable view of the chest is obtained. Comparison: Prior chest x-ray performed earlier on the same day Endotracheal tube has been removed from prior study. Mild narrowing of the subglottic airway is seen. Nasogastric tube remains in place with tip being within the stomach. Slight atelectasis is seen within both lung bases. Upper lungs are clear. Heart size slightly enlarged. Bony structures are grossly intact. Impression: 1. Mild subglottic narrowing most likely due to edema from recent endotracheal tube. 2. Stable position of nasogastric tube from prior study. 3. Mild bibasilar atelectasis. Diagnostic code #3
--- NOTE | 2018-09-08 12:07 | PCM.SN ---
- Free Text/Narrative Note: Patient successfully extubated at 1115. Post extubation chest x-ray shows mild bibasilar atelectasis with mild subglottic narrowing. Consult [employer] for swallow eval in the meantime will do bedside swallow evaluation and IS as directed.
[2018-09-08] MEDS: Famotidine 20 MG/2 ML SDV IV SCH (12:17)
[2018-09-08] MEDS ORDERED: OZEMPIC 0.5 MG SUBCUT SCH (12:33)
[2018-09-08] MEDS: hydrALAZINE 20 MG/ML SDV IVPUSH PRN ×3 (12:59→20:38)
[2018-09-08] MEDS ORDERED: Labetalol 100 MG/20 ML MDV IVPUSH ONE (13:43)
[2018-09-08] MEDS ORDERED: cloNIDine 0.3 MG/Day Transdermal Patch TRDERM SCH (15:00)
[2018-09-09] MEDS: LORazepam 2 MG/ML SDV IV PRN (00:46)
[2018-09-09] MEDS: Heparin Sodium 5,000 Units/ML Vial SUBCUT SCH ×3 (01:55→17:19)
[2018-09-09] MEDS: Albuterol/Ipratropium 3.0-0.5 MG/3 ML Neb Soln NEB SCH ×4 (03:11→20:09)
[2018-09-09] MEDS: hydrALAZINE 20 MG/ML SDV IVPUSH PRN (04:18)
[2018-09-09] MEDS: Metoclopramide 10 MG/2 ML SDV IVPUSH SCH ×4 (05:13→22:32)
[2018-09-09] MEDS: Insulin Lispro 100 Units/ML 3 ML Vial SUBCUT SCH ×4 (06:09→23:15)
[2018-09-09] MEDS ORDERED: Midodrine 5 MG Tab PO SCH (07:00)
[2018-09-09] MEDS: Acetaminophen 325 MG Tab PO SCH ×2 (08:11→22:07)
[2018-09-09] MEDS: Ascorbic Acid 500 MG Tab PO SCH (08:14)
[2018-09-09] MEDS: Multivitamins,Therapeutic Tab PO SCH (08:14)
[2018-09-09] MEDS: amLODIPine 10 MG Tab PO SCH (08:15)
[2018-09-09] MEDS: Cyanocobalamin (Vitamin B12) 1,000 MCG Tab PO SCH (08:15)
[2018-09-09] MEDS: Saccharomyces Boulardii (Probiotic) 250 MG Cap PO SCH ×2 (08:15→22:07)
[2018-09-09] MEDS: Labetalol 100 MG Tab PO SCH ×2 (08:16→22:08)
[2018-09-09] MEDS: Famotidine 20 MG/2 ML SDV IV SCH (08:19)
[2018-09-09] MEDS: Bumetanide 1 MG/4 ML MDV IVPUSH SCH (08:20)
[2018-09-09] MEDS: methylPREDNISolone Sodium Succinate 40 MG/1 ML SDV IVPUSH SCH (08:20)
[2018-09-09] MEDS: metroNIDAZOLE/Normal Saline 500 MG in Premix Bag 1 BAG IV SCH ×3 (08:21→23:15)
[2018-09-09] MEDS: Bisacodyl 10 MG Supp RECTAL SCH (08:48)
[2018-09-09] MEDS: CHLORTHALIDONE 25 MG PO SCH (08:48)
[2018-09-09] MEDS: Rosuvastatin 10 MG Tab PO SCH (08:53)
[2018-09-09] MEDS: Levothyroxine 100 MCG Tab PO SCH (08:54)
[2018-09-09] MEDS ORDERED: Aspirin 325 MG Tab.EC PO SCH (09:00)
--- NOTE | 2018-09-09 16:49 | PCM.PN ---
- General Info Date of Service: 09/09/18 Admission Dx/Problem (Free Text): Admission HPI: This is a 73 yo elderly white female with past medical hx/o Impaired Vision, Hx/ o SVT, HTN, HLD, CKD stage 2-3, Urinary Incontinence, OA/DJD, FREDERICK, DM2, Hypothyroidism, NORBERTO on CPAP and Obesity with BMI of 42 who comes in with complaints of generalized abdominal pain associated with reduced appetite that started this past Wednesday. She tried OTC Metamucil, Miralax and Prune Juice but w /o much improvement. She carries no hx/o chronic constipation but report hx/o opioid induced constipation in the past. Patient recently discharged on 08/31/2018 after undergoing Right TKA here in the hospital. She did however was sent home with narcotic for pain control. CT scan report reads increased stool throughout the colon. Slight inflammatory change around a diverticuli within the sigmoid colon which may represent mild diverticulitis. Moderate amount of free fluid within the pelvis most likely reactive and diverticulitis. Her initial work up shows a CBC remarkable for WBC of 13.42, Neutrophils of 91% , and Lymphocytes of 3%. Her Chemistry is significant for Na of 127, Cl of 91, AG of 16.7, BUN of 57, Cr of 1.7, BS of 215 and Albumin of 2.9. Her UA is negative for UTI. Patient is being admitted for Sepsis 2/2 Acute Diverticulitis. She is full code. Daily Progress: 09/08/18, Patient successfully extubated at 1115. Post extubation chest x-ray shows mild bibasilar atelectasis with mild subglottic narrowing. Consult [employer]ATOR for swallow eval in the meantime will do bedside swallow evaluation and IS as directed. 09/09/18, remains extubated, lethargic, adjusted sedatives regimen, started PO intake, responded to diuresis, in the wake of severe hypoalbuminemia and systemic inflammation as well as undernutrition has significant third space fluid excess. Will address diuresis need daily, considering IV albumin to facilitate. - Patient Data Vitals - Most Recent: Last Vital Signs Temp 99.0 F 09/09/18 15:54 Pulse 91 09/09/18 15:54 Resp 17 09/09/18 15:54 BP 142/63 H 09/09/18 15:54 Pulse Ox 89 L 09/09/18 15:54 Weight - Most Recent: 291 lb 1.609 oz I&O - Last 24 Hours: Intake & Output 09/09/18 09/09/18 09/09/18 03:59 11:59 19:59 Intake Total 100 440 200 Output Total 2708 6590 1200 Balance -9956 -8539 -8532 Lab Results Last 24 Hours: Laboratory Results - last 24 hr 09/08/18 09/08/18 09/09/18 Range/Units 17:10 23:20 06:07 WBC (3.98-10.04) K/mm3 RBC (3.98-5.22) M/mm3 Hgb (11.2-15.7) gm/L Hct (34.1-44.9) % MCV (79.4-94.8) fl MCH (25.6-32.2) pg MCHC (32.2-35.5) g/dl RDW Std Deviation (36.4-46.3) fL Plt Count (182-369) K/mm3 MPV (9.4-12.3) fl Sodium (136-145) mEq/L Potassium (3.5-5.1) mEq/L Chloride (98-107) mEq/L Carbon Dioxide (21-32) mEq/L Anion Gap (5-15) BUN (7-18) mg/dL Creatinine (0.55-1.02) mg/dL Est Cr Clr Drug Dosing mL/min Estimated GFR (MDRD) (>60) mL/min BUN/Creatinine Ratio (14-18) Glucose (83-115) mg/dL POC Glucose 235 H 264 H 264 H (83-110) mg/dL Calcium (8.5-10.1) mg/dL Magnesium (1.8-2.4) mg/dl C-Reactive Protein (<1.0) mg/dL 09/09/18 09/09/18 09/09/18 Range/Units 06:47 06:47 11:10 WBC 22.49 H (3.98-10.04) K/mm3 RBC 3.51 L (3.98-5.22) M/mm3 Hgb 10.4 L D (11.2-15.7) gm/L Hct 32.4 L (34.1-44.9) % MCV 92.3 (79.4-94.8) fl MCH 29.6 (25.6-32.2) pg MCHC 32.1 L (32.2-35.5) g/dl RDW Std Deviation 48.9 H (36.4-46.3) fL Plt Count 348 (182-369) K/mm3 MPV 9.8 (9.4-12.3) fl Sodium 147 H (136-145) mEq/L Potassium 4.1 (3.5-5.1) mEq/L Chloride 112 H (98-107) mEq/L Carbon Dioxide 23 (21-32) mEq/L Anion Gap 16.1 H (5-15) BUN 79 H (7-18) mg/dL Creatinine 1.1 H (0.55-1.02) mg/dL Est Cr Clr Drug Dosing 46.63 mL/min Estimated GFR (MDRD) 49 (>60) mL/min BUN/Creatinine Ratio 71.8 H (14-18) Glucose 314 H (83-115) mg/dL POC Glucose 245 H (83-110) mg/dL Calcium 8.3 L (8.5-10.1) mg/dL Magnesium 2.4 (1.8-2.4) mg/dl C-Reactive Protein 10.0 H* (<1.0) mg/dL Bertram Results Last 24 Hours: Microbiology 09/05/18 22:40 Aerobic Blood Culture - Preliminary Blood - Venous - Lab Draw NO GROWTH AFTER 3 DAYS Anaerobic Blood Culture - Preliminary NO GROWTH AFTER 3 DAYS 09/05/18 22:40 Aerobic Blood Culture - Preliminary Blood - Venous NO GROWTH AFTER 3 DAYS Anaerobic Blood Culture - Preliminary NO GROWTH AFTER 3 DAYS Med Orders - Current: Current Medications Acetaminophen (Tylenol) 1,300 mg PO BID [facility] Last Admin: 09/09/18 08:11 Dose: 1,300 mg Albuterol/Ipratropium (Duoneb 3.0-0.5 Mg/3 Ml) 3 ml NEB Q4H PRN PRN Reason: Shortness Of Breath/wheezing Albuterol/Ipratropium (Duoneb 3.0-0.5 Mg/3 Ml) 3 ml NEB Q6HRRT [facility] Last Admin: 09/09/18 15:17 Dose: 3 ml Amlodipine Besylate (Norvasc) 10 mg PO DAILY [facility] Last Admin: 09/09/18 08:15 Dose: 10 mg Artificial Tears (Refresh Liquigel 1%) 0 ml EYEBOTH DAILY PRN PRN Reason: Dry Eyes Ascorbic Acid (Vitamin C) 1,000 mg PO DAILY [facility] Last Admin: 09/09/18 08:14 Dose: 1,000 mg Bisacodyl (Dulcolax) 5 mg PO DAILY PRN PRN Reason: Constipation Bisacodyl (Dulcolax) 10 mg RECTAL DAILY [facility] Last Admin: 09/09/18 08:48 Dose: Not Given Cyanocobalamin (Vitamin B12) 250 mcg PO DAILY [facility] Last Admin: 09/09/18 08:15 Dose: 250 mcg Dextrose/Water (Dextrose 50% In Water) 50 ml IV ASDIRECTED PRN PRN Reason: Hypoglycemia Famotidine (Pepcid) 20 mg IV DAILY [facility] Last Admin: 09/09/18 08:19 Dose: 20 mg Flunisolide (Nasalide Nasal [place]) 0 ml NASBOTH BID PRN PRN Reason: Allergies Heparin Sodium (Porcine) (Heparin Sodium) 5,000 units SUBCUT Q8H [facility] Last Admin: 09/09/18 09:00 Dose: 5,000 units Levofloxacin/Dextrose 750 mg/ (Premix) 150 mls @ 100 mls/hr IV Q48H [facility] Last Admin: 09/08/18 09:26 Dose: 100 mls/hr Metronidazole 500 mg/ Premix 100 mls @ 100 mls/hr IV Q8H [facility] Last Admin: 09/09/18 15:23 Dose: 100 mls/hr Insulin Human Lispro (Humalog) 0 unit SUBCUT Q6H [facility]; Protocol Last Admin: 09/09/18 11:49 Dose: 6 unit Labetalol HCl (Normodyne) 100 mg PO BID [facility] Last Admin: 09/09/18 08:16 Dose: 100 mg Levothyroxine Sodium (Synthroid) 100 mcg PO DAILY [facility] Last Admin: 09/09/18 08:54 Dose: 100 mcg Metoclopramide HCl (Reglan) 10 mg IVPUSH Q6H [facility] Last Admin: 09/09/18 11:49 Dose: 10 mg Miscellaneous Information (Remove Patch) 0 ea TRDERM Q7D [facility] Multivitamins (Thera) 1 each PO DAILY [facility] Last Admin: 09/09/18 08:14 Dose: 1 each Ozempic 0.5 Mg (Ptom) 0.5 each SUBCUT TH [facility] Last Admin: 09/08/18 12:27 Dose: Not Given Chlorthalidone 25 Mg (Ptom) 0 each PO DAILY [facility] Last Admin: 09/09/18 08:48 Dose: Not Given Rosuvastatin Calcium (Crestor) 20 mg PO DAILY [facility] Last Admin: 09/09/18 08:53 Dose: 20 mg Saccharomyces Boulardii (Florastor) 250 mg PO BID [facility] Last Admin: 09/09/18 08:15 Dose: 250 mg Sodium Chloride (Saline Flush) 10 ml FLUSH ONETIME PRN PRN Reason: IV FLUSH Last Admin: 09/04/18 08:42 Dose: 10 ml Discontinued Medications Acetaminophen (Tylenol) 1,300 mg PO BID [facility] Last Admin: 09/06/18 08:16 Dose: 1,300 mg Acetaminophen (Tylenol) 975 mg PO ONETIME ONE Stop: 09/05/18 00:06 Last Admin: 09/05/18 00:12 Dose: 975 mg Albuterol (Proventil Neb Soln) Confirm Administered Dose 2.5 mg .ROUTE .STK-MED ONE Stop: 09/05/18 09:58 Last Admin: 09/05/18 10:00 Dose: 2.5 mg Albuterol/Ipratropium (Duoneb 3.0-0.5 Mg/3 Ml) 3 ml NEB ONETIME ONE Stop: 09/05/18 09:58 Last Admin: 09/05/18 15:06 Dose: Not Given Albuterol/Ipratropium (Duoneb 3.0-0.5 Mg/3 Ml) 3 ml NEB BIDRT [facility] Last Admin: 09/08/18 06:12 Dose: 3 ml Amlodipine Besylate (Norvasc) 10 mg PO DAILY [facility] Last Admin: 09/06/18 08:10 Dose: Not Given Ascorbic Acid (Vitamin C) 1,000 mg PO DAILY [facility] Last Admin: 09/06/18 08:17 Dose: 1,000 mg Aspirin (Ecotrin) 325 mg PO BID [facility] Last Admin: 09/06/18 08:33 Dose: Not Given Aspirin (Ecotrin) 325 mg PO BID [facility] Last Admin: 09/09/18 08:15 Dose: 325 mg Benazepril HCl (Lotensin) 40 mg PO DAILY [facility] Last Admin: 09/05/18 10:54 Dose: Not Given Bumetanide (Bumex) 0.5 mg IVPUSH ONETIME ONE Stop: 09/06/18 21:39 Last Admin: 09/06/18 22:36 Dose: 0.5 mg Bumetanide (Bumex) 0.5 mg IVPUSH BID [facility] Last Admin: 09/09/18 08:20 Dose: 0.5 mg Clonidine HCl (Catapres-Tts 3) 0.3 mg TRDERM Q7D [facility] Last Admin: 09/08/18 15:49 Dose: 0.3 mg Cyanocobalamin (Vitamin B12) 250 mcg PO DAILY [facility] Last Admin: 09/06/18 08:24 Dose: 250 mcg Dextrose/Water (Dextrose 50% In Water) 50 ml IVPUSH ASDIRECTED PRN PRN Reason: Hypoglycemia Diatrizoate Meglum/Diatrizoate Sod (Gastrografin 37%) 120 ml PO ONETIME ONE Stop: 09/04/18 08:09 Last Admin: 09/04/18 08:41 Dose: 90 ml Diazepam (Valium) 5 mg IV Q6H PRN PRN Reason: Sedation Diltiazem HCl (Cardizem) 10 mg IVPUSH ONETIME STA Stop: 09/07/18 06:34 Last Admin: 09/07/18 06:45 Dose: 10 mg Enoxaparin Sodium (Lovenox) 40 mg SUBCUT DAILY [facility] Furosemide (Lasix) 20 mg PO DAILY [facility] Last Admin: 09/05/18 08:54 Dose: 20 mg Gabapentin (Neurontin) 300 mg PO BEDTIME [facility] Last Admin: 09/04/18 20:16 Dose: 300 mg Hydralazine HCl (Apresoline) 20 mg IVPUSH Q4H PRN PRN Reason: Hypertension Last Admin: 09/09/18 04:18 Dose: 20 mg Hydrocortisone (Hydrocortisone 1% Crm) 0 gm TOP BID PRN PRN Reason: skin complications Hydromorphone HCl (Dilaudid) 0.5 mg IVPUSH ONETIME STA Stop: 09/04/18 06:17 Last Admin: 09/04/18 06:38 Dose: 0.5 mg Hydromorphone HCl (Dilaudid) 0.5 mg IVPUSH Q2H PRN PRN Reason: Pain (severe 7-10) Last Admin: 09/05/18 03:49 Dose: 0.5 mg Sodium Chloride (Normal Saline) 1,000 mls @ 150 mls/hr IV ASDIRECTED NISA Last Infusion: 09/05/18 18:41 Dose: Infused Levofloxacin/Dextrose 750 mg/ (Premix) 150 mls @ 100 mls/hr IV ONETIME ONE Stop: 09/04/18 10:25 Last Admin: 09/04/18 09:15 Dose: 100 mls/hr Metronidazole 500 mg/ Premix 100 mls @ 100 mls/hr IV ONETIME ONE Stop: 09/04/18 09:56 Last Admin: 09/04/18 09:16 Dose: 100 mls/hr Sodium Chloride (Normal Saline) 1,000 mls @ 999 mls/hr IV ASDIRECTED NISA Last Admin: 09/05/18 13:45 Dose: 999 mls/hr Fentanyl 2,500 mcg/ Sodium (Chloride) 250 mls @ 25.57 mls/hr IV TITRATE NISA; Protocol Stop: 09/06/18 14:01 Last Titration: 09/06/18 11:13 Dose: 4 mcg/kg/hr, 51.14 mls/hr Propofol (Diprivan 100 Ml) 100 mls @ 3.836 mls/hr IV TITRATE NISA; Protocol Last Titration: 09/07/18 09:15 Dose: 0 mcg/kg/min, 0 mls/hr Sodium Chloride (Normal Saline) Confirm Administered Dose 1,000 mls @ as directed .ROUTE .STK-MED ONE Stop: 09/05/18 14:12 Last Admin: 09/05/18 15:24 Dose: Not Given Sodium Chloride (Normal Saline) 1,000 mls @ 250 mls/hr IV ASDIRECTED NISA Last Infusion: 09/05/18 22:30 Dose: 999 mls/hr Sodium Chloride (Normal Saline) 1,000 mls @ 999 mls/hr IV ONETIME ONE Stop: 09/05/18 23:30 Last Admin: 09/05/18 22:53 Dose: 999 mls/hr Sodium Chloride (Normal Saline) 1,000 mls @ 125 mls/hr IV ASDIRECTED NISA Last Admin: 09/08/18 05:34 Dose: 125 mls/hr Norepinephrine Bitartrate 4 mg (/ Dextrose/Water) 250 mls @ 7.5 mls/hr IV TITRATE NISA; Protocol Stop: 09/06/18 23:59 Last Titration: 09/06/18 16:24 Dose: 22 mcg/min, 82.5 mls/hr Sodium Bicarbonate 150 meq/ (Sodium Chloride) 400 mls @ 50 mls/hr IV ONETIME ONE Stop: 09/06/18 09:29 Last Admin: 09/06/18 01:51 Dose: 50 mls/hr Sodium Chloride (Normal Saline) Confirm Administered Dose 250 mls @ as directed .ROUTE .STK-MED ONE Stop: 09/06/18 01:27 Last Admin: 09/06/18 01:52 Dose: Not Given Norepinephrine Bitartrate 16 (mg/ Dextrose/Water) 250 mls @ 1.87 mls/hr IV TITRATE NISA; Protocol Last Titration: 09/07/18 12:55 Dose: 0 mcg/min, 0 mls/hr Fentanyl 2,500 mcg/ Sodium (Chloride) 250 mls @ 26.33 mls/hr IV TITRATE NISA; Protocol Stop: 09/07/18 22:00 Last Titration: 09/07/18 20:16 Dose: 2 mcg/kg/hr, 26.33 mls/hr Sodium Chloride (Normal Saline) 500 mls @ 999 mls/hr IV .BOLUS ONE Stop: 09/06/18 20:19 Last Admin: 09/06/18 19:53 Dose: 999 mls/hr Diltiazem HCl 125 mg/ Sodium (Chloride) 125 mls @ 2.5 mls/hr IV TITRATE NISA; Protocol Last Titration: 09/07/18 14:42 Dose: 0 mg/hr, 0 mls/hr Midazolam HCl 50 mg/ Sodium (Chloride) 50 mls @ 0.5 mls/hr IV TITRATE NISA; Protocol Last Titration: 09/07/18 21:17 Dose: 1 mg/hr, 1 mls/hr Insulin Glargine (Lantus) 80 unit SUBCUT BEDTIME N[facility] Last Admin: 09/04/18 22:43 Dose: Not Given Insulin Glargine (Lantus) 80 unit SUBCUT ONETIME ONE Stop: 09/05/18 00:01 Last Admin: 09/04/18 23:51 Dose: Not Given Insulin Glargine (Lantus) 80 unit SUBCUT BEDTIME [facility] Insulin Human Lispro (Humalog) 0 unit SUBCUT QIDACANDBED [facility]; Protocol Last Admin: 09/06/18 09:41 Dose: Not Given Iopamidol (Isovue-370 (76%)) 200 ml IV ONETIME ONE Stop: 09/04/18 08:09 Last Admin: 09/04/18 08:44 Dose: 70 ml Labetalol HCl (Normodyne) 100 mg PO BID [facility] Last Admin: 09/06/18 08:10 Dose: Not Given Labetalol HCl (Normodyne) 20 mg IVPUSH ONETIME ONE; Protocol Stop: 09/08/18 13:44 Last Admin: 09/08/18 13:57 Dose: 20 mg Lactulose (Cephulac) 20 gm PO Q6H [facility] Stop: 09/05/18 07:01 Last Admin: 09/05/18 06:51 Dose: 20 gm Lorazepam (Ativan) 0.5 mg IV Q6H PRN PRN Reason: Anxiety Last Admin: 09/05/18 09:04 Dose: 0.5 mg Lorazepam (Ativan) 2 mg IV Q4H PRN PRN Reason: Anxiety Last Admin: 09/09/18 00:46 Dose: 2 mg Losartan Potassium (Cozaar) 50 mg PO DAILY [facility] Last Admin: 09/05/18 10:53 Dose: Not Given Losartan Potassium (Cozaar) 50 mg PO DAILY [facility] Magnesium Sulfate (Pharmacy To Dose - Magnesium Replacement) 0 dose .XX ASDIRECTED PRN PRN Reason: RX TO WATCH MAG Methylprednisolone Sodium Succinate (Solu-Medrol) 60 mg IVPUSH ONETIME [facility] Stop: 09/05/18 09:58 Last Admin: 09/05/18 11:06 Dose: 60 mg Methylprednisolone Sodium Succinate (Solu-Medrol) 60 mg IVPUSH Q8H [facility] Last Admin: 09/08/18 06:01 Dose: 60 mg Methylprednisolone Sodium Succinate (Solu-Medrol) 60 mg IVPUSH BID [facility] Last Admin: 09/09/18 08:20 Dose: 60 mg Metoclopramide HCl (Reglan) 5 mg IVPUSH Q6H [facility] Stop: 09/05/18 01:01 Last Admin: 09/05/18 00:01 Dose: 5 mg Metoprolol Tartrate (Lopressor) 5 mg IVPUSH Q4H PRN PRN Reason: Tachycardia Last Admin: 09/07/18 09:43 Dose: 5 mg Midazolam HCl (Versed 1 Mg/Ml) 10 mg .ROUTE .STK-MED ONE Stop: 09/05/18 14:01 Midazolam HCl (Versed 1 Mg/Ml) 10 mg IVPUSH ONETIME ONE Stop: 09/05/18 13:34 Last Admin: 09/05/18 13:33 Dose: 10 mg Midodrine (Midodrine) 5 mg PO TIDAC [facility] Last Admin: 09/06/18 11:16 Dose: 5 mg Midodrine (Midodrine) 5 mg PO ONETIME ONE Stop: 09/06/18 01:31 Last Admin: 09/06/18 01:45 Dose: 5 mg Midodrine (Midodrine) 5 mg PO TIDAC [facility] Modafinil (Provigil) 200 mg PO NOW STA Stop: 09/08/18 09:03 Last Admin: 09/08/18 09:18 Dose: 200 mg Morphine Sulfate (Morphine) 1 mg IVPUSH ONETIME ST[facility] Stop: 09/05/18 09:55 Last Admin: 09/05/18 11:07 Dose: 1 mg Morphine Sulfate (Morphine) Confirm Administered Dose 2 mg .ROUTE .STK-MED ONE Stop: 09/05/18 09:57 Last Admin: 09/05/18 11:07 Dose: 1 mg Multivitamins (Thera) 1 each PO DAILY [facility] Last Admin: 09/06/18 08:17 Dose: 1 each Ondansetron HCl (Zofran) 4 mg IVPUSH ONETIME ONE Stop: 09/04/18 06:17 Last Admin: 09/04/18 06:37 Dose: 4 mg Ondansetron HCl (Zofran) 4 mg IV Q6H PRN PRN Reason: Nausea/Vomiting Chlorthalidone 25 Mg (Ptom) 0 each PO DAILY [facility] Last Admin: 09/06/18 08:11 Dose: Not Given Polyethylene Glycol (Miralax) 17 gm PO DAILY PRN PRN Reason: Constipation Potassium Chloride (Pharmacy To Dose - Potassium Replacement) 0 dose .XX ASDIRECTED PRN PRN Reason: RX TO WATCH K Rocuronium [place] (Zemuron) 100 mg .ROUTE .STK-MED ONE Stop: 09/05/18 14:01 Rocuronium [place] (Zemuron) 100 mg IVPUSH ONETIME ONE Stop: 09/05/18 13:35 Last Admin: 09/05/18 13:34 Dose: 100 mg Sodium Bicarbonate (Sodium Bicarbonate 8.4%) 150 meq IVPUSH ONETIME ONE Stop: 09/06/18 01:05 Last Admin: 09/06/18 09:40 Dose: Not Given Sodium Bicarbonate (Sodium Bicarbonate 8.4%) Confirm Administered Dose 50 meq .ROUTE .STK-MED ONE Stop: 09/06/18 01:27 Last Admin: 09/06/18 01:50 Dose: 50 meq Sodium Bicarbonate (Sodium Bicarbonate 8.4%) Confirm Administered Dose 100 meq .ROUTE .STK-MED ONE Stop: 09/06/18 01:29 Last Admin: 09/06/18 01:52 Dose: Not Given Sodium Bicarbonate (Sodium Bicarbonate 8.4%) 50 meq IVPUSH ONETIME ONE Stop: 09/06/18 01:30 Last Admin: 09/06/18 01:51 Dose: 50 meq Sodium Bicarbonate (Sodium Bicarbonate 8.4%) Confirm Administered Dose 50 meq .ROUTE .STK-MED ONE Stop: 09/06/18 01:38 Last Admin: 09/06/18 01:52 Dose: Not Given Temazepam (Restoril) 7.5 mg PO BEDTIME PRN PRN Reason: Sleep Last Admin: 09/08/18 21:25 Dose: 7.5 mg Terbutaline Sulfate (Brethine) 2.5 mg PO BID NISA Stop: 09/06/18 21:01 Last Admin: 09/05/18 11:06 Dose: 2.5 mg - Exam Physical Findings Comments:: General: lethargic, Cooperative, No Acute Distress, Other (Morbidly Obese) HEENT: Pupils Equal, Pupils Reactive Neck: Supple Lungs: Normal Respiratory Effort, mild bibasilar crackles. Cardiovascular: Regular Rate, Regular Rhythm GI/Abdominal Exam: Normal Bowel Sounds, Soft, Non-Tender, No Organomegaly, No Distention, No Abnormal Bruit Extremities: Normal Inspection (left lower extremity), Normal Range of Motion ( left lower extremity), Non-Tender, Normal Capillary Refill, Pedal Edema (right lower extremity), Limited Range of Motion (right lower extremity), 4+ pedal edema Peripheral Pulses: 2+: Dorsalis Pedis (L), Dorsalis Pedis (R) Skin: Warm, Dry, Intact, Ecchymosis (right knee) Wound/Incisions: Dressing Dry and Intact Neurological: lethargic, no acute deficit Psy/Mental Status: Alert, Normal Affect, Normal Mood - Problem List & Annotations (1) Sigmoid diverticulitis SNOMED Code(s): 599908514 Code(s): K57.32 - DVTRCLI OF LG INT W/O PERFORATION OR ABSCESS W/O BLEEDING Status: Acute Current Visit: Yes (2) Hypertension SNOMED Code(s): 39481703 Code(s): I10 - ESSENTIAL (PRIMARY) HYPERTENSION Status: Acute Priority: Medium Current Visit: No Qualifiers: Hypertension type: unspecified Qualified Code(s): I10 - Essential (primary ) hypertension (3) Encephalopathy acute SNOMED Code(s): 42721292, 294540591 Code(s): G93.40 - ENCEPHALOPATHY, UNSPECIFIED Status: Acute Current Visit : Yes - Problem List Review Problem List Initiated/Reviewed/Updated: Yes - My Orders Last 24 Hours: My Active Orders 09/09/18 Dinner Mechanical Soft Diet [DIET] - Plan Plan:: Plan: Acute: Combined Respiratory Failure extubated to NC Diverticulitis with Ileus, Improving - CT scan report reads CT scan report reads increased stool throughout the colon. Slight inflammatory change around a diverticuli within the sigmoid colon which may represent mild diverticulitis. Moderate amount of free fluid within the pelvis most likely reactive and diverticulitis. - Continue IV Flagyl and Levaquin for pharmacy to dose - Oral Probiotic BID - Continue NPO - Dr. Baer following DM2 with Hyperglycemia - LA insulin and ISS--> switch to high level - Accu-check QID Resolved: S/p Hyponatremia, Continues Improve - Na 127--> 133--> 134--> 136 - 2/2 diuretic use - Replete and monitor S/p Sepsis - 2/2 Colonic Diverticulitis - Documented BP or 90/57 and 98/56 mmHg and RR 21-23, Improved blood pressures - Blood Culture x2 and IV Hydration - Afebrile with elevated leukocytosis (WC 21.64 likely 2/2 steroid use) - CRP 39.6-->40.7-->26.4-->17.4 and LA 1.4 - Monitor urine output S/p New Onset Atrial Fibrillation - Likely 2/2 Sepsis - HR ins the 130-140s - Likely 2/2 Sepsis - Heparin 5000 SubQ TID for DVT/Stroke prophylaxis - Cardizem drip; titrate to keep HR at or < 100 Chronic: Impaired Vision Hx/o SVT HTN HLD Urinary Incontinence OA/DJD FREDERICK NORBERTO on CPAP Hypothyroidism Obesity with BMI of 42 LOS > 96hrs due to slow response to treatment
[2018-09-10] MEDS: Heparin Sodium 5,000 Units/ML Vial SUBCUT SCH ×3 (02:02→17:41)
[2018-09-10] MEDS: Albuterol/Ipratropium 3.0-0.5 MG/3 ML Neb Soln NEB SCH ×4 (03:13→20:57)
[2018-09-10] MEDS: Insulin Lispro 100 Units/ML 3 ML Vial SUBCUT SCH ×3 (05:57→17:41)
[2018-09-10] MEDS: Metoclopramide 10 MG/2 ML SDV IVPUSH SCH (05:57)
[2018-09-10] MEDS ORDERED: Insulin Glarg,Human.Rec.Analog 100 UNIT/ML ML SUBCUT SCH (09:00)
[2018-09-10] MEDS: Rosuvastatin 10 MG Tab PO SCH (09:02)
[2018-09-10] MEDS: metroNIDAZOLE/Normal Saline 500 MG in Premix Bag 1 BAG IV SCH ×3 (09:02→23:40)
[2018-09-10] MEDS: Saccharomyces Boulardii (Probiotic) 250 MG Cap PO SCH ×2 (09:03→21:53)
[2018-09-10] MEDS: Levothyroxine 100 MCG Tab PO SCH (09:03)
[2018-09-10] MEDS: Bisacodyl 10 MG Supp RECTAL SCH (09:04)
[2018-09-10] MEDS: Acetaminophen 325 MG Tab PO SCH ×2 (09:05→09:24)
[2018-09-10] MEDS: Multivitamins,Therapeutic Tab PO SCH (09:05)
[2018-09-10] MEDS: CHLORTHALIDONE 25 MG PO SCH (09:05)
[2018-09-10] MEDS: Cyanocobalamin (Vitamin B12) 1,000 MCG Tab PO SCH (09:06)
[2018-09-10] MEDS: Famotidine 20 MG/2 ML SDV IV SCH (09:06)
[2018-09-10] MEDS: Ascorbic Acid 500 MG Tab PO SCH (09:06)
[2018-09-10] MEDS: Labetalol 100 MG Tab PO SCH ×2 (09:22→21:52)
[2018-09-10] MEDS: amLODIPine 10 MG Tab PO SCH (09:22)
[2018-09-10] MEDS ORDERED: Furosemide 100 MG/10 ML SDV IVPUSH ONE (09:41)
[2018-09-10] MEDS ORDERED: Hydrochlorothiazide 25 MG Tab PO ONE (09:43)
[2018-09-10] MEDS ORDERED: Racepinephrine 2.25% 0.5 ML Neb Soln ONE (09:48)
[2018-09-10] MEDS ORDERED: Albuterol 0.083% 2.5 MG/3 ML Neb Soln ONE (09:51)
[2018-09-10] MEDS: Levofloxacin/Dextrose 5%-Water 750 MG in Premix Bag 1 BAG IV SCH ×2 (10:23→13:11)
--- NOTE | 2018-09-10 16:01 | CR ---
Abdomen: Supine view of the abdomen was obtained. Comparison: Prior abdominal x-ray of 09/07/18. Nasogastric tube is seen. Tip lies below the gastroesophageal junction within the body of the stomach. Mild dilated gas-filled loops of colon are seen. Bowel gas pattern is similar to previous exam. Degenerative change is noted within the spine. Impression: 1. Nasogastric tube with tip lying within the body of the stomach. 2. Stable appearing bowel gas pattern. Diagnostic code #2
[2018-09-10] MEDS ORDERED: Magnesium Sulfate/Water 2 GM in Premix Bag 1 BAG IV ONE (16:53)
--- NOTE | 2018-09-10 17:00 | PCM.PN ---
- General Info Date of Service: 09/10/18 Admission Dx/Problem (Free Text): 73 yo elderly white female with past medical hx/o Impaired Vision, Hx/o SVT, HTN , HLD, CKD stage 2-3, Urinary Incontinence, OA/DJD, FREDERICK, DM2, Hypothyroidism, NORBERTO on CPAP and Obesity with BMI of 42 who comes in with complaints of generalized abdominal pain associated with reduced appetite that started this past Wednesday. She tried OTC Metamucil, Miralax and Prune Juice but w/o much improvement. She carries no hx/o chronic constipation but report hx/o opioid induced constipation in the past. Patient recently discharged on 08/31/2018 after undergoing Right TKA here in the hospital. She did however was sent home with narcotic for pain control. CT scan report reads increased stool throughout the colon. Slight inflammatory change around a diverticuli within the sigmoid colon which may represent mild diverticulitis. Moderate amount of free fluid within the pelvis most likely reactive and diverticulitis. Her initial work up shows a CBC remarkable for WBC of 13.42, Neutrophils of 91% , and Lymphocytes of 3%. Her Chemistry is significant for Na of 127, Cl of 91, AG of 16.7, BUN of 57, Cr of 1.7, BS of 215 and Albumin of 2.9. Her UA is negative for UTI. Patient is being admitted for Sepsis 2/2 Acute Diverticulitis. She is full code. Daily Progress: 09/08/18, Patient successfully extubated at 1115. Post extubation chest x-ray shows mild bibasilar atelectasis with mild subglottic narrowing. Consult [facility] for swallow eval in the meantime will do bedside swallow evaluation and IS as directed. 09/09/18, remains extubated, lethargic, adjusted sedatives regimen, started PO intake, responded to diuresis, in the wake of severe hypoalbuminemia and systemic inflammation as well as undernutrition has significant third space fluid excess. Will address diuresis need daily, considering IV albumin to facilitate. 09/10/18, more awake and alert, very poor po intake, responded to loop diuretic with albumin and thiazide, started free water per NG. Nursing unable to place soft NG, placed smallest gauge rigid, started slow rate of TF at 30 ml/hr. Appears to have increased WOB, will follow with 2D ECHO, ABGs as warranted. - Patient Data Vitals - Most Recent: Last Vital Signs Temp 97.3 F 09/10/18 15:22 Pulse 81 09/10/18 15:22 Resp 20 09/10/18 15:22 BP 149/71 H 09/10/18 15:22 Pulse Ox 93 L 09/10/18 15:22 Weight - Most Recent: 282 lb 3.2 oz I&O - Last 24 Hours: Intake & Output 09/10/18 09/10/18 09/10/18 03:59 11:59 19:59 Intake Total 580 2810 Output Total 1700 2550 Balance -1120 260 Lab Results Last 24 Hours: Laboratory Results - last 24 hr 09/09/18 09/09/18 09/09/18 Range/Units 17:18 17:25 22:22 WBC (3.98-10.04) K/mm3 RBC (3.98-5.22) M/mm3 Hgb (11.2-15.7) gm/L Hct (34.1-44.9) % MCV (79.4-94.8) fl MCH (25.6-32.2) pg MCHC (32.2-35.5) g/dl RDW Std Deviation (36.4-46.3) fL Plt Count (182-369) K/mm3 MPV (9.4-12.3) fl Neut % (Auto) (34.0-71.1) % Lymph % (Auto) (19.3-51.7) % [place] % (Auto) (4.7-12.5) % Eos % (Auto) (0.7-5.8) Baso % (Auto) (0.1-1.2) % Neut # (Auto) (1.56-6.13) K/mm3 Lymph # (Auto) (1.18-3.74) K/mm3 [place] # (Auto) (0.24-0.36) K/mm3 Eos # (Auto) (0.04-0.36) K/mm3 Baso # (Auto) (0.01-0.08) K/mm3 Manual Slide Review Sodium (136-145) mEq/L Potassium (3.5-5.1) mEq/L Chloride (98-107) mEq/L Carbon Dioxide (21-32) mEq/L Anion Gap (5-15) BUN (7-18) mg/dL Creatinine (0.55-1.02) mg/dL Est Cr Clr Drug Dosing mL/min Estimated GFR (MDRD) (>60) mL/min BUN/Creatinine Ratio (14-18) Glucose (83-115) mg/dL POC Glucose 278 H 273 H (83-110) mg/dL Lactic Acid 1.0 (0.4-2.0) mmol/L Calcium (8.5-10.1) mg/dL Phosphorus (2.6-4.7) mg/dL Magnesium (1.8-2.4) mg/dl Total Bilirubin (0.2-1.0) mg/dL AST (15-37) U/L ALT (14-59) U/L Alkaline Phosphatase (46-116) U/L NT-Pro-B Natriuret Pep (0-125) pg/mL Total Protein (6.4-8.2) g/dl Albumin (3.4-5.0) g/dl Globulin gm/dL Albumin/Globulin Ratio (1-2) 09/10/18 09/10/18 09/10/18 Range/Units 05:36 06:23 06:23 WBC (3.98-10.04) K/mm3 RBC (3.98-5.22) M/mm3 Hgb (11.2-15.7) gm/L Hct (34.1-44.9) % MCV (79.4-94.8) fl MCH (25.6-32.2) pg MCHC (32.2-35.5) g/dl RDW Std Deviation (36.4-46.3) fL Plt Count (182-369) K/mm3 MPV (9.4-12.3) fl Neut % (Auto) (34.0-71.1) % Lymph % (Auto) (19.3-51.7) % [place] % (Auto) (4.7-12.5) % Eos % (Auto) (0.7-5.8) Baso % (Auto) (0.1-1.2) % Neut # (Auto) (1.56-6.13) K/mm3 Lymph # (Auto) (1.18-3.74) K/mm3 [place] # (Auto) (0.24-0.36) K/mm3 Eos # (Auto) (0.04-0.36) K/mm3 Baso # (Auto) (0.01-0.08) K/mm3 Manual Slide Review Sodium (136-145) mEq/L Potassium (3.5-5.1) mEq/L Chloride (98-107) mEq/L Carbon Dioxide (21-32) mEq/L Anion Gap (5-15) BUN (7-18) mg/dL Creatinine (0.55-1.02) mg/dL Est Cr Clr Drug Dosing mL/min Estimated GFR (MDRD) (>60) mL/min BUN/Creatinine Ratio (14-18) Glucose (83-115) mg/dL POC Glucose 245 H (83-110) mg/dL Lactic Acid (0.4-2.0) mmol/L Calcium (8.5-10.1) mg/dL Phosphorus 2.4 L (2.6-4.7) mg/dL Magnesium 2.2 (1.8-2.4) mg/dl Total Bilirubin (0.2-1.0) mg/dL AST (15-37) U/L ALT (14-59) U/L Alkaline Phosphatase (46-116) U/L NT-Pro-B Natriuret Pep 1610 H (0-125) pg/mL Total Protein (6.4-8.2) g/dl Albumin (3.4-5.0) g/dl Globulin gm/dL Albumin/Globulin Ratio (1-2) 09/10/18 09/10/18 09/10/18 Range/Units 06:23 06:23 12:07 WBC 17.59 H (3.98-10.04) K/mm3 RBC 3.53 L (3.98-5.22) M/mm3 Hgb 10.5 L (11.2-15.7) gm/L Hct 32.9 L (34.1-44.9) % MCV 93.2 (79.4-94.8) fl MCH 29.7 (25.6-32.2) pg MCHC 31.9 L (32.2-35.5) g/dl RDW Std Deviation 49.2 H (36.4-46.3) fL Plt Count 356 (182-369) K/mm3 MPV 9.9 (9.4-12.3) fl Neut % (Auto) 66.2 (34.0-71.1) % Lymph % (Auto) 9.9 L (19.3-51.7) % [place] % (Auto) 7.8 (4.7-12.5) % Eos % (Auto) 0.2 L (0.7-5.8) Baso % (Auto) 0.5 (0.1-1.2) % Neut # (Auto) 11.64 H (1.56-6.13) K/mm3 Lymph # (Auto) 1.74 (1.18-3.74) K/mm3 [place] # (Auto) 1.38 H (0.24-0.36) K/mm3 Eos # (Auto) 0.04 (0.04-0.36) K/mm3 Baso # (Auto) 0.08 (0.01-0.08) K/mm3 Manual Slide Review Abnormal smear Sodium 150 H (136-145) mEq/L Potassium 4.0 (3.5-5.1) mEq/L Chloride 115 H (98-107) mEq/L Carbon Dioxide 25 (21-32) mEq/L Anion Gap 14.0 (5-15) BUN 60 H (7-18) mg/dL Creatinine 0.9 (0.55-1.02) mg/dL Est Cr Clr Drug Dosing 57.00 mL/min Estimated GFR (MDRD) > 60 (>60) mL/min BUN/Creatinine Ratio 66.7 H (14-18) Glucose 276 H (83-115) mg/dL POC Glucose 259 H (83-110) mg/dL Lactic Acid (0.4-2.0) mmol/L Calcium 8.7 (8.5-10.1) mg/dL Phosphorus (2.6-4.7) mg/dL Magnesium (1.8-2.4) mg/dl Total Bilirubin 0.6 (0.2-1.0) mg/dL AST 27 (15-37) U/L ALT 35 (14-59) U/L Alkaline Phosphatase 84 (46-116) U/L NT-Pro-B Natriuret Pep (0-125) pg/mL Total Protein 5.4 L (6.4-8.2) g/dl Albumin 2.1 L (3.4-5.0) g/dl Globulin 3.3 gm/dL Albumin/Globulin Ratio 0.6 L (1-2) 09/10/18 Range/Units 16:05 WBC (3.98-10.04) K/mm3 RBC (3.98-5.22) M/mm3 Hgb (11.2-15.7) gm/L Hct (34.1-44.9) % MCV (79.4-94.8) fl MCH (25.6-32.2) pg MCHC (32.2-35.5) g/dl RDW Std Deviation (36.4-46.3) fL Plt Count (182-369) K/mm3 MPV (9.4-12.3) fl Neut % (Auto) (34.0-71.1) % Lymph % (Auto) (19.3-51.7) % [place] % (Auto) (4.7-12.5) % Eos % (Auto) (0.7-5.8) Baso % (Auto) (0.1-1.2) % Neut # (Auto) (1.56-6.13) K/mm3 Lymph # (Auto) (1.18-3.74) K/mm3 [place] # (Auto) (0.24-0.36) K/mm3 Eos # (Auto) (0.04-0.36) K/mm3 Baso # (Auto) (0.01-0.08) K/mm3 Manual Slide Review Sodium 145 (136-145) mEq/L Potassium 3.7 (3.5-5.1) mEq/L Chloride 109 H (98-107) mEq/L Carbon Dioxide 27 (21-32) mEq/L Anion Gap 12.7 (5-15) BUN 48 H (7-18) mg/dL Creatinine 0.9 (0.55-1.02) mg/dL Est Cr Clr Drug Dosing 57.00 mL/min Estimated GFR (MDRD) > 60 (>60) mL/min BUN/Creatinine Ratio 53.3 H (14-18) Glucose 292 H (83-115) mg/dL POC Glucose (83-110) mg/dL Lactic Acid (0.4-2.0) mmol/L Calcium 8.3 L (8.5-10.1) mg/dL Phosphorus 2.3 L (2.6-4.7) mg/dL Magnesium 1.7 L (1.8-2.4) mg/dl Total Bilirubin (0.2-1.0) mg/dL AST (15-37) U/L ALT (14-59) U/L Alkaline Phosphatase (46-116) U/L NT-Pro-B Natriuret Pep (0-125) pg/mL Total Protein (6.4-8.2) g/dl Albumin (3.4-5.0) g/dl Globulin gm/dL Albumin/Globulin Ratio (1-2) [place] Results Last 24 Hours: Microbiology 09/05/18 22:40 Aerobic Blood Culture - Preliminary Blood - Venous - Lab Draw NO GROWTH AFTER 4 DAYS Anaerobic Blood Culture - Preliminary NO GROWTH AFTER 4 DAYS 09/05/18 22:40 Aerobic Blood Culture - Preliminary Blood - Venous NO GROWTH AFTER 4 DAYS Anaerobic Blood Culture - Preliminary NO GROWTH AFTER 4 DAYS Med Orders - Current: Current Medications Albuterol/Ipratropium (Duoneb 3.0-0.5 Mg/3 Ml) 3 ml NEB Q4H PRN PRN Reason: Shortness Of Breath/wheezing Albuterol/Ipratropium (Duoneb 3.0-0.5 Mg/3 Ml) 3 ml NEB Q6HRRT [facility] Last Admin: 09/10/18 14:49 Dose: 3 ml Amlodipine Besylate (Norvasc) 10 mg PO DAILY [facility] Last Admin: 09/10/18 09:22 Dose: 10 mg Dextrose/Water (Dextrose 50% In Water) 50 ml IV ASDIRECTED PRN PRN Reason: Hypoglycemia Flunisolide (Nasalide Nasal [place]) 0 ml NASBOTH BID PRN PRN Reason: Allergies Heparin Sodium (Porcine) (Heparin Sodium) 5,000 units SUBCUT Q8H [facility] Last Admin: 09/10/18 09:03 Dose: 5,000 units Metronidazole 500 mg/ Premix 100 mls @ 100 mls/hr IV Q8H [facility] Last Admin: 09/10/18 16:34 Dose: 100 mls/hr Levofloxacin/Dextrose 750 mg/ (Premix) 150 mls @ 100 mls/hr IV Q24H [facility] Last Admin: 05/04/19 13:11 Dose: 100 mls/hr Magnesium Sulfate 2 gm/ Premix 50 mls @ 25 mls/hr IV ONETIME ONE Stop: 09/10/18 18:52 Insulin Glargine (Lantus) 30 unit SUBCUT Q24H [facility] Insulin Human Lispro (Humalog) 0 unit SUBCUT Q6H [facility]; Protocol Last Admin: 09/10/18 13:17 Dose: 9 unit Labetalol HCl (Normodyne) 100 mg PO BID [facility] Last Admin: 09/10/18 09:22 Dose: 100 mg Levothyroxine Sodium (Synthroid) 100 mcg PO DAILY [facility] Last Admin: 09/10/18 09:03 Dose: 100 mcg Miscellaneous Information (Remove Patch) 0 ea TRDERM Q7D [facility] Ozempic 0.5 Mg (Ptom) 0.5 each SUBCUT TH [facility] Last Admin: 09/08/18 12:27 Dose: Not Given Chlorthalidone 25 Mg (Ptom) 0 each PO DAILY [facility] Last Admin: 09/10/18 09:05 Dose: Not Given Rosuvastatin Calcium (Crestor) 20 mg PO DAILY [facility] Last Admin: 09/10/18 09:02 Dose: 20 mg Saccharomyces Boulardii (Florastor) 250 mg PO BID [facility] Last Admin: 09/10/18 09:03 Dose: 250 mg Sodium Chloride (Saline Flush) 10 ml FLUSH ONETIME PRN PRN Reason: IV FLUSH Last Admin: 09/04/18 08:42 Dose: 10 ml Discontinued Medications Acetaminophen (Tylenol) 1,300 mg PO BID [facility] Last Admin: 09/06/18 08:16 Dose: 1,300 mg Acetaminophen (Tylenol) 975 mg PO ONETIME ONE Stop: 09/05/18 00:06 Last Admin: 09/05/18 00:12 Dose: 975 mg Acetaminophen (Tylenol) 1,300 mg PO BID [facility] Last Admin: 09/10/18 09:24 Dose: 1,300 mg Albuterol (Proventil Neb Soln) Confirm Administered Dose 2.5 mg .ROUTE .STK-MED ONE Stop: 09/05/18 09:58 Last Admin: 09/05/18 10:00 Dose: 2.5 mg Albuterol (Proventil Neb Soln) Confirm Administered Dose 2.5 mg .ROUTE .STK-MED ONE Stop: 09/10/18 09:52 Last Admin: 09/10/18 10:13 Dose: Not Given Albuterol/Ipratropium (Duoneb 3.0-0.5 Mg/3 Ml) 3 ml NEB ONETIME ONE Stop: 09/05/18 09:58 Last Admin: 09/05/18 15:06 Dose: Not Given Albuterol/Ipratropium (Duoneb 3.0-0.5 Mg/3 Ml) 3 ml NEB BIDRT [facility] Last Admin: 09/08/18 06:12 Dose: 3 ml Amlodipine Besylate (Norvasc) 10 mg PO DAILY [facility] Last Admin: 09/06/18 08:10 Dose: Not Given Artificial Tears (Refresh Liquigel 1%) 0 ml EYEBOTH DAILY PRN PRN Reason: Dry Eyes Ascorbic Acid (Vitamin C) 1,000 mg PO DAILY [facility] Last Admin: 09/06/18 08:17 Dose: 1,000 mg Ascorbic Acid (Vitamin C) 1,000 mg PO DAILY [facility] Last Admin: 09/10/18 09:06 Dose: Not Given Aspirin (Ecotrin) 325 mg PO BID [facility] Last Admin: 09/06/18 08:33 Dose: Not Given Aspirin (Ecotrin) 325 mg PO BID [facility] Last Admin: 09/09/18 08:15 Dose: 325 mg Benazepril HCl (Lotensin) 40 mg PO DAILY [facility] Last Admin: 09/05/18 10:54 Dose: Not Given Bisacodyl (Dulcolax) 5 mg PO DAILY PRN PRN Reason: Constipation Bisacodyl (Dulcolax) 10 mg RECTAL DAILY [facility] Last Admin: 09/10/18 09:04 Dose: Not Given Bumetanide (Bumex) 0.5 mg IVPUSH ONETIME ONE Stop: 09/06/18 21:39 Last Admin: 09/06/18 22:36 Dose: 0.5 mg Bumetanide (Bumex) 0.5 mg IVPUSH BID [facility] Last Admin: 09/09/18 08:20 Dose: 0.5 mg Clonidine HCl (Catapres-Tts 3) 0.3 mg TRDERM Q7D [facility] Last Admin: 09/08/18 15:49 Dose: 0.3 mg Cyanocobalamin (Vitamin B12) 250 mcg PO DAILY [facility] Last Admin: 09/06/18 08:24 Dose: 250 mcg Cyanocobalamin (Vitamin B12) 250 mcg PO DAILY [facility] Last Admin: 09/10/18 09:06 Dose: Not Given Dextrose/Water (Dextrose 50% In Water) 50 ml IVPUSH ASDIRECTED PRN PRN Reason: Hypoglycemia Diatrizoate Meglum/Diatrizoate Sod (Gastrografin 37%) 120 ml PO ONETIME ONE Stop: 09/04/18 08:09 Last Admin: 09/04/18 08:41 Dose: 90 ml Diazepam (Valium) 5 mg IV Q6H PRN PRN Reason: Sedation Diltiazem HCl (Cardizem) 10 mg IVPUSH ONETIME STA Stop: 09/07/18 06:34 Last Admin: 09/07/18 06:45 Dose: 10 mg Enoxaparin Sodium (Lovenox) 40 mg SUBCUT DAILY [facility] Famotidine (Pepcid) 20 mg IV DAILY [facility] Last Admin: 09/10/18 09:06 Dose: 20 mg Furosemide (Lasix) 20 mg PO DAILY [facility] Last Admin: 09/05/18 08:54 Dose: 20 mg Furosemide (Lasix) 60 mg IVPUSH ONETIME ONE Stop: 09/10/18 09:42 Last Admin: 09/10/18 13:12 Dose: 60 mg Gabapentin (Neurontin) 300 mg PO BEDTIME [facility] Last Admin: 09/04/18 20:16 Dose: 300 mg Hydralazine HCl (Apresoline) 20 mg IVPUSH Q4H PRN PRN Reason: Hypertension Last Admin: 09/09/18 04:18 Dose: 20 mg Hydrochlorothiazide (Hydrochlorothiazide) 25 mg PO ONETIME ONE Stop: 09/10/18 09:44 Last Admin: 09/10/18 13:12 Dose: 25 mg Hydrocortisone (Hydrocortisone 1% Crm) 0 gm TOP BID PRN PRN Reason: skin complications Hydromorphone HCl (Dilaudid) 0.5 mg IVPUSH ONETIME STA Stop: 09/04/18 06:17 Last Admin: 09/04/18 06:38 Dose: 0.5 mg Hydromorphone HCl (Dilaudid) 0.5 mg IVPUSH Q2H PRN PRN Reason: Pain (severe 7-10) Last Admin: 09/05/18 03:49 Dose: 0.5 mg Sodium Chloride (Normal Saline) 1,000 mls @ 150 mls/hr IV ASDIRECTED NISA Last Infusion: 09/05/18 18:41 Dose: Infused Levofloxacin/Dextrose 750 mg/ (Premix) 150 mls @ 100 mls/hr IV ONETIME ONE Stop: 09/04/18 10:25 Last Admin: 09/04/18 09:15 Dose: 100 mls/hr Metronidazole 500 mg/ Premix 100 mls @ 100 mls/hr IV ONETIME ONE Stop: 09/04/18 09:56 Last Admin: 09/04/18 09:16 Dose: 100 mls/hr Levofloxacin/Dextrose 750 mg/ (Premix) 150 mls @ 100 mls/hr IV Q48H NISA Last Admin: 09/10/18 10:23 Dose: Not Given Sodium Chloride (Normal Saline) 1,000 mls @ 999 mls/hr IV ASDIRECTED NISA Last Admin: 09/05/18 13:45 Dose: 999 mls/hr Fentanyl 2,500 mcg/ Sodium (Chloride) 250 mls @ 25.57 mls/hr IV TITRATE NISA; Protocol Stop: 09/06/18 14:01 Last Titration: 09/06/18 11:13 Dose: 4 mcg/kg/hr, 51.14 mls/hr Propofol (Diprivan 100 Ml) 100 mls @ 3.836 mls/hr IV TITRATE NISA; Protocol Last Titration: 09/07/18 09:15 Dose: 0 mcg/kg/min, 0 mls/hr Sodium Chloride (Normal Saline) Confirm Administered Dose 1,000 mls @ as directed .ROUTE .STK-MED ONE Stop: 09/05/18 14:12 Last Admin: 09/05/18 15:24 Dose: Not Given Sodium Chloride (Normal Saline) 1,000 mls @ 250 mls/hr IV ASDIRECTED NISA Last Infusion: 09/05/18 22:30 Dose: 999 mls/hr Sodium Chloride (Normal Saline) 1,000 mls @ 999 mls/hr IV ONETIME ONE Stop: 09/05/18 23:30 Last Admin: 09/05/18 22:53 Dose: 999 mls/hr Sodium Chloride (Normal Saline) 1,000 mls @ 125 mls/hr IV ASDIRECTED NISA Last Admin: 09/08/18 05:34 Dose: 125 mls/hr Norepinephrine Bitartrate 4 mg (/ Dextrose/Water) 250 mls @ 7.5 mls/hr IV TITRATE NISA; Protocol Stop: 09/06/18 23:59 Last Titration: 09/06/18 16:24 Dose: 22 mcg/min, 82.5 mls/hr Sodium Bicarbonate 150 meq/ (Sodium Chloride) 400 mls @ 50 mls/hr IV ONETIME ONE Stop: 09/06/18 09:29 Last Admin: 09/06/18 01:51 Dose: 50 mls/hr Sodium Chloride (Normal Saline) Confirm Administered Dose 250 mls @ as directed .ROUTE .STK-MED ONE Stop: 09/06/18 01:27 Last Admin: 09/06/18 01:52 Dose: Not Given Norepinephrine Bitartrate 16 (mg/ Dextrose/Water) 250 mls @ 1.87 mls/hr IV TITRATE NISA; Protocol Last Titration: 09/07/18 12:55 Dose: 0 mcg/min, 0 mls/hr Fentanyl 2,500 mcg/ Sodium (Chloride) 250 mls @ 26.33 mls/hr IV TITRATE NISA; Protocol Stop: 09/07/18 22:00 Last Titration: 09/07/18 20:16 Dose: 2 mcg/kg/hr, 26.33 mls/hr Sodium Chloride (Normal Saline) 500 mls @ 999 mls/hr IV .BOLUS ONE Stop: 09/06/18 20:19 Last Admin: 09/06/18 19:53 Dose: 999 mls/hr Diltiazem HCl 125 mg/ Sodium (Chloride) 125 mls @ 2.5 mls/hr IV TITRATE NISA; Protocol Last Titration: 09/07/18 14:42 Dose: 0 mg/hr, 0 mls/hr Midazolam HCl 50 mg/ Sodium (Chloride) 50 mls @ 0.5 mls/hr IV TITRATE NISA; Protocol Last Titration: 09/07/18 21:17 Dose: 1 mg/hr, 1 mls/hr Albumin Human (Flexbumin 25%) 25 gm in 100 mls @ 100 mls/hr IV ONETIME ONE Stop: 09/10/18 10:39 Last Admin: 09/10/18 12:02 Dose: 100 mls/hr Insulin Glargine (Lantus) 80 unit SUBCUT BEDTIME [facility] Last Admin: 09/04/18 22:43 Dose: Not Given Insulin Glargine (Lantus) 80 unit SUBCUT ONETIME ONE Stop: 09/05/18 00:01 Last Admin: 09/04/18 23:51 Dose: Not Given Insulin Glargine (Lantus) 80 unit SUBCUT BEDTIME NISA Insulin Human Lispro (Humalog) 0 unit SUBCUT QIDACANDBED [facility]; Protocol Last Admin: 09/06/18 09:41 Dose: Not Given Iopamidol (Isovue-370 (76%)) 200 ml IV ONETIME ONE Stop: 09/04/18 08:09 Last Admin: 09/04/18 08:44 Dose: 70 ml Labetalol HCl (Normodyne) 100 mg PO BID [facility] Last Admin: 09/06/18 08:10 Dose: Not Given Labetalol HCl (Normodyne) 20 mg IVPUSH ONETIME ONE; Protocol Stop: 09/08/18 13:44 Last Admin: 09/08/18 13:57 Dose: 20 mg Lactulose (Cephulac) 20 gm PO Q6H NISA Stop: 09/05/18 07:01 Last Admin: 09/05/18 06:51 Dose: 20 gm Lorazepam (Ativan) 0.5 mg IV Q6H PRN PRN Reason: Anxiety Last Admin: 09/05/18 09:04 Dose: 0.5 mg Lorazepam (Ativan) 2 mg IV Q4H PRN PRN Reason: Anxiety Last Admin: 09/09/18 00:46 Dose: 2 mg Losartan Potassium (Cozaar) 50 mg PO DAILY [facility] Last Admin: 09/05/18 10:53 Dose: Not Given Losartan Potassium (Cozaar) 50 mg PO DAILY [facility] Magnesium Sulfate (Pharmacy To Dose - Magnesium Replacement) 0 dose .XX ASDIRECTED PRN PRN Reason: RX TO WATCH MAG Methylprednisolone Sodium Succinate (Solu-Medrol) 60 mg IVPUSH ONETIME STA Stop: 09/05/18 09:58 Last Admin: 09/05/18 11:06 Dose: 60 mg Methylprednisolone Sodium Succinate (Solu-Medrol) 60 mg IVPUSH Q8H [facility] Last Admin: 09/08/18 06:01 Dose: 60 mg Methylprednisolone Sodium Succinate (Solu-Medrol) 60 mg IVPUSH BID [facility] Last Admin: 09/09/18 08:20 Dose: 60 mg Metoclopramide HCl (Reglan) 5 mg IVPUSH Q6H NISA Stop: 09/05/18 01:01 Last Admin: 09/05/18 00:01 Dose: 5 mg Metoclopramide HCl (Reglan) 10 mg IVPUSH Q6H NISA Last Admin: 09/10/18 05:57 Dose: 10 mg Metoprolol Tartrate (Lopressor) 5 mg IVPUSH Q4H PRN PRN Reason: Tachycardia Last Admin: 09/07/18 09:43 Dose: 5 mg Midazolam HCl (Versed 1 Mg/Ml) 10 mg .ROUTE .STK-MED ONE Stop: 09/05/18 14:01 Midazolam HCl (Versed 1 Mg/Ml) 10 mg IVPUSH ONETIME ONE Stop: 09/05/18 13:34 Last Admin: 09/05/18 13:33 Dose: 10 mg Midodrine (Midodrine) 5 mg PO TIDAC [facility] Last Admin: 09/06/18 11:16 Dose: 5 mg Midodrine (Midodrine) 5 mg PO ONETIME ONE Stop: 09/06/18 01:31 Last Admin: 09/06/18 01:45 Dose: 5 mg Midodrine (Midodrine) 5 mg PO TIDAC [facility] Modafinil (Provigil) 200 mg PO NOW STA Stop: 09/08/18 09:03 Last Admin: 09/08/18 09:18 Dose: 200 mg Morphine Sulfate (Morphine) 1 mg IVPUSH ONETIME STA Stop: 09/05/18 09:55 Last Admin: 09/05/18 11:07 Dose: 1 mg Morphine Sulfate (Morphine) Confirm Administered Dose 2 mg .ROUTE .STK-MED ONE Stop: 09/05/18 09:57 Last Admin: 09/05/18 11:07 Dose: 1 mg Multivitamins (Thera) 1 each PO DAILY [facility] Last Admin: 09/06/18 08:17 Dose: 1 each Multivitamins (Thera) 1 each PO DAILY [facility] Last Admin: 09/10/18 09:05 Dose: Not Given Ondansetron HCl (Zofran) 4 mg IVPUSH ONETIME ONE Stop: 09/04/18 06:17 Last Admin: 09/04/18 06:37 Dose: 4 mg Ondansetron HCl (Zofran) 4 mg IV Q6H PRN PRN Reason: Nausea/Vomiting Chlorthalidone 25 Mg (Ptom) 0 each PO DAILY N[facility] Last Admin: 09/06/18 08:11 Dose: Not Given Polyethylene Glycol (Miralax) 17 gm PO DAILY PRN PRN Reason: Constipation Potassium Chloride (Pharmacy To Dose - Potassium Replacement) 0 dose .XX ASDIRECTED PRN PRN Reason: RX TO WATCH K Racepinephrine (S-2 2.25%) Confirm Administered Dose 0.5 ml .ROUTE .STK-MED ONE Stop: 09/10/18 09:49 Last Admin: 09/10/18 10:13 Dose: Not Given Rocuronium Olmitz (Zemuron) 100 mg .ROUTE .STK-MED ONE Stop: 09/05/18 14:01 Rocuronium Olmitz (Zemuron) 100 mg IVPUSH ONETIME ONE Stop: 09/05/18 13:35 Last Admin: 09/05/18 13:34 Dose: 100 mg Sodium Bicarbonate (Sodium Bicarbonate 8.4%) 150 meq IVPUSH ONETIME ONE Stop: 09/06/18 01:05 Last Admin: 09/06/18 09:40 Dose: Not Given Sodium Bicarbonate (Sodium Bicarbonate 8.4%) Confirm Administered Dose 50 meq .ROUTE .STK-MED ONE Stop: 09/06/18 01:27 Last Admin: 09/06/18 01:50 Dose: 50 meq Sodium Bicarbonate (Sodium Bicarbonate 8.4%) Confirm Administered Dose 100 meq .ROUTE .STK-MED ONE Stop: 09/06/18 01:29 Last Admin: 09/06/18 01:52 Dose: Not Given Sodium Bicarbonate (Sodium Bicarbonate 8.4%) 50 meq IVPUSH ONETIME ONE Stop: 09/06/18 01:30 Last Admin: 09/06/18 01:51 Dose: 50 meq Sodium Bicarbonate (Sodium Bicarbonate 8.4%) Confirm Administered Dose 50 meq .ROUTE .STK-MED ONE Stop: 09/06/18 01:38 Last Admin: 09/06/18 01:52 Dose: Not Given Temazepam (Restoril) 7.5 mg PO BEDTIME PRN PRN Reason: Sleep Last Admin: 09/08/18 21:25 Dose: 7.5 mg Terbutaline Sulfate (Brethine) 2.5 mg PO BID NISA Stop: 09/06/18 21:01 Last Admin: 09/05/18 11:06 Dose: 2.5 mg - Exam Physical Findings Comments:: General: awake, Cooperative, No Acute Distress, Other (Morbidly Obese) HEENT: Pupils Equal, Pupils Reactive Neck: Supple Lungs: Normal Respiratory Effort, mild bibasilar crackles. Cardiovascular: Regular Rate, Regular Rhythm GI/Abdominal Exam: Normal Bowel Sounds, Soft, Non-Tender, No Organomegaly, No Distention, No Abnormal Bruit Extremities: Normal Inspection (left lower extremity), Normal Range of Motion ( left lower extremity), Non-Tender, Normal Capillary Refill, Pedal Edema (right lower extremity), Limited Range of Motion (right lower extremity), 4+ pedal edema Peripheral Pulses: 2+: Dorsalis Pedis (L), Dorsalis Pedis (R) Skin: Warm, Dry, Intact, Ecchymosis (right knee) Wound/Incisions: Dressing Dry and Intact Neurological: lethargic, no acute deficit Psy/Mental Status: Alert, Normal Affect, Normal Mood - Problem List & Annotations (1) Sigmoid diverticulitis SNOMED Code(s): 888619262 Code(s): K57.32 - DVTRCLI OF LG INT W/O PERFORATION OR ABSCESS W/O BLEEDING Status: Acute Current Visit: Yes (2) Hypertension SNOMED Code(s): 33878190 Code(s): I10 - ESSENTIAL (PRIMARY) HYPERTENSION Status: Acute Priority: Medium Current Visit: No Qualifiers: Hypertension type: unspecified Qualified Code(s): I10 - Essential (primary ) hypertension (3) Encephalopathy acute SNOMED Code(s): 57715269, 358601741 Code(s): G93.40 - ENCEPHALOPATHY, UNSPECIFIED Status: Acute Current Visit : Yes - Problem List Review Problem List Initiated/Reviewed/Updated: Yes - My Orders Last 24 Hours: My Active Orders 09/09/18 18:19 Resuscitation Status Routine 09/10/18 09:37 Nasogastric Orogastric Tube Insertion [OM.PC] Routine 09/10/18 16:48 Insulin Glarg,Human.Rec.Analog [LantUS] 30 unit SUBCUT Q24H 09/10/18 16:53 Magnesium Sulfate/Water [Magnesium Sulfate 2 GM in Water 50 ML] 2 gm Premix Bag 1 bag IV ONETIME 09/10/18 Dinner Tube Feeding Adult Diet [DIET] 09/11/18 05:00 MAGNESIUM [CHEM] AM PHOSPHORUS [CHEM] AM 09/11/18 05:11 CBC WITH AUTO DIFF [HEME] AM COMPREHENSIVE METABOLIC PN,CMP [CHEM] AM 09/12/18 09:39 Echo Comp wo Cont [US] Routine - Plan Plan:: Plan: Acute: 1.Combined Respiratory Failure -extubated to NC - increased WOB, diuresis, 2D Echo, ABGs 2.Diverticulitis with Ileus, Improving - CT scan report reads CT scan report reads increased stool throughout the colon. Slight inflammatory change around a diverticuli within the sigmoid colon which may represent mild diverticulitis. Moderate amount of free fluid within the pelvis most likely reactive and diverticulitis. - Continue IV Flagyl and Levaquin for pharmacy to dose - Oral Probiotic BID - started TF - Dr. Baer following 3.DM2 with Hyperglycemia - LA insulin and ISS--> switch to high level - Accu-check QID 4.Hypoalbuminemia, undernutrition; - started TF 5.Hypernatremia, - started free water per NG LOS > 96hrs due to slow response to treatment
[2018-09-10] MEDS: Insulin Glarg,Human.Rec.Analog 100 UNIT/ML ML SUBCUT SCH (21:53)
[2018-09-11] MEDS: Insulin Lispro 100 Units/ML 3 ML Vial SUBCUT SCH ×5 (02:05→22:54)
[2018-09-11] MEDS: Heparin Sodium 5,000 Units/ML Vial SUBCUT SCH ×3 (02:05→18:18)
[2018-09-11] MEDS: Albuterol/Ipratropium 3.0-0.5 MG/3 ML Neb Soln NEB SCH ×4 (03:11→20:56)
[2018-09-11] MEDS: Saccharomyces Boulardii (Probiotic) 250 MG Cap PO SCH ×2 (08:23→20:43)
[2018-09-11] MEDS: Rosuvastatin 10 MG Tab PO SCH (08:24)
[2018-09-11] MEDS: Labetalol 100 MG Tab PO SCH ×2 (08:25→20:43)
[2018-09-11] MEDS: Levothyroxine 100 MCG Tab PO SCH (08:25)
[2018-09-11] MEDS: amLODIPine 10 MG Tab PO SCH (08:26)
[2018-09-11] MEDS: CHLORTHALIDONE 25 MG PO SCH (08:27)
[2018-09-11] MEDS: metroNIDAZOLE/Normal Saline 500 MG in Premix Bag 1 BAG IV SCH ×3 (08:28→23:05)
[2018-09-11] MEDS ORDERED: Losartan 25 MG Tab PO SCH (09:00)
[2018-09-11] MEDS ORDERED: Magnesium Sulfate/Water 2 GM in Premix Bag 1 BAG IV ONE (09:19)
[2018-09-11] MEDS: Levofloxacin/Dextrose 5%-Water 750 MG in Premix Bag 1 BAG IV SCH (09:30)
[2018-09-11] MEDS: Acetaminophen/HYDROcodone 325-5 MG Tab PO PRN ×2 (11:37→21:57)
--- NOTE | 2018-09-11 18:23 | PCM.PN ---
- General Info Date of Service: 09/11/18 Admission Dx/Problem (Free Text): 73 yo elderly white female with past medical hx/o Impaired Vision, Hx/o SVT, HTN , HLD, CKD stage 2-3, Urinary Incontinence, OA/DJD, FREDERICK, DM2, Hypothyroidism, NORBERTO on CPAP and Obesity with BMI of 42 who comes in with complaints of generalized abdominal pain associated with reduced appetite that started this past Wednesday. She tried OTC Metamucil, Miralax and Prune Juice but w/o much improvement. She carries no hx/o chronic constipation but report hx/o opioid induced constipation in the past. Patient recently discharged on 08/31/2018 after undergoing Right TKA here in the hospital. She did however was sent home with narcotic for pain control. CT scan report reads increased stool throughout the colon. Slight inflammatory change around a diverticuli within the sigmoid colon which may represent mild diverticulitis. Moderate amount of free fluid within the pelvis most likely reactive and diverticulitis. Her initial work up shows a CBC remarkable for WBC of 13.42, Neutrophils of 91% , and Lymphocytes of 3%. Her Chemistry is significant for Na of 127, Cl of 91, AG of 16.7, BUN of 57, Cr of 1.7, BS of 215 and Albumin of 2.9. Her UA is negative for UTI. Patient is being admitted for Sepsis 2/2 Acute Diverticulitis. She is full code. Daily Progress: 09/08/18, Patient successfully extubated at 1115. Post extubation chest x-ray shows mild bibasilar atelectasis with mild subglottic narrowing. Consult [facility] for swallow eval in the meantime will do bedside swallow evaluation and IS as directed. 09/09/18, remains extubated, lethargic, adjusted sedatives regimen, started PO intake, responded to diuresis, in the wake of severe hypoalbuminemia and systemic inflammation as well as undernutrition has significant third space fluid excess. Will address diuresis need daily, considering IV albumin to facilitate. 09/10/18, more awake and alert, very poor po intake, responded to loop diuretic with albumin and thiazide, started free water per NG. Nursing unable to place soft NG, placed smallest gauge rigid, started slow rate of TF at 30 ml/hr. Appears to have increased WOB, will follow with 2D ECHO, ABGs as warranted. 09/11/18, developed loose stool, otherwise tolerates TF well, adjusted SSI upward , moderate response to diuresis, complains on worsening lower abdominal pain, will consider CT in AM, WBC somewhat up. - Patient Data Vitals - Most Recent: Last Vital Signs Temp 98.4 F 09/11/18 15:57 Pulse 76 09/11/18 15:57 Resp 22 H 09/11/18 15:57 BP 141/54 H 09/11/18 15:57 Pulse Ox 91 L 09/11/18 15:57 Weight - Most Recent: 284 lb 1.6 oz I&O - Last 24 Hours: Intake & Output 09/11/18 09/11/18 09/11/18 03:59 11:59 19:59 Intake Total 1518 1677 Output Total 2700 1450 Balance -1182 227 Lab Results Last 24 Hours: Laboratory Results - last 24 hr 09/10/18 09/11/18 09/11/18 Range/Units 20:52 00:49 05:40 WBC (3.98-10.04) K/mm3 RBC (3.98-5.22) M/mm3 Hgb (11.2-15.7) gm/L Hct (34.1-44.9) % MCV (79.4-94.8) fl MCH (25.6-32.2) pg MCHC (32.2-35.5) g/dl RDW Std Deviation (36.4-46.3) fL Plt Count (182-369) K/mm3 MPV (9.4-12.3) fl Neut % (Auto) (34.0-71.1) % Lymph % (Auto) (19.3-51.7) % [place] % (Auto) (4.7-12.5) % Eos % (Auto) (0.7-5.8) Baso % (Auto) (0.1-1.2) % Neut # (Auto) (1.56-6.13) K/mm3 Lymph # (Auto) (1.18-3.74) K/mm3 [place] # (Auto) (0.24-0.36) K/mm3 Eos # (Auto) (0.04-0.36) K/mm3 Baso # (Auto) (0.01-0.08) K/mm3 Manual Slide Review Sodium (136-145) mEq/L Potassium (3.5-5.1) mEq/L Chloride (98-107) mEq/L Carbon Dioxide (21-32) mEq/L Anion Gap (5-15) BUN (7-18) mg/dL Creatinine (0.55-1.02) mg/dL Est Cr Clr Drug Dosing mL/min Estimated GFR (MDRD) (>60) mL/min BUN/Creatinine Ratio (14-18) Glucose (83-115) mg/dL POC Glucose 225 H (83-110) mg/dL Calcium (8.5-10.1) mg/dL Phosphorus 2.6 (2.6-4.7) mg/dL Magnesium 1.7 L (1.8-2.4) mg/dl Total Bilirubin (0.2-1.0) mg/dL AST (15-37) U/L ALT (14-59) U/L Alkaline Phosphatase (46-116) U/L Total Protein (6.4-8.2) g/dl Albumin (3.4-5.0) g/dl Globulin gm/dL Albumin/Globulin Ratio (1-2) C.difficile 027-[id number] Presumptive negative C. difficile Tox (PCR) Negative 09/11/18 09/11/18 09/11/18 Range/Units 05:40 05:40 06:29 WBC 21.28 H (3.98-10.04) K/mm3 RBC 3.47 L (3.98-5.22) M/mm3 Hgb 10.3 L (11.2-15.7) gm/L Hct 32.5 L (34.1-44.9) % MCV 93.7 (79.4-94.8) fl MCH 29.7 (25.6-32.2) pg MCHC 31.7 L (32.2-35.5) g/dl RDW Std Deviation 48.7 H (36.4-46.3) fL Plt Count 315 (182-369) K/mm3 MPV 9.9 (9.4-12.3) fl Neut % (Auto) 74.8 H (34.0-71.1) % Lymph % (Auto) 8.1 L (19.3-51.7) % [place] % (Auto) 6.4 (4.7-12.5) % Eos % (Auto) 0.9 (0.7-5.8) Baso % (Auto) 0.2 (0.1-1.2) % Neut # (Auto) 15.89 H (1.56-6.13) K/mm3 Lymph # (Auto) 1.73 (1.18-3.74) K/mm3 [place] # (Auto) 1.37 H (0.24-0.36) K/mm3 Eos # (Auto) 0.20 (0.04-0.36) K/mm3 Baso # (Auto) 0.04 (0.01-0.08) K/mm3 Manual Slide Review Abnormal smear Sodium 145 (136-145) mEq/L Potassium 3.6 (3.5-5.1) mEq/L Chloride 108 H (98-107) mEq/L Carbon Dioxide 30 (21-32) mEq/L Anion Gap 10.6 (5-15) BUN 35 H (7-18) mg/dL Creatinine 0.8 (0.55-1.02) mg/dL Est Cr Clr Drug Dosing 64.12 mL/min Estimated GFR (MDRD) > 60 (>60) mL/min BUN/Creatinine Ratio 43.8 H (14-18) Glucose 206 H (83-115) mg/dL POC Glucose 195 H (83-110) mg/dL Calcium 7.8 L (8.5-10.1) mg/dL Phosphorus (2.6-4.7) mg/dL Magnesium (1.8-2.4) mg/dl Total Bilirubin 0.7 (0.2-1.0) mg/dL AST 32 (15-37) U/L ALT 33 (14-59) U/L Alkaline Phosphatase 76 (46-116) U/L Total Protein 5.1 L (6.4-8.2) g/dl Albumin 2.1 L (3.4-5.0) g/dl Globulin 3.0 gm/dL Albumin/Globulin Ratio 0.7 L (1-2) C.difficile [id number]-NAP1-B1 C. difficile Tox (PCR) 09/11/18 09/11/18 Range/Units 11:36 16:32 WBC (3.98-10.04) K/mm3 RBC (3.98-5.22) M/mm3 Hgb (11.2-15.7) gm/L Hct (34.1-44.9) % MCV (79.4-94.8) fl MCH (25.6-32.2) pg MCHC (32.2-35.5) g/dl RDW Std Deviation (36.4-46.3) fL Plt Count (182-369) K/mm3 MPV (9.4-12.3) fl Neut % (Auto) (34.0-71.1) % Lymph % (Auto) (19.3-51.7) % [place] % (Auto) (4.7-12.5) % Eos % (Auto) (0.7-5.8) Baso % (Auto) (0.1-1.2) % Neut # (Auto) (1.56-6.13) K/mm3 Lymph # (Auto) (1.18-3.74) K/mm3 [place] # (Auto) (0.24-0.36) K/mm3 Eos # (Auto) (0.04-0.36) K/mm3 Baso # (Auto) (0.01-0.08) K/mm3 Manual Slide Review Sodium (136-145) mEq/L Potassium (3.5-5.1) mEq/L Chloride (98-107) mEq/L Carbon Dioxide (21-32) mEq/L Anion Gap (5-15) BUN (7-18) mg/dL Creatinine (0.55-1.02) mg/dL Est Cr Clr Drug Dosing mL/min Estimated GFR (MDRD) (>60) mL/min BUN/Creatinine Ratio (14-18) Glucose (83-115) mg/dL POC Glucose 252 H 274 H (83-110) mg/dL Calcium (8.5-10.1) mg/dL Phosphorus (2.6-4.7) mg/dL Magnesium (1.8-2.4) mg/dl Total Bilirubin (0.2-1.0) mg/dL AST (15-37) U/L ALT (14-59) U/L Alkaline Phosphatase (46-116) U/L Total Protein (6.4-8.2) g/dl Albumin (3.4-5.0) g/dl Globulin gm/dL Albumin/Globulin Ratio (1-2) C.difficile 027-NAP1-B1 C. difficile Tox (PCR) [place]ram Results Last 24 Hours: Microbiology 09/05/18 22:40 Aerobic Blood Culture - Preliminary Blood - Venous - Lab Draw NO GROWTH AFTER 5 DAYS Anaerobic Blood Culture - Preliminary NO GROWTH AFTER 5 DAYS 09/05/18 22:40 Aerobic Blood Culture - Preliminary Blood - Venous NO GROWTH AFTER 5 DAYS Anaerobic Blood Culture - Preliminary NO GROWTH AFTER 5 DAYS Med Orders - Current: Current Medications Hydrocodone Bitart/Acetaminophen ([place] 325-5 Mg) 1 tab PO Q6H PRN PRN Reason: Pain Last Admin: 09/11/18 11:37 Dose: 1 tab Albuterol/Ipratropium (Duoneb 3.0-0.5 Mg/3 Ml) 3 ml NEB Q4H PRN PRN Reason: Shortness Of Breath/wheezing Albuterol/Ipratropium (Duoneb 3.0-0.5 Mg/3 Ml) 3 ml NEB Q6HRRT [facility] Last Admin: 09/11/18 14:59 Dose: 3 ml Amlodipine Besylate (Norvasc) 10 mg PO DAILY [facility] Last Admin: 09/11/18 08:26 Dose: 10 mg Dextrose/Water (Dextrose 50% In Water) 50 ml IV ASDIRECTED PRN PRN Reason: Hypoglycemia Flunisolide (Nasalide Nasal [place]) 0 ml NASBOTH BID PRN PRN Reason: Allergies Heparin Sodium (Porcine) (Heparin Sodium) 5,000 units SUBCUT Q8H [facility] Last Admin: 09/11/18 18:18 Dose: 5,000 units Metronidazole 500 mg/ Premix 100 mls @ 100 mls/hr IV Q8H [facility] Last Admin: 09/11/18 15:51 Dose: 100 mls/hr Levofloxacin/Dextrose 750 mg/ (Premix) 150 mls @ 100 mls/hr IV Q24H [facility] Last Admin: 09/11/18 09:30 Dose: 100 mls/hr Insulin Glargine (Lantus) 30 unit SUBCUT Q24H [facility] Last Admin: 09/10/18 21:53 Dose: 30 units Insulin Human Lispro (Humalog) 0 unit SUBCUT Q6H [facility]; Protocol Last Admin: 09/11/18 17:01 Dose: 9 unit Labetalol HCl (Normodyne) 100 mg PO BID [facility] Last Admin: 09/11/18 08:25 Dose: 100 mg Levothyroxine Sodium (Synthroid) 100 mcg PO DAILY [facility] Last Admin: 09/11/18 08:25 Dose: 100 mcg Miscellaneous Information (Remove Patch) 0 ea TRDERM Q7D [facility] Ozempic 0.5 Mg (Ptom) 0.5 each SUBCUT TH [facility] Last Admin: 09/08/18 12:27 Dose: Not Given Chlorthalidone 25 Mg (Ptom) 0 each PO DAILY [facility] Last Admin: 09/11/18 08:27 Dose: Not Given Rosuvastatin Calcium (Crestor) 20 mg PO DAILY [facility] Last Admin: 09/11/18 08:24 Dose: 20 mg Saccharomyces Boulardii (Florastor) 250 mg PO BID [facility] Last Admin: 09/11/18 08:23 Dose: 250 mg Sodium Chloride (Saline Flush) 10 ml FLUSH ONETIME PRN PRN Reason: IV FLUSH Last Admin: 09/04/18 08:42 Dose: 10 ml Discontinued Medications Acetaminophen (Tylenol) 1,300 mg PO BID [facility] Last Admin: 09/06/18 08:16 Dose: 1,300 mg Acetaminophen (Tylenol) 975 mg PO ONETIME ONE Stop: 09/05/18 00:06 Last Admin: 09/05/18 00:12 Dose: 975 mg Acetaminophen (Tylenol) 1,300 mg PO BID [facility] Last Admin: 09/10/18 09:24 Dose: 1,300 mg Albuterol (Proventil Neb Soln) Confirm Administered Dose 2.5 mg .ROUTE .STK-MED ONE Stop: 09/05/18 09:58 Last Admin: 09/05/18 10:00 Dose: 2.5 mg Albuterol (Proventil Neb Soln) Confirm Administered Dose 2.5 mg .ROUTE .STK-MED ONE Stop: 09/10/18 09:52 Last Admin: 09/10/18 10:13 Dose: Not Given Albuterol/Ipratropium (Duoneb 3.0-0.5 Mg/3 Ml) 3 ml NEB ONETIME ONE Stop: 09/05/18 09:58 Last Admin: 09/05/18 15:06 Dose: Not Given Albuterol/Ipratropium (Duoneb 3.0-0.5 Mg/3 Ml) 3 ml NEB BIDRT [facility] Last Admin: 09/08/18 06:12 Dose: 3 ml Amlodipine Besylate (Norvasc) 10 mg PO DAILY [facility] Last Admin: 09/06/18 08:10 Dose: Not Given Artificial Tears (Refresh Liquigel 1%) 0 ml EYEBOTH DAILY PRN PRN Reason: Dry Eyes Ascorbic Acid (Vitamin C) 1,000 mg PO DAILY [facility] Last Admin: 09/06/18 08:17 Dose: 1,000 mg Ascorbic Acid (Vitamin C) 1,000 mg PO DAILY [facility] Last Admin: 09/10/18 09:06 Dose: Not Given Aspirin (Ecotrin) 325 mg PO BID [facility] Last Admin: 09/06/18 08:33 Dose: Not Given Aspirin (Ecotrin) 325 mg PO BID [facility] Last Admin: 09/09/18 08:15 Dose: 325 mg Benazepril HCl (Lotensin) 40 mg PO DAILY [facility] Last Admin: 09/05/18 10:54 Dose: Not Given Bisacodyl (Dulcolax) 5 mg PO DAILY PRN PRN Reason: Constipation Bisacodyl (Dulcolax) 10 mg RECTAL DAILY [facility] Last Admin: 09/10/18 09:04 Dose: Not Given Bumetanide (Bumex) 0.5 mg IVPUSH ONETIME ONE Stop: 09/06/18 21:39 Last Admin: 09/06/18 22:36 Dose: 0.5 mg Bumetanide (Bumex) 0.5 mg IVPUSH BID [facility] Last Admin: 09/09/18 08:20 Dose: 0.5 mg Clonidine HCl (Catapres-Tts 3) 0.3 mg TRDERM Q7D [facility] Last Admin: 09/08/18 15:49 Dose: 0.3 mg Cyanocobalamin (Vitamin B12) 250 mcg PO DAILY [facility] Last Admin: 09/06/18 08:24 Dose: 250 mcg Cyanocobalamin (Vitamin B12) 250 mcg PO DAILY [facility] Last Admin: 09/10/18 09:06 Dose: Not Given Dextrose/Water (Dextrose 50% In Water) 50 ml IVPUSH ASDIRECTED PRN PRN Reason: Hypoglycemia Diatrizoate Meglum/Diatrizoate Sod (Gastrografin 37%) 120 ml PO ONETIME ONE Stop: 09/04/18 08:09 Last Admin: 09/04/18 08:41 Dose: 90 ml Diazepam (Valium) 5 mg IV Q6H PRN PRN Reason: Sedation Diltiazem HCl (Cardizem) 10 mg IVPUSH ONETIME STA Stop: 09/07/18 06:34 Last Admin: 09/07/18 06:45 Dose: 10 mg Enoxaparin Sodium (Lovenox) 40 mg SUBCUT DAILY [facility] Famotidine (Pepcid) 20 mg IV DAILY [facility] Last Admin: 09/10/18 09:06 Dose: 20 mg Furosemide (Lasix) 20 mg PO DAILY [facility] Last Admin: 09/05/18 08:54 Dose: 20 mg Furosemide (Lasix) 60 mg IVPUSH ONETIME ONE Stop: 09/10/18 09:42 Last Admin: 09/10/18 13:12 Dose: 60 mg Gabapentin (Neurontin) 300 mg PO BEDTIME [facility] Last Admin: 09/04/18 20:16 Dose: 300 mg Hydralazine HCl (Apresoline) 20 mg IVPUSH Q4H PRN PRN Reason: Hypertension Last Admin: 09/09/18 04:18 Dose: 20 mg Hydrochlorothiazide (Hydrochlorothiazide) 25 mg PO ONETIME ONE Stop: 09/10/18 09:44 Last Admin: 09/10/18 13:12 Dose: 25 mg Hydrocortisone (Hydrocortisone 1% Crm) 0 gm TOP BID PRN PRN Reason: skin complications Hydromorphone HCl (Dilaudid) 0.5 mg IVPUSH ONETIME STA Stop: 09/04/18 06:17 Last Admin: 09/04/18 06:38 Dose: 0.5 mg Hydromorphone HCl (Dilaudid) 0.5 mg IVPUSH Q2H PRN PRN Reason: Pain (severe 7-10) Last Admin: 09/05/18 03:49 Dose: 0.5 mg Sodium Chloride (Normal Saline) 1,000 mls @ 150 mls/hr IV ASDIRECTED [facility] Last Infusion: 09/05/18 18:41 Dose: Infused Levofloxacin/Dextrose 750 mg/ (Premix) 150 mls @ 100 mls/hr IV ONETIME ONE Stop: 09/04/18 10:25 Last Admin: 09/04/18 09:15 Dose: 100 mls/hr Metronidazole 500 mg/ Premix 100 mls @ 100 mls/hr IV ONETIME ONE Stop: 09/04/18 09:56 Last Admin: 09/04/18 09:16 Dose: 100 mls/hr Levofloxacin/Dextrose 750 mg/ (Premix) 150 mls @ 100 mls/hr IV Q48H [facility] Last Admin: 09/10/18 10:23 Dose: Not Given Sodium Chloride (Normal Saline) 1,000 mls @ 999 mls/hr IV ASDIRECTED [facility] Last Admin: 09/05/18 13:45 Dose: 999 mls/hr Fentanyl 2,500 mcg/ Sodium (Chloride) 250 mls @ 25.57 mls/hr IV TITRATE [facility]; Protocol Stop: 09/06/18 14:01 Last Titration: 09/06/18 11:13 Dose: 4 mcg/kg/hr, 51.14 mls/hr Propofol (Diprivan 100 Ml) 100 mls @ 3.836 mls/hr IV TITRATE [facility]; Protocol Last Titration: 09/07/18 09:15 Dose: 0 mcg/kg/min, 0 mls/hr Sodium Chloride (Normal Saline) Confirm Administered Dose 1,000 mls @ as directed .ROUTE .STK-MED ONE Stop: 09/05/18 14:12 Last Admin: 09/05/18 15:24 Dose: Not Given Sodium Chloride (Normal Saline) 1,000 mls @ 250 mls/hr IV ASDIRECTED [facility] Last Infusion: 09/05/18 22:30 Dose: 999 mls/hr Sodium Chloride (Normal Saline) 1,000 mls @ 999 mls/hr IV ONETIME ONE Stop: 09/05/18 23:30 Last Admin: 09/05/18 22:53 Dose: 999 mls/hr Sodium Chloride (Normal Saline) 1,000 mls @ 125 mls/hr IV ASDIRECTED [facility] Last Admin: 09/08/18 05:34 Dose: 125 mls/hr Norepinephrine Bitartrate 4 mg (/ Dextrose/Water) 250 mls @ 7.5 mls/hr IV TITRATE [facility]; Protocol Stop: 09/06/18 23:59 Last Titration: 09/06/18 16:24 Dose: 22 mcg/min, 82.5 mls/hr Sodium Bicarbonate 150 meq/ (Sodium Chloride) 400 mls @ 50 mls/hr IV ONETIME ONE Stop: 09/06/18 09:29 Last Admin: 09/06/18 01:51 Dose: 50 mls/hr Sodium Chloride (Normal Saline) Confirm Administered Dose 250 mls @ as directed .ROUTE .STK-MED ONE Stop: 09/06/18 01:27 Last Admin: 09/06/18 01:52 Dose: Not Given Norepinephrine Bitartrate 16 (mg/ Dextrose/Water) 250 mls @ 1.87 mls/hr IV TITRATE [facility]; Protocol Last Titration: 09/07/18 12:55 Dose: 0 mcg/min, 0 mls/hr Fentanyl 2,500 mcg/ Sodium (Chloride) 250 mls @ 26.33 mls/hr IV TITRATE [facility]; Protocol Stop: 09/07/18 22:00 Last Titration: 09/07/18 20:16 Dose: 2 mcg/kg/hr, 26.33 mls/hr Sodium Chloride (Normal Saline) 500 mls @ 999 mls/hr IV .BOLUS ONE Stop: 09/06/18 20:19 Last Admin: 09/06/18 19:53 Dose: 999 mls/hr Diltiazem HCl 125 mg/ Sodium (Chloride) 125 mls @ 2.5 mls/hr IV TITRATE [facility]; Protocol Last Titration: 09/07/18 14:42 Dose: 0 mg/hr, 0 mls/hr Midazolam HCl 50 mg/ Sodium (Chloride) 50 mls @ 0.5 mls/hr IV TITRATE [facility]; Protocol Last Titration: 09/07/18 21:17 Dose: 1 mg/hr, 1 mls/hr Albumin Human (Flexbumin 25%) 25 gm in 100 mls @ 100 mls/hr IV ONETIME ONE Stop: 09/10/18 10:39 Last Admin: 09/10/18 12:02 Dose: 100 mls/hr Magnesium Sulfate 2 gm/ Premix 50 mls @ 25 mls/hr IV ONETIME ONE Stop: 09/10/18 18:52 Last Admin: 09/10/18 17:45 Dose: 25 mls/hr Magnesium Sulfate 2 gm/ Premix 50 mls @ 25 mls/hr IV ONETIME ONE Stop: 09/11/18 11:18 Last Admin: 09/11/18 11:11 Dose: 25 mls/hr Insulin Glargine (Lantus) 80 unit SUBCUT BEDTIME [facility] Last Admin: 09/04/18 22:43 Dose: Not Given Insulin Glargine (Lantus) 80 unit SUBCUT ONETIME ONE Stop: 09/05/18 00:01 Last Admin: 09/04/18 23:51 Dose: Not Given Insulin Glargine (Lantus) 80 unit SUBCUT BEDTIME [facility] Insulin Human Lispro (Humalog) 0 unit SUBCUT QIDACANDBED [facility]; Protocol Last Admin: 09/06/18 09:41 Dose: Not Given Iopamidol (Isovue-370 (76%)) 200 ml IV ONETIME ONE Stop: 09/04/18 08:09 Last Admin: 09/04/18 08:44 Dose: 70 ml Labetalol HCl (Normodyne) 100 mg PO BID [facility] Last Admin: 09/06/18 08:10 Dose: Not Given Labetalol HCl (Normodyne) 20 mg IVPUSH ONETIME ONE; Protocol Stop: 09/08/18 13:44 Last Admin: 09/08/18 13:57 Dose: 20 mg Lactulose (Cephulac) 20 gm PO Q6H [facility] Stop: 09/05/18 07:01 Last Admin: 09/05/18 06:51 Dose: 20 gm Lorazepam (Ativan) 0.5 mg IV Q6H PRN PRN Reason: Anxiety Last Admin: 09/05/18 09:04 Dose: 0.5 mg Lorazepam (Ativan) 2 mg IV Q4H PRN PRN Reason: Anxiety Last Admin: 09/09/18 00:46 Dose: 2 mg Losartan Potassium (Cozaar) 50 mg PO DAILY [facility] Last Admin: 09/05/18 10:53 Dose: Not Given Losartan Potassium (Cozaar) 50 mg PO DAILY [facility] Magnesium Sulfate (Pharmacy To Dose - Magnesium Replacement) 0 dose .XX ASDIRECTED PRN PRN Reason: RX TO WATCH MAG Methylprednisolone Sodium Succinate (Solu-Medrol) 60 mg IVPUSH ONETIME STA Stop: 09/05/18 09:58 Last Admin: 09/05/18 11:06 Dose: 60 mg Methylprednisolone Sodium Succinate (Solu-Medrol) 60 mg IVPUSH Q8H [facility] Last Admin: 09/08/18 06:01 Dose: 60 mg Methylprednisolone Sodium Succinate (Solu-Medrol) 60 mg IVPUSH BID [facility] Last Admin: 09/09/18 08:20 Dose: 60 mg Metoclopramide HCl (Reglan) 5 mg IVPUSH Q6H [facility] Stop: 09/05/18 01:01 Last Admin: 09/05/18 00:01 Dose: 5 mg Metoclopramide HCl (Reglan) 10 mg IVPUSH Q6H [facility] Last Admin: 09/10/18 05:57 Dose: 10 mg Metoprolol Tartrate (Lopressor) 5 mg IVPUSH Q4H PRN PRN Reason: Tachycardia Last Admin: 09/07/18 09:43 Dose: 5 mg Midazolam HCl (Versed 1 Mg/Ml) 10 mg .ROUTE .STK-MED ONE Stop: 09/05/18 14:01 Midazolam HCl (Versed 1 Mg/Ml) 10 mg IVPUSH ONETIME ONE Stop: 09/05/18 13:34 Last Admin: 09/05/18 13:33 Dose: 10 mg Midodrine (Midodrine) 5 mg PO TIDAC [facility] Last Admin: 09/06/18 11:16 Dose: 5 mg Midodrine (Midodrine) 5 mg PO ONETIME ONE Stop: 09/06/18 01:31 Last Admin: 09/06/18 01:45 Dose: 5 mg Midodrine (Midodrine) 5 mg PO TIDAC [facility] Modafinil (Provigil) 200 mg PO NOW STA Stop: 09/08/18 09:03 Last Admin: 09/08/18 09:18 Dose: 200 mg Morphine Sulfate (Morphine) 1 mg IVPUSH ONETIME STA Stop: 09/05/18 09:55 Last Admin: 09/05/18 11:07 Dose: 1 mg Morphine Sulfate (Morphine) Confirm Administered Dose 2 mg .ROUTE .STK-MED ONE Stop: 09/05/18 09:57 Last Admin: 09/05/18 11:07 Dose: 1 mg Multivitamins (Thera) 1 each PO DAILY [facility] Last Admin: 09/06/18 08:17 Dose: 1 each Multivitamins (Thera) 1 each PO DAILY [facility] Last Admin: 09/10/18 09:05 Dose: Not Given Ondansetron HCl (Zofran) 4 mg IVPUSH ONETIME ONE Stop: 09/04/18 06:17 Last Admin: 09/04/18 06:37 Dose: 4 mg Ondansetron HCl (Zofran) 4 mg IV Q6H PRN PRN Reason: Nausea/Vomiting Chlorthalidone 25 Mg (Ptom) 0 each PO DAILY [facility] Last Admin: 09/06/18 08:11 Dose: Not Given Polyethylene Glycol (Miralax) 17 gm PO DAILY PRN PRN Reason: Constipation Potassium Chloride (Pharmacy To Dose - Potassium Replacement) 0 dose .XX ASDIRECTED PRN PRN Reason: RX TO WATCH K Racepinephrine (S-2 2.25%) Confirm Administered Dose 0.5 ml .ROUTE .STK-MED ONE Stop: 09/10/18 09:49 Last Admin: 09/10/18 10:13 Dose: Not Given Rocuronium [place] (Zemuron) 100 mg .ROUTE .STK-MED ONE Stop: 09/05/18 14:01 Rocuronium [place] (Zemuron) 100 mg IVPUSH ONETIME ONE Stop: 09/05/18 13:35 Last Admin: 09/05/18 13:34 Dose: 100 mg Sodium Bicarbonate (Sodium Bicarbonate 8.4%) 150 meq IVPUSH ONETIME ONE Stop: 09/06/18 01:05 Last Admin: 09/06/18 09:40 Dose: Not Given Sodium Bicarbonate (Sodium Bicarbonate 8.4%) Confirm Administered Dose 50 meq .ROUTE .STK-MED ONE Stop: 09/06/18 01:27 Last Admin: 09/06/18 01:50 Dose: 50 meq Sodium Bicarbonate (Sodium Bicarbonate 8.4%) Confirm Administered Dose 100 meq .ROUTE .STK-MED ONE Stop: 09/06/18 01:29 Last Admin: 09/06/18 01:52 Dose: Not Given Sodium Bicarbonate (Sodium Bicarbonate 8.4%) 50 meq IVPUSH ONETIME ONE Stop: 09/06/18 01:30 Last Admin: 09/06/18 01:51 Dose: 50 meq Sodium Bicarbonate (Sodium Bicarbonate 8.4%) Confirm Administered Dose 50 meq .ROUTE .STK-MED ONE Stop: 09/06/18 01:38 Last Admin: 09/06/18 01:52 Dose: Not Given Temazepam (Restoril) 7.5 mg PO BEDTIME PRN PRN Reason: Sleep Last Admin: 09/08/18 21:25 Dose: 7.5 mg Terbutaline Sulfate (Brethine) 2.5 mg PO BID NISA Stop: 09/06/18 21:01 Last Admin: 09/05/18 11:06 Dose: 2.5 mg - Exam Physical Findings Comments:: General: awake, Cooperative, No Acute Distress, Other (Morbidly Obese) HEENT: Pupils Equal, Pupils Reactive Neck: Supple Lungs: Normal Respiratory Effort, mild bibasilar crackles. Cardiovascular: Regular Rate, Regular Rhythm GI/Abdominal Exam: Normal Bowel Sounds, Soft, Non-Tender, No Organomegaly, No Distention, No Abnormal Bruit Extremities: Normal Inspection (left lower extremity), Normal Range of Motion ( left lower extremity), Non-Tender, Normal Capillary Refill, Pedal Edema (right lower extremity), Limited Range of Motion (right lower extremity), 4+ pedal edema Peripheral Pulses: 2+: Dorsalis Pedis (L), Dorsalis Pedis (R) Skin: Warm, Dry, Intact, Ecchymosis (right knee) Wound/Incisions: Dressing Dry and Intact Neurological: lethargic, no acute deficit Psy/Mental Status: Alert, Normal Affect, Normal Mood - Problem List & Annotations (1) Sigmoid diverticulitis SNOMED Code(s): 441926761 Code(s): K57.32 - DVTRCLI OF LG INT W/O PERFORATION OR ABSCESS W/O BLEEDING Status: Acute Current Visit: Yes (2) Hypertension SNOMED Code(s): 28913278 Code(s): I10 - ESSENTIAL (PRIMARY) HYPERTENSION Status: Acute Priority: Medium Current Visit: No Qualifiers: Hypertension type: unspecified Qualified Code(s): I10 - Essential (primary ) hypertension (3) Encephalopathy acute SNOMED Code(s): 79587399, 286163965 Code(s): G93.40 - ENCEPHALOPATHY, UNSPECIFIED Status: Acute Current Visit : Yes - Problem List Review Problem List Initiated/Reviewed/Updated: Yes - My Orders Last 24 Hours: My Active Orders 09/10/18 21:00 Insulin Glarg,Human.Rec.Analog [LantUS] 30 unit SUBCUT Q24H 09/11/18 09:18 Acetaminophen/HYDROcodone [[place] 325-5 MG] 1 tab PO Q6H PRN 09/11/18 09:54 Up to Chair [RC] BID 09/11/18 Breakfast Clear Liquid Diet [DIET] 09/12/18 09:39 Echo Comp wo Cont [US] Routine - Plan Plan:: Plan: Acute: 1.Combined Respiratory Failure -extubated to NC - increased WOB, diuresis, 2D Echo, ABGs 2.Diverticulitis with Ileus, Improving - CT scan report reads CT scan report reads increased stool throughout the colon. Slight inflammatory change around a diverticuli within the sigmoid colon which may represent mild diverticulitis. Moderate amount of free fluid within the pelvis most likely reactive and diverticulitis. - Continue IV Flagyl and Levaquin for pharmacy to dose - Oral Probiotic BID - started TF - Dr. Baer following 3.DM2 with Hyperglycemia - LA insulin and ISS--> switch to high level, modified. - Accu-check QID 4.Hypoalbuminemia, undernutrition; - started TF 5.Hypernatremia, - started free water per NG - improving. LOS > 96hrs due to slow response to treatment
[2018-09-11] MEDS: acetaZOLAMIDE 250 MG Tab PO SCH ×3 (19:01→22:27)
[2018-09-11] MEDS: Insulin Glarg,Human.Rec.Analog 100 UNIT/ML ML SUBCUT SCH (21:42)
[2018-09-12] MEDS: Insulin Lispro 100 Units/ML 3 ML Vial SUBCUT SCH ×4 (00:27→18:25)
[2018-09-12] MEDS: Heparin Sodium 5,000 Units/ML Vial SUBCUT SCH ×3 (01:55→18:26)
[2018-09-12] MEDS: acetaZOLAMIDE 250 MG Tab PO SCH ×3 (01:57→21:42)
[2018-09-12] MEDS: Albuterol/Ipratropium 3.0-0.5 MG/3 ML Neb Soln NEB SCH ×4 (02:14→20:19)
[2018-09-12] MEDS: Acetaminophen/HYDROcodone 325-5 MG Tab PO PRN ×2 (04:50→21:40)
[2018-09-12] MEDS: metroNIDAZOLE/Normal Saline 500 MG in Premix Bag 1 BAG IV SCH ×2 (08:07→15:02)
[2018-09-12] MEDS: Saccharomyces Boulardii (Probiotic) 250 MG Cap PO SCH ×2 (08:09→21:40)
[2018-09-12] MEDS: Rosuvastatin 10 MG Tab PO SCH (08:14)
[2018-09-12] MEDS: Labetalol 100 MG Tab PO SCH ×2 (08:15→21:43)
[2018-09-12] MEDS: amLODIPine 10 MG Tab PO SCH (08:16)
[2018-09-12] MEDS: Levothyroxine 100 MCG Tab PO SCH (08:17)
[2018-09-12] MEDS: CHLORTHALIDONE 25 MG PO SCH (08:18)
[2018-09-12] MEDS ORDERED: Fluticasone Propionate Nasal Spray 16 GM Bottle NASBOTH PRN (09:15)
--- NOTE | 2018-09-12 09:42 | CT ---
CT abdomen and pelvis Technique: Multiple axial sections were obtained above the dome of the diaphragm inferiorly through the pubic symphysis. Intravenous and oral contrast not utilized which diminishes details of the exam. Comparison: Prior CT abdomen and pelvis exam of 09/04/18. Findings: Small right-sided pleural effusion is seen with slight parenchymal density within both lung bases most likely due to atelectasis. Very minimal left-sided pleural effusion is seen. Noncontrast appearance of the liver shows no discrete abnormality. Spleen shows no discrete abnormality. Adrenal glands show no nodule. Nasogastric tube courses through the lower mediastinum with tip lying within the proximal stomach. Coronary artery calcification is partially seen. Kidneys show no abnormal calcifications or hydronephrosis. Pancreas is within normal limits. Calcified gallstone is seen within the gallbladder. Gallbladder also shows increased density most likely representing sludge. No gallbladder wall thickening or surrounding inflammatory change is seen. Aorta shows no aneurysm. No retroperitoneal adenopathy or mesenteric abnormalities are seen. Numerous sigmoid diverticuli are seen as well as additional diverticuli within the descending colon. Body wall edema is noted. No definite inflammatory change seen to indicate diverticulitis. Minimal free fluid is seen within the pelvis. Torres catheter is present within the bladder. Bone window settings were reviewed which show degenerative change throughout the spine with scoliosis. Impression: 1. Multiple findings as noted above which appear nonacute. No definite findings of diverticulitis are seen. Diagnostic code #3
[2018-09-12] MEDS: Levofloxacin/Dextrose 5%-Water 750 MG in Premix Bag 1 BAG IV SCH (10:33)
--- NOTE | 2018-09-12 11:55 | PCM.PN ---
- General Info Date of Service: 09/12/18 Admission Dx/Problem (Free Text): 73 yo elderly white female with past medical hx/o Impaired Vision, Hx/o SVT, HTN , HLD, CKD stage 2-3, Urinary Incontinence, OA/DJD, FREDERICK, DM2, Hypothyroidism, NORBERTO on CPAP and Obesity with BMI of 42 who comes in with complaints of generalized abdominal pain associated with reduced appetite that started this past Wednesday. She tried OTC Metamucil, Miralax and Prune Juice but w/o much improvement. She carries no hx/o chronic constipation but report hx/o opioid induced constipation in the past. Patient recently discharged on 08/31/2018 after undergoing Right TKA here in the hospital. She did however was sent home with narcotic for pain control. CT scan report reads increased stool throughout the colon. Slight inflammatory change around a diverticuli within the sigmoid colon which may represent mild diverticulitis. Moderate amount of free fluid within the pelvis most likely reactive and diverticulitis. Her initial work up shows a CBC remarkable for WBC of 13.42, Neutrophils of 91% , and Lymphocytes of 3%. Her Chemistry is significant for Na of 127, Cl of 91, AG of 16.7, BUN of 57, Cr of 1.7, BS of 215 and Albumin of 2.9. Her UA is negative for UTI. Patient is being admitted for Sepsis 2/2 Acute Diverticulitis. She is full code. Daily Progress: 09/08/18, Patient successfully extubated at 1115. Post extubation chest x-ray shows mild bibasilar atelectasis with mild subglottic narrowing. Consult [employer] for swallow eval in the meantime will do bedside swallow evaluation and IS as directed. 09/09/18, remains extubated, lethargic, adjusted sedatives regimen, started PO intake, responded to diuresis, in the wake of severe hypoalbuminemia and systemic inflammation as well as undernutrition has significant third space fluid excess. Will address diuresis need daily, considering IV albumin to facilitate. 09/10/18, more awake and alert, very poor po intake, responded to loop diuretic with albumin and thiazide, started free water per NG. Nursing unable to place soft NG, placed smallest gauge rigid, started slow rate of TF at 30 ml/hr. Appears to have increased WOB, will follow with 2D ECHO, ABGs as warranted. 09/11/18, developed loose stool, otherwise tolerates TF well, adjusted SSI upward , moderate response to diuresis, complains on worsening lower abdominal pain, will consider CT in AM, WBC somewhat up. 09/12/18, CT reveals gallstone with sludge, WBC continues to rise, will panculture , order venous doppler of LE, lipase at 3800, discussed with surgery, will continue TF today. - Patient Data Vitals - Most Recent: Last Vital Signs Temp 98.1 F 09/12/18 08:13 Pulse 76 09/12/18 08:15 Resp 20 09/12/18 08:13 BP 149/86 H 09/12/18 09:53 Pulse Ox 92 L 09/12/18 09:15 Weight - Most Recent: 281 lb 9.6 oz I&O - Last 24 Hours: Intake & Output 09/11/18 09/12/18 09/12/18 19:59 03:59 11:59 Intake Total 1677 400 Output Total 1450 1300 Balance 227 -900 Lab Results Last 24 Hours: Laboratory Results - last 24 hr 09/11/18 09/11/18 09/11/18 Range/Units 16:32 18:27 19:30 WBC (3.98-10.04) K/mm3 RBC (3.98-5.22) M/mm3 Hgb (11.2-15.7) gm/L Hct (34.1-44.9) % MCV (79.4-94.8) fl MCH (25.6-32.2) pg MCHC (32.2-35.5) g/dl RDW Std Deviation (36.4-46.3) fL Plt Count (182-369) K/mm3 MPV (9.4-12.3) fl Neut % (Auto) (34.0-71.1) % Lymph % (Auto) (19.3-51.7) % Winkler % (Auto) (4.7-12.5) % Eos % (Auto) (0.7-5.8) Baso % (Auto) (0.1-1.2) % Neut # (Auto) (1.56-6.13) K/mm3 Lymph # (Auto) (1.18-3.74) K/mm3 Winkler # (Auto) (0.24-0.36) K/mm3 Eos # (Auto) (0.04-0.36) K/mm3 Baso # (Auto) (0.01-0.08) K/mm3 Manual Slide Review Puncture Site Rt radial ABG pH 7.51 H (7.35-7.45) ABG pCO2 33.1 L (35.0-45.0) mmHg ABG pO2 53.0 L (80.0-100.0) mmHg ABG HCO3 26.3 H (22.0-26.0) meq/L ABG O2 Saturation 88.1 L (96.0-97.0) % ABG Base Excess 3.7 H (-2-2.0) William Test Positive A-a Gradient mmHg O2 Delivery Device Room air FiO2 0.00 L (21.00-100.00) % Sodium (136-145) mEq/L Potassium (3.5-5.1) mEq/L Chloride (98-107) mEq/L Carbon Dioxide (21-32) mEq/L Anion Gap (5-15) BUN (7-18) mg/dL Creatinine (0.55-1.02) mg/dL Est Cr Clr Drug Dosing mL/min Estimated GFR (MDRD) (>60) mL/min BUN/Creatinine Ratio (14-18) Glucose (83-115) mg/dL POC Glucose 274 H (83-110) mg/dL Lactic Acid 1.5 (0.4-2.0) mmol/L Calcium (8.5-10.1) mg/dL Phosphorus (2.6-4.7) mg/dL Magnesium (1.8-2.4) mg/dl Total Bilirubin (0.2-1.0) mg/dL AST (15-37) U/L ALT (14-59) U/L Alkaline Phosphatase (46-116) U/L NT-Pro-B Natriuret Pep (0-125) pg/mL Total Protein (6.4-8.2) g/dl Albumin (3.4-5.0) g/dl Globulin gm/dL Albumin/Globulin Ratio (1-2) Lipase (73-393) U/L 09/11/18 09/11/18 09/12/18 Range/Units 20:40 22:53 05:05 WBC (3.98-10.04) K/mm3 RBC (3.98-5.22) M/mm3 Hgb (11.2-15.7) gm/L Hct (34.1-44.9) % MCV (79.4-94.8) fl MCH (25.6-32.2) pg MCHC (32.2-35.5) g/dl RDW Std Deviation (36.4-46.3) fL Plt Count (182-369) K/mm3 MPV (9.4-12.3) fl Neut % (Auto) (34.0-71.1) % Lymph % (Auto) (19.3-51.7) % Winkler % (Auto) (4.7-12.5) % Eos % (Auto) (0.7-5.8) Baso % (Auto) (0.1-1.2) % Neut # (Auto) (1.56-6.13) K/mm3 Lymph # (Auto) (1.18-3.74) K/mm3 Winkler # (Auto) (0.24-0.36) K/mm3 Eos # (Auto) (0.04-0.36) K/mm3 Baso # (Auto) (0.01-0.08) K/mm3 Manual Slide Review Puncture Site ABG pH (7.35-7.45) ABG pCO2 (35.0-45.0) mmHg ABG pO2 (80.0-100.0) mmHg ABG HCO3 (22.0-26.0) meq/L ABG O2 Saturation (96.0-97.0) % ABG Base Excess (-2-2.0) William Test A-a Gradient mmHg O2 Delivery Device FiO2 (21.00-100.00) % Sodium (136-145) mEq/L Potassium (3.5-5.1) mEq/L Chloride (98-107) mEq/L Carbon Dioxide (21-32) mEq/L Anion Gap (5-15) BUN (7-18) mg/dL Creatinine (0.55-1.02) mg/dL Est Cr Clr Drug Dosing mL/min Estimated GFR (MDRD) (>60) mL/min BUN/Creatinine Ratio (14-18) Glucose (83-115) mg/dL POC Glucose 239 H 265 H (83-110) mg/dL Lactic Acid (0.4-2.0) mmol/L Calcium (8.5-10.1) mg/dL Phosphorus 3.3 (2.6-4.7) mg/dL Magnesium 1.7 L (1.8-2.4) mg/dl Total Bilirubin (0.2-1.0) mg/dL AST (15-37) U/L ALT (14-59) U/L Alkaline Phosphatase (46-116) U/L NT-Pro-B Natriuret Pep (0-125) pg/mL Total Protein (6.4-8.2) g/dl Albumin (3.4-5.0) g/dl Globulin gm/dL Albumin/Globulin Ratio (1-2) Lipase (73-393) U/L 09/12/18 09/12/18 09/12/18 Range/Units 05:05 05:05 05:05 WBC 24.50 H (3.98-10.04) K/mm3 RBC 3.51 L (3.98-5.22) M/mm3 Hgb 10.3 L (11.2-15.7) gm/L Hct 33.7 L (34.1-44.9) % MCV 96.0 H (79.4-94.8) fl MCH 29.3 (25.6-32.2) pg MCHC 30.6 L (32.2-35.5) g/dl RDW Std Deviation 51.1 H (36.4-46.3) fL Plt Count 297 (182-369) K/mm3 MPV 10.5 (9.4-12.3) fl Neut % (Auto) 83.1 H (34.0-71.1) % Lymph % (Auto) 5.6 L (19.3-51.7) % Winkler % (Auto) 4.3 L (4.7-12.5) % Eos % (Auto) 1.0 (0.7-5.8) Baso % (Auto) 0.2 (0.1-1.2) % Neut # (Auto) 20.37 H (1.56-6.13) K/mm3 Lymph # (Auto) 1.37 (1.18-3.74) K/mm3 Winkler # (Auto) 1.06 H (0.24-0.36) K/mm3 Eos # (Auto) 0.25 (0.04-0.36) K/mm3 Baso # (Auto) 0.04 (0.01-0.08) K/mm3 Manual Slide Review Abnormal smear Puncture Site ABG pH (7.35-7.45) ABG pCO2 (35.0-45.0) mmHg ABG pO2 (80.0-100.0) mmHg ABG HCO3 (22.0-26.0) meq/L ABG O2 Saturation (96.0-97.0) % ABG Base Excess (-2-2.0) William Test A-a Gradient mmHg O2 Delivery Device FiO2 (21.00-100.00) % Sodium 143 (136-145) mEq/L Potassium 3.6 (3.5-5.1) mEq/L Chloride 108 H (98-107) mEq/L Carbon Dioxide 26 (21-32) mEq/L Anion Gap 12.6 (5-15) BUN 33 H (7-18) mg/dL Creatinine 0.8 (0.55-1.02) mg/dL Est Cr Clr Drug Dosing 64.12 mL/min Estimated GFR (MDRD) > 60 (>60) mL/min BUN/Creatinine Ratio 41.3 H (14-18) Glucose 252 H (83-115) mg/dL POC Glucose (83-110) mg/dL Lactic Acid (0.4-2.0) mmol/L Calcium 7.9 L (8.5-10.1) mg/dL Phosphorus (2.6-4.7) mg/dL Magnesium (1.8-2.4) mg/dl Total Bilirubin 0.5 (0.2-1.0) mg/dL AST 28 (15-37) U/L ALT 32 (14-59) U/L Alkaline Phosphatase 89 (46-116) U/L NT-Pro-B Natriuret Pep 1378 H (0-125) pg/mL Total Protein 5.2 L (6.4-8.2) g/dl Albumin 2.2 L (3.4-5.0) g/dl Globulin 3.0 gm/dL Albumin/Globulin Ratio 0.7 L (1-2) Lipase 3786 H (73-393) U/L 05/10/2609/12/18 09/12/18 Range/Units 05:25 06:18 11:10 WBC (3.98-10.04) K/mm3 RBC (3.98-5.22) M/mm3 Hgb (11.2-15.7) gm/L Hct (34.1-44.9) % MCV (79.4-94.8) fl MCH (25.6-32.2) pg MCHC (32.2-35.5) g/dl RDW Std Deviation (36.4-46.3) fL Plt Count (182-369) K/mm3 MPV (9.4-12.3) fl Neut % (Auto) (34.0-71.1) % Lymph % (Auto) (19.3-51.7) % Winkler % (Auto) (4.7-12.5) % Eos % (Auto) (0.7-5.8) Baso % (Auto) (0.1-1.2) % Neut # (Auto) (1.56-6.13) K/mm3 Lymph # (Auto) (1.18-3.74) K/mm3 Winkler # (Auto) (0.24-0.36) K/mm3 Eos # (Auto) (0.04-0.36) K/mm3 Baso # (Auto) (0.01-0.08) K/mm3 Manual Slide Review Puncture Site Lt radial ABG pH 7.43 (7.35-7.45) ABG pCO2 34.9 L (35.0-45.0) mmHg ABG pO2 58.0 L (80.0-100.0) mmHg ABG HCO3 22.8 (22.0-26.0) meq/L ABG O2 Saturation 89.8 L (96.0-97.0) % ABG Base Excess -0.6 (-2-2.0) William Test Positive A-a Gradient 33 mmHg O2 Delivery Device FiO2 21.00 (21.00-100.00) % Sodium (136-145) mEq/L Potassium (3.5-5.1) mEq/L Chloride (98-107) mEq/L Carbon Dioxide (21-32) mEq/L Anion Gap (5-15) BUN (7-18) mg/dL Creatinine (0.55-1.02) mg/dL Est Cr Clr Drug Dosing mL/min Estimated GFR (MDRD) (>60) mL/min BUN/Creatinine Ratio (14-18) Glucose (83-115) mg/dL POC Glucose 263 H 222 H (83-110) mg/dL Lactic Acid (0.4-2.0) mmol/L Calcium (8.5-10.1) mg/dL Phosphorus (2.6-4.7) mg/dL Magnesium (1.8-2.4) mg/dl Total Bilirubin (0.2-1.0) mg/dL AST (15-37) U/L ALT (14-59) U/L Alkaline Phosphatase (46-116) U/L NT-Pro-B Natriuret Pep (0-125) pg/mL Total Protein (6.4-8.2) g/dl Albumin (3.4-5.0) g/dl Globulin gm/dL Albumin/Globulin Ratio (1-2) Lipase (73-393) U/L Bertram Results Last 24 Hours: Microbiology 09/05/18 22:40 Aerobic Blood Culture - Preliminary Blood - Venous - Lab Draw NO GROWTH AFTER 6 DAYS Anaerobic Blood Culture - Preliminary NO GROWTH AFTER 6 DAYS 09/05/18 22:40 Aerobic Blood Culture - Preliminary Blood - Venous NO GROWTH AFTER 6 DAYS Anaerobic Blood Culture - Preliminary NO GROWTH AFTER 6 DAYS Med Orders - Current: Current Medications Hydrocodone Bitart/Acetaminophen ([place] 325-5 Mg) 1 tab PO Q6H PRN PRN Reason: Pain Last Admin: 09/12/18 04:50 Dose: 1 tab Albuterol/Ipratropium (Duoneb 3.0-0.5 Mg/3 Ml) 3 ml NEB Q4H PRN PRN Reason: Shortness Of Breath/wheezing Albuterol/Ipratropium (Duoneb 3.0-0.5 Mg/3 Ml) 3 ml NEB Q6HRRT [facility] Last Admin: 09/12/18 09:14 Dose: 3 ml Amlodipine Besylate (Norvasc) 10 mg PO DAILY [facility] Last Admin: 09/12/18 08:16 Dose: 10 mg Dextrose/Water (Dextrose 50% In Water) 50 ml IV ASDIRECTED PRN PRN Reason: Hypoglycemia Fluticasone Propionate (Flonase) 0 gm NASBOTH DAILY PRN PRN Reason: Allergies Heparin Sodium (Porcine) (Heparin Sodium) 5,000 units SUBCUT Q8H [facility] Last Admin: 09/12/18 10:37 Dose: 5,000 units Metronidazole 500 mg/ Premix 100 mls @ 100 mls/hr IV Q8H [facility] Last Admin: 09/12/18 08:07 Dose: 100 mls/hr Levofloxacin/Dextrose 750 mg/ (Premix) 150 mls @ 100 mls/hr IV Q24H [facility] Last Admin: 09/12/18 10:33 Dose: 100 mls/hr Insulin Glargine (Lantus) 30 unit SUBCUT Q24H [facility] Last Admin: 09/11/18 21:42 Dose: 30 units Insulin Human Lispro (Humalog) 0 unit SUBCUT Q6H [facility]; Protocol Last Admin: 09/12/18 07:04 Dose: 11 unit Labetalol HCl (Normodyne) 100 mg PO BID [facility] Last Admin: 09/12/18 08:15 Dose: 100 mg Levothyroxine Sodium (Synthroid) 100 mcg PO DAILY [facility] Last Admin: 09/12/18 08:17 Dose: 100 mcg Miscellaneous Information (Remove Patch) 0 ea TRDERM Q7D [facility] Stop: 09/15/18 16:00 Ozempic 0.5 Mg (Ptom) 0.5 each SUBCUT TH [facility] Last Admin: 09/08/18 12:27 Dose: Not Given Chlorthalidone 25 Mg (Ptom) 0 each PO DAILY [facility] Last Admin: 09/12/18 08:18 Dose: 1 each Rosuvastatin Calcium (Crestor) 20 mg PO DAILY [facility] Last Admin: 09/12/18 08:14 Dose: 20 mg Saccharomyces Boulardii (Florastor) 250 mg PO BID [facility] Last Admin: 09/12/18 08:09 Dose: 250 mg Discontinued Medications Acetaminophen (Tylenol) 1,300 mg PO BID [facility] Last Admin: 09/06/18 08:16 Dose: 1,300 mg Acetaminophen (Tylenol) 975 mg PO ONETIME ONE Stop: 09/05/18 00:06 Last Admin: 09/05/18 00:12 Dose: 975 mg Acetaminophen (Tylenol) 1,300 mg PO BID [facility] Last Admin: 09/10/18 09:24 Dose: 1,300 mg Acetazolamide (Diamox) 250 mg PO Q4H [facility] Stop: 09/12/18 02:27 Last Admin: 09/12/18 01:57 Dose: 250 mg Albuterol (Proventil Neb Soln) Confirm Administered Dose 2.5 mg .ROUTE .STK-MED ONE Stop: 09/05/18 09:58 Last Admin: 09/05/18 10:00 Dose: 2.5 mg Albuterol (Proventil Neb Soln) Confirm Administered Dose 2.5 mg .ROUTE .STK-MED ONE Stop: 09/10/18 09:52 Last Admin: 09/10/18 10:13 Dose: Not Given Albuterol/Ipratropium (Duoneb 3.0-0.5 Mg/3 Ml) 3 ml NEB ONETIME ONE Stop: 09/05/18 09:58 Last Admin: 09/05/18 15:06 Dose: Not Given Albuterol/Ipratropium (Duoneb 3.0-0.5 Mg/3 Ml) 3 ml NEB BIDRT [facility] Last Admin: 09/08/18 06:12 Dose: 3 ml Amlodipine Besylate (Norvasc) 10 mg PO DAILY [facility] Last Admin: 09/06/18 08:10 Dose: Not Given Artificial Tears (Refresh Liquigel 1%) 0 ml EYEBOTH DAILY PRN PRN Reason: Dry Eyes Ascorbic Acid (Vitamin C) 1,000 mg PO DAILY [facility] Last Admin: 09/06/18 08:17 Dose: 1,000 mg Ascorbic Acid (Vitamin C) 1,000 mg PO DAILY [facility] Last Admin: 09/10/18 09:06 Dose: Not Given Aspirin (Ecotrin) 325 mg PO BID [facility] Last Admin: 09/06/18 08:33 Dose: Not Given Aspirin (Ecotrin) 325 mg PO BID [facility] Last Admin: 09/09/18 08:15 Dose: 325 mg Benazepril HCl (Lotensin) 40 mg PO DAILY [facility] Last Admin: 09/05/18 10:54 Dose: Not Given Bisacodyl (Dulcolax) 5 mg PO DAILY PRN PRN Reason: Constipation Bisacodyl (Dulcolax) 10 mg RECTAL DAILY [facility] Last Admin: 09/10/18 09:04 Dose: Not Given Bumetanide (Bumex) 0.5 mg IVPUSH ONETIME ONE Stop: 09/06/18 21:39 Last Admin: 09/06/18 22:36 Dose: 0.5 mg Bumetanide (Bumex) 0.5 mg IVPUSH BID [facility] Last Admin: 09/09/18 08:20 Dose: 0.5 mg Clonidine HCl (Catapres-Tts 3) 0.3 mg TRDERM Q7D [facility] Last Admin: 09/08/18 15:49 Dose: 0.3 mg Cyanocobalamin (Vitamin B12) 250 mcg PO DAILY [facility] Last Admin: 09/06/18 08:24 Dose: 250 mcg Cyanocobalamin (Vitamin B12) 250 mcg PO DAILY [facility] Last Admin: 09/10/18 09:06 Dose: Not Given Dextrose/Water (Dextrose 50% In Water) 50 ml IVPUSH ASDIRECTED PRN PRN Reason: Hypoglycemia Diatrizoate Meglum/Diatrizoate Sod (Gastrografin 37%) 120 ml PO ONETIME ONE Stop: 09/04/18 08:09 Last Admin: 09/04/18 08:41 Dose: 90 ml Diazepam (Valium) 5 mg IV Q6H PRN PRN Reason: Sedation Diltiazem HCl (Cardizem) 10 mg IVPUSH ONETIME STA Stop: 09/07/18 06:34 Last Admin: 09/07/18 06:45 Dose: 10 mg Enoxaparin Sodium (Lovenox) 40 mg SUBCUT DAILY [facility] Famotidine (Pepcid) 20 mg IV DAILY [facility] Last Admin: 09/10/18 09:06 Dose: 20 mg Flunisolide (Nasalide Nasal [place]) 0 ml NASBOTH BID PRN PRN Reason: Allergies Furosemide (Lasix) 20 mg PO DAILY [facility] Last Admin: 09/05/18 08:54 Dose: 20 mg Furosemide (Lasix) 60 mg IVPUSH ONETIME ONE Stop: 09/10/18 09:42 Last Admin: 09/10/18 13:12 Dose: 60 mg Gabapentin (Neurontin) 300 mg PO BEDTIME [facility] Last Admin: 09/04/18 20:16 Dose: 300 mg Hydralazine HCl (Apresoline) 20 mg IVPUSH Q4H PRN PRN Reason: Hypertension Last Admin: 09/09/18 04:18 Dose: 20 mg Hydrochlorothiazide (Hydrochlorothiazide) 25 mg PO ONETIME ONE Stop: 09/10/18 09:44 Last Admin: 09/10/18 13:12 Dose: 25 mg Hydrocortisone (Hydrocortisone 1% Crm) 0 gm TOP BID PRN PRN Reason: skin complications Hydromorphone HCl (Dilaudid) 0.5 mg IVPUSH ONETIME STA Stop: 09/04/18 06:17 Last Admin: 09/04/18 06:38 Dose: 0.5 mg Hydromorphone HCl (Dilaudid) 0.5 mg IVPUSH Q2H PRN PRN Reason: Pain (severe 7-10) Last Admin: 09/05/18 03:49 Dose: 0.5 mg Sodium Chloride (Normal Saline) 1,000 mls @ 150 mls/hr IV ASDIRECTED NISA Last Infusion: 09/05/18 18:41 Dose: Infused Levofloxacin/Dextrose 750 mg/ (Premix) 150 mls @ 100 mls/hr IV ONETIME ONE Stop: 09/04/18 10:25 Last Admin: 09/04/18 09:15 Dose: 100 mls/hr Metronidazole 500 mg/ Premix 100 mls @ 100 mls/hr IV ONETIME ONE Stop: 09/04/18 09:56 Last Admin: 09/04/18 09:16 Dose: 100 mls/hr Levofloxacin/Dextrose 750 mg/ (Premix) 150 mls @ 100 mls/hr IV Q48H NISA Last Admin: 09/10/18 10:23 Dose: Not Given Sodium Chloride (Normal Saline) 1,000 mls @ 999 mls/hr IV ASDIRECTED NISA Last Admin: 09/05/18 13:45 Dose: 999 mls/hr Fentanyl 2,500 mcg/ Sodium (Chloride) 250 mls @ 25.57 mls/hr IV TITRATE NISA; Protocol Stop: 09/06/18 14:01 Last Titration: 09/06/18 11:13 Dose: 4 mcg/kg/hr, 51.14 mls/hr Propofol (Diprivan 100 Ml) 100 mls @ 3.836 mls/hr IV TITRATE NISA; Protocol Last Titration: 09/07/18 09:15 Dose: 0 mcg/kg/min, 0 mls/hr Sodium Chloride (Normal Saline) Confirm Administered Dose 1,000 mls @ as directed .ROUTE .STK-MED ONE Stop: 09/05/18 14:12 Last Admin: 09/05/18 15:24 Dose: Not Given Sodium Chloride (Normal Saline) 1,000 mls @ 250 mls/hr IV ASDIRECTED NISA Last Infusion: 09/05/18 22:30 Dose: 999 mls/hr Sodium Chloride (Normal Saline) 1,000 mls @ 999 mls/hr IV ONETIME ONE Stop: 09/05/18 23:30 Last Admin: 09/05/18 22:53 Dose: 999 mls/hr Sodium Chloride (Normal Saline) 1,000 mls @ 125 mls/hr IV ASDIRECTED NISA Last Admin: 09/08/18 05:34 Dose: 125 mls/hr Norepinephrine Bitartrate 4 mg (/ Dextrose/Water) 250 mls @ 7.5 mls/hr IV TITRATE NISA; Protocol Stop: 09/06/18 23:59 Last Titration: 09/06/18 16:24 Dose: 22 mcg/min, 82.5 mls/hr Sodium Bicarbonate 150 meq/ (Sodium Chloride) 400 mls @ 50 mls/hr IV ONETIME ONE Stop: 09/06/18 09:29 Last Admin: 09/06/18 01:51 Dose: 50 mls/hr Sodium Chloride (Normal Saline) Confirm Administered Dose 250 mls @ as directed .ROUTE .K-MED ONE Stop: 09/06/18 01:27 Last Admin: 09/06/18 01:52 Dose: Not Given Norepinephrine Bitartrate 16 (mg/ Dextrose/Water) 250 mls @ 1.87 mls/hr IV TITRATE NISA; Protocol Last Titration: 09/07/18 12:55 Dose: 0 mcg/min, 0 mls/hr Fentanyl 2,500 mcg/ Sodium (Chloride) 250 mls @ 26.33 mls/hr IV TITRATE NISA; Protocol Stop: 09/07/18 22:00 Last Titration: 09/07/18 20:16 Dose: 2 mcg/kg/hr, 26.33 mls/hr Sodium Chloride (Normal Saline) 500 mls @ 999 mls/hr IV .BOLUS ONE Stop: 09/06/18 20:19 Last Admin: 09/06/18 19:53 Dose: 999 mls/hr Diltiazem HCl 125 mg/ Sodium (Chloride) 125 mls @ 2.5 mls/hr IV TITRATE NISA; Protocol Last Titration: 09/07/18 14:42 Dose: 0 mg/hr, 0 mls/hr Midazolam HCl 50 mg/ Sodium (Chloride) 50 mls @ 0.5 mls/hr IV TITRATE NISA; Protocol Last Titration: 09/07/18 21:17 Dose: 1 mg/hr, 1 mls/hr Albumin Human (Flexbumin 25%) 25 gm in 100 mls @ 100 mls/hr IV ONETIME ONE Stop: 09/10/18 10:39 Last Admin: 09/10/18 12:02 Dose: 100 mls/hr Magnesium Sulfate 2 gm/ Premix 50 mls @ 25 mls/hr IV ONETIME ONE Stop: 09/10/18 18:52 Last Admin: 09/10/18 17:45 Dose: 25 mls/hr Magnesium Sulfate 2 gm/ Premix 50 mls @ 25 mls/hr IV ONETIME ONE Stop: 09/11/18 11:18 Last Admin: 09/11/18 11:11 Dose: 25 mls/hr Insulin Glargine (Lantus) 80 unit SUBCUT BEDTIME NISA Last Admin: 09/04/18 22:43 Dose: Not Given Insulin Glargine (Lantus) 80 unit SUBCUT ONETIME ONE Stop: 09/05/18 00:01 Last Admin: 09/04/18 23:51 Dose: Not Given Insulin Glargine (Lantus) 80 unit SUBCUT BEDTIME NISA Insulin Human Lispro (Humalog) 0 unit SUBCUT QIDACANDBED NISA; Protocol Last Admin: 09/06/18 09:41 Dose: Not Given Iopamidol (Isovue-370 (76%)) 200 ml IV ONETIME ONE Stop: 09/04/18 08:09 Last Admin: 09/04/18 08:44 Dose: 70 ml Labetalol HCl (Normodyne) 100 mg PO BID NISA Last Admin: 09/06/18 08:10 Dose: Not Given Labetalol HCl (Normodyne) 20 mg IVPUSH ONETIME ONE; Protocol Stop: 09/08/18 13:44 Last Admin: 09/08/18 13:57 Dose: 20 mg Lactulose (Cephulac) 20 gm PO Q6H NISA Stop: 09/05/18 07:01 Last Admin: 09/05/18 06:51 Dose: 20 gm Lorazepam (Ativan) 0.5 mg IV Q6H PRN PRN Reason: Anxiety Last Admin: 09/05/18 09:04 Dose: 0.5 mg Lorazepam (Ativan) 2 mg IV Q4H PRN PRN Reason: Anxiety Last Admin: 09/09/18 00:46 Dose: 2 mg Losartan Potassium (Cozaar) 50 mg PO DAILY [facility] Last Admin: 09/05/18 10:53 Dose: Not Given Losartan Potassium (Cozaar) 50 mg PO DAILY [facility] Magnesium Sulfate (Pharmacy To Dose - Magnesium Replacement) 0 dose .XX ASDIRECTED PRN PRN Reason: RX TO WATCH MAG Methylprednisolone Sodium Succinate (Solu-Medrol) 60 mg IVPUSH ONETIME STA Stop: 09/05/18 09:58 Last Admin: 09/05/18 11:06 Dose: 60 mg Methylprednisolone Sodium Succinate (Solu-Medrol) 60 mg IVPUSH Q8H [facility] Last Admin: 09/08/18 06:01 Dose: 60 mg Methylprednisolone Sodium Succinate (Solu-Medrol) 60 mg IVPUSH BID [facility] Last Admin: 09/09/18 08:20 Dose: 60 mg Metoclopramide HCl (Reglan) 5 mg IVPUSH Q6H [facility] Stop: 09/05/18 01:01 Last Admin: 09/05/18 00:01 Dose: 5 mg Metoclopramide HCl (Reglan) 10 mg IVPUSH Q6H [facility] Last Admin: 09/10/18 05:57 Dose: 10 mg Metoprolol Tartrate (Lopressor) 5 mg IVPUSH Q4H PRN PRN Reason: Tachycardia Last Admin: 09/07/18 09:43 Dose: 5 mg Midazolam HCl (Versed 1 Mg/Ml) 10 mg .ROUTE .STK-MED ONE Stop: 09/05/18 14:01 Midazolam HCl (Versed 1 Mg/Ml) 10 mg IVPUSH ONETIME ONE Stop: 09/05/18 13:34 Last Admin: 09/05/18 13:33 Dose: 10 mg Midodrine (Midodrine) 5 mg PO TIDAC [facility] Last Admin: 09/06/18 11:16 Dose: 5 mg Midodrine (Midodrine) 5 mg PO ONETIME ONE Stop: 09/06/18 01:31 Last Admin: 09/06/18 01:45 Dose: 5 mg Midodrine (Midodrine) 5 mg PO TIDAC NISA Modafinil (Provigil) 200 mg PO NOW STA Stop: 09/08/18 09:03 Last Admin: 09/08/18 09:18 Dose: 200 mg Morphine Sulfate (Morphine) 1 mg IVPUSH ONETIME STA Stop: 09/05/18 09:55 Last Admin: 09/05/18 11:07 Dose: 1 mg Morphine Sulfate (Morphine) Confirm Administered Dose 2 mg .ROUTE .STK-MED ONE Stop: 09/05/18 09:57 Last Admin: 09/05/18 11:07 Dose: 1 mg Multivitamins (Thera) 1 each PO DAILY [facility] Last Admin: 09/06/18 08:17 Dose: 1 each Multivitamins (Thera) 1 each PO DAILY [facility] Last Admin: 09/10/18 09:05 Dose: Not Given Ondansetron HCl (Zofran) 4 mg IVPUSH ONETIME ONE Stop: 09/04/18 06:17 Last Admin: 09/04/18 06:37 Dose: 4 mg Ondansetron HCl (Zofran) 4 mg IV Q6H PRN PRN Reason: Nausea/Vomiting Chlorthalidone 25 Mg (Ptom) 0 each PO DAILY [facility] Last Admin: 09/06/18 08:11 Dose: Not Given Polyethylene Glycol (Miralax) 17 gm PO DAILY PRN PRN Reason: Constipation Potassium Chloride (Pharmacy To Dose - Potassium Replacement) 0 dose .XX ASDIRECTED PRN PRN Reason: RX TO WATCH K Racepinephrine (S-2 2.25%) Confirm Administered Dose 0.5 ml .ROUTE .STK-MED ONE Stop: 09/10/18 09:49 Last Admin: 09/10/18 10:13 Dose: Not Given Rocuronium [place] (Zemuron) 100 mg .ROUTE .STK-MED ONE Stop: 09/05/18 14:01 Rocuronium [place] (Zemuron) 100 mg IVPUSH ONETIME ONE Stop: 09/05/18 13:35 Last Admin: 09/05/18 13:34 Dose: 100 mg Sodium Bicarbonate (Sodium Bicarbonate 8.4%) 150 meq IVPUSH ONETIME ONE Stop: 09/06/18 01:05 Last Admin: 09/06/18 09:40 Dose: Not Given Sodium Bicarbonate (Sodium Bicarbonate 8.4%) Confirm Administered Dose 50 meq .ROUTE .STK-MED ONE Stop: 09/06/18 01:27 Last Admin: 09/06/18 01:50 Dose: 50 meq Sodium Bicarbonate (Sodium Bicarbonate 8.4%) Confirm Administered Dose 100 meq .ROUTE .STK-MED ONE Stop: 09/06/18 01:29 Last Admin: 09/06/18 01:52 Dose: Not Given Sodium Bicarbonate (Sodium Bicarbonate 8.4%) 50 meq IVPUSH ONETIME ONE Stop: 09/06/18 01:30 Last Admin: 09/06/18 01:51 Dose: 50 meq Sodium Bicarbonate (Sodium Bicarbonate 8.4%) Confirm Administered Dose 50 meq .ROUTE .STK-MED ONE Stop: 09/06/18 01:38 Last Admin: 09/06/18 01:52 Dose: Not Given Sodium Chloride (Saline Flush) 10 ml FLUSH ONETIME PRN PRN Reason: IV FLUSH Last Admin: 09/04/18 08:42 Dose: 10 ml Temazepam (Restoril) 7.5 mg PO BEDTIME PRN PRN Reason: Sleep Last Admin: 09/08/18 21:25 Dose: 7.5 mg Terbutaline Sulfate ([facility]) 2.5 mg PO BID NISA Stop: 09/06/18 21:01 Last Admin: 09/05/18 11:06 Dose: 2.5 mg - Exam Physical Findings Comments:: General: awake, Cooperative, No Acute Distress, Other (Morbidly Obese) HEENT: Pupils Equal, Pupils Reactive Neck: Supple Lungs: Normal Respiratory Effort, mild bibasilar crackles. Cardiovascular: Regular Rate, Regular Rhythm GI/Abdominal Exam: Normal Bowel Sounds, Soft, Non-Tender, No Organomegaly, No Distention, No Abnormal Bruit Extremities: Normal Inspection (left lower extremity), Normal Range of Motion ( left lower extremity), Non-Tender, Normal Capillary Refill, Pedal Edema (right lower extremity), Limited Range of Motion (right lower extremity), 4+ pedal edema Peripheral Pulses: 2+: Dorsalis Pedis (L), Dorsalis Pedis (R) Skin: Warm, Dry, Intact, Ecchymosis (right knee) Wound/Incisions: Dressing Dry and Intact Neurological: lethargic, no acute deficit Psy/Mental Status: Normal Affect, Normal Mood - Problem List & Annotations (1) Sigmoid diverticulitis SNOMED Code(s): 994847365 Code(s): K57.32 - DVTRCLI OF LG INT W/O PERFORATION OR ABSCESS W/O BLEEDING Status: Acute Current Visit: Yes (2) Hypertension SNOMED Code(s): 74253023 Code(s): I10 - ESSENTIAL (PRIMARY) HYPERTENSION Status: Acute Priority: Medium Current Visit: No Qualifiers: Hypertension type: unspecified Qualified Code(s): I10 - Essential (primary ) hypertension (3) Encephalopathy acute SNOMED Code(s): 34338719, 937299405 Code(s): G93.40 - ENCEPHALOPATHY, UNSPECIFIED Status: Acute Current Visit : Yes - Problem List Review Problem List Initiated/Reviewed/Updated: Yes - My Orders Last 24 Hours: My Active Orders 09/11/18 18:27 RT Arterial Blood Gases, ABG [RC] ASDIRECTED 09/12/18 05:00 RT Arterial Blood Gases, ABG [RC] ASDIRECTED 09/12/18 09:39 Echo Comp wo Cont [US] Routine 09/13/18 05:00 LACTIC ACID [CHEM] Routine MAGNESIUM [CHEM] AM PHOSPHORUS [CHEM] AM 09/13/18 05:11 AMYLASE [CHEM] AM CBC WITH AUTO DIFF [HEME] AM COMPREHENSIVE METABOLIC PN,CMP [CHEM] AM LIPASE [CHEM] AM LIPID PANEL [CHEM] AM - Plan Plan:: Plan: Acute: 1.Combined Respiratory Failure -extubated to NC - increased WOB, diuresis, 2D Echo, ABGs 2.Diverticulitis with Ileus, Improving - CT scan report reads CT scan report reads increased stool throughout the colon. Slight inflammatory change around a diverticuli within the sigmoid colon which may represent mild diverticulitis. Moderate amount of free fluid within the pelvis most likely reactive and diverticulitis. - Continue IV Flagyl and Levaquin for pharmacy to dose - Oral Probiotic BID - started TF - Dr. Metcalf following 3.DM2 with Hyperglycemia - LA insulin and ISS--> switch to high level, modified. - Accu-check QID 4.Hypoalbuminemia, undernutrition; - started TF 5.Hypernatremia, - started free water per NG - improving. 6. Elevated lipase: - gallstone present, follow with serial readings of lipase. 7. Elevated WBC: - suspected pancreatitis - suspected pneumonia - obtain cultures, no change in abx today. Discussed with brother and sister at bedside in details. LOS > 96hrs due to slow response to treatment
[2018-09-12] MEDS ORDERED: Magnesium Sulfate/Water 2 GM in Premix Bag 1 BAG IV ONE (15:49)
[2018-09-12] MEDS ORDERED: Hydrochlorothiazide 25 MG Tab PO ONE (17:44)
[2018-09-12] MEDS ORDERED: Furosemide 40 MG/4 ML VIAL IVPUSH ONE (17:44)
[2018-09-12] MEDS ORDERED: Albumin 25% 50 ML ONE (18:34)
--- NOTE | 2018-09-12 19:54 | CONS ---
CONSULTING PHYSICIAN: Ramon Metcalf MD DATE OF CONSULTATION: 09/12/2018 REASON FOR CONSULTATION: Abdominal pain. HISTORY OF PRESENT ILLNESS: Antonella is a 73-year-old female, recently underwent a right total knee replacement. She had a sae postoperative course, was readmitted complaining of abdominal pain just about a week after her surgery. She says that she developed abdominal pain about 5 days after her operation, and she withheld her narcotics, which apparently caused some constipation. The patient also reported multiple loose bowel movements. She could not quantify or qualify the nature or quantify of the bowel movements. These bowel movements have continued during her hospital stay. During her admission, she was placed on Levaquin and Flagyl. Clostridium difficile was negative on admission. Her lipase was within normal limits on admission as well as back on the 09/04/2018. CT scan at the time of her admission showed extremely mild amount of inflammation around one of the diverticula in her sigmoid colon. At the time of her admission, she was noted to have a leukocytosis of 13,400, that leukocytosis has waxed and waned but is now up to 24,500. She does not show overt signs of sepsis. She complains of some mild abdominal pain, which is improved since her admission. Notable on her labs was an increase in her lipase without other evidence of biliary obstruction. She has been unable to tolerate foods. Tube feeds were started because of a decreasing albumin. Concern for nutritional status prompted continued tube feeds. Today, she feels generally well. She is still passing flatus and moving her bowels. She denies any significant abdominal pain. She just has a generalized mild abdominal pain, which does not localize. She denies shaking chills or fever. On further direct questioning, she admits to coughing up sputum. She cannot describe the sputum. She denies any urinary tract symptoms. No rigors. No flank pain. She has an indwelling Torres catheter. She denies any significant knee pain on the right. PRIOR MEDICAL HISTORY: Morbid obesity, type 2 diabetes, history of supraventricular tachycardia, hyperlipidemia, hypertension, sleep apnea, chronic stage 3 renal insufficiency, osteoarthritis, and hypothyroidism. PRIOR SURGICAL HISTORY: She has had cataracts on the right, wisdom teeth extraction, tonsillectomy, and colonoscopy. She has had spinal surgery and bilateral knee replacements. FAMILY HISTORY: Unremarkable. SOCIAL HISTORY: She is a nonsmoker. She has never smoked. Denies illicit drugs. Denies alcohol abuse. ALLERGIES: To metformin. MEDICATIONS: Her medications are extensive and were reviewed. Please see the medical record for a list of her multiple medications. PHYSICAL EXAMINATION: GENERAL: She is a morbidly obese female in no obvious distress. She looks quite comfortable. VITALS: Today, her weight is 281, blood pressure 166/56, pulse 76, saturating 92% on room air, and temperature is 98.1. HEAD AND NECK: She has a nasogastric feeding tube in place. Neck is supple, full range of motion. No lymphadenopathy. No palpable masses. HEART: Regular rate and rhythm. No clicks, murmurs, or rubs. LUNGS: She has diminished breath sounds with crackles at the bases bilaterally. ABDOMEN: Soft. She has no tenderness in the epigastrium that is discernible. She has only extremely minimal tenderness in the bilateral lower quadrants. No rebound or guarding is present. Her physical exam is quite limited by her morbid obesity at 122 kg. EXTREMITIES: No clubbing, cyanosis, or edema. The right knee is without erythema. Bandage is still in place from the previous surgery. NEUROLOGIC: Her cranial nerves are grossly intact. She has appropriate affect and demeanor. DATA: I reviewed her labs. She has a leukocytosis of 24,500. Her left shift is worse today than it was on her admission. Hemoglobin is 10.3 and that is relatively stable. Chemistries are notable for a glucose of 263; lipase 3786, which is in the range of 10 times normal; notably absent is an elevation of her alkaline phosphatase, ALT, and AST. Her bilirubin is also notably normal at 0.5. All these argue against an obstructive pathology secondary to gallstones. I have thoroughly reviewed her CT scan, I think diverticulitis is an extremely soft call on her admission. Today, there is no evidence of inflammation in the diverticula which is notable in the sigmoid colon. She does have some fluid in the pelvis, which was in existence on her original CT scan. I noted a gallstone which does not appear obstructive. I also note significant bilateral pulmonary atelectasis with a question of an infiltrate in the right lower lobe that is not mentioned on the CT scan finding. She also has pleural effusion. ASSESSMENT: Leukocytosis of unknown origin. I do not think diverticulitis is at play, and I am not concerned about a mild chemical pancreatitis in the absence of significant physical findings or obstructive biochemistry. PLAN: I would suggest we panculture her, collect sputum urine if possible and blood cultures. I realize these may be unhelpful in the presence of Levaquin and Flagyl. I do not think Clostridium difficile is at play here given the fact that she has been on Flagyl, and her Clostridium difficile on admission was negative per report by Dr. Garrison. She does not have signs of peritonitis, so I think her leukocytosis is unlikely to be resulting from any abdominal pathology. Thank you for the opportunity to care for this patient. CHARLENE /[id number]
[2018-09-12] MEDS: Insulin Glarg,Human.Rec.Analog 100 UNIT/ML ML SUBCUT SCH (21:47)
[2018-09-13] MEDS: metroNIDAZOLE/Normal Saline 500 MG in Premix Bag 1 BAG IV SCH ×2 (00:10→09:05)
[2018-09-13] MEDS: Insulin Lispro 100 Units/ML 3 ML Vial SUBCUT SCH ×4 (00:11→17:58)
[2018-09-13] MEDS: Albuterol/Ipratropium 3.0-0.5 MG/3 ML Neb Soln NEB SCH ×2 (02:17→08:21)
[2018-09-13] MEDS: Heparin Sodium 5,000 Units/ML Vial SUBCUT SCH ×3 (03:15→17:59)
--- NOTE | 2018-09-13 08:11 | CR ---
Addendum: Previous report states endotracheal tube in the impression. Following is the corrected statement: 2. Tip of nasogastric tube not optimally seen but appears to lie slightly past the gastroesophageal junction in the stomach. --- Addendum1 above dictated on [09/13/2018 10:23] by [Kim Beckett, Jefferson Harper] --- --- Addendum1 above signed on [09/13/2018 10:25] by [Kim Beckett Hilton J.] --- --- Original report below dictated on [09/13/2018 07:23] by [Kim Beckett, Jefferson Harper] --- --- Original report below signed on [09/13/2018 08:06] by [Kim Beckett, Jefferson Harper] --- Chest: Frontal view of the chest was obtained. Comparison: Prior chest x-ray of 08/09/18. Heart size is slightly enlarged. Lungs shows minimal scarring within the lateral left costophrenic angle. Lungs otherwise are clear. Bony structures are grossly intact. Tip of nasogastric tube not optimally seen but believed to be past the gastroesophageal junction into the stomach. Impression: 1. Slight cardiomegaly and mild scarring within the lateral left costophrenic angle. 2. Tip of endotracheal tube not optimally seen but appears to lie slightly past the gastroesophageal junction into the stomach. Diagnostic code #3 I agree with preliminary report from [facility], finalized on 09/13/18, 5:45 AM Central Time --- Addendum1 signed ---
[2018-09-13] MEDS ORDERED: Magnesium Sulfate/Water 2 GM in Premix Bag 1 BAG IV ONE (09:00)
[2018-09-13] MEDS: amLODIPine 10 MG Tab PO SCH (09:34)
[2018-09-13] MEDS: Labetalol 100 MG Tab PO SCH ×2 (09:34→20:34)
[2018-09-13] MEDS: Rosuvastatin 10 MG Tab PO SCH (09:34)
[2018-09-13] MEDS: Levothyroxine 100 MCG Tab PO SCH (09:34)
[2018-09-13] MEDS: Saccharomyces Boulardii (Probiotic) 250 MG Cap PO SCH ×2 (09:35→20:34)
[2018-09-13] MEDS: CHLORTHALIDONE 25 MG PO SCH (09:47)
[2018-09-13] MEDS: Acetaminophen/HYDROcodone 325-5 MG Tab PO PRN ×2 (10:28→23:34)
--- NOTE | 2018-09-13 13:05 | PCM.PN ---
- General Info Date of Service: 09/13/18 Admission Dx/Problem (Free Text): 73 yo elderly white female with past medical hx/o Impaired Vision, Hx/o SVT, HTN , HLD, CKD stage 2-3, Urinary Incontinence, OA/DJD, FREDERICK, DM2, Hypothyroidism, NORBERTO on CPAP and Obesity with BMI of 42 who comes in with complaints of generalized abdominal pain associated with reduced appetite that started this past Wednesday. She tried OTC Metamucil, Miralax and Prune Juice but w/o much improvement. She carries no hx/o chronic constipation but report hx/o opioid induced constipation in the past. Patient recently discharged on 08/31/2018 after undergoing Right TKA here in the hospital. She did however was sent home with narcotic for pain control. CT scan report reads increased stool throughout the colon. Slight inflammatory change around a diverticuli within the sigmoid colon which may represent mild diverticulitis. Moderate amount of free fluid within the pelvis most likely reactive and diverticulitis. Her initial work up shows a CBC remarkable for WBC of 13.42, Neutrophils of 91% , and Lymphocytes of 3%. Her Chemistry is significant for Na of 127, Cl of 91, AG of 16.7, BUN of 57, Cr of 1.7, BS of 215 and Albumin of 2.9. Her UA is negative for UTI. Patient is being admitted for Sepsis 2/2 Acute Diverticulitis. She is full code. Daily Progress: 09/08/18, Patient successfully extubated at 1115. Post extubation chest x-ray shows mild bibasilar atelectasis with mild subglottic narrowing. Consult CORE MACHINE OPERATOR for swallow eval in the meantime will do bedside swallow evaluation and IS as directed. 09/09/18, remains extubated, lethargic, adjusted sedatives regimen, started PO intake, responded to diuresis, in the wake of severe hypoalbuminemia and systemic inflammation as well as undernutrition has significant third space fluid excess. Will address diuresis need daily, considering IV albumin to facilitate. 09/10/18, more awake and alert, very poor po intake, responded to loop diuretic with albumin and thiazide, started free water per NG. Nursing unable to place soft NG, placed smallest gauge rigid, started slow rate of TF at 30 ml/hr. Appears to have increased WOB, will follow with 2D ECHO, ABGs as warranted. 09/11/18, developed loose stool, otherwise tolerates TF well, adjusted SSI upward , moderate response to diuresis, complains on worsening lower abdominal pain, will consider CT in AM, WBC somewhat up. 09/12/18, CT reveals gallstone with sludge, WBC continues to rise, will panculture , order venous doppler of LE, lipase at 3800, discussed with surgery, will continue TF today. 09/13/18, lipase unchanged, abdominal pain persists, tolerates TF well, no N/V, however loose stool persists, responded to another round of diuresis well, still extensive third spacing, discussed with surgery the possibility of more comfortable and longer term sustainable mean of TF delivery, decision pending, discussed with the patient in detail, will stop abx after full 10 day course, NG is preventing effective use of NIV. - Patient Data Vitals - Most Recent: Last Vital Signs Temp 97.3 F 09/13/18 08:16 Pulse 66 09/13/18 09:34 Resp 22 H 09/13/18 08:16 BP 135/68 09/13/18 09:46 Pulse Ox 92 L 09/13/18 08:23 Weight - Most Recent: 274 lb 3 oz I&O - Last 24 Hours: Intake & Output 09/13/18 09/13/18 09/13/18 03:59 11:59 19:59 Intake Total 1200 Balance 1200 Lab Results Last 24 Hours: Laboratory Results - last 24 hr 09/12/18 09/13/18 09/13/18 Range/Units 17:05 00:08 05:38 WBC (3.98-10.04) K/mm3 RBC (3.98-5.22) M/mm3 Hgb (11.2-15.7) gm/L Hct (34.1-44.9) % MCV (79.4-94.8) fl MCH (25.6-32.2) pg MCHC (32.2-35.5) g/dl RDW Std Deviation (36.4-46.3) fL Plt Count (182-369) K/mm3 MPV (9.4-12.3) fl Neut % (Auto) (34.0-71.1) % Lymph % (Auto) (19.3-51.7) % [place] % (Auto) (4.7-12.5) % Eos % (Auto) (0.7-5.8) Baso % (Auto) (0.1-1.2) % Neut # (Auto) (1.56-6.13) K/mm3 Lymph # (Auto) (1.18-3.74) K/mm3 [place] # (Auto) (0.24-0.36) K/mm3 Eos # (Auto) (0.04-0.36) K/mm3 Baso # (Auto) (0.01-0.08) K/mm3 Manual Slide Review Sodium (136-145) mEq/L Potassium (3.5-5.1) mEq/L Chloride (98-107) mEq/L Carbon Dioxide (21-32) mEq/L Anion Gap (5-15) BUN (7-18) mg/dL Creatinine (0.55-1.02) mg/dL Est Cr Clr Drug Dosing mL/min Estimated GFR (MDRD) (>60) mL/min BUN/Creatinine Ratio (14-18) Glucose (83-115) mg/dL POC Glucose 178 H 212 H 217 H (83-110) mg/dL Lactic Acid (0.4-2.0) mmol/L Calcium (8.5-10.1) mg/dL Phosphorus (2.6-4.7) mg/dL Magnesium (1.8-2.4) mg/dl Total Bilirubin (0.2-1.0) mg/dL AST (15-37) U/L ALT (14-59) U/L Alkaline Phosphatase (46-116) U/L Total Protein (6.4-8.2) g/dl Albumin (3.4-5.0) g/dl Globulin gm/dL Albumin/Globulin Ratio (1-2) Triglycerides (<150) mg/dL Cholesterol (<200) mg/dL LDL Cholesterol Direct (<100) mg/dL HDL Cholesterol (40-59) mg/dL Amylase (20-160) U/L Lipase (73-393) U/L 09/13/18 09/13/18 09/13/18 Range/Units 06:15 06:15 06:15 WBC 20.44 H (3.98-10.04) K/mm3 RBC 3.36 L (3.98-5.22) M/mm3 Hgb 10.0 L (11.2-15.7) gm/L Hct 32.2 L (34.1-44.9) % MCV 95.8 H (79.4-94.8) fl MCH 29.8 (25.6-32.2) pg MCHC 31.1 L (32.2-35.5) g/dl RDW Std Deviation 51.2 H (36.4-46.3) fL Plt Count 296 (182-369) K/mm3 MPV 10.3 (9.4-12.3) fl Neut % (Auto) 84.8 H (34.0-71.1) % Lymph % (Auto) 4.8 L (19.3-51.7) % [place] % (Auto) 4.9 (4.7-12.5) % Eos % (Auto) 1.8 (0.7-5.8) Baso % (Auto) 0.0 L (0.1-1.2) % Neut # (Auto) 17.32 H (1.56-6.13) K/mm3 Lymph # (Auto) 0.98 L (1.18-3.74) K/mm3 [place] # (Auto) 1.00 H (0.24-0.36) K/mm3 Eos # (Auto) 0.37 H (0.04-0.36) K/mm3 Baso # (Auto) 0.01 (0.01-0.08) K/mm3 Manual Slide Review Abnormal smear Sodium 140 (136-145) mEq/L Potassium 3.5 (3.5-5.1) mEq/L Chloride 107 (98-107) mEq/L Carbon Dioxide 23 (21-32) mEq/L Anion Gap 13.5 (5-15) BUN 32 H (7-18) mg/dL Creatinine 0.9 (0.55-1.02) mg/dL Est Cr Clr Drug Dosing 57.00 mL/min Estimated GFR (MDRD) > 60 (>60) mL/min BUN/Creatinine Ratio 35.6 H (14-18) Glucose 217 H (83-115) mg/dL POC Glucose (83-110) mg/dL Lactic Acid (0.4-2.0) mmol/L Calcium 8.1 L (8.5-10.1) mg/dL Phosphorus 3.6 (2.6-4.7) mg/dL Magnesium 1.8 (1.8-2.4) mg/dl Total Bilirubin 0.5 (0.2-1.0) mg/dL AST 20 (15-37) U/L ALT 31 (14-59) U/L Alkaline Phosphatase 78 (46-116) U/L Total Protein 5.7 L (6.4-8.2) g/dl Albumin 2.5 L (3.4-5.0) g/dl Globulin 3.2 gm/dL Albumin/Globulin Ratio 0.8 L (1-2) Triglycerides 123 (<150) mg/dL Cholesterol 56 (<200) mg/dL LDL Cholesterol Direct 16 (<100) mg/dL HDL Cholesterol 28.0 L (40-59) mg/dL Amylase 325 H (20-160) U/L Lipase 3831 H (73-393) U/L 09/13/18 09/13/18 Range/Units 06:15 11:17 WBC (3.98-10.04) K/mm3 RBC (3.98-5.22) M/mm3 Hgb (11.2-15.7) gm/L Hct (34.1-44.9) % MCV (79.4-94.8) fl MCH (25.6-32.2) pg MCHC (32.2-35.5) g/dl RDW Std Deviation (36.4-46.3) fL Plt Count (182-369) K/mm3 MPV (9.4-12.3) fl Neut % (Auto) (34.0-71.1) % Lymph % (Auto) (19.3-51.7) % [place] % (Auto) (4.7-12.5) % Eos % (Auto) (0.7-5.8) Baso % (Auto) (0.1-1.2) % Neut # (Auto) (1.56-6.13) K/mm3 Lymph # (Auto) (1.18-3.74) K/mm3 [place] # (Auto) (0.24-0.36) K/mm3 Eos # (Auto) (0.04-0.36) K/mm3 Baso # (Auto) (0.01-0.08) K/mm3 Manual Slide Review Sodium (136-145) mEq/L Potassium (3.5-5.1) mEq/L Chloride (98-107) mEq/L Carbon Dioxide (21-32) mEq/L Anion Gap (5-15) BUN (7-18) mg/dL Creatinine (0.55-1.02) mg/dL Est Cr Clr Drug Dosing mL/min Estimated GFR (MDRD) (>60) mL/min BUN/Creatinine Ratio (14-18) Glucose (83-115) mg/dL POC Glucose 271 H (83-110) mg/dL Lactic Acid 0.8 (0.4-2.0) mmol/L Calcium (8.5-10.1) mg/dL Phosphorus (2.6-4.7) mg/dL Magnesium (1.8-2.4) mg/dl Total Bilirubin (0.2-1.0) mg/dL AST (15-37) U/L ALT (14-59) U/L Alkaline Phosphatase (46-116) U/L Total Protein (6.4-8.2) g/dl Albumin (3.4-5.0) g/dl Globulin gm/dL Albumin/Globulin Ratio (1-2) Triglycerides (<150) mg/dL Cholesterol (<200) mg/dL LDL Cholesterol Direct (<100) mg/dL HDL Cholesterol (40-59) mg/dL Amylase (20-160) U/L Lipase (73-393) U/L [place] Results Last 24 Hours: Microbiology 09/12/18 12:30 Aerobic Blood Culture - Preliminary Blood - Venous - Lab Draw NO GROWTH AFTER 1 DAY Anaerobic Blood Culture - Preliminary NO GROWTH AFTER 1 DAY 09/12/18 13:55 Urine Culture - Preliminary Urine, Bladder NO GROWTH AFTER 1 DAY 09/05/18 22:40 Aerobic Blood Culture - Final Blood - Venous - Lab Draw NO GROWTH AFTER 7 DAYS Anaerobic Blood Culture - Final NO GROWTH AFTER 7 DAYS 09/05/18 22:40 Aerobic Blood Culture - Final Blood - Venous NO GROWTH AFTER 7 DAYS Anaerobic Blood Culture - Final NO GROWTH AFTER 7 DAYS 09/12/18 19:05 Gram Stain - Final Sputum - Expectorated Sputum Culture - Final 09/12/18 13:55 Gram Stain - Final Sputum - Induced Sputum Culture - Final Med Orders - Current: Current Medications Hydrocodone Bitart/Acetaminophen ([place] 325-5 Mg) 1 tab PO Q6H PRN PRN Reason: Pain Last Admin: 09/13/18 10:28 Dose: 1 tab Albuterol/Ipratropium (Duoneb 3.0-0.5 Mg/3 Ml) 3 ml NEB Q6HRRT [facility] Last Admin: 09/13/18 08:21 Dose: 3 ml Amlodipine Besylate (Norvasc) 10 mg PO DAILY [facility] Last Admin: 09/13/18 09:34 Dose: 10 mg Dextrose/Water (Dextrose 50% In Water) 50 ml IV ASDIRECTED PRN PRN Reason: Hypoglycemia Fluticasone Propionate (Flonase) 0 gm NASBOTH DAILY PRN PRN Reason: Allergies Heparin Sodium (Porcine) (Heparin Sodium) 5,000 units SUBCUT Q8H [facility] Last Admin: 09/13/18 09:36 Dose: 5,000 units Insulin Glargine (Lantus) 30 unit SUBCUT Q24H [facility] Last Admin: 09/12/18 21:47 Dose: 30 units Insulin Human Lispro (Humalog) 0 unit SUBCUT Q6H [facility]; Protocol Last Admin: 09/13/18 06:08 Dose: 7 unit Labetalol HCl (Normodyne) 100 mg PO BID [facility] Last Admin: 09/13/18 09:34 Dose: 100 mg Levothyroxine Sodium (Synthroid) 100 mcg PO DAILY [facility] Last Admin: 09/13/18 09:34 Dose: 100 mcg Miscellaneous Information (Remove Patch) 0 ea TRDERM Q7D [facility] Stop: 09/15/18 16:00 Ozempic 0.5 Mg (Ptom) 0.5 each SUBCUT TH [facility] Last Admin: 09/08/18 12:27 Dose: Not Given Chlorthalidone 25 Mg (Ptom) 0 each PO DAILY [facility] Last Admin: 09/13/18 09:47 Dose: 1 each Rosuvastatin Calcium (Crestor) 20 mg PO DAILY [facility] Last Admin: 09/13/18 09:34 Dose: 20 mg Saccharomyces Boulardii (Florastor) 250 mg PO BID [facility] Last Admin: 09/13/18 09:35 Dose: 250 mg Discontinued Medications Acetaminophen (Tylenol) 1,300 mg PO BID [facility] Last Admin: 09/06/18 08:16 Dose: 1,300 mg Acetaminophen (Tylenol) 975 mg PO ONETIME ONE Stop: 09/05/18 00:06 Last Admin: 09/05/18 00:12 Dose: 975 mg Acetaminophen (Tylenol) 1,300 mg PO BID [facility] Last Admin: 09/10/18 09:24 Dose: 1,300 mg Acetazolamide (Diamox) 250 mg PO Q4H [facility] Stop: 09/12/18 02:27 Last Admin: 09/12/18 01:57 Dose: 250 mg Acetazolamide (Diamox) 250 mg PO Q4H [facility] Stop: 09/12/18 21:46 Last Admin: 09/12/18 21:42 Dose: 250 mg Albuterol (Proventil Neb Soln) Confirm Administered Dose 2.5 mg .ROUTE .STK-MED ONE Stop: 09/05/18 09:58 Last Admin: 09/05/18 10:00 Dose: 2.5 mg Albuterol (Proventil Neb Soln) Confirm Administered Dose 2.5 mg .ROUTE .STK-MED ONE Stop: 09/10/18 09:52 Last Admin: 09/10/18 10:13 Dose: Not Given Albuterol/Ipratropium (Duoneb 3.0-0.5 Mg/3 Ml) 3 ml NEB Q4H PRN PRN Reason: Shortness Of Breath/wheezing Albuterol/Ipratropium (Duoneb 3.0-0.5 Mg/3 Ml) 3 ml NEB ONETIME ONE Stop: 09/05/18 09:58 Last Admin: 09/05/18 15:06 Dose: Not Given Albuterol/Ipratropium (Duoneb 3.0-0.5 Mg/3 Ml) 3 ml NEB BIDRT [facility] Last Admin: 09/08/18 06:12 Dose: 3 ml Amlodipine Besylate (Norvasc) 10 mg PO DAILY [facility] Last Admin: 09/06/18 08:10 Dose: Not Given Artificial Tears (Refresh Liquigel 1%) 0 ml EYEBOTH DAILY PRN PRN Reason: Dry Eyes Ascorbic Acid (Vitamin C) 1,000 mg PO DAILY [facility] Last Admin: 09/06/18 08:17 Dose: 1,000 mg Ascorbic Acid (Vitamin C) 1,000 mg PO DAILY [facility] Last Admin: 09/10/18 09:06 Dose: Not Given Aspirin (Ecotrin) 325 mg PO BID [facility] Last Admin: 09/06/18 08:33 Dose: Not Given Aspirin (Ecotrin) 325 mg PO BID [facility] Last Admin: 09/09/18 08:15 Dose: 325 mg Benazepril HCl (Lotensin) 40 mg PO DAILY [facility] Last Admin: 09/05/18 10:54 Dose: Not Given Bisacodyl (Dulcolax) 5 mg PO DAILY PRN PRN Reason: Constipation Bisacodyl (Dulcolax) 10 mg RECTAL DAILY [facility] Last Admin: 09/10/18 09:04 Dose: Not Given Bumetanide (Bumex) 0.5 mg IVPUSH ONETIME ONE Stop: 09/06/18 21:39 Last Admin: 09/06/18 22:36 Dose: 0.5 mg Bumetanide (Bumex) 0.5 mg IVPUSH BID [facility] Last Admin: 09/09/18 08:20 Dose: 0.5 mg Clonidine HCl (Catapres-Tts 3) 0.3 mg TRDERM Q7D [facility] Last Admin: 09/08/18 15:49 Dose: 0.3 mg Cyanocobalamin (Vitamin B12) 250 mcg PO DAILY [facility] Last Admin: 09/06/18 08:24 Dose: 250 mcg Cyanocobalamin (Vitamin B12) 250 mcg PO DAILY [facility] Last Admin: 09/10/18 09:06 Dose: Not Given Dextrose/Water (Dextrose 50% In Water) 50 ml IVPUSH ASDIRECTED PRN PRN Reason: Hypoglycemia Diatrizoate Meglum/Diatrizoate Sod (Gastrografin 37%) 120 ml PO ONETIME ONE Stop: 09/04/18 08:09 Last Admin: 09/04/18 08:41 Dose: 90 ml Diazepam (Valium) 5 mg IV Q6H PRN PRN Reason: Sedation Diltiazem HCl (Cardizem) 10 mg IVPUSH ONETIME STA Stop: 09/07/18 06:34 Last Admin: 09/07/18 06:45 Dose: 10 mg Enoxaparin Sodium (Lovenox) 40 mg SUBCUT DAILY [facility] Famotidine (Pepcid) 20 mg IV DAILY [facility] Last Admin: 09/10/18 09:06 Dose: 20 mg Flunisolide (Nasalide Nasal [place]) 0 ml NASBOTH BID PRN PRN Reason: Allergies Furosemide (Lasix) 20 mg PO DAILY [facility] Last Admin: 09/05/18 08:54 Dose: 20 mg Furosemide (Lasix) 60 mg IVPUSH ONETIME ONE Stop: 09/10/18 09:42 Last Admin: 09/10/18 13:12 Dose: 60 mg Furosemide (Lasix) 40 mg IVPUSH NOW ONE Stop: 09/12/18 17:45 Last Admin: 09/12/18 18:38 Dose: 40 mg Gabapentin (Neurontin) 300 mg PO BEDTIME [facility] Last Admin: 09/04/18 20:16 Dose: 300 mg Hydralazine HCl (Apresoline) 20 mg IVPUSH Q4H PRN PRN Reason: Hypertension Last Admin: 09/09/18 04:18 Dose: 20 mg Hydrochlorothiazide (Hydrochlorothiazide) 25 mg PO ONETIME ONE Stop: 09/10/18 09:44 Last Admin: 09/10/18 13:12 Dose: 25 mg Hydrochlorothiazide (Hydrochlorothiazide) 25 mg PO ONETIME ONE Stop: 09/12/18 17:45 Last Admin: 09/12/18 18:43 Dose: 25 mg Hydrocortisone (Hydrocortisone 1% Crm) 0 gm TOP BID PRN PRN Reason: skin complications Hydromorphone HCl (Dilaudid) 0.5 mg IVPUSH ONETIME STA Stop: 09/04/18 06:17 Last Admin: 09/04/18 06:38 Dose: 0.5 mg Hydromorphone HCl (Dilaudid) 0.5 mg IVPUSH Q2H PRN PRN Reason: Pain (severe 7-10) Last Admin: 09/05/18 03:49 Dose: 0.5 mg Sodium Chloride (Normal Saline) 1,000 mls @ 150 mls/hr IV ASDIRECTED [facility] Last Infusion: 09/05/18 18:41 Dose: Infused Levofloxacin/Dextrose 750 mg/ (Premix) 150 mls @ 100 mls/hr IV ONETIME ONE Stop: 09/04/18 10:25 Last Admin: 09/04/18 09:15 Dose: 100 mls/hr Metronidazole 500 mg/ Premix 100 mls @ 100 mls/hr IV ONETIME ONE Stop: 09/04/18 09:56 Last Admin: 09/04/18 09:16 Dose: 100 mls/hr Levofloxacin/Dextrose 750 mg/ (Premix) 150 mls @ 100 mls/hr IV Q48H [facility] Last Admin: 09/10/18 10:23 Dose: Not Given Metronidazole 500 mg/ Premix 100 mls @ 100 mls/hr IV Q8H [facility] Last Admin: 09/13/18 09:05 Dose: 100 mls/hr Sodium Chloride (Normal Saline) 1,000 mls @ 999 mls/hr IV ASDIRECTED [facility] Last Admin: 09/05/18 13:45 Dose: 999 mls/hr Fentanyl 2,500 mcg/ Sodium (Chloride) 250 mls @ 25.57 mls/hr IV TITRATE [facility]; Protocol Stop: 09/06/18 14:01 Last Titration: 09/06/18 11:13 Dose: 4 mcg/kg/hr, 51.14 mls/hr Propofol (Diprivan 100 Ml) 100 mls @ 3.836 mls/hr IV TITRATE [facility]; Protocol Last Titration: 09/07/18 09:15 Dose: 0 mcg/kg/min, 0 mls/hr Sodium Chloride (Normal Saline) Confirm Administered Dose 1,000 mls @ as directed .ROUTE .STK-MED ONE Stop: 09/05/18 14:12 Last Admin: 09/05/18 15:24 Dose: Not Given Sodium Chloride (Normal Saline) 1,000 mls @ 250 mls/hr IV ASDIRECTED [facility] Last Infusion: 09/05/18 22:30 Dose: 999 mls/hr Sodium Chloride (Normal Saline) 1,000 mls @ 999 mls/hr IV ONETIME ONE Stop: 09/05/18 23:30 Last Admin: 09/05/18 22:53 Dose: 999 mls/hr Sodium Chloride (Normal Saline) 1,000 mls @ 125 mls/hr IV ASDIRECTED [facility] Last Admin: 09/08/18 05:34 Dose: 125 mls/hr Norepinephrine Bitartrate 4 mg (/ Dextrose/Water) 250 mls @ 7.5 mls/hr IV TITRATE [facility]; Protocol Stop: 09/06/18 23:59 Last Titration: 09/06/18 16:24 Dose: 22 mcg/min, 82.5 mls/hr Sodium Bicarbonate 150 meq/ (Sodium Chloride) 400 mls @ 50 mls/hr IV ONETIME ONE Stop: 09/06/18 09:29 Last Admin: 09/06/18 01:51 Dose: 50 mls/hr Sodium Chloride (Normal Saline) Confirm Administered Dose 250 mls @ as directed .ROUTE .STK-MED ONE Stop: 09/06/18 01:27 Last Admin: 09/06/18 01:52 Dose: Not Given Norepinephrine Bitartrate 16 (mg/ Dextrose/Water) 250 mls @ 1.87 mls/hr IV TITRATE [facility]; Protocol Last Titration: 09/07/18 12:55 Dose: 0 mcg/min, 0 mls/hr Fentanyl 2,500 mcg/ Sodium (Chloride) 250 mls @ 26.33 mls/hr IV TITRATE [facility]; Protocol Stop: 09/07/18 22:00 Last Titration: 09/07/18 20:16 Dose: 2 mcg/kg/hr, 26.33 mls/hr Sodium Chloride (Normal Saline) 500 mls @ 999 mls/hr IV .BOLUS ONE Stop: 09/06/18 20:19 Last Admin: 09/06/18 19:53 Dose: 999 mls/hr Diltiazem HCl 125 mg/ Sodium (Chloride) 125 mls @ 2.5 mls/hr IV TITRATE [facility]; Protocol Last Titration: 09/07/18 14:42 Dose: 0 mg/hr, 0 mls/hr Midazolam HCl 50 mg/ Sodium (Chloride) 50 mls @ 0.5 mls/hr IV TITRATE [facility]; Protocol Last Titration: 09/07/18 21:17 Dose: 1 mg/hr, 1 mls/hr Albumin Human (Flexbumin 25%) 25 gm in 100 mls @ 100 mls/hr IV ONETIME ONE Stop: 09/10/18 10:39 Last Admin: 09/10/18 12:02 Dose: 100 mls/hr Levofloxacin/Dextrose 750 mg/ (Premix) 150 mls @ 100 mls/hr IV Q24H [facility] Last Admin: 09/12/18 10:33 Dose: 100 mls/hr Magnesium Sulfate 2 gm/ Premix 50 mls @ 25 mls/hr IV ONETIME ONE Stop: 09/10/18 18:52 Last Admin: 09/10/18 17:45 Dose: 25 mls/hr Magnesium Sulfate 2 gm/ Premix 50 mls @ 25 mls/hr IV ONETIME ONE Stop: 09/11/18 11:18 Last Admin: 09/11/18 11:11 Dose: 25 mls/hr Magnesium Sulfate 2 gm/ Premix 50 mls @ 25 mls/hr IV ONETIME ONE Stop: 09/12/18 17:48 Last Admin: 09/12/18 16:10 Dose: 25 mls/hr Albumin Human (Flexbumin 25%) 25 gm in 100 mls @ 100 mls/hr IV ONETIME ONE Stop: 09/12/18 18:45 Last Admin: 09/12/18 18:35 Dose: 100 mls/hr Albumin Human (Flexbumin 25%) Confirm Administered Dose 50 mls @ as directed .ROUTE .STK-MED ONE Stop: 09/12/18 18:35 Last Admin: 09/12/18 18:44 Dose: Not Given Magnesium Sulfate 2 gm/ Premix 50 mls @ 25 mls/hr IV ONETIME ONE Stop: 09/13/18 10:59 Last Admin: 09/13/18 09:05 Dose: 25 mls/hr Insulin Glargine (Lantus) 80 unit SUBCUT BEDTIME [facility] Last Admin: 09/04/18 22:43 Dose: Not Given Insulin Glargine (Lantus) 80 unit SUBCUT ONETIME ONE Stop: 09/05/18 00:01 Last Admin: 09/04/18 23:51 Dose: Not Given Insulin Glargine (Lantus) 80 unit SUBCUT BEDTIME [facility] Insulin Human Lispro (Humalog) 0 unit SUBCUT QIDACANDBED [facility]; Protocol Last Admin: 09/06/18 09:41 Dose: Not Given Iopamidol (Isovue-370 (76%)) 200 ml IV ONETIME ONE Stop: 09/04/18 08:09 Last Admin: 09/04/18 08:44 Dose: 70 ml Labetalol HCl (Normodyne) 100 mg PO BID [facility] Last Admin: 09/06/18 08:10 Dose: Not Given Labetalol HCl (Normodyne) 20 mg IVPUSH ONETIME ONE; Protocol Stop: 09/08/18 13:44 Last Admin: 09/08/18 13:57 Dose: 20 mg Lactulose (Cephulac) 20 gm PO Q6H [facility] Stop: 09/05/18 07:01 Last Admin: 09/05/18 06:51 Dose: 20 gm Lorazepam (Ativan) 0.5 mg IV Q6H PRN PRN Reason: Anxiety Last Admin: 09/05/18 09:04 Dose: 0.5 mg Lorazepam (Ativan) 2 mg IV Q4H PRN PRN Reason: Anxiety Last Admin: 09/09/18 00:46 Dose: 2 mg Losartan Potassium (Cozaar) 50 mg PO DAILY [facility] Last Admin: 09/05/18 10:53 Dose: Not Given Losartan Potassium (Cozaar) 50 mg PO DAILY [facility] Magnesium Sulfate (Pharmacy To Dose - Magnesium Replacement) 0 dose .XX ASDIRECTED PRN PRN Reason: RX TO WATCH MAG Methylprednisolone Sodium Succinate (Solu-Medrol) 60 mg IVPUSH ONETIME STA Stop: 09/05/18 09:58 Last Admin: 09/05/18 11:06 Dose: 60 mg Methylprednisolone Sodium Succinate (Solu-Medrol) 60 mg IVPUSH Q8H [facility] Last Admin: 09/08/18 06:01 Dose: 60 mg Methylprednisolone Sodium Succinate (Solu-Medrol) 60 mg IVPUSH BID [facility] Last Admin: 09/09/18 08:20 Dose: 60 mg Metoclopramide HCl (Reglan) 5 mg IVPUSH Q6H [facility] Stop: 09/05/18 01:01 Last Admin: 09/05/18 00:01 Dose: 5 mg Metoclopramide HCl (Reglan) 10 mg IVPUSH Q6H [facility] Last Admin: 09/10/18 05:57 Dose: 10 mg Metoprolol Tartrate (Lopressor) 5 mg IVPUSH Q4H PRN PRN Reason: Tachycardia Last Admin: 09/07/18 09:43 Dose: 5 mg Midazolam HCl (Versed 1 Mg/Ml) 10 mg .ROUTE .STK-MED ONE Stop: 09/05/18 14:01 Midazolam HCl (Versed 1 Mg/Ml) 10 mg IVPUSH ONETIME ONE Stop: 09/05/18 13:34 Last Admin: 09/05/18 13:33 Dose: 10 mg Midodrine (Midodrine) 5 mg PO TIDAC [facility] Last Admin: 09/06/18 11:16 Dose: 5 mg Midodrine (Midodrine) 5 mg PO ONETIME ONE Stop: 09/06/18 01:31 Last Admin: 09/06/18 01:45 Dose: 5 mg Midodrine (Midodrine) 5 mg PO TIDAC NISA Modafinil (Provigil) 200 mg PO NOW STA Stop: 09/08/18 09:03 Last Admin: 09/08/18 09:18 Dose: 200 mg Morphine Sulfate (Morphine) 1 mg IVPUSH ONETIME STA Stop: 09/05/18 09:55 Last Admin: 09/05/18 11:07 Dose: 1 mg Morphine Sulfate (Morphine) Confirm Administered Dose 2 mg .ROUTE .STK-MED ONE Stop: 09/05/18 09:57 Last Admin: 09/05/18 11:07 Dose: 1 mg Multivitamins (Thera) 1 each PO DAILY [facility] Last Admin: 09/06/18 08:17 Dose: 1 each Multivitamins (Thera) 1 each PO DAILY [facility] Last Admin: 09/10/18 09:05 Dose: Not Given Ondansetron HCl (Zofran) 4 mg IVPUSH ONETIME ONE Stop: 09/04/18 06:17 Last Admin: 09/04/18 06:37 Dose: 4 mg Ondansetron HCl (Zofran) 4 mg IV Q6H PRN PRN Reason: Nausea/Vomiting Chlorthalidone 25 Mg (Ptom) 0 each PO DAILY [facility] Last Admin: 09/06/18 08:11 Dose: Not Given Polyethylene Glycol (Miralax) 17 gm PO DAILY PRN PRN Reason: Constipation Potassium Chloride (Pharmacy To Dose - Potassium Replacement) 0 dose .XX ASDIRECTED PRN PRN Reason: RX TO WATCH K Racepinephrine (S-2 2.25%) Confirm Administered Dose 0.5 ml .ROUTE .STK-MED ONE Stop: 09/10/18 09:49 Last Admin: 09/10/18 10:13 Dose: Not Given Rocuronium Meridian (Zemuron) 100 mg .ROUTE .STK-MED ONE Stop: 09/05/18 14:01 Rocuronium Meridian (Zemuron) 100 mg IVPUSH ONETIME ONE Stop: 09/05/18 13:35 Last Admin: 09/05/18 13:34 Dose: 100 mg Sodium Bicarbonate (Sodium Bicarbonate 8.4%) 150 meq IVPUSH ONETIME ONE Stop: 09/06/18 01:05 Last Admin: 09/06/18 09:40 Dose: Not Given Sodium Bicarbonate (Sodium Bicarbonate 8.4%) Confirm Administered Dose 50 meq .ROUTE .STK-MED ONE Stop: 09/06/18 01:27 Last Admin: 09/06/18 01:50 Dose: 50 meq Sodium Bicarbonate (Sodium Bicarbonate 8.4%) Confirm Administered Dose 100 meq .ROUTE .STK-MED ONE Stop: 09/06/18 01:29 Last Admin: 09/06/18 01:52 Dose: Not Given Sodium Bicarbonate (Sodium Bicarbonate 8.4%) 50 meq IVPUSH ONETIME ONE Stop: 09/06/18 01:30 Last Admin: 09/06/18 01:51 Dose: 50 meq Sodium Bicarbonate (Sodium Bicarbonate 8.4%) Confirm Administered Dose 50 meq .ROUTE .STK-MED ONE Stop: 09/06/18 01:38 Last Admin: 09/06/18 01:52 Dose: Not Given Sodium Chloride (Saline Flush) 10 ml FLUSH ONETIME PRN PRN Reason: IV FLUSH Last Admin: 09/04/18 08:42 Dose: 10 ml Temazepam (Restoril) 7.5 mg PO BEDTIME PRN PRN Reason: Sleep Last Admin: 09/08/18 21:25 Dose: 7.5 mg Terbutaline Sulfate (Brethine) 2.5 mg PO BID NISA Stop: 09/06/18 21:01 Last Admin: 09/05/18 11:06 Dose: 2.5 mg - Exam Physical Findings Comments:: General: awake, Cooperative, No Acute Distress, Other (Morbidly Obese) HEENT: Pupils Equal, Pupils Reactive Neck: Supple Lungs: Normal Respiratory Effort, mild bibasilar crackles. Cardiovascular: Regular Rate, Regular Rhythm GI/Abdominal Exam: Normal Bowel Sounds, Soft, Non-Tender, No Organomegaly, No Distention, No Abnormal Bruit Extremities: Normal Inspection (left lower extremity), Normal Range of Motion ( left lower extremity), Non-Tender, Normal Capillary Refill, Pedal Edema (right lower extremity), Limited Range of Motion (right lower extremity), 4+ pedal edema Peripheral Pulses: 2+: Dorsalis Pedis (L), Dorsalis Pedis (R) Skin: Warm, Dry, Intact, Ecchymosis (right knee) Wound/Incisions: Dressing Dry and Intact Neurological: lethargic, no acute deficit Psy/Mental Status: Normal Affect, Normal Mood - Problem List & Annotations (1) Sigmoid diverticulitis SNOMED Code(s): 699745874 Code(s): K57.32 - DVTRCLI OF LG INT W/O PERFORATION OR ABSCESS W/O BLEEDING Status: Acute Current Visit: Yes (2) Hypertension SNOMED Code(s): 32972562 Code(s): I10 - ESSENTIAL (PRIMARY) HYPERTENSION Status: Acute Priority: Medium Current Visit: No Qualifiers: Hypertension type: unspecified Qualified Code(s): I10 - Essential (primary ) hypertension (3) Encephalopathy acute SNOMED Code(s): 49650049, 284173458 Code(s): G93.40 - ENCEPHALOPATHY, UNSPECIFIED Status: Acute Current Visit : Yes - Problem List Review Problem List Initiated/Reviewed/Updated: Yes - My Orders Last 24 Hours: My Active Orders 09/12/18 12:00 Blood Culture x2 Reflex Set [OM.PC] Stat 09/12/18 12:30 CULTURE BLOOD [BC] Stat 09/12/18 13:10 CULTURE BLOOD [BC] Stat 09/12/18 13:55 CULTURE URINE [RM] Routine 09/13/18 11:00 Communication Order [RC] Q4HR 09/13/18 Dinner NPO [Nothing Per Oral Diet] [DIET] - Plan Plan:: Plan: Acute: 1.Combined Respiratory Failure -extubated to NC - increased WOB, diuresis, 2D Echo, ABGs 2.Diverticulitis with Ileus, Improving - CT scan report reads CT scan report reads increased stool throughout the colon. Slight inflammatory change around a diverticuli within the sigmoid colon which may represent mild diverticulitis. Moderate amount of free fluid within the pelvis most likely reactive and diverticulitis. - Continue IV Flagyl and Levaquin for pharmacy to dose - Oral Probiotic BID - started TF - Dr. Metcalf following 3.DM2 with Hyperglycemia - LA insulin and ISS--> switch to high level, modified. - Accu-check QID 4.Hypoalbuminemia, undernutrition; - started TF 5.Hypernatremia, - started free water per NG - improving. 6. Elevated lipase: - gallstone present, follow with serial readings of lipase. - lipase unchanged 7. Elevated WBC: - suspected pancreatitis - suspected pneumonia - obtain cultures, stopped all abx.. Discussed with the patient and sister at bedside in details. LOS > 96hrs due to slow response to treatment
[2018-09-13] MEDS ORDERED: Albuterol/Ipratropium 3.0-0.5 MG/3 ML Neb Soln NEB PRN (14:13)
[2018-09-13] MEDS: Levofloxacin/Dextrose 5%-Water 750 MG in Premix Bag 1 BAG IV SCH (19:37)
[2018-09-13] MEDS: Insulin Glarg,Human.Rec.Analog 100 UNIT/ML ML SUBCUT SCH (20:35)
[2018-09-14] MEDS: Insulin Lispro 100 Units/ML 3 ML Vial SUBCUT SCH ×3 (00:54→11:40)
[2018-09-14] MEDS: Heparin Sodium 5,000 Units/ML Vial SUBCUT SCH ×2 (01:01→10:15)
[2018-09-14] MEDS: Acetaminophen/HYDROcodone 325-5 MG Tab PO PRN (05:35)
[2018-09-14] MEDS ORDERED: Benzocaine/Cetylpyridinium/Menthol Lozenge MUCMEM PRN (06:54)
[2018-09-14] MEDS: Rosuvastatin 10 MG Tab PO SCH (08:22)
[2018-09-14] MEDS: amLODIPine 10 MG Tab PO SCH (08:22)
[2018-09-14] MEDS: Labetalol 100 MG Tab PO SCH (08:23)
[2018-09-14] MEDS: Saccharomyces Boulardii (Probiotic) 250 MG Cap PO SCH (08:23)
[2018-09-14] MEDS: Levothyroxine 100 MCG Tab PO SCH (08:23)
[2018-09-14] MEDS: CHLORTHALIDONE 25 MG PO SCH (08:24)
--- NOTE | 2018-09-14 08:31 | PCM.SURGPN ---
- General Info Date of Service: 09/14/18 - Review of Systems Musculoskeletal: Reports: Other (The pt states she will be participating in therapy today and looks forward to increased walking. The pt denies significant discomfort at right knee. She states she has been completing a few stretching exercises as able.) - Patient Data Vitals - Most Recent: Last Vital Signs Temp 97.0 F 09/14/18 07:13 Pulse 62 09/14/18 08:23 Resp 22 H 09/14/18 07:13 BP 158/79 H 09/14/18 08:23 Pulse Ox 93 L 09/14/18 07:13 Weight - Most Recent: 279 lb 1.6 oz I&O - Last 24 Hours: Intake & Output 09/13/18 09/14/18 09/14/18 22:59 06:59 14:59 Intake Total 799 25 Output Total 1275 Balance 799 -1250 Lab Results Last 24 Hrs: Laboratory Results - last 24 hr 09/13/18 09/13/18 09/13/18 Range/Units 11:17 16:20 20:53 WBC (3.98-10.04) K/mm3 RBC (3.98-5.22) M/mm3 Hgb (11.2-15.7) gm/L Hct (34.1-44.9) % MCV (79.4-94.8) fl MCH (25.6-32.2) pg MCHC (32.2-35.5) g/dl RDW Std Deviation (36.4-46.3) fL Plt Count (182-369) K/mm3 MPV (9.4-12.3) fl Neut % (Auto) (34.0-71.1) % Lymph % (Auto) (19.3-51.7) % [place] % (Auto) (4.7-12.5) % Eos % (Auto) (0.7-5.8) Baso % (Auto) (0.1-1.2) % Neut # (Auto) (1.56-6.13) K/mm3 Lymph # (Auto) (1.18-3.74) K/mm3 [place] # (Auto) (0.24-0.36) K/mm3 Eos # (Auto) (0.04-0.36) K/mm3 Baso # (Auto) (0.01-0.08) K/mm3 Manual Slide Review Sodium (136-145) mEq/L Potassium (3.5-5.1) mEq/L Chloride (98-107) mEq/L Carbon Dioxide (21-32) mEq/L Anion Gap (5-15) BUN (7-18) mg/dL Creatinine (0.55-1.02) mg/dL Est Cr Clr Drug Dosing mL/min Estimated GFR (MDRD) (>60) mL/min BUN/Creatinine Ratio (14-18) Glucose (83-115) mg/dL POC Glucose 271 H 246 H 207 H (83-110) mg/dL Calcium (8.5-10.1) mg/dL Phosphorus (2.6-4.7) mg/dL Magnesium (1.8-2.4) mg/dl Lipase (73-393) U/L 09/14/18 09/14/18 09/14/18 Range/Units 00:53 05:32 05:42 WBC (3.98-10.04) K/mm3 RBC (3.98-5.22) M/mm3 Hgb (11.2-15.7) gm/L Hct (34.1-44.9) % MCV (79.4-94.8) fl MCH (25.6-32.2) pg MCHC (32.2-35.5) g/dl RDW Std Deviation (36.4-46.3) fL Plt Count (182-369) K/mm3 MPV (9.4-12.3) fl Neut % (Auto) (34.0-71.1) % Lymph % (Auto) (19.3-51.7) % [place] % (Auto) (4.7-12.5) % Eos % (Auto) (0.7-5.8) Baso % (Auto) (0.1-1.2) % Neut # (Auto) (1.56-6.13) K/mm3 Lymph # (Auto) (1.18-3.74) K/mm3 [place] # (Auto) (0.24-0.36) K/mm3 Eos # (Auto) (0.04-0.36) K/mm3 Baso # (Auto) (0.01-0.08) K/mm3 Manual Slide Review Sodium (136-145) mEq/L Potassium (3.5-5.1) mEq/L Chloride (98-107) mEq/L Carbon Dioxide (21-32) mEq/L Anion Gap (5-15) BUN (7-18) mg/dL Creatinine (0.55-1.02) mg/dL Est Cr Clr Drug Dosing mL/min Estimated GFR (MDRD) (>60) mL/min BUN/Creatinine Ratio (14-18) Glucose (83-115) mg/dL POC Glucose 218 H 212 H (83-110) mg/dL Calcium (8.5-10.1) mg/dL Phosphorus 3.1 (2.6-4.7) mg/dL Magnesium 1.7 L (1.8-2.4) mg/dl Lipase (73-393) U/L 09/14/18 09/14/18 Range/Units 05:42 05:42 WBC 17.98 H (3.98-10.04) K/mm3 RBC 3.28 L (3.98-5.22) M/mm3 Hgb 9.8 L (11.2-15.7) gm/L Hct 31.0 L (34.1-44.9) % MCV 94.5 (79.4-94.8) fl MCH 29.9 (25.6-32.2) pg MCHC 31.6 L (32.2-35.5) g/dl RDW Std Deviation 50.0 H (36.4-46.3) fL Plt Count 275 (182-369) K/mm3 MPV 11.0 (9.4-12.3) fl Neut % (Auto) 83.9 H (34.0-71.1) % Lymph % (Auto) 5.7 L (19.3-51.7) % [place] % (Auto) 6.7 (4.7-12.5) % Eos % (Auto) 1.8 (0.7-5.8) Baso % (Auto) 0.1 (0.1-1.2) % Neut # (Auto) 15.08 H (1.56-6.13) K/mm3 Lymph # (Auto) 1.02 L (1.18-3.74) K/mm3 [place] # (Auto) 1.21 H (0.24-0.36) K/mm3 Eos # (Auto) 0.33 (0.04-0.36) K/mm3 Baso # (Auto) 0.01 (0.01-0.08) K/mm3 Manual Slide Review Abnormal smear Sodium 139 (136-145) mEq/L Potassium 3.9 (3.5-5.1) mEq/L Chloride 107 (98-107) mEq/L Carbon Dioxide 23 (21-32) mEq/L Anion Gap 12.9 (5-15) BUN 29 H (7-18) mg/dL Creatinine 0.8 (0.55-1.02) mg/dL Est Cr Clr Drug Dosing 64.12 mL/min Estimated GFR (MDRD) > 60 (>60) mL/min BUN/Creatinine Ratio 36.3 H (14-18) Glucose 202 H (83-115) mg/dL POC Glucose (83-110) mg/dL Calcium 8.4 L (8.5-10.1) mg/dL Phosphorus (2.6-4.7) mg/dL Magnesium (1.8-2.4) mg/dl Lipase 3572 H (73-393) U/L [place] Results Last 24 Hrs: Microbiology 09/12/18 13:55 Urine Culture - Final Urine, Bladder NO GROWTH AFTER 2 DAYS 09/12/18 13:10 Aerobic Blood Culture - Preliminary Blood - Venous NO GROWTH AFTER 1 DAY Anaerobic Blood Culture - Preliminary NO GROWTH AFTER 1 DAY 09/12/18 12:30 Aerobic Blood Culture - Preliminary Blood - Venous - Lab Draw NO GROWTH AFTER 1 DAY Anaerobic Blood Culture - Preliminary NO GROWTH AFTER 1 DAY Med Orders - Current: Current Medications Hydrocodone Bitart/Acetaminophen (Musella 325-5 Mg) 1 tab PO Q6H PRN PRN Reason: Pain Last Admin: 09/14/18 05:35 Dose: 1 tab Albuterol/Ipratropium (Duoneb 3.0-0.5 Mg/3 Ml) 3 ml NEB Q4HRRT PRN PRN Reason: Shortness of Breath Amlodipine Besylate (Norvasc) 10 mg PO DAILY [facility] Last Admin: 09/14/18 08:22 Dose: 10 mg Benzocaine/Menthol (Cepacol Sore Throat) 1 lozenge MUCMEM Q2HR PRN PRN Reason: Sore Throat Last Admin: 09/14/18 08:25 Dose: 1 lozenge Dextrose/Water (Dextrose 50% In Water) 50 ml IV ASDIRECTED PRN PRN Reason: Hypoglycemia Fluticasone Propionate (Flonase) 0 gm NASBOTH DAILY PRN PRN Reason: Allergies Heparin Sodium (Porcine) (Heparin Sodium) 5,000 units SUBCUT Q8H [facility] Last Admin: 09/14/18 01:01 Dose: 5,000 units Insulin Glargine (Lantus) 30 unit SUBCUT Q24H [facility] Last Admin: 09/13/18 20:35 Dose: 30 units Insulin Human Lispro (Humalog) 0 unit SUBCUT Q6H [facility]; Protocol Last Admin: 09/14/18 05:34 Dose: 7 unit Labetalol HCl (Normodyne) 100 mg PO BID [facility] Last Admin: 09/14/18 08:23 Dose: 100 mg Levothyroxine Sodium (Synthroid) 100 mcg PO DAILY [facility] Last Admin: 09/14/18 08:23 Dose: 100 mcg Miscellaneous Information (Remove Patch) 0 ea TRDERM Q7D [facility] Stop: 09/15/18 16:00 Ozempic 0.5 Mg (Ptom) 0.5 each SUBCUT TH [facility] Last Admin: 09/08/18 12:27 Dose: Not Given Chlorthalidone 25 Mg (Ptom) 0 each PO DAILY [facility] Last Admin: 09/14/18 08:24 Dose: 1 each Rosuvastatin Calcium (Crestor) 20 mg PO DAILY [facility] Last Admin: 09/14/18 08:22 Dose: 20 mg Saccharomyces Boulardii (Florastor) 250 mg PO BID [facility] Last Admin: 09/14/18 08:23 Dose: 250 mg Discontinued Medications Acetaminophen (Tylenol) 1,300 mg PO BID [facility] Last Admin: 09/06/18 08:16 Dose: 1,300 mg Acetaminophen (Tylenol) 975 mg PO ONETIME ONE Stop: 09/05/18 00:06 Last Admin: 09/05/18 00:12 Dose: 975 mg Acetaminophen (Tylenol) 1,300 mg PO BID [facility] Last Admin: 09/10/18 09:24 Dose: 1,300 mg Acetazolamide (Diamox) 250 mg PO Q4H [facility] Stop: 09/12/18 02:27 Last Admin: 09/12/18 01:57 Dose: 250 mg Acetazolamide (Diamox) 250 mg PO Q4H [facility] Stop: 09/12/18 21:46 Last Admin: 09/12/18 21:42 Dose: 250 mg Albuterol (Proventil Neb Soln) Confirm Administered Dose 2.5 mg .ROUTE .STK-MED ONE Stop: 09/05/18 09:58 Last Admin: 09/05/18 10:00 Dose: 2.5 mg Albuterol (Proventil Neb Soln) Confirm Administered Dose 2.5 mg .ROUTE .STK-MED ONE Stop: 09/10/18 09:52 Last Admin: 09/10/18 10:13 Dose: Not Given Albuterol/Ipratropium (Duoneb 3.0-0.5 Mg/3 Ml) 3 ml NEB Q4H PRN PRN Reason: Shortness Of Breath/wheezing Albuterol/Ipratropium (Duoneb 3.0-0.5 Mg/3 Ml) 3 ml NEB ONETIME ONE Stop: 09/05/18 09:58 Last Admin: 09/05/18 15:06 Dose: Not Given Albuterol/Ipratropium (Duoneb 3.0-0.5 Mg/3 Ml) 3 ml NEB BIDRT [facility] Last Admin: 09/08/18 06:12 Dose: 3 ml Albuterol/Ipratropium (Duoneb 3.0-0.5 Mg/3 Ml) 3 ml NEB Q6HRRT [facility] Last Admin: 09/13/18 08:21 Dose: 3 ml Amlodipine Besylate (Norvasc) 10 mg PO DAILY [facility] Last Admin: 09/06/18 08:10 Dose: Not Given Artificial Tears (Refresh Liquigel 1%) 0 ml EYEBOTH DAILY PRN PRN Reason: Dry Eyes Ascorbic Acid (Vitamin C) 1,000 mg PO DAILY [facility] Last Admin: 09/06/18 08:17 Dose: 1,000 mg Ascorbic Acid (Vitamin C) 1,000 mg PO DAILY [facility] Last Admin: 09/10/18 09:06 Dose: Not Given Aspirin (Ecotrin) 325 mg PO BID [facility] Last Admin: 09/06/18 08:33 Dose: Not Given Aspirin (Ecotrin) 325 mg PO BID [facility] Last Admin: 09/09/18 08:15 Dose: 325 mg Benazepril HCl (Lotensin) 40 mg PO DAILY [facility] Last Admin: 09/05/18 10:54 Dose: Not Given Bisacodyl (Dulcolax) 5 mg PO DAILY PRN PRN Reason: Constipation Bisacodyl (Dulcolax) 10 mg RECTAL DAILY [facility] Last Admin: 09/10/18 09:04 Dose: Not Given Bumetanide (Bumex) 0.5 mg IVPUSH ONETIME ONE Stop: 09/06/18 21:39 Last Admin: 09/06/18 22:36 Dose: 0.5 mg Bumetanide (Bumex) 0.5 mg IVPUSH BID [facility] Last Admin: 09/09/18 08:20 Dose: 0.5 mg Clonidine HCl (Catapres-Tts 3) 0.3 mg TRDERM Q7D [facility] Last Admin: 09/08/18 15:49 Dose: 0.3 mg Cyanocobalamin (Vitamin B12) 250 mcg PO DAILY [facility] Last Admin: 09/06/18 08:24 Dose: 250 mcg Cyanocobalamin (Vitamin B12) 250 mcg PO DAILY [facility] Last Admin: 09/10/18 09:06 Dose: Not Given Dextrose/Water (Dextrose 50% In Water) 50 ml IVPUSH ASDIRECTED PRN PRN Reason: Hypoglycemia Diatrizoate Meglum/Diatrizoate Sod (Gastrografin 37%) 120 ml PO ONETIME ONE Stop: 09/04/18 08:09 Last Admin: 09/04/18 08:41 Dose: 90 ml Diazepam (Valium) 5 mg IV Q6H PRN PRN Reason: Sedation Diltiazem HCl (Cardizem) 10 mg IVPUSH ONETIME STA Stop: 09/07/18 06:34 Last Admin: 09/07/18 06:45 Dose: 10 mg Enoxaparin Sodium (Lovenox) 40 mg SUBCUT DAILY [facility] Famotidine (Pepcid) 20 mg IV DAILY [facility] Last Admin: 09/10/18 09:06 Dose: 20 mg Flunisolide (Nasalide Nasal [place]) 0 ml NASBOTH BID PRN PRN Reason: Allergies Furosemide (Lasix) 20 mg PO DAILY [facility] Last Admin: 09/05/18 08:54 Dose: 20 mg Furosemide (Lasix) 60 mg IVPUSH ONETIME ONE Stop: 09/10/18 09:42 Last Admin: 09/10/18 13:12 Dose: 60 mg Furosemide (Lasix) 40 mg IVPUSH NOW ONE Stop: 09/12/18 17:45 Last Admin: 09/12/18 18:38 Dose: 40 mg Gabapentin (Neurontin) 300 mg PO BEDTIME [facility] Last Admin: 09/04/18 20:16 Dose: 300 mg Hydralazine HCl (Apresoline) 20 mg IVPUSH Q4H PRN PRN Reason: Hypertension Last Admin: 09/09/18 04:18 Dose: 20 mg Hydrochlorothiazide (Hydrochlorothiazide) 25 mg PO ONETIME ONE Stop: 09/10/18 09:44 Last Admin: 09/10/18 13:12 Dose: 25 mg Hydrochlorothiazide (Hydrochlorothiazide) 25 mg PO ONETIME ONE Stop: 09/12/18 17:45 Last Admin: 09/12/18 18:43 Dose: 25 mg Hydrocortisone (Hydrocortisone 1% Crm) 0 gm TOP BID PRN PRN Reason: skin complications Hydromorphone HCl (Dilaudid) 0.5 mg IVPUSH ONETIME STA Stop: 09/04/18 06:17 Last Admin: 09/04/18 06:38 Dose: 0.5 mg Hydromorphone HCl (Dilaudid) 0.5 mg IVPUSH Q2H PRN PRN Reason: Pain (severe 7-10) Last Admin: 09/05/18 03:49 Dose: 0.5 mg Sodium Chloride (Normal Saline) 1,000 mls @ 150 mls/hr IV ASDIRECTED [facility] Last Infusion: 09/05/18 18:41 Dose: Infused Levofloxacin/Dextrose 750 mg/ (Premix) 150 mls @ 100 mls/hr IV ONETIME ONE Stop: 09/04/18 10:25 Last Admin: 09/04/18 09:15 Dose: 100 mls/hr Metronidazole 500 mg/ Premix 100 mls @ 100 mls/hr IV ONETIME ONE Stop: 09/04/18 09:56 Last Admin: 09/04/18 09:16 Dose: 100 mls/hr Levofloxacin/Dextrose 750 mg/ (Premix) 150 mls @ 100 mls/hr IV Q48H [facility] Last Admin: 09/10/18 10:23 Dose: Not Given Metronidazole 500 mg/ Premix 100 mls @ 100 mls/hr IV Q8H [facility] Last Admin: 09/13/18 09:05 Dose: 100 mls/hr Sodium Chloride (Normal Saline) 1,000 mls @ 999 mls/hr IV ASDIRECTED [facility] Last Admin: 09/05/18 13:45 Dose: 999 mls/hr Fentanyl 2,500 mcg/ Sodium (Chloride) 250 mls @ 25.57 mls/hr IV TITRATE [facility]; Protocol Stop: 09/06/18 14:01 Last Titration: 09/06/18 11:13 Dose: 4 mcg/kg/hr, 51.14 mls/hr Propofol (Diprivan 100 Ml) 100 mls @ 3.836 mls/hr IV TITRATE [facility]; Protocol Last Titration: 09/07/18 09:15 Dose: 0 mcg/kg/min, 0 mls/hr Sodium Chloride (Normal Saline) Confirm Administered Dose 1,000 mls @ as directed .ROUTE .STK-MED ONE Stop: 09/05/18 14:12 Last Admin: 09/05/18 15:24 Dose: Not Given Sodium Chloride (Normal Saline) 1,000 mls @ 250 mls/hr IV ASDIRECTED [facility] Last Infusion: 09/05/18 22:30 Dose: 999 mls/hr Sodium Chloride (Normal Saline) 1,000 mls @ 999 mls/hr IV ONETIME ONE Stop: 09/05/18 23:30 Last Admin: 09/05/18 22:53 Dose: 999 mls/hr Sodium Chloride (Normal Saline) 1,000 mls @ 125 mls/hr IV ASDIRECTED [facility] Last Admin: 09/08/18 05:34 Dose: 125 mls/hr Norepinephrine Bitartrate 4 mg (/ Dextrose/Water) 250 mls @ 7.5 mls/hr IV TITRATE [facility]; Protocol Stop: 09/06/18 23:59 Last Titration: 09/06/18 16:24 Dose: 22 mcg/min, 82.5 mls/hr Sodium Bicarbonate 150 meq/ (Sodium Chloride) 400 mls @ 50 mls/hr IV ONETIME ONE Stop: 09/06/18 09:29 Last Admin: 09/06/18 01:51 Dose: 50 mls/hr Sodium Chloride (Normal Saline) Confirm Administered Dose 250 mls @ as directed .ROUTE .STK-MED ONE Stop: 09/06/18 01:27 Last Admin: 09/06/18 01:52 Dose: Not Given Norepinephrine Bitartrate 16 (mg/ Dextrose/Water) 250 mls @ 1.87 mls/hr IV TITRATE [facility]; Protocol Last Titration: 09/07/18 12:55 Dose: 0 mcg/min, 0 mls/hr Fentanyl 2,500 mcg/ Sodium (Chloride) 250 mls @ 26.33 mls/hr IV TITRATE [facility]; Protocol Stop: 09/07/18 22:00 Last Titration: 09/07/18 20:16 Dose: 2 mcg/kg/hr, 26.33 mls/hr Sodium Chloride (Normal Saline) 500 mls @ 999 mls/hr IV .BOLUS ONE Stop: 09/06/18 20:19 Last Admin: 09/06/18 19:53 Dose: 999 mls/hr Diltiazem HCl 125 mg/ Sodium (Chloride) 125 mls @ 2.5 mls/hr IV TITRATE [facility]; Protocol Last Titration: 09/07/18 14:42 Dose: 0 mg/hr, 0 mls/hr Midazolam HCl 50 mg/ Sodium (Chloride) 50 mls @ 0.5 mls/hr IV TITRATE [facility]; Protocol Last Titration: 09/07/18 21:17 Dose: 1 mg/hr, 1 mls/hr Albumin Human (Flexbumin 25%) 25 gm in 100 mls @ 100 mls/hr IV ONETIME ONE Stop: 09/10/18 10:39 Last Admin: 09/10/18 12:02 Dose: 100 mls/hr Levofloxacin/Dextrose 750 mg/ (Premix) 150 mls @ 100 mls/hr IV Q24H [facility] Last Admin: 09/13/18 19:37 Dose: Not Given Magnesium Sulfate 2 gm/ Premix 50 mls @ 25 mls/hr IV ONETIME ONE Stop: 09/10/18 18:52 Last Admin: 09/10/18 17:45 Dose: 25 mls/hr Magnesium Sulfate 2 gm/ Premix 50 mls @ 25 mls/hr IV ONETIME ONE Stop: 09/11/18 11:18 Last Admin: 09/11/18 11:11 Dose: 25 mls/hr Magnesium Sulfate 2 gm/ Premix 50 mls @ 25 mls/hr IV ONETIME ONE Stop: 09/12/18 17:48 Last Admin: 09/12/18 16:10 Dose: 25 mls/hr Albumin Human (Flexbumin 25%) 25 gm in 100 mls @ 100 mls/hr IV ONETIME ONE Stop: 09/12/18 18:45 Last Admin: 09/12/18 18:35 Dose: 100 mls/hr Albumin Human (Flexbumin 25%) Confirm Administered Dose 50 mls @ as directed .ROUTE .STK-MED ONE Stop: 09/12/18 18:35 Last Admin: 09/12/18 18:44 Dose: Not Given Magnesium Sulfate 2 gm/ Premix 50 mls @ 25 mls/hr IV ONETIME ONE Stop: 09/13/18 10:59 Last Admin: 09/13/18 09:05 Dose: 25 mls/hr Insulin Glargine (Lantus) 80 unit SUBCUT BEDTIME [facility] Last Admin: 09/04/18 22:43 Dose: Not Given Insulin Glargine (Lantus) 80 unit SUBCUT ONETIME ONE Stop: 09/05/18 00:01 Last Admin: 09/04/18 23:51 Dose: Not Given Insulin Glargine (Lantus) 80 unit SUBCUT BEDTIME [facility] Insulin Human Lispro (Humalog) 0 unit SUBCUT QIDACANDBED [facility]; Protocol Last Admin: 09/06/18 09:41 Dose: Not Given Iopamidol (Isovue-370 (76%)) 200 ml IV ONETIME ONE Stop: 09/04/18 08:09 Last Admin: 09/04/18 08:44 Dose: 70 ml Labetalol HCl (Normodyne) 100 mg PO BID [facility] Last Admin: 09/06/18 08:10 Dose: Not Given Labetalol HCl (Normodyne) 20 mg IVPUSH ONETIME ONE; Protocol Stop: 09/08/18 13:44 Last Admin: 09/08/18 13:57 Dose: 20 mg Lactulose (Cephulac) 20 gm PO Q6H [facility] Stop: 09/05/18 07:01 Last Admin: 09/05/18 06:51 Dose: 20 gm Lorazepam (Ativan) 0.5 mg IV Q6H PRN PRN Reason: Anxiety Last Admin: 09/05/18 09:04 Dose: 0.5 mg Lorazepam (Ativan) 2 mg IV Q4H PRN PRN Reason: Anxiety Last Admin: 09/09/18 00:46 Dose: 2 mg Losartan Potassium (Cozaar) 50 mg PO DAILY [facility] Last Admin: 09/05/18 10:53 Dose: Not Given Losartan Potassium (Cozaar) 50 mg PO DAILY [facility] Magnesium Sulfate (Pharmacy To Dose - Magnesium Replacement) 0 dose .XX ASDIRECTED PRN PRN Reason: RX TO WATCH MAG Methylprednisolone Sodium Succinate (Solu-Medrol) 60 mg IVPUSH ONETIME STA Stop: 09/05/18 09:58 Last Admin: 09/05/18 11:06 Dose: 60 mg Methylprednisolone Sodium Succinate (Solu-Medrol) 60 mg IVPUSH Q8H [facility] Last Admin: 09/08/18 06:01 Dose: 60 mg Methylprednisolone Sodium Succinate (Solu-Medrol) 60 mg IVPUSH BID [facility] Last Admin: 09/09/18 08:20 Dose: 60 mg Metoclopramide HCl (Reglan) 5 mg IVPUSH Q6H [facility] Stop: 09/05/18 01:01 Last Admin: 09/05/18 00:01 Dose: 5 mg Metoclopramide HCl (Reglan) 10 mg IVPUSH Q6H [facility] Last Admin: 09/10/18 05:57 Dose: 10 mg Metoprolol Tartrate (Lopressor) 5 mg IVPUSH Q4H PRN PRN Reason: Tachycardia Last Admin: 09/07/18 09:43 Dose: 5 mg Midazolam HCl (Versed 1 Mg/Ml) 10 mg .ROUTE .STK-MED ONE Stop: 09/05/18 14:01 Midazolam HCl (Versed 1 Mg/Ml) 10 mg IVPUSH ONETIME ONE Stop: 09/05/18 13:34 Last Admin: 09/05/18 13:33 Dose: 10 mg Midodrine (Midodrine) 5 mg PO TIDAC [facility] Last Admin: 09/06/18 11:16 Dose: 5 mg Midodrine (Midodrine) 5 mg PO ONETIME ONE Stop: 09/06/18 01:31 Last Admin: 09/06/18 01:45 Dose: 5 mg Midodrine (Midodrine) 5 mg PO TIDAC [facility] Modafinil (Provigil) 200 mg PO NOW STA Stop: 09/08/18 09:03 Last Admin: 09/08/18 09:18 Dose: 200 mg Morphine Sulfate (Morphine) 1 mg IVPUSH ONETIME STA Stop: 09/05/18 09:55 Last Admin: 09/05/18 11:07 Dose: 1 mg Morphine Sulfate (Morphine) Confirm Administered Dose 2 mg .ROUTE .STK-MED ONE Stop: 09/05/18 09:57 Last Admin: 09/05/18 11:07 Dose: 1 mg Multivitamins (Thera) 1 each PO DAILY [facility] Last Admin: 09/06/18 08:17 Dose: 1 each Multivitamins (Thera) 1 each PO DAILY [facility] Last Admin: 09/10/18 09:05 Dose: Not Given Ondansetron HCl (Zofran) 4 mg IVPUSH ONETIME ONE Stop: 09/04/18 06:17 Last Admin: 09/04/18 06:37 Dose: 4 mg Ondansetron HCl (Zofran) 4 mg IV Q6H PRN PRN Reason: Nausea/Vomiting Chlorthalidone 25 Mg (Ptom) 0 each PO DAILY [facility] Last Admin: 09/06/18 08:11 Dose: Not Given Polyethylene Glycol (Miralax) 17 gm PO DAILY PRN PRN Reason: Constipation Potassium Chloride (Pharmacy To Dose - Potassium Replacement) 0 dose .XX ASDIRECTED PRN PRN Reason: RX TO WATCH K Racepinephrine (S-2 2.25%) Confirm Administered Dose 0.5 ml .ROUTE .STK-MED ONE Stop: 09/10/18 09:49 Last Admin: 09/10/18 10:13 Dose: Not Given Rocuronium Leland (Zemuron) 100 mg .ROUTE .STK-MED ONE Stop: 09/05/18 14:01 Rocuronium [place]eland (Zemuron) 100 mg IVPUSH ONETIME ONE Stop: 09/05/18 13:35 Last Admin: 09/05/18 13:34 Dose: 100 mg Sodium Bicarbonate (Sodium Bicarbonate 8.4%) 150 meq IVPUSH ONETIME ONE Stop: 09/06/18 01:05 Last Admin: 09/06/18 09:40 Dose: Not Given Sodium Bicarbonate (Sodium Bicarbonate 8.4%) Confirm Administered Dose 50 meq .ROUTE .STK-MED ONE Stop: 09/06/18 01:27 Last Admin: 09/06/18 01:50 Dose: 50 meq Sodium Bicarbonate (Sodium Bicarbonate 8.4%) Confirm Administered Dose 100 meq .ROUTE .STK-MED ONE Stop: 09/06/18 01:29 Last Admin: 09/06/18 01:52 Dose: Not Given Sodium Bicarbonate (Sodium Bicarbonate 8.4%) 50 meq IVPUSH ONETIME ONE Stop: 09/06/18 01:30 Last Admin: 09/06/18 01:51 Dose: 50 meq Sodium Bicarbonate (Sodium Bicarbonate 8.4%) Confirm Administered Dose 50 meq .ROUTE .STK-MED ONE Stop: 09/06/18 01:38 Last Admin: 09/06/18 01:52 Dose: Not Given Sodium Chloride (Saline Flush) 10 ml FLUSH ONETIME PRN PRN Reason: IV FLUSH Last Admin: 09/04/18 08:42 Dose: 10 ml Temazepam (Restoril) 7.5 mg PO BEDTIME PRN PRN Reason: Sleep Last Admin: 09/08/18 21:25 Dose: 7.5 mg Terbutaline Sulfate (Brethine) 2.5 mg PO BID [facility] Stop: 09/06/18 21:01 Last Admin: 09/05/18 11:06 Dose: 2.5 mg - Exam Wound/Incisions: Other (Dermabond Prineo in place. No bleeding or drainage from incision noted.) Extremities: Other (Mod eccymosis noted about right knee. Mod effusion. Nori' s negative for RLE. NVS intact for RLE.) - Problem List Review Problem List Initiated/Reviewed/Updated: Yes - My Orders Last 24 Hours: Active Orders 24 hr Category Date Time Status Communication Order [RC] Q4HR Care 09/13/18 11:00 Active RT Aerosol Therapy [RC] ASDIRECTED Care 09/13/18 14:14 Active Wound Care [RC] ASDIRECTED Care 09/14/18 08:26 Ordered NPO [Nothing Per Oral Diet] [DIET] Diet 09/13/18 Dinner Active CBC W/O DIFF,HEMOGRAM [HEME] MOTH@0700 Lab 09/15/18 07:00 Ordered CBC W/O DIFF,HEMOGRAM [HEME] MOTH@0700 Lab 09/19/18 07:00 Ordered CBC W/O DIFF,HEMOGRAM [HEME] MOTH@0700 Lab 09/22/18 07:00 Ordered CBC W/O DIFF,HEMOGRAM [HEME] MOTH@0700 Lab 09/26/18 07:00 Ordered Albuterol/Ipratropium [DuoNeb 3.0-0.5 MG/3 ML] Med 09/13/18 14:13 Active 3 ml NEB Q4HRRT PRN Benzocaine/Cetylpyrd/Menthol [Cepacol Sore Throat] Med 09/14/18 06:54 Active 1 lozenge MUCMEM Q2HR PRN Remove Patch Med 09/15/18 15:00 Active 0 ea TRDERM Q7D Medication Orders Hydrocodone Bitart/Acetaminophen (Musella 325-5 Mg) 1 tab PO Q6H PRN PRN Reason: Pain Last Admin: 09/14/18 05:35 Dose: 1 tab Admin: 09/13/18 23:34 Dose: 1 tab Admin: 09/13/18 10:28 Dose: 1 tab Admin: 09/12/18 21:40 Dose: 1 tab Admin: 09/12/18 04:50 Dose: 1 tab Admin: 09/11/18 21:57 Dose: 1 tab Admin: 09/11/18 11:37 Dose: 1 tab Albuterol/Ipratropium (Duoneb 3.0-0.5 Mg/3 Ml) 3 ml NEB Q4HRRT PRN PRN Reason: Shortness of Breath Amlodipine Besylate (Norvasc) 10 mg PO DAILY NISA Last Admin: 09/14/18 08:22 Dose: 10 mg Admin: 09/13/18 09:34 Dose: 10 mg Admin: 09/12/18 08:16 Dose: 10 mg Admin: 09/11/18 08:26 Dose: 10 mg Admin: 09/10/18 09:22 Dose: 10 mg Admin: 09/09/18 08:15 Dose: 10 mg Benzocaine/Menthol (Cepacol Sore Throat) 1 lozenge MUCMEM Q2HR PRN PRN Reason: Sore Throat Last Admin: 09/14/18 08:25 Dose: 1 lozenge Dextrose/Water (Dextrose 50% In Water) 50 ml IV ASDIRECTED PRN PRN Reason: Hypoglycemia Fluticasone Propionate (Flonase) 0 gm NASBOTH DAILY PRN PRN Reason: Allergies Heparin Sodium (Porcine) (Heparin Sodium) 5,000 units SUBCUT Q8H [facility] Last Admin: 09/14/18 01:01 Dose: 5,000 units Admin: 09/13/18 17:59 Dose: 5,000 units Admin: 09/13/18 09:36 Dose: 5,000 units Admin: 09/13/18 03:15 Dose: 5,000 units Admin: 09/12/18 18:26 Dose: 5,000 units Admin: 09/12/18 10:37 Dose: 5,000 units Admin: 09/12/18 01:55 Dose: 5,000 units Admin: 09/11/18 18:18 Dose: 5,000 units Admin: 09/11/18 09:35 Dose: 5,000 units Admin: 09/11/18 02:05 Dose: 5,000 units Admin: 09/10/18 17:41 Dose: 5,000 units Admin: 09/10/18 09:03 Dose: 5,000 units Admin: 09/10/18 02:02 Dose: 5,000 units Admin: 09/09/18 17:19 Dose: 5,000 units Admin: 09/09/18 09:00 Dose: 5,000 units Admin: 09/09/18 01:55 Dose: 5,000 units Admin: 09/08/18 17:04 Dose: 5,000 units Admin: 09/08/18 09:18 Dose: 5,000 units Admin: 09/08/18 01:25 Dose: 5,000 units Admin: 09/07/18 17:47 Dose: 5,000 units Admin: 09/07/18 10:04 Dose: 5,000 units Admin: 09/07/18 02:05 Dose: 5,000 units Admin: 09/06/18 17:04 Dose: 5,000 units Admin: 09/06/18 11:11 Dose: 5,000 units Admin: 09/06/18 01:56 Dose: 5,000 units Admin: 09/05/18 17:55 Dose: 5,000 units Admin: 09/05/18 11:04 Dose: 5,000 units Admin: 09/05/18 02:43 Dose: 5,000 units Insulin Glargine (Lantus) 30 unit SUBCUT Q24H [facility] Last Admin: 09/13/18 20:35 Dose: 30 units Admin: 09/12/18 21:47 Dose: 30 units Admin: 09/11/18 21:42 Dose: 30 units Admin: 09/10/18 21:53 Dose: 30 units Insulin Human Lispro (Humalog) 0 unit SUBCUT Q6H NISA; Protocol Last Admin: 09/14/18 05:34 Dose: 7 unit Admin: 09/14/18 00:54 Dose: 7 unit Admin: 09/13/18 17:58 Dose: 7 unit Admin: 09/13/18 13:23 Dose: 11 unit Admin: 09/13/18 06:08 Dose: 7 unit Admin: 09/13/18 00:11 Dose: 7 unit Admin: 09/12/18 18:25 Dose: 4 unit Admin: 09/12/18 12:56 Dose: 7 unit Admin: 09/12/18 07:04 Dose: 11 unit Admin: 09/12/18 00:27 Dose: Not Given Admin: 09/11/18 22:54 Dose: 11 unit Admin: 09/11/18 17:01 Dose: 9 unit Admin: 09/11/18 11:37 Dose: 9 unit Admin: 09/11/18 07:10 Dose: 3 unit Admin: 09/11/18 02:05 Dose: 6 unit Admin: 09/10/18 17:41 Dose: 9 unit Admin: 09/10/18 13:17 Dose: 9 unit Admin: 09/10/18 05:57 Dose: 6 unit Admin: 09/09/18 23:15 Dose: 9 unit Admin: 09/09/18 17:29 Dose: 9 unit Admin: 09/09/18 11:49 Dose: 6 unit Admin: 09/09/18 06:09 Dose: 9 unit Admin: 09/08/18 23:23 Dose: 9 unit Admin: 09/08/18 18:01 Dose: 6 unit Admin: 09/08/18 12:16 Dose: 6 unit Admin: 09/08/18 05:43 Dose: 6 unit Admin: 09/07/18 23:46 Dose: 6 unit Admin: 09/07/18 18:16 Dose: 3 unit Admin: 09/07/18 11:51 Dose: 6 unit Admin: 09/07/18 06:08 Dose: 9 unit Admin: 09/06/18 23:13 Dose: 9 unit Admin: 09/06/18 17:07 Dose: 6 unit Admin: 09/06/18 11:15 Dose: 4 unit Admin: 09/06/18 05:50 Dose: 2 unit Admin: 09/06/18 00:35 Dose: 2 unit Admin: 09/05/18 18:07 Dose: 2 unit Labetalol HCl (Normodyne) 100 mg PO BID [facility] Last Admin: 09/14/18 08:23 Dose: 100 mg Admin: 09/13/18 20:34 Dose: 100 mg Admin: 09/13/18 09:34 Dose: 100 mg Admin: 09/12/18 21:43 Dose: 100 mg Admin: 09/12/18 08:15 Dose: 100 mg Admin: 09/11/18 20:43 Dose: 100 mg Admin: 09/11/18 08:25 Dose: 100 mg Admin: 09/10/18 21:52 Dose: 100 mg Admin: 09/10/18 09:22 Dose: 100 mg Admin: 09/09/18 22:08 Dose: 100 mg Admin: 09/09/18 08:16 Dose: 100 mg Levothyroxine Sodium (Synthroid) 100 mcg PO DAILY [facility] Last Admin: 09/14/18 08:23 Dose: 100 mcg Admin: 09/13/18 09:34 Dose: 100 mcg Admin: 09/12/18 08:17 Dose: 100 mcg Admin: 09/11/18 08:25 Dose: 100 mcg Admin: 09/10/18 09:03 Dose: 100 mcg Admin: 09/09/18 08:54 Dose: 100 mcg Admin: 09/06/18 08:16 Dose: 100 mcg Admin: 09/05/18 08:52 Dose: 100 mcg Miscellaneous Information (Remove Patch) 0 ea TRDERM Q7D [facility] Stop: 09/15/18 16:00 Ozempic 0.5 Mg (Ptom) 0.5 each SUBCUT TH [facility] Last Admin: 09/08/18 12:27 Dose: Chlorthalidone 25 Mg (Ptom) 0 each PO DAILY [facility] Last Admin: 09/14/18 08:24 Dose: 1 each Admin: 09/13/18 09:47 Dose: 1 each Admin: 09/12/18 08:18 Dose: 1 each Admin: 09/11/18 08:27 Dose: Admin: 09/10/18 09:05 Dose: Admin: 09/09/18 08:48 Dose: Rosuvastatin Calcium (Crestor) 20 mg PO DAILY [facility] Last Admin: 09/14/18 08:22 Dose: 20 mg Admin: 09/13/18 09:34 Dose: 20 mg Admin: 09/12/18 08:14 Dose: 20 mg Admin: 09/11/18 08:24 Dose: 20 mg Admin: 09/10/18 09:02 Dose: 20 mg Admin: 09/09/18 08:53 Dose: 20 mg Admin: 09/06/18 08:25 Dose: 20 mg Admin: 09/05/18 08:53 Dose: 20 mg Saccharomyces Boulardii (Florastor) 250 mg PO BID [facility] Last Admin: 09/14/18 08:23 Dose: 250 mg Admin: 09/13/18 20:34 Dose: 250 mg Admin: 09/13/18 09:35 Dose: 250 mg Admin: 09/12/18 21:40 Dose: 250 mg Admin: 09/12/18 08:09 Dose: 250 mg Admin: 09/11/18 20:43 Dose: 250 mg Admin: 09/11/18 08:23 Dose: 250 mg Admin: 09/10/18 21:53 Dose: 250 mg Admin: 09/10/18 09:03 Dose: 250 mg Admin: 09/09/18 22:07 Dose: 250 mg Admin: 09/09/18 08:15 Dose: 250 mg Admin: 09/08/18 20:41 Dose: 250 mg Admin: 09/08/18 08:24 Dose: 250 mg Admin: 09/07/18 20:18 Dose: 250 mg Admin: 09/07/18 10:05 Dose: 250 mg Admin: 09/06/18 21:37 Dose: 250 mg Admin: 09/06/18 08:15 Dose: 250 mg Admin: 09/05/18 23:08 Dose: 250 mg Admin: 09/05/18 08:53 Dose: 250 mg Admin: 09/04/18 20:15 Dose: 250 mg - Assessment Assessment (Free Text/Narrative):: s/p right TKA - Plan Plan (Free Text/Narrative):: 1. Nursing may trim Jacqueline Wu as needed. 2. P.T. and O.T. have been ordered by admitting provider. 3. Further orders per admitting provider. The pt's case was discussed with Dr. Franklin.
[2018-09-14 12:22] VITALS: BP 148/51
--- NOTE | 2018-09-14 13:24 | PCM.DCSUM1 ---
Discharge Summary - Hospital Course HPI Initial Comments: This is a 73 yo elderly white female with past medical hx/o Impaired Vision, Hx/ o SVT, HTN, HLD, CKD stage 2-3, Urinary Incontinence, OA/DJD, FREDERICK, DM2, Hypothyroidism, NORBERTO on CPAP and Obesity with BMI of 42 who comes in with complaints of generalized abdominal pain associated with reduced appetite that started this past Wednesday. She tried OTC Metamucil, Miralax and Prune Juice but w /o much improvement. She carries no hx/o chronic constipation but report hx/o opioid induced constipation in the past. Patient recently discharged on 08/31/2018 after undergoing Right TKA here in the hospital. She did however was sent home with narcotic for pain control. CT scan report reads increased stool throughout the colon. Slight inflammatory change around a diverticuli within the sigmoid colon which may represent mild diverticulitis. Moderate amount of free fluid within the pelvis most likely reactive and diverticulitis. Her initial work up shows a CBC remarkable for WBC of 13.42, Neutrophils of 91% , and Lymphocytes of 3%. Her Chemistry is significant for Na of 127, Cl of 91, AG of 16.7, BUN of 57, Cr of 1.7, BS of 215 and Albumin of 2.9. Her UA is negative for UTI. Patient is being admitted for Sepsis 2/2 Acute Diverticulitis. She is full code. Diagnosis: Stroke: No Modified Casselberry Scale: No Symptoms at All Modified Casselberry Scale Score: 0 - Discharge Data Discharge Date: 09/14/18 Discharge Disposition: DC/Tfer to Acute Hospital 02 Condition: Poor - Discharge Diagnosis/Problem(s) (1) Abdominal pain SNOMED Code(s): 80548648 ICD Code: R10.9 - UNSPECIFIED ABDOMINAL PAIN Status: Acute Current Visit : Yes - Patient Summary/Data Consults: Consultations 09/05/18 17:28 Consult to Physician [CONS] Routine 09/08/18 11:25 Consult to Speech Language Pathology [SHELL[facility] GROWER Evaluation and Treatment] [CONS] Routine 09/08/18 11:33 Consult to Speech Language Pathology [SHELLF[facility] GROWER Evaluation and Treatment] [CONS] Routine 09/08/18 12:46 Consult to Physical Therapy [PT Evaluation and Treatment] [CONS] Routine 09/08/18 12:47 Consult to Occupational Therapy [OT Evaluation and Treatment] [CONS] Routine - Patient Instructions Activity: Bedrest Driving: Do Not Drive Showering/Bathing: No Showering Wound/Incision Care: Keep Operative Site/Wound Site Clean and Dry Notify Provider of: Fever Other/Special Instructions: Accepting provier: Dr. Rodriguez - Discharge Plan *PRESCRIPTION DRUG MONITORING PROGRAM REVIEWED*: Not Applicable *COPY OF PRESCRIPTION DRUG MONITORING REPORT IN PATIENT ELVIN: Not Applicable Home Medications: Home Meds Chlorthalidone 25 mg PO DAILY 08/26/18 [History] Fluticasone Propionate [Flonase] 1 dose NASBOTH DAILY PRN 08/26/18 [History] Labetalol [Normodyne] 100 mg PO BID 08/26/18 [History] Levothyroxine [Synthroid] 100 mcg PO DAILY 08/26/18 [History] Ozempic 0.5 mg SQ TH 08/26/18 [History] Rosuvastatin Calcium 20 mg PO DAILY 08/26/18 [History] amLODIPine Besylate [Norvasc] 10 mg PO DAILY 08/26/18 [History] Acetaminophen/HYDROcodone [[place] 325-5 MG] 1 tab PO Q6H PRN tablet 09/14/18 [Rx ] Albuterol/Ipratropium [DuoNeb 3.0-0.5 MG/3 ML] 3 ml NEB Q4HRRT PRN neb [Rx] Dextrose 50% in Water [Dextrose 50%-Water] 50 ml IV ASDIRECTED PRN sdv [Rx] Heparin Sodium 5,000 units SUBCUT Q8H vial 09/14/18 [Rx] Insulin Glarg,Human.Rec.Analog [Lantus] 30 unit SUBCUT Q24H ml 09/14/18 [Rx] Insulin Lispro [HumaLOG] 0 unit SUBCUT Q6H vial 09/14/18 [Rx] Remove Patch 0 ea TRDERM Q7D each 09/14/18 [Rx] Saccharomyces Boulardii [Florastor] 250 mg PO BID cap 09/14/18 [Rx] Oxygen Therapy Mode: Nasal Cannula Oxygen Flow Rate (L/min): 2 Patient Handouts: Diverticulitis, Constipation, Adult, Acute Respiratory Failure, Adult, Preventing Constipation After Surgery Referrals: Anand Franklin MD [Primary Care Provider] - Jesus Gonsales MD [Ordering Only Provider] - Rocky Morris MD [Physician] - - Discharge Summary/Plan Comment DC Time >30 min.: Yes Discharge Summary/Plan Comment: Acute: 1.Combined Respiratory Failure -extubated on September 08, 2018 - increased WOB, diuresis, 2D Echo (still pending results) 2.Diverticulitis with Ileus, Improving - CT scan report reads CT scan report reads increased stool throughout the colon. Slight inflammatory change around a diverticuli within the sigmoid colon which may represent mild diverticulitis. Moderate amount of free fluid within the pelvis most likely reactive and diverticulitis. - Continue IV Flagyl and Levaquin for pharmacy to dose - Oral Probiotic BID - started TF - Dr. Metcalf following 3.DM2 with Hyperglycemia - LA insulin and ISS--> switch to high level, modified. - Accu-check QID 4.Hypoalbuminemia, undernutrition; - started TF: tolerating tube feeds well at 50 mL per hour 5.Hypernatremia, - started free water per NG - improving. 6. Elevated lipase: - gallstone in gallbladder with sludge present, follow with serial readings of lipase. - lipase unchanged 7. Elevated WBC: - suspected pancreatitis - suspected pneumonia - obtain cultures, stopped all abx.. Discussed with the patient and sister at bedside in detail. patient is not improving significantly over the last 10 days. At this point it would benefit us to have her seen at a tertiary care center with more specialty care. [facility] [place] [facility] in [place] was called and Dr. Rodriguez agreed to admission and transfer. - General Info Date of Service: 09/14/18 Admission Dx/Problem (Free Text: 73 yo elderly white female with past medical hx/o Impaired Vision, Hx/o SVT, HTN , HLD, CKD stage 2-3, Urinary Incontinence, OA/DJD, FREDERICK, DM2, Hypothyroidism, NORBERTO on CPAP and Obesity with BMI of 42 who comes in with complaints of generalized abdominal pain associated with reduced appetite that started this past Wednesday. She tried OTC Metamucil, Miralax and Prune Juice but w/o much improvement. She carries no hx/o chronic constipation but report hx/o opioid induced constipation in the past. Patient recently discharged on 08/31/2018 after undergoing Right TKA here in the hospital. She did however was sent home with narcotic for pain control. CT scan report reads increased stool throughout the colon. Slight inflammatory change around a diverticuli within the sigmoid colon which may represent mild diverticulitis. Moderate amount of free fluid within the pelvis most likely reactive and diverticulitis. Her initial work up shows a CBC remarkable for WBC of 13.42, Neutrophils of 91% , and Lymphocytes of 3%. Her Chemistry is significant for Na of 127, Cl of 91, AG of 16.7, BUN of 57, Cr of 1.7, BS of 215 and Albumin of 2.9. Her UA is negative for UTI. Patient is being admitted for Sepsis 2/2 Acute Diverticulitis. She is full code. Daily Progress: 09/08/18, Patient successfully extubated at 1115. Post extubation chest x-ray shows mild bibasilar atelectasis with mild subglottic narrowing. Consult SHELLF[facility] GROWER for swallow eval in the meantime will do bedside swallow evaluation and IS as directed. 09/09/18, remains extubated, lethargic, adjusted sedatives regimen, started PO intake, responded to diuresis, in the wake of severe hypoalbuminemia and systemic inflammation as well as undernutrition has significant third space fluid excess. Will address diuresis need daily, considering IV albumin to facilitate. 09/10/18, more awake and alert, very poor po intake, responded to loop diuretic with albumin and thiazide, started free water per NG. Nursing unable to place soft NG, placed smallest gauge rigid, started slow rate of TF at 30 ml/hr. Appears to have increased WOB, will follow with 2D ECHO, ABGs as warranted. 09/11/18, developed loose stool, otherwise tolerates TF well, adjusted SSI upward , moderate response to diuresis, complains on worsening lower abdominal pain, will consider CT in AM, WBC somewhat up. 09/12/18, CT reveals gallstone with sludge, WBC continues to rise, will panculture , order venous doppler of LE, lipase at 3800, discussed with surgery, will continue TF today. 09/13/18, lipase unchanged, abdominal pain persists, tolerates TF well, no N/V, however loose stool persists, responded to another round of diuresis well, still extensive third spacing, discussed with surgery the possibility of more comfortable and longer term sustainable mean of TF delivery, decision pending, discussed with the patient in detail, will stop abx after full 10 day course, NG is preventing effective use of NIV. Subjective Update: Follow Up - Review of Systems General: Reports: Fatigue, Malaise HEENT: Reports: No Symptoms Pulmonary: Denies: Shortness of Breath, Cough Cardiovascular: Denies: Chest Pain, Palpitations Gastrointestinal: Reports: Abdominal Pain, Difficulty Swallowing Genitourinary: Denies: Dysuria, Frequency Musculoskeletal: Reports: No Symptoms Neurological: Denies: Confusion, Dizziness Psychiatric: Denies: Confusion, Depression - Patient Data Vitals - Most Recent: Last Vital Signs Temp 98.8 F 09/14/18 12:15 Pulse 63 09/14/18 12:17 Resp 22 H 09/14/18 12:15 BP 148/51 H 09/14/18 12:15 Pulse Ox 93 L 09/14/18 12:17 Weight - Most Recent: 279 lb 1.6 oz I&O - Last 24 hours: Intake & Output 09/13/18 09/14/18 09/14/18 22:59 06:59 14:59 Intake Total 799 25 Output Total 1275 Balance 799 -1250 Lab Results - Last 24 hrs: Laboratory Results - last 24 hr 09/13/18 09/13/18 09/14/18 Range/Units 16:20 20:53 00:53 WBC (3.98-10.04) K/mm3 RBC (3.98-5.22) M/mm3 Hgb (11.2-15.7) gm/L Hct (34.1-44.9) % MCV (79.4-94.8) fl MCH (25.6-32.2) pg MCHC (32.2-35.5) g/dl RDW Std Deviation (36.4-46.3) fL Plt Count (182-369) K/mm3 MPV (9.4-12.3) fl Neut % (Auto) (34.0-71.1) % Lymph % (Auto) (19.3-51.7) % Sibley % (Auto) (4.7-12.5) % Eos % (Auto) (0.7-5.8) Baso % (Auto) (0.1-1.2) % Neut # (Auto) (1.56-6.13) K/mm3 Lymph # (Auto) (1.18-3.74) K/mm3 Sibley # (Auto) (0.24-0.36) K/mm3 Eos # (Auto) (0.04-0.36) K/mm3 Baso # (Auto) (0.01-0.08) K/mm3 Manual Slide Review Sodium (136-145) mEq/L Potassium (3.5-5.1) mEq/L Chloride (98-107) mEq/L Carbon Dioxide (21-32) mEq/L Anion Gap (5-15) BUN (7-18) mg/dL Creatinine (0.55-1.02) mg/dL Est Cr Clr Drug Dosing mL/min Estimated GFR (MDRD) (>60) mL/min BUN/Creatinine Ratio (14-18) Glucose (83-115) mg/dL POC Glucose 246 H 207 H 218 H (83-110) mg/dL Calcium (8.5-10.1) mg/dL Phosphorus (2.6-4.7) mg/dL Magnesium (1.8-2.4) mg/dl Lipase (73-393) U/L 09/14/18 09/14/18 09/14/18 Range/Units 05:32 05:42 05:42 WBC 17.98 H (3.98-10.04) K/mm3 RBC 3.28 L (3.98-5.22) M/mm3 Hgb 9.8 L (11.2-15.7) gm/L Hct 31.0 L (34.1-44.9) % MCV 94.5 (79.4-94.8) fl MCH 29.9 (25.6-32.2) pg MCHC 31.6 L (32.2-35.5) g/dl RDW Std Deviation 50.0 H (36.4-46.3) fL Plt Count 275 (182-369) K/mm3 MPV 11.0 (9.4-12.3) fl Neut % (Auto) 83.9 H (34.0-71.1) % Lymph % (Auto) 5.7 L (19.3-51.7) % Sibley % (Auto) 6.7 (4.7-12.5) % Eos % (Auto) 1.8 (0.7-5.8) Baso % (Auto) 0.1 (0.1-1.2) % Neut # (Auto) 15.08 H (1.56-6.13) K/mm3 Lymph # (Auto) 1.02 L (1.18-3.74) K/mm3 Sibley # (Auto) 1.21 H (0.24-0.36) K/mm3 Eos # (Auto) 0.33 (0.04-0.36) K/mm3 Baso # (Auto) 0.01 (0.01-0.08) K/mm3 Manual Slide Review Abnormal smear Sodium (136-145) mEq/L Potassium (3.5-5.1) mEq/L Chloride (98-107) mEq/L Carbon Dioxide (21-32) mEq/L Anion Gap (5-15) BUN (7-18) mg/dL Creatinine (0.55-1.02) mg/dL Est Cr Clr Drug Dosing mL/min Estimated GFR (MDRD) (>60) mL/min BUN/Creatinine Ratio (14-18) Glucose (83-115) mg/dL POC Glucose 212 H (83-110) mg/dL Calcium (8.5-10.1) mg/dL Phosphorus 3.1 (2.6-4.7) mg/dL Magnesium 1.7 L (1.8-2.4) mg/dl Lipase (73-393) U/L 09/14/18 09/14/18 Range/Units 05:42 11:19 WBC (3.98-10.04) K/mm3 RBC (3.98-5.22) M/mm3 Hgb (11.2-15.7) gm/L Hct (34.1-44.9) % MCV (79.4-94.8) fl MCH (25.6-32.2) pg MCHC (32.2-35.5) g/dl RDW Std Deviation (36.4-46.3) fL Plt Count (182-369) K/mm3 MPV (9.4-12.3) fl Neut % (Auto) (34.0-71.1) % Lymph % (Auto) (19.3-51.7) % Sibley % (Auto) (4.7-12.5) % Eos % (Auto) (0.7-5.8) Baso % (Auto) (0.1-1.2) % Neut # (Auto) (1.56-6.13) K/mm3 Lymph # (Auto) (1.18-3.74) K/mm3 Sibley # (Auto) (0.24-0.36) K/mm3 Eos # (Auto) (0.04-0.36) K/mm3 Baso # (Auto) (0.01-0.08) K/mm3 Manual Slide Review Sodium 139 (136-145) mEq/L Potassium 3.9 (3.5-5.1) mEq/L Chloride 107 (98-107) mEq/L Carbon Dioxide 23 (21-32) mEq/L Anion Gap 12.9 (5-15) BUN 29 H (7-18) mg/dL Creatinine 0.8 (0.55-1.02) mg/dL Est Cr Clr Drug Dosing 64.12 mL/min Estimated GFR (MDRD) > 60 (>60) mL/min BUN/Creatinine Ratio 36.3 H (14-18) Glucose 202 H (83-115) mg/dL POC Glucose 229 H (83-110) mg/dL Calcium 8.4 L (8.5-10.1) mg/dL Phosphorus (2.6-4.7) mg/dL Magnesium (1.8-2.4) mg/dl Lipase 3572 H (73-393) U/L BALDEMAR Results - Last 24 hrs: Microbiology 09/12/18 13:10 Aerobic Blood Culture - Preliminary Blood - Venous NO GROWTH AFTER 2 DAYS Anaerobic Blood Culture - Preliminary NO GROWTH AFTER 2 DAYS 09/12/18 12:30 Aerobic Blood Culture - Preliminary Blood - Venous - Lab Draw NO GROWTH AFTER 2 DAYS Anaerobic Blood Culture - Preliminary NO GROWTH AFTER 2 DAYS 09/12/18 13:55 Urine Culture - Final Urine, Bladder NO GROWTH AFTER 2 DAYS Med Orders - Current: Current Medications Hydrocodone Bitart/Acetaminophen ([place] 325-5 Mg) 1 tab PO Q6H PRN PRN Reason: Pain Last Admin: 09/14/18 05:35 Dose: 1 tab Albuterol/Ipratropium (Duoneb 3.0-0.5 Mg/3 Ml) 3 ml NEB Q4HRRT PRN PRN Reason: Shortness of Breath Amlodipine Besylate (Norvasc) 10 mg PO DAILY NISA Last Admin: 09/14/18 08:22 Dose: 10 mg Benzocaine/Menthol (Cepacol Sore Throat) 1 lozenge MUCMEM Q2HR PRN PRN Reason: Sore Throat Last Admin: 09/14/18 08:25 Dose: 1 lozenge Dextrose/Water (Dextrose 50% In Water) 50 ml IV ASDIRECTED PRN PRN Reason: Hypoglycemia Fluticasone Propionate (Flonase) 0 gm NASBOTH DAILY PRN PRN Reason: Allergies Heparin Sodium (Porcine) (Heparin Sodium) 5,000 units SUBCUT Q8H [facility] Last Admin: 09/14/18 10:15 Dose: 5,000 units Insulin Glargine (Lantus) 30 unit SUBCUT Q24H [facility] Last Admin: 09/13/18 20:35 Dose: 30 units Insulin Human Lispro (Humalog) 0 unit SUBCUT Q6H [facility]; Protocol Last Admin: 09/14/18 11:40 Dose: 7 unit Labetalol HCl (Normodyne) 100 mg PO BID [facility] Last Admin: 09/14/18 08:23 Dose: 100 mg Levothyroxine Sodium (Synthroid) 100 mcg PO DAILY [facility] Last Admin: 09/14/18 08:23 Dose: 100 mcg Miscellaneous Information (Remove Patch) 0 ea TRDERM Q7D [facility] Stop: 09/15/18 16:00 Ozempic 0.5 Mg (Ptom) 0.5 each SUBCUT TH [facility] Last Admin: 09/08/18 12:27 Dose: Not Given Chlorthalidone 25 Mg (Ptom) 0 each PO DAILY [facility] Last Admin: 09/14/18 08:24 Dose: 1 each Rosuvastatin Calcium (Crestor) 20 mg PO DAILY [facility] Last Admin: 09/14/18 08:22 Dose: 20 mg Saccharomyces Boulardii (Florastor) 250 mg PO BID [facility] Last Admin: 09/14/18 08:23 Dose: 250 mg Discontinued Medications Acetaminophen (Tylenol) 1,300 mg PO BID [facility] Last Admin: 09/06/18 08:16 Dose: 1,300 mg Acetaminophen (Tylenol) 975 mg PO ONETIME ONE Stop: 09/05/18 00:06 Last Admin: 09/05/18 00:12 Dose: 975 mg Acetaminophen (Tylenol) 1,300 mg PO BID [facility] Last Admin: 09/10/18 09:24 Dose: 1,300 mg Acetazolamide (Diamox) 250 mg PO Q4H [facility] Stop: 09/12/18 02:27 Last Admin: 09/12/18 01:57 Dose: 250 mg Acetazolamide (Diamox) 250 mg PO Q4H [facility] Stop: 09/12/18 21:46 Last Admin: 09/12/18 21:42 Dose: 250 mg Albuterol (Proventil Neb Soln) Confirm Administered Dose 2.5 mg .ROUTE .STK-MED ONE Stop: 09/05/18 09:58 Last Admin: 09/05/18 10:00 Dose: 2.5 mg Albuterol (Proventil Neb Soln) Confirm Administered Dose 2.5 mg .ROUTE .STK-MED ONE Stop: 09/10/18 09:52 Last Admin: 09/10/18 10:13 Dose: Not Given Albuterol/Ipratropium (Duoneb 3.0-0.5 Mg/3 Ml) 3 ml NEB Q4H PRN PRN Reason: Shortness Of Breath/wheezing Albuterol/Ipratropium (Duoneb 3.0-0.5 Mg/3 Ml) 3 ml NEB ONETIME ONE Stop: 09/05/18 09:58 Last Admin: 09/05/18 15:06 Dose: Not Given Albuterol/Ipratropium (Duoneb 3.0-0.5 Mg/3 Ml) 3 ml NEB BIDRT [facility] Last Admin: 09/08/18 06:12 Dose: 3 ml Albuterol/Ipratropium (Duoneb 3.0-0.5 Mg/3 Ml) 3 ml NEB Q6HRRT [facility] Last Admin: 09/13/18 08:21 Dose: 3 ml Amlodipine Besylate (Norvasc) 10 mg PO DAILY [facility] Last Admin: 09/06/18 08:10 Dose: Not Given Artificial Tears (Refresh Liquigel 1%) 0 ml EYEBOTH DAILY PRN PRN Reason: Dry Eyes Ascorbic Acid (Vitamin C) 1,000 mg PO DAILY [facility] Last Admin: 09/06/18 08:17 Dose: 1,000 mg Ascorbic Acid (Vitamin C) 1,000 mg PO DAILY [facility] Last Admin: 09/10/18 09:06 Dose: Not Given Aspirin (Ecotrin) 325 mg PO BID [facility] Last Admin: 09/06/18 08:33 Dose: Not Given Aspirin (Ecotrin) 325 mg PO BID [facility] Last Admin: 09/09/18 08:15 Dose: 325 mg Benazepril HCl (Lotensin) 40 mg PO DAILY [facility] Last Admin: 09/05/18 10:54 Dose: Not Given Bisacodyl (Dulcolax) 5 mg PO DAILY PRN PRN Reason: Constipation Bisacodyl (Dulcolax) 10 mg RECTAL DAILY [facility] Last Admin: 09/10/18 09:04 Dose: Not Given Bumetanide (Bumex) 0.5 mg IVPUSH ONETIME ONE Stop: 09/06/18 21:39 Last Admin: 09/06/18 22:36 Dose: 0.5 mg Bumetanide (Bumex) 0.5 mg IVPUSH BID [facility] Last Admin: 09/09/18 08:20 Dose: 0.5 mg Clonidine HCl (Catapres-Tts 3) 0.3 mg TRDERM Q7D [facility] Last Admin: 09/08/18 15:49 Dose: 0.3 mg Cyanocobalamin (Vitamin B12) 250 mcg PO DAILY [facility] Last Admin: 09/06/18 08:24 Dose: 250 mcg Cyanocobalamin (Vitamin B12) 250 mcg PO DAILY [facility] Last Admin: 09/10/18 09:06 Dose: Not Given Dextrose/Water (Dextrose 50% In Water) 50 ml IVPUSH ASDIRECTED PRN PRN Reason: Hypoglycemia Diatrizoate Meglum/Diatrizoate Sod (Gastrografin 37%) 120 ml PO ONETIME ONE Stop: 09/04/18 08:09 Last Admin: 09/04/18 08:41 Dose: 90 ml Diazepam (Valium) 5 mg IV Q6H PRN PRN Reason: Sedation Diltiazem HCl (Cardizem) 10 mg IVPUSH ONETIME STA Stop: 09/07/18 06:34 Last Admin: 09/07/18 06:45 Dose: 10 mg Enoxaparin Sodium (Lovenox) 40 mg SUBCUT DAILY [facility] Famotidine (Pepcid) 20 mg IV DAILY [facility] Last Admin: 09/10/18 09:06 Dose: 20 mg Flunisolide (Nasalide Nasal [place]) 0 ml NASBOTH BID PRN PRN Reason: Allergies Furosemide (Lasix) 20 mg PO DAILY [facility] Last Admin: 09/05/18 08:54 Dose: 20 mg Furosemide (Lasix) 60 mg IVPUSH ONETIME ONE Stop: 09/10/18 09:42 Last Admin: 09/10/18 13:12 Dose: 60 mg Furosemide (Lasix) 40 mg IVPUSH NOW ONE Stop: 09/12/18 17:45 Last Admin: 09/12/18 18:38 Dose: 40 mg Gabapentin (Neurontin) 300 mg PO BEDTIME [facility] Last Admin: 09/04/18 20:16 Dose: 300 mg Hydralazine HCl (Apresoline) 20 mg IVPUSH Q4H PRN PRN Reason: Hypertension Last Admin: 09/09/18 04:18 Dose: 20 mg Hydrochlorothiazide (Hydrochlorothiazide) 25 mg PO ONETIME ONE Stop: 09/10/18 09:44 Last Admin: 09/10/18 13:12 Dose: 25 mg Hydrochlorothiazide (Hydrochlorothiazide) 25 mg PO ONETIME ONE Stop: 09/12/18 17:45 Last Admin: 09/12/18 18:43 Dose: 25 mg Hydrocortisone (Hydrocortisone 1% Crm) 0 gm TOP BID PRN PRN Reason: skin complications Hydromorphone HCl (Dilaudid) 0.5 mg IVPUSH ONETIME STA Stop: 09/04/18 06:17 Last Admin: 09/04/18 06:38 Dose: 0.5 mg Hydromorphone HCl (Dilaudid) 0.5 mg IVPUSH Q2H PRN PRN Reason: Pain (severe 7-10) Last Admin: 09/05/18 03:49 Dose: 0.5 mg Sodium Chloride (Normal Saline) 1,000 mls @ 150 mls/hr IV ASDIRECTED [facility] Last Infusion: 09/05/18 18:41 Dose: Infused Levofloxacin/Dextrose 750 mg/ (Premix) 150 mls @ 100 mls/hr IV ONETIME ONE Stop: 09/04/18 10:25 Last Admin: 09/04/18 09:15 Dose: 100 mls/hr Metronidazole 500 mg/ Premix 100 mls @ 100 mls/hr IV ONETIME ONE Stop: 09/04/18 09:56 Last Admin: 09/04/18 09:16 Dose: 100 mls/hr Levofloxacin/Dextrose 750 mg/ (Premix) 150 mls @ 100 mls/hr IV Q48H [facility] Last Admin: 09/10/18 10:23 Dose: Not Given Metronidazole 500 mg/ Premix 100 mls @ 100 mls/hr IV Q8H [facility] Last Admin: 09/13/18 09:05 Dose: 100 mls/hr Sodium Chloride (Normal Saline) 1,000 mls @ 999 mls/hr IV ASDIRECTED [facility] Last Admin: 09/05/18 13:45 Dose: 999 mls/hr Fentanyl 2,500 mcg/ Sodium (Chloride) 250 mls @ 25.57 mls/hr IV TITRATE [facility]; Protocol Stop: 09/06/18 14:01 Last Titration: 09/06/18 11:13 Dose: 4 mcg/kg/hr, 51.14 mls/hr Propofol (Diprivan 100 Ml) 100 mls @ 3.836 mls/hr IV TITRATE [facility]; Protocol Last Titration: 09/07/18 09:15 Dose: 0 mcg/kg/min, 0 mls/hr Sodium Chloride (Normal Saline) Confirm Administered Dose 1,000 mls @ as directed .ROUTE .STK-MED ONE Stop: 09/05/18 14:12 Last Admin: 09/05/18 15:24 Dose: Not Given Sodium Chloride (Normal Saline) 1,000 mls @ 250 mls/hr IV ASDIRECTED [facility] Last Infusion: 09/05/18 22:30 Dose: 999 mls/hr Sodium Chloride (Normal Saline) 1,000 mls @ 999 mls/hr IV ONETIME ONE Stop: 09/05/18 23:30 Last Admin: 09/05/18 22:53 Dose: 999 mls/hr Sodium Chloride (Normal Saline) 1,000 mls @ 125 mls/hr IV ASDIRECTED [facility] Last Admin: 09/08/18 05:34 Dose: 125 mls/hr Norepinephrine Bitartrate 4 mg (/ Dextrose/Water) 250 mls @ 7.5 mls/hr IV TITRATE [facility]; Protocol Stop: 09/06/18 23:59 Last Titration: 09/06/18 16:24 Dose: 22 mcg/min, 82.5 mls/hr Sodium Bicarbonate 150 meq/ (Sodium Chloride) 400 mls @ 50 mls/hr IV ONETIME ONE Stop: 09/06/18 09:29 Last Admin: 09/06/18 01:51 Dose: 50 mls/hr Sodium Chloride (Normal Saline) Confirm Administered Dose 250 mls @ as directed .ROUTE .STK-MED ONE Stop: 09/06/18 01:27 Last Admin: 09/06/18 01:52 Dose: Not Given Norepinephrine Bitartrate 16 (mg/ Dextrose/Water) 250 mls @ 1.87 mls/hr IV TITRATE [facility]ISA; Protocol Last Titration: 09/07/18 12:55 Dose: 0 mcg/min, 0 mls/hr Fentanyl 2,500 mcg/ Sodium (Chloride) 250 mls @ 26.33 mls/hr IV TITRATE [facility]; Protocol Stop: 09/07/18 22:00 Last Titration: 09/07/18 20:16 Dose: 2 mcg/kg/hr, 26.33 mls/hr Sodium Chloride (Normal Saline) 500 mls @ 999 mls/hr IV .BOLUS ONE Stop: 09/06/18 20:19 Last Admin: 09/06/18 19:53 Dose: 999 mls/hr Diltiazem HCl 125 mg/ Sodium (Chloride) 125 mls @ 2.5 mls/hr IV TITRATE NISA; Protocol Last Titration: 09/07/18 14:42 Dose: 0 mg/hr, 0 mls/hr Midazolam HCl 50 mg/ Sodium (Chloride) 50 mls @ 0.5 mls/hr IV TITRATE [facility]; Protocol Last Titration: 09/07/18 21:17 Dose: 1 mg/hr, 1 mls/hr Albumin Human (Flexbumin 25%) 25 gm in 100 mls @ 100 mls/hr IV ONETIME ONE Stop: 09/10/18 10:39 Last Admin: 09/10/18 12:02 Dose: 100 mls/hr Levofloxacin/Dextrose 750 mg/ (Premix) 150 mls @ 100 mls/hr IV Q24H NISA Last Admin: 09/13/18 19:37 Dose: Not Given Magnesium Sulfate 2 gm/ Premix 50 mls @ 25 mls/hr IV ONETIME ONE Stop: 09/10/18 18:52 Last Admin: 09/10/18 17:45 Dose: 25 mls/hr Magnesium Sulfate 2 gm/ Premix 50 mls @ 25 mls/hr IV ONETIME ONE Stop: 09/11/18 11:18 Last Admin: 09/11/18 11:11 Dose: 25 mls/hr Magnesium Sulfate 2 gm/ Premix 50 mls @ 25 mls/hr IV ONETIME ONE Stop: 09/12/18 17:48 Last Admin: 09/12/18 16:10 Dose: 25 mls/hr Albumin Human (Flexbumin 25%) 25 gm in 100 mls @ 100 mls/hr IV ONETIME ONE Stop: 09/12/18 18:45 Last Admin: 09/12/18 18:35 Dose: 100 mls/hr Albumin Human (Flexbumin 25%) Confirm Administered Dose 50 mls @ as directed .ROUTE .STK-MED ONE Stop: 09/12/18 18:35 Last Admin: 09/12/18 18:44 Dose: Not Given Magnesium Sulfate 2 gm/ Premix 50 mls @ 25 mls/hr IV ONETIME ONE Stop: 09/13/18 10:59 Last Admin: 09/13/18 09:05 Dose: 25 mls/hr Insulin Glargine (Lantus) 80 unit SUBCUT BEDTIME NISA Last Admin: 09/04/18 22:43 Dose: Not Given Insulin Glargine (Lantus) 80 unit SUBCUT ONETIME ONE Stop: 09/05/18 00:01 Last Admin: 09/04/18 23:51 Dose: Not Given Insulin Glargine (Lantus) 80 unit SUBCUT BEDTIME NISA Insulin Human Lispro (Humalog) 0 unit SUBCUT QIDACANDBED NISA; Protocol Last Admin: 09/06/18 09:41 Dose: Not Given Iopamidol (Isovue-370 (76%)) 200 ml IV ONETIME ONE Stop: 09/04/18 08:09 Last Admin: 09/04/18 08:44 Dose: 70 ml Labetalol HCl (Normodyne) 100 mg PO BID NISA Last Admin: 09/06/18 08:10 Dose: Not Given Labetalol HCl (Normodyne) 20 mg IVPUSH ONETIME ONE; Protocol Stop: 09/08/18 13:44 Last Admin: 09/08/18 13:57 Dose: 20 mg Lactulose (Cephulac) 20 gm PO Q6H NISA Stop: 09/05/18 07:01 Last Admin: 09/05/18 06:51 Dose: 20 gm Lorazepam (Ativan) 0.5 mg IV Q6H PRN PRN Reason: Anxiety Last Admin: 09/05/18 09:04 Dose: 0.5 mg Lorazepam (Ativan) 2 mg IV Q4H PRN PRN Reason: Anxiety Last Admin: 09/09/18 00:46 Dose: 2 mg Losartan Potassium (Cozaar) 50 mg PO DAILY [facility] Last Admin: 09/05/18 10:53 Dose: Not Given Losartan Potassium (Cozaar) 50 mg PO DAILY [facility] Magnesium Sulfate (Pharmacy To Dose - Magnesium Replacement) 0 dose .XX ASDIRECTED PRN PRN Reason: RX TO WATCH MAG Methylprednisolone Sodium Succinate (Solu-Medrol) 60 mg IVPUSH ONETIME STA Stop: 09/05/18 09:58 Last Admin: 09/05/18 11:06 Dose: 60 mg Methylprednisolone Sodium Succinate (Solu-Medrol) 60 mg IVPUSH Q8H [facility] Last Admin: 09/08/18 06:01 Dose: 60 mg Methylprednisolone Sodium Succinate (Solu-Medrol) 60 mg IVPUSH BID [facility] Last Admin: 09/09/18 08:20 Dose: 60 mg Metoclopramide HCl (Reglan) 5 mg IVPUSH Q6H [facility] Stop: 09/05/18 01:01 Last Admin: 09/05/18 00:01 Dose: 5 mg Metoclopramide HCl (Reglan) 10 mg IVPUSH Q6H [facility] Last Admin: 09/10/18 05:57 Dose: 10 mg Metoprolol Tartrate (Lopressor) 5 mg IVPUSH Q4H PRN PRN Reason: Tachycardia Last Admin: 09/07/18 09:43 Dose: 5 mg Midazolam HCl (Versed 1 Mg/Ml) 10 mg .ROUTE .STK-MED ONE Stop: 09/05/18 14:01 Midazolam HCl (Versed 1 Mg/Ml) 10 mg IVPUSH ONETIME ONE Stop: 09/05/18 13:34 Last Admin: 09/05/18 13:33 Dose: 10 mg Midodrine (Midodrine) 5 mg PO TIDAC [facility] Last Admin: 09/06/18 11:16 Dose: 5 mg Midodrine (Midodrine) 5 mg PO ONETIME ONE Stop: 09/06/18 01:31 Last Admin: 09/06/18 01:45 Dose: 5 mg Midodrine (Midodrine) 5 mg PO TIDAC [facility] Modafinil (Provigil) 200 mg PO NOW STA Stop: 09/08/18 09:03 Last Admin: 09/08/18 09:18 Dose: 200 mg Morphine Sulfate (Morphine) 1 mg IVPUSH ONETIME STA Stop: 09/05/18 09:55 Last Admin: 09/05/18 11:07 Dose: 1 mg Morphine Sulfate (Morphine) Confirm Administered Dose 2 mg .ROUTE .STK-MED ONE Stop: 09/05/18 09:57 Last Admin: 09/05/18 11:07 Dose: 1 mg Multivitamins (Thera) 1 each PO DAILY [facility] Last Admin: 09/06/18 08:17 Dose: 1 each Multivitamins (Thera) 1 each PO DAILY [facility] Last Admin: 09/10/18 09:05 Dose: Not Given Ondansetron HCl (Zofran) 4 mg IVPUSH ONETIME ONE Stop: 09/04/18 06:17 Last Admin: 09/04/18 06:37 Dose: 4 mg Ondansetron HCl (Zofran) 4 mg IV Q6H PRN PRN Reason: Nausea/Vomiting Chlorthalidone 25 Mg (Ptom) 0 each PO DAILY [facility] Last Admin: 09/06/18 08:11 Dose: Not Given Polyethylene Glycol (Miralax) 17 gm PO DAILY PRN PRN Reason: Constipation Potassium Chloride (Pharmacy To Dose - Potassium Replacement) 0 dose .XX ASDIRECTED PRN PRN Reason: RX TO WATCH K Racepinephrine (S-2 2.25%) Confirm Administered Dose 0.5 ml .ROUTE .STK-MED ONE Stop: 09/10/18 09:49 Last Admin: 09/10/18 10:13 Dose: Not Given Rocuronium Boissevain (Zemuron) 100 mg .ROUTE .STK-MED ONE Stop: 09/05/18 14:01 Rocuronium Boissevain (Zemuron) 100 mg IVPUSH ONETIME ONE Stop: 09/05/18 13:35 Last Admin: 09/05/18 13:34 Dose: 100 mg Sodium Bicarbonate (Sodium Bicarbonate 8.4%) 150 meq IVPUSH ONETIME ONE Stop: 09/06/18 01:05 Last Admin: 09/06/18 09:40 Dose: Not Given Sodium Bicarbonate (Sodium Bicarbonate 8.4%) Confirm Administered Dose 50 meq .ROUTE .STK-MED ONE Stop: 09/06/18 01:27 Last Admin: 09/06/18 01:50 Dose: 50 meq Sodium Bicarbonate (Sodium Bicarbonate 8.4%) Confirm Administered Dose 100 meq .ROUTE .STK-MED ONE Stop: 09/06/18 01:29 Last Admin: 09/06/18 01:52 Dose: Not Given Sodium Bicarbonate (Sodium Bicarbonate 8.4%) 50 meq IVPUSH ONETIME ONE Stop: 09/06/18 01:30 Last Admin: 09/06/18 01:51 Dose: 50 meq Sodium Bicarbonate (Sodium Bicarbonate 8.4%) Confirm Administered Dose 50 meq .ROUTE .STK-MED ONE Stop: 09/06/18 01:38 Last Admin: 09/06/18 01:52 Dose: Not Given Sodium Chloride (Saline Flush) 10 ml FLUSH ONETIME PRN PRN Reason: IV FLUSH Last Admin: 09/04/18 08:42 Dose: 10 ml Temazepam (Restoril) 7.5 mg PO BEDTIME PRN PRN Reason: Sleep Last Admin: 09/08/18 21:25 Dose: 7.5 mg Terbutaline Sulfate (Brethine) 2.5 mg PO BID [facility] Stop: 09/06/18 21:01 Last Admin: 09/05/18 11:06 Dose: 2.5 mg - Exam Quality Assessment: Reports: Supplemental Oxygen General: Reports: Alert, Oriented HEENT: Reports: Pupils Equal, Pupils Reactive Neck: Reports: Supple Lungs: Reports: Clear to Auscultation, Normal Respiratory Effort Cardiovascular: Reports: Regular Rate, Regular Rhythm GI/Abdominal Exam: Soft, Tender (epigastric without guarding or rebound.) Back Exam: Reports: Normal Inspection Extremities: Pedal Edema (2-3+ bilateral pitting edema) Neurological: Reports: No New Focal Deficit Psy/Mental Status: Reports: Alert, Normal Affect Discharge Operative/Procedures - Procedures Performed Intubation Indication: Respiratory Failure
== END 2018-09-14 14:10 | DRG 871 ==
LOC: JD.ED 03:47 → JD.MS 12:20 → JD.ICU 09-05 09:58 → JD.MS 09-09 13:26
PROVIDERS: ADMIT Internal Medicine; ATTEND Internal Medicine
PROC: 0BH17EZ Insertion of Endotracheal Airway into Trachea, Via Natural or Artificial Opening (ICD-10-PCS; 2018-09-05)
PROC: 5A09357 Assistance with Respiratory Ventilation, Less than 24 Consecutive Hours, Continuous Positive Airway Pressure (ICD-10-PCS; 2018-09-05)
PROC: 5A1945Z Respiratory Ventilation, 24-96 Consecutive Hours (ICD-10-PCS; 2018-09-05)
PROC: 0DH67UZ Insertion of Feeding Device into Stomach, Via Natural or Artificial Opening (ICD-10-PCS; principal; 2018-09-10)
PROC: 3E0G76Z Introduction of Nutritional Substance into Upper GI, Via Natural or Artificial Opening (ICD-10-PCS; 2018-09-10)
DX: A41.9 Sepsis, unspecified organism (principal); K85.90 Acute pancreatitis without necrosis or infection, unspecified; G47.30 Sleep apnea, unspecified; J18.9 Pneumonia, unspecified organism; J96.02 Acute respiratory failure with hypercapnia; N18.9 Chronic kidney disease, unspecified; J96.01 Acute respiratory failure with hypoxia; K57.32 Diverticulitis of large intestine without perforation or abscess without bleeding; E66.9 Obesity, unspecified; E87.1 Hypo-osmolality and hyponatremia; Z68.41 Body mass index [BMI] 40.0-44.9, adult; N17.9 Acute kidney failure, unspecified; K56.7 Ileus, unspecified; E87.0 Hyperosmolality and hypernatremia; E87.2 Acidosis; G93.40 Encephalopathy, unspecified; E78.00 Pure hypercholesterolemia, unspecified; E11.22 Type 2 diabetes mellitus with diabetic chronic kidney disease; I12.9 Hypertensive chronic kidney disease with stage 1 through stage 4 chronic kidney disease, or unspecified chronic kidney disease; M19.90 Unspecified osteoarthritis, unspecified site; R10.9 Unspecified abdominal pain; E03.9 Hypothyroidism, unspecified; I48.91 Unspecified atrial fibrillation; E11.65 Type 2 diabetes mellitus with hyperglycemia; R32 Unspecified urinary incontinence; R51 Headache; H54.7 Unspecified visual loss; K59.03 Drug induced constipation; T40.2X5A Adverse effect of other opioids, initial encounter; E66.01 Morbid (severe) obesity due to excess calories; E78.5 Hyperlipidemia, unspecified; N18.3 Chronic kidney disease, stage 3 (moderate); G47.33 Obstructive sleep apnea (adult) (pediatric); E88.09 Other disorders of plasma-protein metabolism, not elsewhere classified; K80.80 Other cholelithiasis without obstruction; Z79.4 Long term (current) use of insulin; Z96.653 Presence of artificial knee joint, bilateral; Z79.890 Hormone replacement therapy; Z88.8 Allergy status to other drugs, medicaments and biological substances; Z79.899 Other long term (current) drug therapy; Z79.82 Long term (current) use of aspirin
CPT/HCPCS: 36415; 74019; 74177; 80053; 81001; 83690; 85007; 85027; 96361; 96365; 96366; 96368; 96375; 99285; J1170; J1956; J2405; J3490; J7040; Q9963; Q9967; 36600; 51701; 51702; 51703; 71045; 71045-26; 74018; 74018-26; 74176; 74176-26; 76770; 76770-26; 80048; 80061; 82150; 82306; 82803; 82962; 83036; 83605; 83735; 83880; 84100; 85025; 86140; 87040; 87086; 87205; 87493; 92526-GN; 92610-GN; 93005; 93306; 94002; 94003; 94640; 94660; 94761; 97110-GO; 97110-GP; 97116-GP; 97162-GP; 97167-GO; 97530-GO; 97530-GP; A9270-GY; J0360; J1644; J1815-GY; J1940; J2060; J2250; J2270; J2704; J2765; J2920; J3010; J3475; J7030; J7050; J7060; J7620-GY; P9047